=== PATIENT | female | born 1990 | race American Indian/Alaskan Native ===

== ENCOUNTER 2022-05-12 11:57 | Inpatient (IN) | payer BC ==
[2022-05-12] MEDS ORDERED: levETIRAcetam 1000 MG/NS 0.75% 1,000 MG/100 ML BAG IV ONE ×2 (13:38→23:15)
[2022-05-12] MEDS ORDERED: SODIUM CHLORIDE 0.9% 1000 ML 1,000 ML IV ONE ×2 (13:38→16:14)
--- NOTE | 2022-05-12 13:44 | Emergency Department Report ---
<BRITTANEY FLEMING - Last Filed: 05/12/22 20:55> ED Seizure HPI - General Chief Complaint: Altered Mental Status Stated Complaint: POSS STROKE Time Seen by Provider: 05/12/22 13:37 Source: family Mode of arrival: Wheelchair Limitations: No Limitations, Altered Mental Status - History of Present Illness Initial Comments: 31-year-old female with history of seizure brought in with seizure episode that happened between 3 and 4 AM overnight associated with supposed seizure generalized body weakness progressively getting worse. According to patient's friends that was in the examination room they were traveling from [place] since last and have not gotten enough rest or sleep. Patient started complaining of being tired last night and took some nap only to woke up around 4 AM with known bloody emesis and then seizure right after this. No fever or chills reported. Patient is completely awake during examination but c/o weakness and tiredness. No other modifying or associated factors reported. MD Complaint: seizure, possible seizure - Related Data Allergies Allergy/AdvReac Type Severity Reaction Status Date / Time Unable to Assess Allergy Verified 05/12/22 13:17 ED Review of Systems Comment: All other systems reviewed and negative Constitutional: weakness Neurological: weakness ED Physical Exam - General Limitations: No Limitations, Altered Mental Status General appearance: postictal - Head Head exam: Present: atraumatic, normal inspection - Eye Eye exam: Present: normal appearance Pupils: Present: normal accommodation - ENT ENT exam: Present: normal exam, normal orophraynx, mucous membranes dry - Neck Neck exam: Present: normal inspection, full ROM. Absent: tenderness - Respiratory Respiratory exam: Present: normal lung sounds bilaterally. Absent: respiratory distress, accessory muscle use - Cardiovascular Cardiovascular Exam: Present: regular rate, normal rhythm, normal heart sounds - GI/Abdominal GI/Abdominal exam: Present: soft, normal bowel sounds. Absent: distended, tenderness - Extremities Exam Extremities exam: Present: normal inspection, full ROM, normal capillary refill. Absent: tenderness, pedal edema - Back Exam Back exam: Present: normal inspection. Absent: tenderness, CVA tenderness (R), CVA tenderness (L) - Neurological Exam Neurological exam: Present: alert, oriented X3 - Psychiatric Psychiatric exam: Present: normal affect, normal mood - Skin Skin exam: Present: warm, normal color ED Course - Reevaluation(s) Reevaluation #1: 05/12/22 20:55 Pt signed out to Dr Hannon at shift change while waiting for patient to wake up from postictal and repeated CBC, CMP and CT head with lactic acid after hydration-- ED Medical Decision Making - Lab Data Result diagrams: 05/12/22 14:25 05/12/22 14:25 - EKG Data -: EKG Interpreted by Me EKG shows normal: sinus rhythm - EKG Data 05/12/22 20:50 ECG noted with sinus tachycardia at a rate of 107 bpm with left atrial enlargement and LVH and this abnormal ECG. - Medical Decision Making Here with possible seizure and currently postictal -- but considering this patients age other differential such as stroke, myocardial infarction, hepatic encephalopathy, systemic infection with sepsis cannot be ruled out. In order to rule out those above we will go ahead and order CT scan of the brain, CBC, CMP, urinalysis, for any infectious process or electrolyte abnormality and thyroid panel for any hypo or hyper thyroidism. In the meantime we will go ahead and give Keppra 1 g IV piggyback x1 for brain membrane stabilization while waiting for the above. Will also check as a stressor. Lab reviewed and noted with blood sugar 580 mg/dl but with unremarkable anion cap consistent with likely hyperglycemia with dehydration-- given insulin 10 units SQ and IV x 1-- and hydration Also noted with elevated BUN/Cr 26/3.1 but normal K+ -- consistent with likely mild renal insufficiency/ dehydration-- will continue hydration Blood pressure shows hypertensive crisis at 202/120 given Labetolol 10 mg IV x 1-- and will continue to monitor. also noted with leukocytosis --likely reactive but will continue to monitor for any source of infection-- Still having elevated blood pressure so will order hydralyzine 10 mg IV x 1 and also will get CT head to rule out any intracranial abnormality. Pt friend Ms Kaya lopez who was in the room told me that patient sometimes have an extended postictal unresponsiveness for days. Will go ahead and repeat CBC, CMP and lactic acid at 22:00 PM ED Disposition Clinical Impression: Seizure, Postictal state, Hyperglycemia, Hypertensive crisis, Dehydration Disposition: 30 STILL A PATIENT Does the pt Need Aspirin: No Condition: Stable Instructions: Hypertension (ED) Referrals: PRIMARY CARE, [Primary Care Provider] - 3-5 Days <PB HANNON - Last Filed: 05/13/22 01:58> ED Review of Systems ROS: Stated complaint: POSS STROKE Other details as noted in HPI ED Course Vital Signs 05/12/22 05/12/22 05/12/22 12:02 12:08 12:16 Temperature Pulse Rate 113 H 106 H 110 H Respiratory 18 20 19 Rate Blood Pressure 221/137 Blood Pressure 209/123 [Left] O2 Sat by Pulse 98 94 90 Oximetry 05/12/22 05/12/22 05/12/22 12:31 12:45 13:01 Temperature Pulse Rate 102 H 104 H 110 H Respiratory 21 17 19 Rate Blood Pressure 265/148 265/148 Blood Pressure [Left] O2 Sat by Pulse 95 94 92 Oximetry 05/12/22 05/12/22 05/12/22 13:15 13:42 13:45 Temperature Pulse Rate 101 H 111 H Respiratory 18 14 Rate Blood Pressure 224/139 228/123 Blood Pressure [Left] O2 Sat by Pulse 95 98 97 Oximetry 05/12/22 05/12/22 05/12/22 14:45 15:01 15:15 Temperature Pulse Rate 92 H 101 H 93 H Respiratory 19 16 17 Rate Blood Pressure 208/110 208/110 202/120 Blood Pressure [Left] O2 Sat by Pulse 96 97 96 Oximetry 05/12/22 05/12/22 05/12/22 15:31 15:45 16:01 Temperature Pulse Rate 98 H 89 Respiratory 18 16 Rate Blood Pressure 202/120 187/102 187/102 Blood Pressure [Left] O2 Sat by Pulse 96 96 96 Oximetry 05/12/22 05/12/22 05/12/22 16:15 16:31 16:45 Temperature Pulse Rate 99 H Respiratory 17 Rate Blood Pressure 201/115 201/115 215/130 Blood Pressure [Left] O2 Sat by Pulse 97 97 97 Oximetry 05/12/22 05/12/22 05/12/22 17:01 17:15 17:31 Temperature Pulse Rate 105 H 107 H 102 H Respiratory 17 18 29 H Rate Blood Pressure 215/130 218/166 201/115 Blood Pressure [Left] O2 Sat by Pulse 98 96 97 Oximetry 05/12/22 05/12/22 05/12/22 17:45 18:01 18:15 Temperature Pulse Rate 109 H 91 H 124 H Respiratory 18 21 Rate Blood Pressure 210/135 210/135 210/135 Blood Pressure [Left] O2 Sat by Pulse 96 95 95 Oximetry 05/12/22 05/12/22 05/12/22 18:31 22:43 23:08 Temperature 103.1 F H Pulse Rate 92 H 112 H Respiratory 19 Rate Blood Pressure 210/135 225/122 Blood Pressure [Left] O2 Sat by Pulse 97 Oximetry - Reevaluation(s) Reevaluation #1: 05/12/22 22:19 THIS IS A 31 YEAR OLD FEMALE WITH MEDICAL HISTORY OF SEIZURE, HTN, DM; SIGNED OUT TO ME BY MY COLLEAGUE WITH SEIZURE AND CURRENTLY POSTICTAL NOTED TO HAVE LEUKOCYTOSIS W/ ELEVATED LACTIC ACID AND HYPERTENSIVE CRISIS. SO FAR, MY COLLEAGUE STATES HE HAS GIVEN CEFEPIME 2G IV X1, LABETOLOL 10MG IV X1, HYDRALAZINE 10MG X1, KEPPRA 1G IVPB X1. PENDING REPEAT OF CBC, CMP, LACTIC ACID AT 22:[address] HEAD TO BE DONE. I FIRST SAW THE PATIENT WHILE SUPERINTENDENT WAREHOUSE WAS WHEELING PATIENT TO CT AND SUPERINTENDENT WAREHOUSE INFORMED ME WE NEED TO SEDATE "THIS PATIENT" SHE IS MOVING AROUND AND CAN'T GET CT SCAN; NOT KNOWING WHO THE PATIENT WAS AT THE TIME, SO I VERBALLY GAVE 2MG IV ATIVAN AND 50MG IV BENADRYL SO THEY COULD GET THE CT SCAN. LATER PATIENT WAS WHEELED BACK BECAUSE PER SUPERINTENDENT WAREHOUSE, PATIENT WAS HAVING SEIZURE WHILE THERE. NURSE SAID SHE GAVE THE ATIVAN AND IT HELP AND THAT'S WHEN I REALIZED THAT'S THE PATIENT I SAW IN THE HALLWAY THAT PATIENT WAS SIGNED OUT TO ME. AT BESIDE EVALUATION, PATIENT IS SEDATED AND FRIEND ARE AT BEDSIDE UNHAPPY WITH THE CARE THEY FELT THINGS ARE NOT BE DONE. DURING MY EVALUATION, PATIENT'S PUPIL PERRLA AND PATIENT BREATHING REGULARLY. PATIENT DOES VOLUNTARILY MOVE ALL EXTREMITIES (NOT HAVING TONIC CLONIC SEIZURE ACTIVITIES); THERE ARE NO RASH ANYWHERE. +S1/2, -M/R/G, CTAB, - W/R/C, ABDOMINAL +BS, SOFT. I HAVE PUT AD DITIONAL ORDERS; KEPPRA 1G (2 G TOTOAL), ALCOHOL LEVEL, ABG, KETONE SERUM, GLUCOSE FINGER Q1H, TROP, BLOOD CULTURE, CXR. AT 10:25PM, NURSE INFORMED ME OF ELEVATED TEMP AND I PUT IN TYLENOL. NURSE INFORMED TO REPEAT BLOOD PRESSURE AND HEART RATE. 05/12/22 22:29 05/12/22 22:45 I HAVE INFORMED NURSE THAT TO GIVE TYLENOL IV, KEPPRA IV, ADDITIONAL LABETOLOL REPEAT BP AND HR ARE ELEVATED IN 220S/120S; HR IN 110S. SUPERINTENDENT WAREHOUSE AND RIPPER OPERATOR AND NURSE KNOWS WE WILL USE PROPOFOL TO SEDATE PATIENT FOR CT SCAN. HEALTH TECH AT BEDSIDE DRAWAING BLOOD. 05/13/22 01:52 SPOKE TO HOSPITALIST REGARDING THIS PATIENT. OVERALL, NA WORSEN FROM 138 TO 145. GFR 20 WITH NO KNOWN BASELINE OR IF ANY CKD. GLUCOSE DOWN FROM 580 TO 361 WITH NO KETONES AND PH NORMAL; JUST HYPERGLCYEMIA WHICH IS RESPONDING TO INSULIN. LACTIC ACID WITH NO SIGNIFICANT CHANGE, WBC HIGHER; THERE ARE NO OBVIOUS SOURCE OF INFECTION (UA/CXR NORMAL); I DO SUSPECT THE ELEVATED WBC AND LACTIC ACID IS DUE TO SEIZURE THAN INFECTIOUS BUT SINCE PATIENT DID HAVE FEVER (WHICH CAN BE ALSO FROM SEIZURE ASE WELL), I DID ADD ADDITIONAL VANCO ON TOP OF CEFEPINE. PATIENT'S HAGMA IS LIKELY DUE TO LACTIC ACID KETONE ARE NEGATIVE AND PH IS NORMAL. BP CONTINUE TO BE HIGH AND NOT SURE IF THERE ARE END ORGAN DAMAGE (NOT SURE IF LOW GFR IS ACUTE OR CHRONIC); THEREFORE, I WILL TREAT IT HYPERTENSIVE EMERGENCY WITH CARDENE DRIP. LAST TIME I EVALUATED, PATIENT STILL CONFUSED AND DROWSY AND WITHDRAWAL FROM PAIN EASILY. SPOKE TO HOSPITALIST WHO KINDLY ACCEPTED THE PATIENT. ED Medical Decision Making - Lab Data Result diagrams: 05/12/22 22:47 05/12/22 22:47 Critical Care Time: Yes Critical care time in (mins) excluding proc time.: 37 Critical care attestation.: If time is entered above; I have spent that time in minutes in the direct care of this critically ill patient, excluding procedure time. ED Disposition Is pt being admited?: Yes Time of Disposition: 01:58
[2022-05-12 14:50] LABS: Hemoglobin 13.1 gm/dl (10.1-14.3); Mean Corpuscular HGB Conc 31 % (30-34); Mean Corpuscular Volume 78 fl (79-97); Platelet Count 243 K/mm3 (140-440); Red Blood Count 5.37 M/mm3 (3.65-5.03); Red Cell Distribution Width 16.2 % (13.2-15.2)
[2022-05-12 14:58] LABS: INR 1.22 (0.87-1.13)
[2022-05-12 14:59] LABS: Partial Thromboplastin Time 29.6 Sec. (24.2-36.6)
[2022-05-12 15:09] LABS: Albumin 3.3 g/dL (3.9-5); Calcium 9.1 mg/dL (8.4-10.2)
[2022-05-12 15:17] LABS: Free T4 (Free Thyroxine) 1.02 ng/dL (0.76-1.46)
[2022-05-12 15:35] LABS: Basophils % (Manual) 0 % (0.0-1.8); Eosinophils % (Manual) 0 % (0.0-4.3); Total Cells Counted 100
[2022-05-12 15:36] LABS: Anisocytosis 1+; Hypochromasia Few; Platelet Estimate Consistent w Auto
[2022-05-12] MEDS ORDERED: INSULIN REGULAR, HUMAN 100 UNITS/1 ML SUB-Q ONE (16:14)
[2022-05-12] MEDS ORDERED: INSULIN REGULAR, HUMAN 100 UNITS/1 ML IV ONE (16:14)
[2022-05-12] MEDS ORDERED: CEFEPIME/NS 2 GM/100 ML 2 GM/100 ML BAG IV ONE (16:14)
[2022-05-12 19:20] LABS: Color,Urine Yellow (Yellow)
[2022-05-12 19:23] LABS: RBC,Urine < 1.0 /HPF (0.0-6.0); WBC,Urine < 1.0 /HPF (0.0-6.0)
[2022-05-12 19:36] LABS: Amphetamine Screen,Urine Negative; Benzodiazepines Screen,Urine Negative; Cocaine Screen,Urine Negative; Methadone Screen,Urine Negative; Opiate Screen,Urine Negative
[2022-05-12 19:49] LABS: Cannabinoid Screen,Urine Positive
[2022-05-12] MEDS ORDERED: diphenhydrAMINE 50 MG/ML VIAL IV ONE (21:53)
[2022-05-12] MEDS ORDERED: LORazepam 2 MG/ML VIAL IV ONE (21:53)
[2022-05-12] MEDS ORDERED: propofoL 200 MG/20 ML VIAL IV ONE (22:36)
[2022-05-12 23:04] LABS: ABG Base Excess -4.9 mmol/L (-2.0-3.0); ABG Methemoglobin 0.8 % (0.0-1.5); ABG PCO2 36.7 mm Hg; ABG PH 7.354 pH Units (7.350-7.450); ABG PO2 55.5 mm Hg (80.0-90.0); VEN PH 7.354 (7.320-7.420)
[2022-05-12 23:07] LABS: Hemoglobin 13.1 gm/dl (10.1-14.3); Mean Corpuscular HGB Conc 31 % (30-34); Mean Corpuscular Volume 77 fl (79-97); Red Blood Count 5.42 M/mm3 (3.65-5.03); Red Cell Distribution Width 16.3 % (13.2-15.2)
[2022-05-12 23:12] LABS: Platelet Count 229 K/mm3 (140-440)
[2022-05-12] MEDS ORDERED: ACETAMINOPHEN IV 1,000 MG/100 ML BOTTLE IV ONE (23:20)
[2022-05-12 23:25] LABS: Albumin 3.3 g/dL (3.9-5); Calcium 8.7 mg/dL (8.4-10.2)
--- NOTE | 2022-05-12 23:56 | XRay Report ---
CHEST 1 VIEW INDICATION / CLINICAL INFORMATION: ams. COMPARISON: None available. FINDINGS: SUPPORT DEVICES: None. HEART / MEDIASTINUM: No significant abnormality. LUNGS / PLEURA: No significant pulmonary or pleural abnormality. No pneumothorax. ADDITIONAL FINDINGS: No significant additional findings. IMPRESSION: 1. No acute findings. Signer Name: Renu Manzano MD Signed: 05/12/2022 11:51 PM Workstation Name: [id number]
--- NOTE | 2022-05-13 00:23 | Cat Scan Report ---
CT head/brain wo con INDICATION / CLINICAL INFORMATION: stroke. TECHNIQUE: Axial CT imaging of the brain was obtained without contrast. Coronal and sagittal reformatted imaging obtained and reviewed. All CT scans at this location are performed using CT dose reduction for ALAR A by means of automated exposure control. COMPARISON: None available. FINDINGS: No intracranial hemorrhage, mass, or midline shift is noted. No extra-axial fluid collection or sugge stion of acute territorial infarction. Ventricular system and basilar cisterns appear within normal l imits. Visualized paranasal sinuses and mastoid air cells are well aerated and clear. No calvarial abnormali ty noted. IMPRESSION: 1. No acute intracranial abnormality. Please note that a negative head CT does not exclude the possib ility of acute CVA and clinical correlation is recommended. Signer Name: Renu Manzano MD Signed: 05/13/2022 12:18 AM Workstation Name: [id number]
[2022-05-13 00:31] LABS: Basophils % (Manual) 0 % (0.0-1.8); Eosinophils % (Manual) 0 % (0.0-4.3); Hypochromasia 1+; Platelet Estimate Consistent w Auto; Total Cells Counted 100
[2022-05-13] MEDS ORDERED: VANCOMYCIN/NS 1 GM/250 ML 1 GM/250 ML BAG IV ONE (01:06)
[2022-05-13] MEDS ORDERED: niCARdipine DRIP 40 MG/200 ML BAG IV ONE (01:41)
[2022-05-13] MEDS ORDERED: VANCOMYCIN 2,000 MG in SODIUM CHLORIDE 0.9% 500 ML 500 ML IV ONE ×2 (02:00→19:30)
[2022-05-13] MEDS ORDERED: VANCOMYCIN PHARMACY TO DOSE IV SCH ×2 (02:00→20:00)
[2022-05-13] MEDS ORDERED: DEXTROSE 50% IN WATER (25GM) 50 ML SYRINGE IV PRN (02:07)
[2022-05-13] MEDS ORDERED: MAGNESIUM HYDROXIDE (MOM) ORAL LIQD UDC PO PRN (02:07)
[2022-05-13] MEDS ORDERED: MORPHINE 4 MG/1 ML INJ IV PRN (02:07)
[2022-05-13] MEDS ORDERED: MORPHINE 2 MG/1 ML INJ IV PRN (02:07)
[2022-05-13] MEDS ORDERED: ONDANSETRON 4 MG/2 ML INJ IV PRN (02:07)
--- NOTE | 2022-05-13 02:28 | History and Physical Report ---
History of Present Illness Date of examination: 05/13/22 Date of admission: 05/13/2022 Chief complaint: Seizures History of present illness: 31-year-old -[place] female brought into the emergency room today for evaluation of seizure episode which happened overnight with associated progressive weakness. Patient is visiting from [place] and was said not to have had enough rest since arrival few days ago. Most of the history was gotten from the ER staff as patient is unable to give any coherent history at this time and no family member is available. Patient was said to have woken up in the night had an episode of vomiting and subsequently had seizures. She was said to have had another episode of seizure while in the emergency room and had been started on Keppra and also given some Ativan. Work-up in the emergency room today, significant findings on the labs with a BUN of 26 and creatinine of 3.1. Initial blood glucose of 580 and subsequently 361. Urinalysis was unremarkable. UDS was positive for marijuana. Leukocytosis of 13.1. CT scan of the head shows no acute findings. Chest x-ray shows no acute findings. Blood pressure has been quite elevated with systolic in the 200s and diastolic in the 130s. Patient initially given IV labetalol and then subsequently placed on Cardene drip. Patient also developed a fever while in the emergency room with temperature of about 103 F. Patient has been admitted with seizure disorder, hyperglycemia, hypertensive urgency and RODRÍGUEZ. Past History Past Medical History: seizures Past Surgical History: Other (Unknown) Social history: other (Unknown) Family history: other (Unknown) Medications and Allergies Allergies Allergy/AdvReac Type Severity Reaction Status Date / Time Unable to Assess Allergy Verified 05/12/22 13:17 Active Meds: Active Medications Acetaminophen (Acetaminophen 325 Mg Tab) 650 mg PO Q6H PRN PRN Reason: Pain MILD(1-3)/Fever >100.5/PATINO Dextrose (Dextrose 50% In Water (25gm) 50 Ml Syringe) 50 ml IV Q30MIN PRN; Protocol PRN Reason: Hypoglycemia Dextrose (Dextrose 50% In Water (25gm) 50 Ml Syringe) 50 ml IV Q30MIN PRN; Protocol PRN Reason: Hypoglycemia Heparin Sodium (Porcine) (Heparin 5,000 Unit/1 Ml Vial) 5,000 unit SUB-Q Q8HR BRAD Vancomycin HCl 2,000 mg/ (Sodium Chloride) 540 mls @ 250 mls/hr IV ONCE ONE Stop: 05/13/22 04:09 Nicardipine/Sodium Chloride (Cardene Drip 40 Mg/200 Ml) 40 mg in 200 mls @ 25 mls/hr IV ONCE ONE; Protocol Stop: 05/13/22 09:40 Last Admin: 05/13/22 02:07 Dose: 5 mg/hr, 25 mls/hr Sodium Chloride (Nacl 0.9% 1000 Ml) 1,000 mls @ 125 mls/hr IV DIRECT BRAD Insulin Human Lispro (Insulin Lispro 100 Unit/Ml) 0 unit SUB-Q ACHS BRAD; Pr otocol Magnesium Hydroxide (Magnesium Hydroxide (Mom) Oral Liqd Udc) 30 ml PO Q4H PRN PRN Reason: Constipation Morphine Sulfate (Morphine 2 Mg/1 Ml Inj) 2 mg IV Q4H PRN PRN Reason: Pain, Moderate (4-6) Morphine Sulfate (Morphine 4 Mg/1 Ml Inj) 4 mg IV Q4H PRN PRN Reason: Pain , Severe (7-10) Ondansetron HCl (Ondansetron 4 Mg/2 Ml Inj) 4 mg IV Q8H PRN PRN Reason: Nausea And Vomiting Sodium Chloride (Sodium Chloride 0.9% 10 Ml Flush Syringe) 10 ml IV BID BRAD Sodium Chloride (Sodium Chloride 0.9% 10 Ml Flush Syringe) 10 ml IV PRN PRN PRN Reason: LINE FLUSH Review of Systems ROS unobtainable: due to mental status Exam - Constitutional Vitals: Temp Pulse Resp BP Pulse Ox 103.1 F H 117 H 23 220/131 98 05/12/22 22:43 05/13/22 02:00 05/13/22 02:00 05/13/22 02:00 05/13/22 02:00 General appearance: Present: no acute distress, well-nourished, obese - EENT Eyes: Present: PERRL, EOM intact. Absent: scleral icterus ENT: hearing intact, clear oral mucosa, dentition normal - Neck Neck: Present: supple, normal ROM - Respiratory Respiratory effort: normal Respiratory: bilateral: CTA - Cardiovascular Rhythm: regular Heart Sounds: Present: S1 & S2. Absent: gallop, systolic murmur, diastolic murmur, rub, click - Extremities Extremities: no ischemia, pulses intact, pulses symmetrical, No edema, normal temperature, normal color, Full ROM Peripheral Pulses: within normal limits - Abdominal General gastrointestinal: Present: soft, non-tender, non-distended, normal bowel sounds. Absent: mass - Integumentary Integumentary: Present: clear, warm, dry, normal turgor. Absent: rash - Musculoskeletal Musculoskeletal: generalized weakness - Psychiatric Psychiatric: cooperative - Neurologic Neurologic: CNII-XII intact, no focal deficits, moves all extremities, other (Non verbal, Sedated) HEART Score - HEART Score Troponin: Troponin T 0.028 ng/mL (0.00-0.029) 05/12/22 22:47 Results - Labs CBC & Chem 7: 05/12/22 22:47 05/12/22 22:47 Labs: Abnormal lab results 05/12/22 05/12/22 05/12/22 Range/Units 14:25 14:25 14:25 WBC 13.1 H (4.5-11.0) K/mm3 RBC 5.37 H (3.65-5.03) M/mm3 MCV 78 L (79-97) fl MCH 25 L (28-32) pg RDW 16.2 H (13.2-15.2) % Seg Neuts % (Manual) 88.0 H (40.0-70.0) % Lymphocytes % (Manual) 7.0 L (13.4-35.0) % Monocytes % (Manual) (0.0-7.3) % Seg Neutrophils # Man 11.5 H (1.8-7.7) K/mm3 Lymphocytes # (Manual) 0.9 L (1.2-5.4) K/mm3 Monocytes # (Manual) (0.0-0.8) K/mm3 PT 16.8 H (12.2-14.9) Sec. INR 1.22 H (0.87-1.13) ABG pO2 (80.0-90.0) mm Hg ABG O2 Saturation (95.0-99.0) % ABG Base Excess (-2.0-3.0) mmol/L Oxyhemoglobin (95.0-99.0) % Chloride (98-107) mmol/L Carbon Dioxide 18 L (22-30) mmol/L BUN 26 H (7-17) mg/dL Creatinine 3.1 H (0.6-1.2) mg/dL Glucose 580 H* (65-100) mg/dL Lactic Acid (0.7-2.0) mmol/L Total Protein 6.2 L (6.3-8.2) g/dL Albumin 3.3 L (3.9-5) g/dL Salicylates (2.8-20.0) mg/dL Acetaminophen (10.0-30.0) ug/mL 05/12/22 05/12/22 05/12/22 Range/Units 14:25 14:25 14:25 WBC (4.5-11.0) K/mm3 RBC (3.65-5.03) M/mm3 MCV (79-97) fl MCH (28-32) pg RDW (13.2-15.2) % Seg Neuts % (Manual) (40.0-70.0) % Lymphocytes % (Manual) (13.4-35.0) % Monocytes % (Manual) (0.0-7.3) % Seg Neutrophils # Man (1.8-7.7) K/mm3 Lymphocytes # (Manual) (1.2-5.4) K/mm3 Monocytes # (Manual) (0.0-0.8) K/mm3 PT (12.2-14.9) Sec. INR (0.87-1.13) ABG pO2 (80.0-90.0) mm Hg ABG O2 Saturation (95.0-99.0) % ABG Base Excess (-2.0-3.0) mmol/L Oxyhemoglobin (95.0-99.0) % Chloride (98-107) mmol/L Carbon Dioxide (22-30) mmol/L BUN (7-17) mg/dL Creatinine (0.6-1.2) mg/dL Glucose (65-100) mg/dL Lactic Acid 2.80 H* (0.7-2.0) mmol/L Total Protein (6.3-8.2) g/dL Albumin (3.9-5) g/dL Salicylates < 0.3 L (2.8-20.0) mg/dL Acetaminophen 5.0 L (10.0-30.0) ug/mL 05/12/22 05/12/22 05/12/22 Range/Units 22:47 22:47 22:47 WBC 15.4 H (4.5-11.0) K/mm3 RBC 5.42 H (3.65-5.03) M/mm3 MCV 77 L (79-97) fl MCH 24 L (28-32) pg RDW 16.3 H (13.2-15.2) % Seg Neuts % (Manual) 85.0 H (40.0-70.0) % Lymphocytes % (Manual) 7.0 L (13.4-35.0) % Monocytes % (Manual) 8.0 H (0.0-7.3) % Seg Neutrophils # Man 13.1 H (1.8-7.7) K/mm3 Lymphocytes # (Manual) 1.1 L (1.2-5.4) K/mm3 Monocytes # (Manual) 1.2 H (0.0-0.8) K/mm3 PT (12.2-14.9) Sec. INR (0.87-1.13) ABG pO2 (80.0-90.0) mm Hg ABG O2 Saturation (95.0-99.0) % ABG Base Excess (-2.0-3.0) mmol/L Oxyhemoglobin (95.0-99.0) % Chloride 110.1 H (98-107) mmol/L Carbon Dioxide 19 L (22-30) mmol/L BUN 27 H (7-17) mg/dL Creatinine 3.3 H (0.6-1.2) mg/dL Glucose 361 H (65-100) mg/dL Lactic Acid 2.70 H* (0.7-2.0) mmol/L Total Protein (6.3-8.2) g/dL Albumin 3.3 L (3.9-5) g/dL Salicylates (2.8-20.0) mg/dL Acetaminophen (10.0-30.0) ug/mL 05/12/22 Range/Units 22:47 WBC (4.5-11.0) K/mm3 RBC (3.65-5.03) M/mm3 MCV (79-97) fl MCH (28-32) pg RDW (13.2-15.2) % Seg Neuts % (Manual) (40.0-70.0) % Lymphocytes % (Manual) (13.4-35.0) % Monocytes % (Manual) (0.0-7.3) % Seg Neutrophils # Man (1.8-7.7) K/mm3 Lymphocytes # (Manual) (1.2-5.4) K/mm3 Monocytes # (Manual) (0.0-0.8) K/mm3 PT (12.2-14.9) Sec. INR (0.87-1.13) ABG pO2 55.5 L (80.0-90.0) mm Hg ABG O2 Saturation 89.0 L (95.0-99.0) % ABG Base Excess -4.9 L (-2.0-3.0) mmol/L Oxyhemoglobin 85.4 L (95.0-99.0) % Chloride (98-107) mmol/L Carbon Dioxide (22-30) mmol/L BUN (7-17) mg/dL Creatinine (0.6-1.2) mg/dL Glucose (65-100) mg/dL Lactic Acid (0.7-2.0) mmol/L Total Protein (6.3-8.2) g/dL Albumin (3.9-5) g/dL Salicylates (2.8-20.0) mg/dL Acetaminophen (10.0-30.0) ug/mL Assessment and Plan Assessment: 1.Seizure disorder 2.Hypertensive urgency 3.Hyperglycemia 4.Leucocytosis 5.Fever- etiology unknown. Will check for COVID Plan: 1. Patient admitted and placed on seizure precautions. 2. Patient started on IV Keppra. 3. We will request neurology evaluation and further recommendations. 4. We will continue to monitor vital signs closely. 5. We will also continue to monitor Accu-Cheks closely. 6. Patient placed on empiric IV antibiotics. DVT Prophylaxis:SQ Heparin Code Status: Full Code
[2022-05-13] MEDS: SODIUM CHLORIDE 0.9% 1000 ML 1,000 ML IV SCH ×2 (06:13→18:37)
[2022-05-13] MEDS: HEPARIN 5,000 UNIT/1 ML VIAL SUB-Q SCH ×3 (06:19→21:03)
[2022-05-13] MEDS: niCARdipine 50 MG in SODIUM CHLORIDE 0.9% 250ML 230 ML IV SCH ×3 (06:57→13:31)
[2022-05-13] MEDS ORDERED: INSULIN REGULAR, HUMAN 100 UNITS/1 ML IV NR (07:15)
[2022-05-13] MEDS ORDERED: INSULIN LISPRO 100 UNIT/ML SUB-Q SCH (07:30)
[2022-05-13] MEDS ORDERED: INSULIN REGULAR, HUMAN 100 UNITS/1 ML IV SCH (08:00)
[2022-05-13] MEDS ORDERED: SODIUM CHLORIDE 0.9% 1000 ML 1,000 ML IV ONE (08:00)
[2022-05-13] MEDS ORDERED: ACETAMINOPHEN 650 MG RECT SUPP PR PRN (08:51)
--- NOTE | 2022-05-13 08:54 | Consultation ---
History of Present Illness - Reason for Consult Consult date: 05/13/22 acute renal failure - History of Present Illness 31-year-old woman who presents with seizure episode. At time of consult, she is still drowsy and unable to obtain further history. Per chart review, no known kidney problems. Per chart review, on arrival to ED, patient was very altered and had seizure in the emergency room. Noted to have a creatinine of 3.1, with elevated glucoses. Also noted to have high BPs. Patient was admitted with seizure disorder, hyperglycemia, hypertensive urgency and RODRÍGUEZ. Past History Past Medical History: seizures Past Surgical History: Other (Unknown) Social history: other (Unknown) Family history: other (Unknown) Medications and Allergies Allergies Allergy/AdvReac Type Severity Reaction Status Date / Time No Known Allergies Allergy Verified 05/13/22 19:13 Active Meds: Active Medications Acetaminophen (Acetaminophen 325 Mg Tab) 650 mg PO Q6H PRN PRN Reason: Pain MILD(1-3)/Fever >100.5/PATINO Dextrose (Dextrose 50% In Water (25gm) 50 Ml Syringe) 0 ml IV Q30MIN PRN; Protocol PRN Reason: Hypoglycemia Heparin Sodium (Porcine) (Heparin 5,000 Unit/1 Ml Vial) 5,000 unit SUB-Q Q8HR [facility] Last Admin: 05/13/22 06:19 Dose: 5,000 unit Nicardipine/Sodium Chloride (Cardene Drip 40 Mg/200 Ml) 40 mg in 200 mls @ 25 mls/hr IV ONCE ONE; Protocol Stop: 05/13/22 09:40 Last Titration: 05/13/22 04:26 Dose: 15 mg/hr, 75 mls/hr Sodium Chloride (Nacl 0.9% 1000 Ml) 1,000 mls @ 125 mls/hr IV DIRECT BRAD Last Admin: 05/13/22 06:13 Dose: 125 mls/hr Nicardipine HCl 50 mg/ Sodium (Chloride) 250 mls @ 25 mls/hr IV TITR BRAD; Protocol Last Admin: 05/13/22 06:57 Dose: 15 mg/hr, 75 mls/hr Sodium Chloride (Nacl 0.9% 1000 Ml) 1,000 mls @ 999 mls/hr IV BOLUS ONE Stop: 05/13/22 09:00 Last Admin: 05/13/22 07:54 Dose: 999 mls/hr Insulin Human Lispro (Insulin Lispro 100 Unit/Ml) 0 unit SUB-Q ACHS BRAD; Protocol Last Admin: 05/13/22 07:54 Dose: 8 unit Insulin Human Regular (Insulin Regular, Human 100 Units/1 Ml) 10 units IV ONCE BRAD Stop: 05/13/22 12:00 Last Admin: 05/13/22 07:53 Dose: 10 units Magnesium Hydroxide (Magnesium Hydroxide (Mom) Oral Liqd Udc) 30 ml PO Q4H PRN PRN Reason: Constipation Morphine Sulfate (Morphine 2 Mg/1 Ml Inj) 2 mg IV Q4H PRN PRN Reason: Pain, Moderate (4-6) Morphine Sulfate (Morphine 4 Mg/1 Ml Inj) 4 mg IV Q4H PRN PRN Reason: Pain , Severe (7-10) Ondansetron HCl (Ondansetron 4 Mg/2 Ml Inj) 4 mg IV Q8H PRN PRN Reason: Nausea And Vomiting Sodium Chloride (Sodium Chloride 0.9% 10 Ml Flush Syringe) 10 ml IV BID BRAD Sodium Chloride (Sodium Chloride 0.9% 10 Ml Flush Syringe) 10 ml IV PRN PRN PRN Reason: LINE FLUSH Review of Systems ROS unobtainable: due to mental status Exam - Vital Signs Vital signs: Vital Signs Pulse Resp BP Pulse Ox 113 H 18 209/123 98 05/12/22 12:02 05/12/22 12:02 05/12/22 12:02 05/12/22 12:02 - Physical Exam Narrative exam: General appearance: Present: no acute distress, well-nourished, obese Eyes: Present: PERRL, EOM intact ENT: dentition normal Neck: Present: supple, normal ROM Respiratory: bilateral: CTA CV: Present: S1 & S2 Extremities: no ischemia, pulses intact, pulses symmetrical, No edema General gastrointestinal: Present: soft, non-tender, non-distended, normal bowel sounds Integumentary: Present: clear, warm, dry, normal turgor. Absent: rash Musculoskeletal: generalized weakness Psychiatric: drowsy Neurologic: Non verbal, Sedated Results - Lab Results 05/12/22 22:47 05/12/22 22:47 Most recent lab results ABG pH 7.354 pH Units (7.350-7.450) 05/12/22 22:47 ABG pCO2 36.7 mm Hg 05/12/22 22:47 ABG pO2 55.5 mm Hg (80.0-90.0) L 05/12/22 22:47 ABG HCO3 20.0 mmol/L (20.0-26.0) 05/12/22 22:47 ABG O2 Saturation 89.0 % (95.0-99.0) L 05/12/22 22:47 Calcium 8.7 mg/dL (8.4-10.2) 05/12/22 22:47 Assessment and Plan # Acute Kidney Injury: suspect pre-renal injury in setting of hyperglycemia, seizure episode. May have CKD at baseline given DM, HTN, obesity - urinalysis noted, check UP/C, check serologies - check CK - check PTH, phos - check renal ultrasound - glucose control per primary, IVF as tolerated - avoid nephrotoxins - renally dose medications - I/Os - no immediate need for kidney biopsy or renal replacement therapy # Metabolic Acidosis: note elevated lactate, no obvious ingestion # Seizure: note neurology input # HTN: BP very high initially, s/p cardene gtt, agree with current regimen # Fever: ID input noted, note concern for infectious cause of encephalopathy # DM/Hyperglycemia: per primary
[2022-05-13] MEDS ORDERED: METOPROLOL TARTRATE 5 MG/5 ML INJ IV ONE (09:15)
[2022-05-13] MEDS ORDERED: levETIRAcetam 500 MG in DEXTROSE 5% IN WATER 100 ML IV SCH (11:00)
[2022-05-13] MEDS: INSULIN LISPRO 100 UNIT/ML SUB-Q SCH ×2 (12:06→18:31)
[2022-05-13] MEDS: CEFEPIME/NS 2 GM/100 ML 2 GM/100 ML BAG IV SCH (12:17)
[2022-05-13] MEDS: LORazepam 2 MG/ML VIAL IV PRN (13:41)
--- NOTE | 2022-05-13 13:58 | Consultation ---
History of Present Illness Consult date: 05/13/22 Reason for Consult: Seizures Chief complaint: Seizures History of present illness: 31 yo female with no known significant medical history who presents with (per EMR) progressive weakness and then with nausea / emesis w/ witnessed seizure- like activity at home and in the ED. She was initiated on Keppra, along with a stat dose of ativan. Workup so far is noteful for possible acute kidney injury and elevated / malignant blood pressures with signficant hyperglycemia and noted fever. Past History Past Medical History: seizures Past Surgical History: Other (patient is not able to provide due to loc;) Social history: other (patient is not able to provide due to loc;) Family history: other (patient is not able to provide due to loc;) Medications and Allergies Allergies Allergy/AdvReac Type Severity Reaction Status Date / Time Unable to Assess Allergy Verified 05/12/22 13:17 Active Meds: Active Medications Acetaminophen (Acetaminophen 325 Mg Tab) 650 mg PO Q6H PRN PRN Reason: Pain MILD(1-3)/Fever >100.5/PATINO Acetaminophen (Acetaminophen 650 Mg Rect Supp) 650 mg PA Q6H PRN PRN Reason: Pain, Mild (1-3), T> 100.5 Last Admin: 05/13/22 09:18 Dose: 650 mg Amlodipine Besylate (Amlodipine 10 Mg Tab) 10 mg FEEDTUBE QDAY BRAD Dextrose (Dextrose 50% In Water (25gm) 50 Ml Syringe) 0 ml IV Q30MIN PRN; Protocol PRN Reason: Hypoglycemia Heparin Sodium (Porcine) (Heparin 5,000 Unit/1 Ml Vial) 5,000 unit SUB-Q Q8HR S Last Admin: 05/13/22 13:41 Dose: 5,000 unit Hydralazine HCl (Hydralazine 100 Mg Tab) 100 mg FEEDTUBE TID BRAD Sodium Chloride (Nacl 0.9% 1000 Ml) 1,000 mls @ 125 mls/hr IV DIRECT BRAD Last Admin: 05/13/22 06:13 Dose: 125 mls/hr Nicardipine HCl 50 mg/ Sodium (Chloride) 250 mls @ 25 mls/hr IV TITR BRAD; Protocol Last Admin: 05/13/22 13:31 Dose: 15 mg/hr, 75 mls/hr Levetiracetam 1,000 mg/ (Dextrose) 110 mls @ 400 mls/hr IV Q12HR [facility] Cefepime HCl (Cefepime/Ns 2 Gm/100 Ml) 2 gm in 100 mls @ 200 mls/hr IV Q24H [facility]; Protocol Last Admin: 05/13/22 12:17 Dose: 200 mls/hr Insulin Glargine (Insulin Glargine 100 Units/Ml) 10 units SUB-Q QHS BRAD Insulin Human Lispro (Insulin Lispro 100 Unit/Ml) 0 unit SUB-Q Q6HR [facility]; Protocol Last Admin: 05/13/22 12:06 Dose: 10 unit Lorazepam (Lorazepam 2 Mg/Ml Vial) 2 mg IV Q4H PRN PRN Reason: Seizures Last Admin: 05/13/22 13:41 Dose: 2 mg Magnesium Hydroxide (Magnesium Hydroxide (Mom) Oral Liqd Udc) 30 ml PO Q4H PRN PRN Reason: Constipation Morphine Sulfate (Morphine 2 Mg/1 Ml Inj) 2 mg IV Q4H PRN PRN Reason: Pain, Moderate (4-6) Morphine Sulfate (Morphine 4 Mg/1 Ml Inj) 4 mg IV Q4H PRN PRN Reason: Pain , Severe (7-10) Ondansetron HCl (Ondansetron 4 Mg/2 Ml Inj) 4 mg IV Q8H PRN PRN Reason: Nausea And Vomiting Sodium Chloride (Sodium Chloride 0.9% 10 Ml Flush Syringe) 10 ml IV BID [facility] Last Admin: 05/13/22 09:19 Dose: 10 ml Sodium Chloride (Sodium Chloride 0.9% 10 Ml Flush Syringe) 10 ml IV PRN PRN PRN Reason: LINE FLUSH Review of Systems ROS unobtainable: due to mental status Physical Examination - Vital Signs Vital Signs: Vital Signs Pulse Resp BP Pulse Ox 113 H 18 209/123 98 05/12/22 12:02 05/12/22 12:02 05/12/22 12:02 05/12/22 12:02 - Physical Exam Narrative exam: Gen: nad; Head: normocephalic; Eyes: no gaze deviation; ENT: no acute dystonia; CVS: warm and well-perfused; Pulm: normal work of breathing; GI: appears non-distended; Ext: no cyanosis appreciated at distal extremities; Skin: no acute rash appreciated at distal extremities; Heme: no pathologic ecchymosis appreciated at distal extremities; Neuro: stuporous/obtunded (s/p ativan today), mute, severely aphasic; CN 2 - sluggish reactive pupils, CN 3, 4, 6 - no gaze deviation, CN 5/7 - corneal reflex intact, CN 9/10 - no gag elicited, CN 11/12 - pt cannot cooperate secondary to LOC; Motor/Sensory - at least 1/5 at BUEs and at least 2/5 at BLEs to tactile stimuli; Cerebellar/Gait - pt cannot cooperate secondary to LOC; Results - Laboratory Findings CBC and BMP: 05/12/22 22:47 05/12/22 22:47 Abnormal Lab Findings: Abnormal Labs 05/12/22 05/12/22 05/12/22 14:25 14:25 14:25 WBC 13.1 H RBC 5.37 H MCV 78 L MCH 25 L RDW 16.2 H Seg Neuts % (Manual) 88.0 H Lymphocytes % (Manual) 7.0 L Monocytes % (Manual) Seg Neutrophils # Man 11.5 H Lymphocytes # (Manual) 0.9 L Monocytes # (Manual) PT 16.8 H INR 1.22 H ABG pO2 ABG O2 Saturation ABG Base Excess Oxyhemoglobin Chloride Carbon Dioxide 18 L BUN 26 H Creatinine 3.1 H Glucose 580 H* POC Glucose Lactic Acid Total Protein 6.2 L Albumin 3.3 L Salicylates Acetaminophen 05/12/22 05/12/22 05/12/22 14:25 14:25 14:25 WBC RBC MCV MCH RDW Seg Neuts % (Manual) Lymphocytes % (Manual) Monocytes % (Manual) Seg Neutrophils # Man Lymphocytes # (Manual) Monocytes # (Manual) PT INR ABG pO2 ABG O2 Saturation ABG Base Excess Oxyhemoglobin Chloride Carbon Dioxide BUN Creatinine Glucose POC Glucose Lactic Acid 2.80 H* Total Protein Albumin Salicylates < 0.3 L Acetaminophen 5.0 L 05/12/22 05/12/22 05/12/22 22:47 22:47 22:47 WBC 15.4 H RBC 5.42 H MCV 77 L MCH 24 L RDW 16.3 H Seg Neuts % (Manual) 85.0 H Lymphocytes % (Manual) 7.0 L Monocytes % (Manual) 8.0 H Seg Neutrophils # Man 13.1 H Lymphocytes # (Manual) 1.1 L Monocytes # (Manual) 1.2 H PT INR ABG pO2 ABG O2 Saturation ABG Base Excess Oxyhemoglobin Chloride 110.1 H Carbon Dioxide 19 L BUN 27 H Creatinine 3.3 H Glucose 361 H POC Glucose Lactic Acid 2.70 H* Total Protein Albumin 3.3 L Salicylates Acetaminophen 05/12/22 05/13/22 05/13/22 22:47 01:53 06:30 WBC RBC MCV MCH RDW Seg Neuts % (Manual) Lymphocytes % (Manual) Monocytes % (Manual) Seg Neutrophils # Man Lymphocytes # (Manual) Monocytes # (Manual) PT INR ABG pO2 55.5 L ABG O2 Saturation 89.0 L ABG Base Excess -4.9 L Oxyhemoglobin 85.4 L Chloride Carbon Dioxide BUN Creatinine Glucose POC Glucose 511 H Lactic Acid 2.30 H* Total Protein Albumin Salicylates Acetaminophen 05/13/22 05/13/22 10:27 11:33 WBC RBC MCV MCH RDW Seg Neuts % (Manual) Lymphocytes % (Manual) Monocytes % (Manual) Seg Neutrophils # Man Lymphocytes # (Manual) Monocytes # (Manual) PT INR ABG pO2 ABG O2 Saturation ABG Base Excess Oxyhemoglobin Chloride Carbon Dioxide BUN Creatinine Glucose POC Glucose 492 H 500 H Lactic Acid Total Protein Albumin Salicylates Acetaminophen Assessment and Plan 31 yo female with no known significant medical history who presents with (per EMR) progressive weakness and then with nausea / emesis w/ witnessed seizure- like activity at home and in the ED. 1. Seizure d/o - keppra 1500 mg iv/po bid; ativan 1 mg iv q6 prn gneralized seizure lasting >3 minutes; seizure precautions / restrictions (including no driving until cleared by a neurologist), mri brain w/ wo contrast; mrv head wo contrast; aggressive treatment of underlying metabolic, electrolyte (maintain eunatremia / eugmagnesemia), infectious, or inflammatory etiology; in the setting of fever, recommend csf evaluation to r/o underlying meningoencephalitis; recommend acyclovir for hsv treatment until csf hsv pcr is avaialble (ID evaluation); eeg results pending. 2. Hypertensive Emergency / PRES - concern is raised due to clinical presentation; mri brain w/ wo contrast recommended. 3. HNKS - maintain euglcyemia. 4. Meningoencephalitis - recommend empiric acyclovir / id consult / csf evaluation, sheyla in the setting of a fever (documented on admission). 5. Venous Sinus Thrombosis - mrv head w/o contrast OR ctv head w/ wo contrast. Rudolph Adkins MD Neurology
--- NOTE | 2022-05-13 14:18 | XRay Report ---
ABDOMEN 1 VIEW 05/13/2022 INDICATION / CLINICAL INFORMATION: ngt placement.. COMPARISON: None available. FINDINGS: TUBES / LINES: Weighted enteric tube terminates within the stomach. BOWEL GAS PATTERN: No significant abnormality. FREE AIR / EXTRALUMINAL GAS: None seen. ADDITIONAL FINDINGS: No significant additional findings. IMPRESSION: 1. Weighted enteric tube terminates within the stomach. Signer Name: Twin Mckinley DO Signed: 05/13/2022 2:13 PM Workstation Name: [employer]
--- NOTE | 2022-05-13 14:19 | Consultation ---
History of Present Illness Consult date: 05/13/22 Requesting physician: ELIGIO JUNG Reason for consult: other (Hypertensive Urgency) History of present illness: PULMONARY/CCM CONSULT NOTE (Full dictation # [id number]) Please see dictated notes for full details Past History Past Medical History: seizures Past Surgical History: Other (Unknown) Social history: other (Unknown) Family history: other (Unknown) Medications and Allergies Allergies Allergy/AdvReac Type Severity Reaction Status Date / Time Unable to Assess Allergy Verified 05/12/22 13:17 Active Meds: Active Medications Acetaminophen (Acetaminophen 325 Mg Tab) 650 mg PO Q6H PRN PRN Reason: Pain MILD(1-3)/Fever >100.5/PATINO Acetaminophen (Acetaminophen 650 Mg Rect Supp) 650 mg LA Q6H PRN PRN Reason: Pain, Mild (1-3), T> 100.5 Last Admin: 05/13/22 09:18 Dose: 650 mg Amlodipine Besylate (Amlodipine 10 Mg Tab) 10 mg FEEDTUBE QDAY BRAD Dextrose (Dextrose 50% In Water (25gm) 50 Ml Syringe) 0 ml IV Q30MIN PRN; Protocol PRN Reason: Hypoglycemia Heparin Sodium (Porcine) (Heparin 5,000 Unit/1 Ml Vial) 5,000 unit SUB-Q Q8HR BRAD Last Admin: 05/13/22 13:41 Dose: 5,000 unit Hydralazine HCl (Hydralazine 100 Mg Tab) 100 mg FEEDTUBE TID BRAD Sodium Chloride (Nacl 0.9% 1000 Ml) 1,000 mls @ 125 mls/hr IV DIRECT BRAD Last Admin: 05/13/22 06:13 Dose: 125 mls/hr Nicardipine HCl 50 mg/ Sodium (Chloride) 250 mls @ 25 mls/hr IV TITR BRAD; Protocol Last Admin: 05/13/22 13:31 Dose: 15 mg/hr, 75 mls/hr Levetiracetam 1,000 mg/ (Dextrose) 110 mls @ 400 mls/hr IV Q12HR BRAD Cefepime HCl (Cefepime/Ns 2 Gm/100 Ml) 2 gm in 100 mls @ 200 mls/hr IV Q24H BRAD; Protocol Last Admin: 05/13/22 12:17 Dose: 200 mls/hr Insulin Glargine (Insulin Glargine 100 Units/Ml) 10 units SUB-Q QHS BRAD Insulin Human Lispro (Insulin Lispro 100 Unit/Ml) 0 unit SUB-Q Q6HR BRAD; Protocol Last Admin: 05/13/22 12:06 Dose: 10 unit Lorazepam (Lorazepam 2 Mg/Ml Vial) 2 mg IV Q4H PRN PRN Reason: Seizures Last Admin: 05/13/22 13:41 Dose: 2 mg Magnesium Hydroxide (Magnesium Hydroxide (Mom) Oral Liqd Udc) 30 ml PO Q4H PRN PRN Reason: Constipation Morphine Sulfate (Morphine 2 Mg/1 Ml Inj) 2 mg IV Q4H PRN PRN Reason: Pain, Moderate (4-6) Morphine Sulfate (Morphine 4 Mg/1 Ml Inj) 4 mg IV Q4H PRN PRN Reason: Pain , Severe (7-10) Ondansetron HCl (Ondansetron 4 Mg/2 Ml Inj) 4 mg IV Q8H PRN PRN Reason: Nausea And Vomiting Sodium Chloride (Sodium Chloride 0.9% 10 Ml Flush Syringe) 10 ml IV BID [facility] Last Admin: 05/13/22 09:19 Dose: 10 ml Sodium Chloride (Sodium Chloride 0.9% 10 Ml Flush Syringe) 10 ml IV PRN PRN PRN Reason: LINE FLUSH Physical Examination Vital signs: Vital Signs Pulse Resp BP Pulse Ox 113 H 18 209/123 98 05/12/22 12:02 05/12/22 12:02 05/12/22 12:02 05/12/22 12:02 Results - Laboratory Findings CBC and BMP: 05/12/22 22:47 05/12/22 22:47 ABG ABG pH 7.354 pH Units (7.350-7.450) 05/12/22 22:47 ABG pCO2 36.7 mm Hg 05/12/22 22:47 ABG pO2 55.5 mm Hg (80.0-90.0) L 05/12/22 22:47 ABG O2 Saturation 89.0 % (95.0-99.0) L 05/12/22 22:47 PT/INR, D-dimer PT 16.8 Sec. (12.2-14.9) H 05/12/22 14:25 INR 1.22 (0.87-1.13) H 05/12/22 14:25 Abnormal lab findings: Abnormal Labs 05/12/22 05/12/22 05/12/22 14:25 14:25 14:25 WBC 13.1 H RBC 5.37 H MCV 78 L MCH 25 L RDW 16.2 H Seg Neuts % (Manual) 88.0 H Lymphocytes % (Manual) 7.0 L Monocytes % (Manual) Seg Neutrophils # Man 11.5 H Lymphocytes # (Manual) 0.9 L Monocytes # (Manual) PT 16.8 H INR 1.22 H ABG pO2 ABG O2 Saturation ABG Base Excess Oxyhemoglobin Chloride Carbon Dioxide 18 L BUN 26 H Creatinine 3.1 H Glucose 580 H* POC Glucose Lactic Acid Total Protein 6.2 L Albumin 3.3 L Salicylates Acetaminophen 05/12/22 05/12/22 05/12/22 14:25 14:25 14:25 WBC RBC MCV MCH RDW Seg Neuts % (Manual) Lymphocytes % (Manual) Monocytes % (Manual) Seg Neutrophils # Man Lymphocytes # (Manual) Monocytes # (Manual) PT INR ABG pO2 ABG O2 Saturation ABG Base Excess Oxyhemoglobin Chloride Carbon Dioxide BUN Creatinine Glucose POC Glucose Lactic Acid 2.80 H* Total Protein Albumin Salicylates < 0.3 L Acetaminophen 5.0 L 05/12/22 05/12/22 05/12/22 22:47 22:47 22:47 WBC 15.4 H RBC 5.42 H MCV 77 L MCH 24 L RDW 16.3 H Seg Neuts % (Manual) 85.0 H Lymphocytes % (Manual) 7.0 L Monocytes % (Manual) 8.0 H Seg Neutrophils # Man 13.1 H Lymphocytes # (Manual) 1.1 L Monocytes # (Manual) 1.2 H PT INR ABG pO2 ABG O2 Saturation ABG Base Excess Oxyhemoglobin Chloride 110.1 H Carbon Dioxide 19 L BUN 27 H Creatinine 3.3 H Glucose 361 H POC Glucose Lactic Acid 2.70 H* Total Protein Albumin 3.3 L Salicylates Acetaminophen 05/12/22 05/13/22 05/13/22 22:47 01:53 06:30 WBC RBC MCV MCH RDW Seg Neuts % (Manual) Lymphocytes % (Manual) Monocytes % (Manual) Seg Neutrophils # Man Lymphocytes # (Manual) Monocytes # (Manual) PT INR ABG pO2 55.5 L ABG O2 Saturation 89.0 L ABG Base Excess -4.9 L Oxyhemoglobin 85.4 L Chloride Carbon Dioxide BUN Creatinine Glucose POC Glucose 511 H Lactic Acid 2.30 H* Total Protein Albumin Salicylates Acetaminophen 05/13/22 05/13/22 10:27 11:33 WBC RBC MCV MCH RDW Seg Neuts % (Manual) Lymphocytes % (Manual) Monocytes % (Manual) Seg Neutrophils # Man Lymphocytes # (Manual) Monocytes # (Manual) PT INR ABG pO2 ABG O2 Saturation ABG Base Excess Oxyhemoglobin Chloride Carbon Dioxide BUN Creatinine Glucose POC Glucose 492 H 500 H Lactic Acid Total Protein Albumin Salicylates Acetaminophen
[2022-05-13] MEDS: amLODIPine 10 MG TAB FEEDTUBE SCH (14:32)
[2022-05-13] MEDS: hydrALAZINE 100 MG TAB FEEDTUBE SCH ×2 (14:34→19:40)
[2022-05-13] MEDS: ACETAMINOPHEN 325 MG TAB PO PRN ×2 (15:09→20:37)
--- NOTE | 2022-05-13 17:08 | Progress Note ---
<ELIGIO JUNGEvie - Last Filed: 05/13/22 17:05> Assessment and Plan Assessment and plan: This is a 31-year-old female with seizures, HTN, DM and medical noncompliance admitted with seizure activity, hypertensive urgency, hyperglycemia and acute kidney injury Neuro: Seizures, h/o seizure disorder, noncompliance -Loaded with Keppra -Keppra IV -Reorientation as needed -Maintain sleep-wake cycle -aspiration/seizure precautions -As needed analgesia -CT head shows no acute intracranial abnormality -MRI brain pending -EEG pending -Neurology consulted, appreciate recommendations Cardiac: Hypertensive urgency, h/o hypertension -Cardiology consulted, appreciate recommendations -Blood pressure monitoring per protocol -Cardene drip -Started on amlodipine, hydralazine Respiratory: NAD -Pulmonary hygiene -SPO2 monitor per protocol GI: Morbid obesity, moderate protein calorie malnutrition -PPI -NTR consulted for tube feedings : Acute kidney injury, metabolic acidosis -Nephrology consulted, appreciate recommendations -Monitor intake and output -Renally dose medications -Avoid nephrotoxic medications -Urine lites pending -Trend BMP ID: Febrile illness, lactic acidosis -Infectious disease consulted, appreciate recommendation -Antibiotic therapy with cefepime, linezolid -COVID-19 PCR negative -f/u blood culture -Monitor WBC and temperature curve Endo: Hyperglycemia, h/o DM -Avoid hypoglycemia -SSI -Accu-Cheks q. every 6 -Long-acting insulin, titrate as needed Heme: Leukocytosis -Trend CBC -Transfuse hemoglobin less than 7 -SCDs to BLE while in bed The high probability of a clinically significant, sudden or life threatening deterioration of the [neuro] system(s) required my full and direct attention, intervention and personal management. The aggregate critical care time was [60] minutes. This time is in addition to time spent performing reported procedures but includes the following: [x] Data Review and interpretation [x] Patient assessment and monitoring of vital signs [x] Documentation [x] Medication orders and management Disposition Plan: icu Total Time Spent with Patient (Minutes): 60 History Interval history: This is a 31-year-old female with seizures, HTN, DM and medical noncompliance who presented to emergency department on 05/13 after a seizure episode associated with progressive weakness. Per EMS patient was said to have woken up in the night had an episode of vomiting and subsequently had seizures. In the emergency department work-up showed acute kidney injury with a BUN/creatinine of 26/3.1, glucose of 580, urinalysis was unremarkable, UDS was positive for marijuana, leukocytosis at 13.1 and CXR showed no acute findings along with a CT scan. In the emergency department patient had another seizure and was given Ativan and loaded with Keppra. Patient also had BP in the 200s over 130s and was given labetalol and was started on a Cardene drip. She also had was febrile to 103 in the ED. Patient was admitted to the hospitalist service with seizure disorder, hyperglycemia, hypertensive urgency and acute kidney injury with consults to nephrology, neurology. Hospital course to date: 05/13: CCM and ID consulted. Patient had possible seizure activity and was started. Ativan. Patient had EEG today. MRI brain pending. Urine lites pendi ng. Patient febrile started on cefepime, procalcitonin, CRP and COVID-19 PCR pending. Hospitalist Physical - Constitutional Vitals: Temp Pulse Resp BP Pulse Ox 102.4 F H 131 H 18 156/84 99 05/13/22 11:44 05/13/22 14:32 05/13/22 15:09 05/13/22 14:32 05/13/22 12:45 General appearance: Present: no acute distress, well-nourished, obese - EENT Eyes: Present: PERRL, EOM intact ENT: clear oral mucosa - Neck Neck: Present: normal ROM - Respiratory Respiratory effort: normal Respiratory: bilateral: CTA - Cardiovascular Rhythm: regular Heart Sounds: Present: S1 & S2. Absent: systolic murmur, diastolic murmur - Extremities Extremities: no ischemia, pulses intact, pulses symmetrical, No edema, normal temperature, normal color Peripheral Pulses: within normal limits - Abdominal General gastrointestinal: soft, non-tender, normal bowel sounds - Integumentary Integumentary: Present: warm, dry - Psychiatric Psychiatric: cooperative - Neurologic Neurologic: CNII-XII intact, no focal deficits, moves all extremities - Allied Health Allied health notes reviewed: nursing, RT, social work HEART Score - HEART Score Troponin: Troponin T 0.028 ng/mL (0.00-0.029) 05/12/22 22:47 Results - Labs CBC & Chem 7: 05/12/22 22:47 05/12/22 22:47 Labs: Laboratory Last Values WBC 15.4 K/mm3 (4.5-11.0) H 05/12/22 22:47 RBC 5.42 M/mm3 (3.65-5.03) H 05/12/22 22:47 Hgb 13.1 gm/dl (10.1-14.3) 05/12/22 22:47 Hct 42.0 % (30.3-42.9) 05/12/22 22:47 MCV 77 fl (79-97) L 05/12/22 22:47 MCH 24 pg (28-32) L 05/12/22 22:47 MCHC 31 % (30-34) 05/12/22 22:47 RDW 16.3 % (13.2-15.2) H 05/12/22 22:47 Plt Count 229 K/mm3 (140-440) 05/12/22 22:47 Add Manual Diff Complete 05/12/22 22:47 Total Counted 100 05/12/22 22:47 Seg Neutrophils % Superintendent Track 05/12/22 14:25 Seg Neuts % (Manual) 85.0 % (40.0-70.0) H 05/12/22 22:47 Band Neutrophils % 0 % 05/12/22 22:47 Lymphocytes % (Manual) 7.0 % (13.4-35.0) L 05/12/22 22:47 Reactive Lymphs % (Man) 0 % 05/12/22 22:47 Monocytes % (Manual) 8.0 % (0.0-7.3) H 05/12/22 22:47 Eosinophils % (Manual) 0 % (0.0-4.3) 05/12/22 22:47 Basophils % (Manual) 0 % (0.0-1.8) 05/12/22 22:47 Metamyelocytes % 0 % 05/12/22 22:47 Myelocytes % 0 % 05/12/22 22:47 Promyelocytes % 0 % 05/12/22 22:47 Blast Cells % 0 % 05/12/22 22:47 Nucleated RBC % Not Reportable 05/12/22 22:47 Seg Neutrophils # Man 13.1 K/mm3 (1.8-7.7) H 05/12/22 22:47 Band Neutrophils # 0.0 K/mm3 05/12/22 22:47 Lymphocytes # (Manual) 1.1 K/mm3 (1.2-5.4) L 05/12/22 22:47 Abs React Lymphs (Man) 0.0 K/mm3 05/12/22 22:47 Monocytes # (Manual) 1.2 K/mm3 (0.0-0.8) H 05/12/22 22:47 Eosinophils # (Manual) 0.0 K/mm3 (0.0-0.4) 05/12/22 22:47 Basophils # (Manual) 0.0 K/mm3 (0.0-0.1) 05/12/22 22:47 Metamyelocytes # 0.0 K/mm3 05/12/22 22:47 Myelocytes # 0.0 K/mm3 05/12/22 22:47 Promyelocytes # 0.0 K/mm3 05/12/22 22:47 Blast Cells # 0.0 K/mm3 05/12/22 22:47 WBC Morphology Not Reportable 05/12/22 22:47 Hypersegmented Neuts Not Reportable 05/12/22 22:47 Hyposegmented Neuts Not Reportable 05/12/22 22:47 Hypogranular Neuts Not Reportable 05/12/22 22:47 Smudge Cells Not Reportable 05/12/22 22:47 Toxic Granulation Not Reportable 05/12/22 22:47 Toxic Vacuolation Not Reportable 05/12/22 22:47 Dohle Bodies Not Reportable 05/12/22 22:47 Pelger-Huet Anomaly Not Reportable 05/12/22 22:47 Tima Rods Not Reportable 05/12/22 22:47 Platelet Estimate Consistent w auto 05/12/22 22:47 Clumped Platelets Not Reportable 05/12/22 22:47 Plt Clumps, EDTA Not Reportable 05/12/22 22:47 Large Platelets Not Reportable 05/12/22 22:47 Giant Platelets Not Reportable 05/12/22 22:47 Platelet Satelliting Not Reportable 05/12/22 22:47 Plt Morphology Comment Not Reportable 05/12/22 22:47 RBC Morphology Not Reportable 05/12/22 22:47 Dimorphic RBCs Not Reportable 05/12/22 22:47 Polychromasia Not Reportable 05/12/22 22:47 Hypochromasia 1+ 05/12/22 22:47 Poikilocytosis Not Reportable 05/12/22 22:47 Anisocytosis Not Reportable 05/12/22 22:47 Microcytosis Not Reportable 05/12/22 22:47 Macrocytosis Not Reportable 05/12/22 22:47 Spherocytes Not Reportable 05/12/22 22:47 Pappenheimer Bodies Not Reportable 05/12/22 22:47 Sickle Cells Not Reportable 05/12/22 22:47 Target Cells Not Reportable 05/12/22 22:47 Tear Drop Cells Not Reportable 05/12/22 22:47 Ovalocytes Not Reportable 05/12/22 22:47 Helmet Cells Not Reportable 05/12/22 22:47 [place] Bodies Not Reportable 05/12/22 22:47 [place] Rings Not Reportable 05/12/22 22:47 Imelda Cells Not Reportable 05/12/22 22:47 Bite Cells Not Reportable 05/12/22 22:47 Crenated Cell Not Reportable 05/12/22 22:47 Elliptocytes Not Reportable 05/12/22 22:47 Acanthocytes (Spur) Not Reportable 05/12/22 22:47 Rouleaux Not Reportable 05/12/22 22:47 Hemoglobin C Crystals Not Reportable 05/12/22 22:47 Schistocytes Not Reportable 05/12/22 22:47 Malaria parasites Not Reportable 05/12/22 22:47 Jesse Bodies Not Reportable 05/12/22 22:47 Hem Pathologist Commnt No 05/12/22 22:47 PT 16.8 Sec. (12.2-14.9) H 05/12/22 14:25 INR 1.22 (0.87-1.13) H 05/12/22 14:25 APTT 29.6 Sec. (24.2-36.6) 05/12/22 14:25 ABG pH 7.354 pH Units (7.350-7.450) 05/12/22 22:47 ABG pCO2 36.7 mm Hg 05/12/22 22:47 ABG pO2 55.5 mm Hg (80.0-90.0) L 05/12/22 22:47 ABG HCO3 20.0 mmol/L (20.0-26.0) 05/12/22 22:47 ABG O2 Saturation 89.0 % (95.0-99.0) L 05/12/22 22:47 ABG O2 Content 16.6 (0.0-44) 05/12/22 22:47 ABG Base Excess -4.9 mmol/L (-2.0-3.0) L 05/12/22 22:47 ABG Hemoglobin 13.8 gm/dl (12.0-16.0) 05/12/22 22:47 ABG Carboxyhemoglobin 3.2 % (0.0-5.0) 05/12/22 22:47 ABG Methemoglobin 0.8 % (0.0-1.5) 05/12/22 22:47 VBG pH 7.354 (7.320-7.420) 05/12/22 22:47 Oxyhemoglobin 85.4 % (95.0-99.0) L 05/12/22 22:47 FiO2 21 % 05/12/22 22:47 Sodium 145 mmol/L (137-145) D 05/12/22 22:47 Potassium 3.6 mmol/L (3.6-5.0) 05/12/22 22:47 Chloride 110.1 mmol/L (98-107) H 05/12/22 22:47 Carbon Dioxide 19 mmol/L (22-30) L 05/12/22 22:47 Anion Gap 20 mmol/L 05/12/22 22:47 BUN 27 mg/dL (7-17) H 05/12/22 22:47 Creatinine 3.3 mg/dL (0.6-1.2) H 05/12/22 22:47 Estimated GFR 20 ml/min 05/12/22 22:47 BUN/Creatinine Ratio 8 % 05/12/22 22:47 Glucose 361 mg/dL (65-100) H 05/12/22 22:47 POC Glucose 331 mg/dL (70-105) H 05/13/22 16:12 Ketones Quantitative Negative (Negative) 05/12/22 22:47 Lactic Acid 2.30 mmol/L (0.7-2.0) H* 05/13/22 01:53 Calcium 8.7 mg/dL (8.4-10.2) 05/12/22 22:47 Total Bilirubin 0.70 mg/dL (0.1-1.2) 05/12/22 22:47 AST 13 units/L (5-40) 05/12/22 22:47 ALT 12 units/L (7-56) 05/12/22 22:47 Alkaline Phosphatase 110 units/L (35-129) 05/12/22 22:47 Troponin T 0.028 ng/mL (0.00-0.029) 05/12/22 22:47 Total Protein 6.3 g/dL (6.3-8.2) 05/12/22 22:47 Albumin 3.3 g/dL (3.9-5) L 05/12/22 22: Albumin/Globulin Ratio 1.1 % 05/12/22 22: TSH 0.422 mlU/mL (0.270-4.200) 05/12/22 14:25 Free T4 1.02 ng/dL (0.76-1.46) 05/12/22 14:25 Urine Color Yellow (Yellow) 05/12/22 19:04 Urine Turbidity Clear (Clear) 05/12/22 19:04 Specific [place] (Man) 1.015 (1.003-1.030) 05/12/22 19:04 Ur Protein (Man) 2+ mg/dL (Negative) 05/12/22 19:04 Ur Ketones (Man) Negative (Negative) 05/12/22 19:04 Ur Nitrite (Man) Negative (Negative) 05/12/22 19:04 Urine Bilirubin (Man) Negative (Negative) 05/12/22 19:04 Leukocyte Esterase (Man) Negative (Negative) 05/12/22 19:04 Urine WBC (Auto) < 1.0 /HPF (0.0-6.0) 05/12/22 19:04 Urine RBC (Auto) < 1.0 /HPF (0.0-6.0) 05/12/22 19:04 Urine RBC (Manual) 1+ (Negative) 05/12/22 19:04 Salicylates < 0.3 mg/dL (2.8-20.0) L 05/12/22 14:25 Urine Opiates Screen Negative 05/12/22 19:04 Urine Methadone Screen Negative 05/12/22 19:04 Acetaminophen 5.0 ug/mL (10.0-30.0) L 05/12/22 14:25 Ur Barbiturates Screen Negative 05/12/22 19:04 Ur Phencyclidine Scrn Negative 05/12/22 19:04 Ur Amphetamines Screen Negative 05/12/22 19:04 U Benzodiazepines Scrn Negative 05/12/22 19:04 Urine Cocaine Screen Negative 05/12/22 19:04 U Marijuana (THC) Screen Positive 05/12/22 19:04 Drugs of Abuse Note Disclamer 05/12/22 19:04 Plasma/Serum Alcohol < 0.01 % (0-0.07) 05/12/22 22:47 Coronavirus (PCR) Negative (Negative) 05/13/22 09:30 Microbiology: Microbiology 05/12/22 22:47 Peripheral/Venous Blood Culture - Preliminary Culture in Progress 05/12/22 22:47 Peripheral/Venous Blood Culture - Preliminary Culture in Progress Vergara/IV: Voiding Method Indwelling Catheter Active Medications - Current Medications Current Medications: Generic Name Dose Route Start Last Admin Trade Name Freq PRN Reason Stop Dose Admin Acetaminophen 650 mg 05/13/22 02:07 05/13/22 15:09 Acetaminophen 325 Mg Tab PO 650 mg Q6H PRN Administration Pain MILD(1-3)/Fever >100.5/PATNIO Acetaminophen 650 mg 05/13/22 08:51 05/13/22 09:18 Acetaminophen 650 Mg Rect Supp NV 650 mg Q6H PRN Administration Pain, Mild (1-3), T> 100.5 Amlodipine Besylate 10 mg 05/13/22 12:00 05/13/22 14:32 Amlodipine 10 Mg Tab FEEDTUBE 10 mg QDAY BRAD Administration Dextrose 0 ml 05/13/22 02:07 Dextrose 50% In Water (25gm) 50 Ml Syringe IV Q30MIN PRN Hypoglycemia Protocol Heparin Sodium (Porcine) 5,000 unit 05/13/22 06:00 05/13/22 13:41 Heparin 5,000 Unit/1 Ml Vial SUB-Q 5,000 unit Q8HR BRAD Administration Hydralazine HCl 100 mg 05/13/22 14:00 05/13/22 14:34 Hydralazine 100 Mg Tab FEEDTUBE 100 mg TID BRAD Administration Sodium Chloride 1,000 mls @ 125 mls/hr 05/13/22 02:15 05/13/22 06:13 Nacl 0.9% 1000 Ml IV 125 mls/hr DIRECT BRAD Administration Nicardipine HCl 50 mg/ Sodium 250 mls @ 25 mls/hr 05/13/22 06:00 05/13/22 15:45 Chloride IV 10 mg/hr TITR BRAD 50 mls/hr Titration Protocol 5 MG/HR Levetiracetam 1,000 mg/ 110 mls @ 400 mls/hr 05/13/22 22:00 Dextrose IV Q12HR BRAD Cefepime HCl 2 gm in 100 mls @ 200 mls/hr 05/13/22 13:00 05/13/22 12:17 Cefepime/Ns 2 Gm/100 Ml IV 200 mls/hr Q24H BRAD Administration Protocol Levofloxacin/Dextrose 750 mg in 150 mls @ 150 mls/hr 05/13/22 16:00 05/13/22 15:15 Levaquin 750mg/150ml IV 05/17/22 16:59 150 mls/hr Q48H [facility] Administration Protocol Insulin Glargine 10 units 05/13/22 22:00 Insulin Glargine 100 Units/Ml SUB-Q QHS BRAD Insulin Human Lispro 0 unit 05/13/22 12:00 05/13/22 12:06 Insulin Lispro 100 Unit/Ml SUB-Q 10 unit Q6HR [facility] Administration Protocol Lorazepam 2 mg 05/13/22 13:03 05/13/22 13:41 Lorazepam 2 Mg/Ml Vial IV 2 mg Q4H PRN Administration Seizures Magnesium Hydroxide 30 ml 05/13/22 02:07 Magnesium Hydroxide (Mom) Oral Liqd Udc PO Q4H PRN Constipation Morphine Sulfate 2 mg 05/13/22 02:07 Morphine 2 Mg/1 Ml Inj IV Q4H PRN Pain, Moderate (4-6) Morphine Sulfate 4 mg 05/13/22 02:07 Morphine 4 Mg/1 Ml Inj IV Q4H PRN Pain , Severe (7-10) Ondansetron HCl 4 mg 05/13/22 02:07 Ondansetron 4 Mg/2 Ml Inj IV Q8H PRN Nausea And Vomiting Sodium Chloride 10 ml 05/13/22 10:00 05/13/22 09:19 Sodium Chloride 0.9% 10 Ml Flush Syringe IV 10 ml BID BRAD Administration Sodium Chloride 10 ml 05/13/22 02:07 Sodium Chloride 0.9% 10 Ml Flush Syringe IV PRN PRN LINE FLUSH Nutrition/Malnutrition Assess - Dietary Evaluation Nutrition/Malnutrition Findings: Nutrition Notes Start: 05/13/22 11:36 Freq: Status: Active Protocol: Document 05/13/22 14:23 CM (Rec: 05/13/22 14:27 CM [id number]) Co-Sign 05/13/22 14:23 WW Nutrition Notes Need for Assessment generated from: MD Order,Education Initial or Follow up Brief Note Current Diagnosis Hypertension,Stroke Other Pertinent Diagnosis Seizure, hyperglycemia Current Diet TF-Nepro w/CARBSTEADY @ 40 ml/ hr Labs/Tests 05/13: Cl 119.1 CO2 19 BUN 27 Cr 3.3 Glu 511 Pertinent Medications 05/13: Humalog Humulin Height 5 ft 7 in Weight 113 kg [place] Body Weight (kg) 61.36 BMI 38.9 Intake Prior to Admission Good Weight change and time frame No wt loss 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 Weight Status Obese Subjective/Other Information RD consult for diet education per MD. Pt transferred from ER to critical care unit, therefore is not a candidate for diet education at this time. Will provide in future interactions . Percent of energy/protein needs met: Prescribed TF-Nepro w/ CARBSTEADY @ 40 ml/hr provides for energy/protein needs (1, 710 Kcal/77 g) during LOS, 101 % Kcal; 100% AA. Burn Absent Trauma Absent #1 Nutrition Diagnosis Inadequate energy intake Diagnosis Progress(for reassessment Continues documentation) Nutrition Intervention Nutrition Support: Start TF-Nepro w/CARBSTEADY @ 40 ml/hr. Flush: 170 ml water Q 4 hr, or as per MD. Kcal 1,710 Protein (gm) 77 Carbohydrates (gm) 153 Fat (gm) 91 Fluid (mL) 691 Fiber (gm) 12 % RDI: 101% Kcal; 100% AA Goal #1 Provide at least 75% of energy /protein needs through Enteral Feeding during LOS. Goal #2 Adjust the dietary intervention to better serve Pt's energy/protein needs and clinical conditions during LOS . Follow-Up By: 05/15/22 Additional Comments Monitor TF tolerance, RODRÍGUEZ status, and BM. <IZABEL BARNES - Last Filed: 05/13/22 19:24> Assessment and Plan Assessment and plan: I saw and evaluated the patient. I agree with the findings and the plan of care as documented in the Nurse Practitioner's~note, with the following corrections and additions. Hospitalist Physical - Constitutional Vitals: Temp Pulse Resp BP Pulse Ox 102.4 F H 127 H 18 170/88 97 05/13/22 11:44 05/13/22 19:00 05/13/22 19:00 05/13/22 19:00 05/13/22 19:00 HEART Score - HEART Score Troponin: Troponin T 0.028 ng/mL (0.00-0.029) 05/12/22 22:47 Results - Labs CBC & Chem 7: 05/12/22 22:47 05/12/22 22:47 Labs: Laboratory Last Values WBC 15.4 K/mm3 (4.5-11.0) H 05/12/22 22:47 RBC 5.42 M/mm3 (3.65-5.03) H 05/12/22 22:47 Hgb 13.1 gm/dl (10.1-14.3) 05/12/22 22:47 Hct 42.0 % (30.3-42.9) 05/12/22 22:47 MCV 77 fl (79-97) L 05/12/22 22:47 MCH 24 pg (28-32) L 05/12/22 22:47 MCHC 31 % (30-34) 05/12/22 22:47 RDW 16.3 % (13.2-15.2) H 05/12/22 22:47 Plt Count 229 K/mm3 (140-440) 05/12/22 22:47 Add Manual Diff Complete 05/12/22 22:47 Total Counted 100 05/12/22 22:47 Seg Neutrophils % Superintendent Track 05/12/22 14:25 Seg Neuts % (Manual) 85.0 % (40.0-70.0) H 05/12/22 22:47 Band Neutrophils % 0 % 05/12/22 22:47 Lymphocytes % (Manual) 7.0 % (13.4-35.0) L 05/12/22 22:47 Reactive Lymphs % (Man) 0 % 05/12/22 22:47 Monocytes % (Manual) 8.0 % (0.0-7.3) H 05/12/22 22:47 Eosinophils % (Manual) 0 % (0.0-4.3) 05/12/22 22:47 Basophils % (Manual) 0 % (0.0-1.8) 05/12/22 22:47 Metamyelocytes % 0 % 05/12/22 22:47 Myelocytes % 0 % 05/12/22 22:47 Promyelocytes % 0 % 05/12/22 22:47 Blast Cells % 0 % 05/12/22 22:47 Nucleated RBC % Not Reportable 05/12/22 22:47 Seg Neutrophils # Man 13.1 K/mm3 (1.8-7.7) H 05/12/22 22:47 Band Neutrophils # 0.0 K/mm3 05/12/22 22:47 Lymphocytes # (Manual) 1.1 K/mm3 (1.2-5.4) L 05/12/22 22:47 Abs React Lymphs (Man) 0.0 K/mm3 05/12/22 22:47 Monocytes # (Manual) 1.2 K/mm3 (0.0-0.8) H 05/12/22 22:47 Eosinophils # (Manual) 0.0 K/mm3 (0.0-0.4) 05/12/22 22:47 Basophils # (Manual) 0.0 K/mm3 (0.0-0.1) 05/12/22 22:47 Metamyelocytes # 0.0 K/mm3 05/12/22 22:47 Myelocytes # 0.0 K/mm3 05/12/22 22:47 Promyelocytes # 0.0 K/mm3 05/12/22 22:47 Blast Cells # 0.0 K/mm3 05/12/22 22:47 WBC Morphology Not Reportable 05/12/22 22:47 Hypersegmented Neuts Not Reportable 05/12/22 22:47 Hyposegmented Neuts Not Reportable 05/12/22 22:47 Hypogranular Neuts Not Reportable 05/12/22 22:47 Smudge Cells Not Reportable 05/12/22 22:47 Toxic Granulation Not Reportable 05/12/22 22:47 Toxic Vacuolation Not Reportable 05/12/22 22:47 Dohle Bodies Not Reportable 05/12/22 22:47 Pelger-Huet Anomaly Not Reportable 05/12/22 22:47 Tima Rods Not Reportable 05/12/22 22:47 Platelet Estimate Consistent w auto 05/12/22 22:47 Clumped Platelets Not Reportable 05/12/22 22:47 Plt Clumps, EDTA Not Reportable 05/12/22 22:47 Large Platelets Not Reportable 05/12/22 22:47 Giant Platelets Not Reportable 05/12/22 22:47 Platelet Satelliting Not Reportable 05/12/22 22:47 Plt Morphology Comment Not Reportable 05/12/22 22:47 RBC Morphology Not Reportable 05/12/22 22:47 Dimorphic RBCs Not Reportable 05/12/22 22:47 Polychromasia Not Reportable 05/12/22 22:47 Hypochromasia 1+ 05/12/22 22:47 Poikilocytosis Not Reportable 05/12/22 22:47 Anisocytosis Not Reportable 05/12/22 22:47 Microcytosis Not Reportable 05/12/22 22:47 Macrocytosis Not Reportable 05/12/22 22:47 Spherocytes Not Reportable 05/12/22 22:47 Pappenheimer Bodies Not Reportable 05/12/22 22:47 Sickle Cells Not Reportable 05/12/22 22:47 Target Cells Not Reportable 05/12/22 22:47 Tear Drop Cells Not Reportable 05/12/22 22:47 Ovalocytes Not Reportable 05/12/22 22:47 Helmet Cells Not Reportable 05/12/22 22:47 In[place] Bodies Not Reportable 05/12/22 22:47 [place] Rings Not Reportable 05/12/22 22:47 [place] Cells Not Reportable 05/12/22 22:47 Bite Cells Not Reportable 05/12/22 22:47 Crenated Cell Not Reportable 05/12/22 22:47 Elliptocytes Not Reportable 05/12/22 22:47 Acanthocytes (Spur) Not Reportable 05/12/22 22:47 Rouleaux Not Reportable 05/12/22 22:47 Hemoglobin C Crystals Not Reportable 05/12/22 22:47 Schistocytes Not Reportable 05/12/22 22:47 Malaria parasites Not Reportable 05/12/22 22:47 Jesse Bodies Not Reportable 05/12/22 22:47 Hem Pathologist Commnt No 05/12/22 22:47 PT 16.8 Sec. (12.2-14.9) H 05/12/22 14:25 INR 1.22 (0.87-1.13) H 05/12/22 14:25 APTT 29.6 Sec. (24.2-36.6) 05/12/22 14:25 ABG pH 7.354 pH Units (7.350-7.450) 05/12/22 22:47 ABG pCO2 36.7 mm Hg 05/12/22 22:47 ABG pO2 55.5 mm Hg (80.0-90.0) L 05/12/22 22:47 ABG HCO3 20.0 mmol/L (20.0-26.0) 05/12/22 22:47 ABG O2 Saturation 89.0 % (95.0-99.0) L 05/12/22 22:47 ABG O2 Content 16.6 (0.0-44) 05/12/22 22:47 ABG Base Excess -4.9 mmol/L (-2.0-3.0) L 05/12/22 22:47 ABG Hemoglobin 13.8 gm/dl (12.0-16.0) 05/12/22 22:47 ABG Carboxyhemoglobin 3.2 % (0.0-5.0) 05/12/22 22:47 ABG Methemoglobin 0.8 % (0.0-1.5) 05/12/22 22:47 VBG pH 7.354 (7.320-7.420) 05/12/22 22:47 Oxyhemoglobin 85.4 % (95.0-99.0) L 05/12/22 22:47 FiO2 21 % 05/12/22 22:47 Sodium 145 mmol/L (137-145) D 05/12/22 22:47 Potassium 3.6 mmol/L (3.6-5.0) 05/12/22 22:47 Chloride 110.1 mmol/L (98-107) H 05/12/22 22:47 Carbon Dioxide 19 mmol/L (22-30) L 05/12/22 22:47 Anion Gap 20 mmol/L 05/12/22 22:47 BUN 27 mg/dL (7-17) H 05/12/22 22:47 Creatinine 3.3 mg/dL (0.6-1.2) H 05/12/22 22:47 Estimated GFR 20 ml/min 05/12/22 22:47 BUN/Creatinine Ratio 8 % 05/12/22 22:47 Glucose 361 mg/dL (65-100) H 05/12/22 22:47 POC Glucose 331 mg/dL (70-105) H 05/13/22 16:12 Ketones Quantitative Negative (Negative) 05/12/22 22:47 Lactic Acid 2.30 mmol/L (0.7-2.0) H* 05/13/22 01:53 Calcium 8.7 mg/dL (8.4-10.2) 05/12/22 22:47 Total Bilirubin 0.70 mg/dL (0.1-1.2) 05/12/22 22:47 AST 13 units/L (5-40) 05/12/22 22:47 ALT 12 units/L (7-56) 05/12/22 22:47 Alkaline Phosphatase 110 units/L (35-129) 05/12/22 22:47 Troponin T 0.028 ng/mL (0.00-0.029) 05/12/22 22:47 Total Protein 6.3 g/dL (6.3-8.2) 05/12/22 22:47 Albumin 3.3 g/dL (3.9-5) L 05/12/22 22:47 Albumin/Globulin Ratio 1.1 % 05/12/22 22:47 TSH 0.422 mlU/mL (0.270-4.200) 05/12/22 14:25 Free T4 1.02 ng/dL (0.76-1.46) 05/12/22 14:25 Urine Color Yellow (Yellow) 05/12/22 19:04 Urine Turbidity Clear (Clear) 05/12/22 19:04 Specific [place] (Man) 1.015 (1.003-1.030) 05/12/22 19:04 Ur Protein (Man) 2+ mg/dL (Negative) 05/12/22 19:04 Ur Ketones (Man) Negative (Negative) 05/12/22 19:04 Ur Nitrite (Man) Negative (Negative) 05/12/22 19:04 Urine Bilirubin (Man) Negative (Negative) 05/12/22 19:04 Leukocyte Esterase (Man) Negative (Negative) 05/12/22 19:04 Urine WBC (Auto) < 1.0 /HPF (0.0-6.0) 05/12/22 19:04 Urine RBC (Auto) < 1.0 /HPF (0.0-6.0) 05/12/22 19:04 Urine RBC (Manual) 1+ (Negative) 05/12/22 19:04 Urine Creatinine 86.3 mg/dL (0.1-20.0) H 05/13/22 Unknown Urine Sodium 21 mmol/L 05/13/22 Unknown Salicylates < 0.3 mg/dL (2.8-20.0) L 05/12/22 14:25 Urine Opiates Screen Negative 05/12/22 19:04 Urine Methadone Screen Negative 05/12/22 19:04 Acetaminophen 5.0 ug/mL (10.0-30.0) L 05/12/22 14:25 Ur Barbiturates Screen Negative 05/12/22 19:04 Ur Phencyclidine Scrn Negative 05/12/22 19:04 Ur Amphetamines Screen Negative 05/12/22 19:04 U Benzodiazepines Scrn Negative 05/12/22 19:04 Urine Cocaine Screen Negative 05/12/22 19:04 U Marijuana (THC) Screen Positive 05/12/22 19:04 Drugs of Abuse Note Disclamer 05/12/22 19:04 Plasma/Serum Alcohol < 0.01 % (0-0.07) 05/12/22 22:47 Coronavirus (PCR) Negative (Negative) 05/13/22 09:30 Microbiology: Microbiology 05/12/22 22:47 Peripheral/Venous Blood Culture - Preliminary Culture in Progress 05/12/22 22:47 Peripheral/Venous Blood Culture - Preliminary Culture in Progress Vergara/IV: Voiding Method Indwelling Catheter Active Medications - Current Medications Current Medications: Generic Name Dose Route Start Last Admin Trade Name Freq PRN Reason Stop Dose Admin Acetaminophen 650 mg 05/13/22 02:07 05/13/22 15:09 Acetaminophen 325 Mg Tab PO 650 mg Q6H PRN Administration Pain MILD(1-3)/Fever >100.5/PATINO Acetaminophen 650 mg 05/13/22 08:51 09/19/22 09:18 Acetaminophen 650 Mg Rect Supp NV 650 mg Q6H PRN Administration Pain, Mild (1-3), T> 100.5 Amlodipine Besylate 10 mg 05/13/22 12:00 05/13/22 14:32 Amlodipine 10 Mg Tab FEEDTUBE 10 mg QDAY BRAD Administration Dextrose 0 ml 05/13/22 02:07 Dextrose 50% In Water (25gm) 50 Ml Syringe IV Q30MIN PRN Hypoglycemia Protocol Heparin Sodium (Porcine) 5,000 unit 05/13/22 06:00 05/13/22 13:41 Heparin 5,000 Unit/1 Ml Vial SUB-Q 5,000 unit Q8HR BRAD Administration Hydralazine HCl 100 mg 05/13/22 14:00 05/13/22 14:34 Hydralazine 100 Mg Tab FEEDTUBE 100 mg TID BRAD Administration Sodium Chloride 1,000 mls @ 125 mls/hr 05/13/22 02:15 05/13/22 18:37 Nacl 0.9% 1000 Ml IV 125 mls/hr DIRECT BRAD Administration Nicardipine HCl 50 mg/ Sodium 250 mls @ 25 mls/hr 05/13/22 06:00 05/13/22 18:00 Chloride IV 0 mg/hr TITR BRAD 0 mls/hr Titration Protocol 5 MG/HR Levetiracetam 1,000 mg/ 110 mls @ 400 mls/hr 05/13/22 22:00 Dextrose IV Q12HR BRAD Cefepime HCl 2 gm in 100 mls @ 200 mls/hr 05/13/22 13:00 05/13/22 12:17 Cefepime/Ns 2 Gm/100 Ml IV 200 mls/hr Q24H BRAD Administration Protocol Acyclovir 1,130 mg/ Sodium 122.6 mls @ 100 mls/hr 05/13/22 20:00 Chloride IV Q24HR BRAD Protocol Insulin Glargine 10 units 05/13/22 22:00 Insulin Glargine 100 Units/Ml SUB-Q QHS BRAD Insulin Human Lispro 0 unit 05/13/22 12:00 05/13/22 18:31 Insulin Lispro 100 Unit/Ml SUB-Q 8 unit Q6HR BRAD Administration Protocol Lorazepam 2 mg 05/13/22 13:03 05/13/22 13:41 Lorazepam 2 Mg/Ml Vial IV 2 mg Q4H PRN Administration Seizures Magnesium Hydroxide 30 ml 05/13/22 02:07 Magnesium Hydroxide (Mom) Oral Liqd Udc PO Q4H PRN Constipation Morphine Sulfate 2 mg 05/13/22 02:07 Morphine 2 Mg/1 Ml Inj IV Q4H PRN Pain, Moderate (4-6) Morphine Sulfate 4 mg 05/13/22 02:07 Morphine 4 Mg/1 Ml Inj IV Q4H PRN Pain , Severe (7-10) Ondansetron HCl 4 mg 05/13/22 02:07 Ondansetron 4 Mg/2 Ml Inj IV Q8H PRN Nausea And Vomiting Sodium Chloride 10 ml 05/13/22 10:00 05/13/22 09:19 Sodium Chloride 0.9% 10 Ml Flush Syringe IV 10 ml BID BRAD Administration Sodium Chloride 10 ml 05/13/22 02:07 Sodium Chloride 0.9% 10 Ml Flush Syringe IV PRN PRN LINE FLUSH Nutrition/Malnutrition Assess - Dietary Evaluation Nutrition/Malnutrition Findings: Nutrition Notes Start: 05/13/22 11:36 Freq: Status: Active Protocol: Document 05/13/22 14:23 CM (Rec: 05/13/22 14:27 CM [id number]) Co-Sign 05/13/22 14:23 WW Nutrition Notes Need for Assessment generated from: MD Order,Education Initial or Follow up Brief Note Current Diagnosis Hypertension,Stroke Other Pertinent Diagnosis Seizure, hyperglycemia Current Diet TF-Nepro w/CARBSTEADY @ 40 ml/ hr Labs/Tests 05/13: Cl 119.1 CO2 19 BUN 27 Cr 3.3 Glu 511 Pertinent Medications 05/13: Humalog Humulin Height 5 ft 7 in Weight 113 kg [place] Body Weight (kg) 61.36 BMI 38.9 Intake Prior to Admission Good Weight change and time frame No wt loss 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 Weight Status Obese Subjective/Other Information RD consult for diet education per MD. Pt transferred from ER to critical care unit, therefore is not a candidate for diet education at this time. Will provide in future interactions . Percent of energy/protein needs met: Prescribed TF-Nepro w/ CARBSTEADY @ 40 ml/hr provides for energy/protein needs (1, 710 Kcal/77 g) during LOS, 101 % Kcal; 100% AA. Burn Absent Trauma Absent #1 Nutrition Diagnosis Inadequate energy intake Diagnosis Progress(for reassessment Continues documentation) Nutrition Intervention Nutrition Support: Start TF-Nepro w/CARBSTEADY @ 40 ml/hr. Flush: 170 ml water Q 4 hr, or as per MD. Kcal 1,710 Protein (gm) 77 Carbohydrates (gm) 153 Fat (gm) 91 Fluid (mL) 691 Fiber (gm) 12 % RDI: 101% Kcal; 100% AA Goal #1 Provide at least 75% of energy /protein needs through Enteral Feeding during LOS. Goal #2 Adjust the dietary intervention to better serve Pt's energy/protein needs and clinical conditions during LOS . Follow-Up By: 05/15/22 Additional Comments Monitor TF tolerance, RODRÍGUEZ status, and BM.
[2022-05-13 17:31] LABS: Creatinine,Urine 86.3 mg/dL (0.1-20.0)
--- NOTE | 2022-05-13 19:05 | Consultation ---
History of Present Illness - Reason for Consult Consult date: 05/13/22 - History of Present Illness 31-year-old female presented to hospital after having a seizure episode which was witnessed. Following the seizure she had progressive weakness. She is from [place] and visiting [place]. Prior to this seizure episode she was having episodes of vomiting. She was witnessed to have another seizure in the emergency room and was started on Keppra at that time. Febrile to 102.9 with a white count of 15. Blood cultures no growth so far Imaging personally reviewed: Chest x-ray: No acute findings Review of Systems: Bold if positive, otherwise negative General: fevers, chills, rigors HEENT: visual disturbance, diplopia, eye pain Respiratory: cough, sputum, hemoptysis, shortness of breath Cardiovascular: chest pain, syncope Gastrointestinal: nausea, vomiting, diarrhea, abdominal pain Genitourinary: dysuria, hematuria, flank pain Musculoskeletal: neck pain, back pain, joint pain, edema Neurologic: headaches, seizures Hematologic: easy bruising or bleeding Endocrine: night sweats, acute weight loss Skin: rash, jaundice, redness Psychiatric: suicidal, homicidal ideation Past History Past Medical History: seizures Past Surgical History: Other (patient is not able to provide due to loc;) Social history: other (patient is not able to provide due to loc;) Family history: other (patient is not able to provide due to loc;) Medications and Allergies Allergies Allergy/AdvReac Type Severity Reaction Status Date / Time No Known Allergies Allergy Unverified 05/13/22 18:50 Active Meds: Active Medications Acetaminophen (Acetaminophen 325 Mg Tab) 650 mg PO Q6H PRN PRN Reason: Pain MILD(1-3)/Fever >100.5/PATINO Last Admin: 05/13/22 15:09 Dose: 650 mg Acetaminophen (Acetaminophen 650 Mg Rect Supp) 650 mg KS Q6H PRN PRN Reason: Pain, Mild (1-3), T> 100.5 Last Admin: 05/13/22 09:18 Dose: 650 mg Amlodipine Besylate (Amlodipine 10 Mg Tab) 10 mg FEEDTUBE QDAY BRAD Last Admin: 05/13/22 14:32 Dose: 10 mg Dextrose (Dextrose 50% In Water (25gm) 50 Ml Syringe) 0 ml IV Q30MIN PRN; Pro tocol PRN Reason: Hypoglycemia Heparin Sodium (Porcine) (Heparin 5,000 Unit/1 Ml Vial) 5,000 unit SUB-Q Q8HR BRAD Last Admin: 05/13/22 13:41 Dose: 5,000 unit Hydralazine HCl (Hydralazine 100 Mg Tab) 100 mg FEEDTUBE TID BRAD Last Admin: 05/13/22 14:34 Dose: 100 mg Sodium Chloride (Nacl 0.9% 1000 Ml) 1,000 mls @ 125 mls/hr IV DIRECT BRAD Last Admin: 05/13/22 18:37 Dose: 125 mls/hr Nicardipine HCl 50 mg/ Sodium (Chloride) 250 mls @ 25 mls/hr IV TITR BRAD; Protocol Last Titration: 05/13/22 18:00 Dose: 0 mg/hr, 0 mls/hr Levetiracetam 1,000 mg/ (Dextrose) 110 mls @ 400 mls/hr IV Q12HR BRAD Cefepime HCl (Cefepime/Ns 2 Gm/100 Ml) 2 gm in 100 mls @ 200 mls/hr IV Q24H BRAD; Protocol Last Admin: 05/13/22 12:17 Dose: 200 mls/hr Levofloxacin/Dextrose (Levaquin 750mg/150ml) 750 mg in 150 mls @ 150 mls/hr IV Q48H BRAD; Protocol Stop: 05/17/22 16:59 Last Admin: 05/13/22 15:15 Dose: 150 mls/hr Insulin Glargine (Insulin Glargine 100 Units/Ml) 10 units SUB-Q QHS BRAD Insulin Human Lispro (Insulin Lispro 100 Unit/Ml) 0 unit SUB-Q Q6HR BRAD; Protocol Last Admin: 05/13/22 18:31 Dose: 8 unit Lorazepam (Lorazepam 2 Mg/Ml Vial) 2 mg IV Q4H PRN PRN Reason: Seizures Last Admin: 05/13/22 13:41 Dose: 2 mg Magnesium Hydroxide (Magnesium Hydroxide (Mom) Oral Liqd Udc) 30 ml PO Q4H PRN PRN Reason: Constipation Morphine Sulfate (Morphine 2 Mg/1 Ml Inj) 2 mg IV Q4H PRN PRN Reason: Pain, Moderate (4-6) Morphine Sulfate (Morphine 4 Mg/1 Ml Inj) 4 mg IV Q4H PRN PRN Reason: Pain , Severe (7-10) Ondansetron HCl (Ondansetron 4 Mg/2 Ml Inj) 4 mg IV Q8H PRN PRN Reason: Nausea And Vomiting Sodium Chloride (Sodium Chloride 0.9% 10 Ml Flush Syringe) 10 ml IV BID BRAD Last Admin: 05/13/22 09:19 Dose: 10 ml Sodium Chloride (Sodium Chloride 0.9% 10 Ml Flush Syringe) 10 ml IV PRN PRN PRN Reason: LINE FLUSH Physical Examination - Physical Exam Narrative exam: Physical Exam: Constitutional: Alert, cooperative. No acute distress Head, Ears, Nose: Normocephalic, atraumatic. External ears, nose normal Eyes: Conjunctivae/corneas clear. No icterus. No ptosis. Neck: Supple, no meningeal signs Oral: dentition fair, no thrush Cardiovascular: S1, S2 normal. Respiratory: Good air entry, clear to auscultation bilaterally GI: Soft, non-tender; bowel sounds normal. No peritoneal signs. Musculoskeletal: No pedal edema, no cyanosis. Skin: No rash or abscess Hem/Lymphatic: No palpable cervical or supraclavicular nodes. No lymphangitis Psych: Mood ok. Affect normal Neurological: Awake, alert, oriented. No gross abnormality - Constitutional Vitals: Vital Signs Temp Pulse Resp BP Pulse Ox 102.4 F H 127 H 16 121/79 98 05/13/22 11:44 05/13/22 17:00 05/13/22 17:00 05/13/22 17:00 05/13/22 17:00 Temperature -Last 24 Hours Temperature 102.4 F Temperature 102.9 F Temperature 102.1 F Temperature 103.1 F Results - Labs CBC & Chem 7: 05/12/22 22:47 05/12/22 22:47 Labs: Abnormal lab results 05/12/22 05/12/22 05/12/22 Range/Units 22:47 22:47 22:47 WBC 15.4 H (4.5-11.0) K/mm3 RBC 5.42 H (3.65-5.03) M/mm3 MCV 77 L (79-97) fl MCH 24 L (28-32) pg RDW 16.3 H (13.2-15.2) % Seg Neuts % (Manual) 85.0 H (40.0-70.0) % Lymphocytes % (Manual) 7.0 L (13.4-35.0) % Monocytes % (Manual) 8.0 H (0.0-7.3) % Seg Neutrophils # Man 13.1 H (1.8-7.7) K/mm3 Lymphocytes # (Manual) 1.1 L (1.2-5.4) K/mm3 Monocytes # (Manual) 1.2 H (0.0-0.8) K/mm3 ABG pO2 (80.0-90.0) mm Hg ABG O2 Saturation (95.0-99.0) % ABG Base Excess (-2.0-3.0) mmol/L Oxyhemoglobin (95.0-99.0) % Chloride 110.1 H (98-107) mmol/L Carbon Dioxide 19 L (22-30) mmol/L BUN 27 H (7-17) mg/dL Creatinine 3.3 H (0.6-1.2) mg/dL Glucose 361 H (65-100) mg/dL POC Glucose (70-105) mg/dL Lactic Acid 2.70 H* (0.7-2.0) mmol/L Albumin 3.3 L (3.9-5) g/dL Urine Creatinine (0.1-20.0) mg/dL 05/12/22 05/13/22 05/13/22 Range/Units 22:47 01:53 06:30 WBC (4.5-11.0) K/mm3 RBC (3.65-5.03) M/mm3 MCV (79-97) fl MCH (28-32) pg RDW (13.2-15.2) % Seg Neuts % (Manual) (40.0-70.0) % Lymphocytes % (Manual) (13.4-35.0) % Monocytes % (Manual) (0.0-7.3) % Seg Neutrophils # Man (1.8-7.7) K/mm3 Lymphocytes # (Manual) (1.2-5.4) K/mm3 Monocytes # (Manual) (0.0-0.8) K/mm3 ABG pO2 55.5 L (80.0-90.0) mm Hg ABG O2 Saturation 89.0 L (95.0-99.0) % ABG Base Excess -4.9 L (-2.0-3.0) mmol/L Oxyhemoglobin 85.4 L (95.0-99.0) % Chloride (98-107) mmol/L Carbon Dioxide (22-30) mmol/L BUN (7-17) mg/dL Creatinine (0.6-1.2) mg/dL Glucose (65-100) mg/dL POC Glucose 511 H (70-105) mg/dL Lactic Acid 2.30 H* (0.7-2.0) mmol/L Albumin (3.9-5) g/dL Urine Creatinine (0.1-20.0) mg/dL 05/13/22 05/13/22 05/13/22 Range/Units 10:27 11:33 16:12 WBC (4.5-11.0) K/mm3 RBC (3.65-5.03) M/mm3 MCV (79-97) fl MCH (28-32) pg RDW (13.2-15.2) % Seg Neuts % (Manual) (40.0-70.0) % Lymphocytes % (Manual) (13.4-35.0) % Monocytes % (Manual) (0.0-7.3) % Seg Neutrophils # Man (1.8-7.7) K/mm3 Lymphocytes # (Manual) (1.2-5.4) K/mm3 Monocytes # (Manual) (0.0-0.8) K/mm3 ABG pO2 (80.0-90.0) mm Hg ABG O2 Saturation (95.0-99.0) % ABG Base Excess (-2.0-3.0) mmol/L Oxyhemoglobin (95.0-99.0) % Chloride (98-107) mmol/L Carbon Dioxide (22-30) mmol/L BUN (7-17) mg/dL Creatinine (0.6-1.2) mg/dL Glucose (65-100) mg/dL POC Glucose 492 H 500 H 331 H (70-105) mg/dL Lactic Acid (0.7-2.0) mmol/L Albumin (3.9-5) g/dL Urine Creatinine (0.1-20.0) mg/dL 05/13/22 Range/Units Unknown WBC (4.5-11.0) K/mm3 RBC (3.65-5.03) M/mm3 MCV (79-97) fl MCH (28-32) pg RDW (13.2-15.2) % Seg Neuts % (Manual) (40.0-70.0) % Lymphocytes % (Manual) (13.4-35.0) % Monocytes % (Manual) (0.0-7.3) % Seg Neutrophils # Man (1.8-7.7) K/mm3 Lymphocytes # (Manual) (1.2-5.4) K/mm3 Monocytes # (Manual) (0.0-0.8) K/mm3 ABG pO2 (80.0-90.0) mm Hg ABG O2 Saturation (95.0-99.0) % ABG Base Excess (-2.0-3.0) mmol/L Oxyhemoglobin (95.0-99.0) % Chloride (98-107) mmol/L Carbon Dioxide (22-30) mmol/L BUN (7-17) mg/dL Creatinine (0.6-1.2) mg/dL Glucose (65-100) mg/dL POC Glucose (70-105) mg/dL Lactic Acid (0.7-2.0) mmol/L Albumin (3.9-5) g/dL Urine Creatinine 86.3 H (0.1-20.0) mg/dL Assessment and Plan Cultures: Blood culture no growth so far A/P: 31 yo F no PMHx now with: #SIRS/sepsis: With fevers, leukocytosis. Possibly secondary to meningoe ncephalitis. #Seizures: Unclear etiology, awaiting MRI and lumbar puncture Recs: -Agree with neurology assessment -Needs lumbar puncture with fluid analysis including cell count and CSF cultures -Continue renally dosed cefepime -Started renally dosed acyclovir -Follow up cultures Thank you for the consult, we will continue to follow. Tahira Cabrera MD [facility] O: [phone] F: [phone]
[2022-05-13] MEDS ORDERED: ACYCLOVIR 1,130 MG in SODIUM CHLORIDE 0.9% 100 ML IV SCH (20:00)
[2022-05-13 20:04] LABS: Creatinine,Urine 174.8 mg/dL (0.1-20.0)
[2022-05-13 20:28] LABS: Protein/Creatinine Ratio,Urine 4.2
[2022-05-13] MEDS ORDERED: INSULIN GLARGINE 100 UNITS/ML SUB-Q SCH (22:00)
[2022-05-13] MEDS ORDERED: levETIRAcetam 1,000 MG in DEXTROSE 5% IN WATER 100 ML IV ONE (22:14)
[2022-05-14] MEDS: levETIRAcetam 1,000 MG in DEXTROSE 5% IN WATER 100 ML IV SCH ×3 (00:10→22:09)
[2022-05-14] MEDS: INSULIN LISPRO 100 UNIT/ML SUB-Q SCH ×4 (00:13→17:39)
--- NOTE | 2022-05-14 01:38 | Consultation ---
DATE OF CONSULTATION: 05/13/2022 PULMONARY CRITICAL CARE CONSULT NOTE CONSULTING PHYSICIAN: Celina Barillas NP REASON FOR CONSULTATION: Hypertensive emergency. CHIEF COMPLAINT AND HISTORY OF PRESENT ILLNESS: As follows. The patient is a 31-year-old -[place] female, morbidly obese, who was brought into the Emergency Room for evaluation of a seizure episode. She is apparently visiting from [place], but has a history of seizures. Reportedly, since she came, she has not had enough rest since arrival a few days prior. She was reported by caregivers to have woken up in the middle of the night, had an episode of vomiting and subsequently had seizures. While in the ER, she also had another witnessed seizure and was started on Keppra, given some Ativan. Further workup in the Emergency Room showed that she had a blood pressure with systolics in the 200s and diastolics in the 130s. Urine drug screen was positive for marijuana. She had leukocytosis. Serum creatinine was elevated at 3.1 as was her initial blood glucose of 580. She was started on a Cardene drip and ICU admission was requested and offered and she was brought into the ICU where I stopped by to see her. While in the Emergency Room, she reportedly had a fever also of 103 degrees Fahrenheit. When I stopped by to see her, she was resting in bed. According to the nurse, she had another episode of seizures, mostly manifesting as facial twitching. She was not responsive to me. She remained on a Cardene drip at max dose of 15 mg per hour. She had been tachycardic. She was exhibiting sleep disordered breathing while I was in the room. I do not have any history of fall or vomiting since she has been in the hospital, but cannot rule out aspiration at her initial episode at home. The patient's tobacco use/alcohol use is unknown. The above is really as much of the history of presentation as I have. PAST MEDICAL HISTORY: History of obesity and seizures. PAST SURGICAL HISTORY: Unknown. MEDICATIONS: She was on at the time I stopped by to see her according to the medication administration record included the following: Tylenol 650 mg p.o. q. 6 hours p.r.n. mild pain or fevers, amlodipine 10 mg p.o. daily has just been started, cefepime 2 grams IV daily, heparin 5000 units subcutaneous q. 8 hours, hydralazine 100 mg p.o. t.i.d., Lantus insulin 10 units subcutaneously at bedtime, Keppra 1 gram IV q. 12 hours, insulin via sliding scale, Ativan 2 mg IV q. 4 hours p.r.n. seizures. Morphine sulfate 2 mg IV q. 4 hours p.r.n. moderate pain and 4 mg IV q. 4 hours p.r.n. severe pain, nicardipine drip again was going at 15 mg per hour, Zofran 4 mg IV q. 8 hours p.r.n. nausea and vomiting. ALLERGIES: Unknown. DIET: Morbidly obese, acute weight loss or gain history is unknown. FAMILY AND SOCIAL HISTORY: Apparently from out of town. Urine drug screen was presumptive positive for THC; however, alcohol, tobacco or illicit drug use or abuse history otherwise unknown. FAMILY HISTORY: Otherwise unknown. REVIEW OF SYSTEMS: Unobtainable secondary to the patient's medical and mental condition. Since she has been here, no gross hematochezia or melena, no gross hematuria, no hematemesis, no hemoptysis. She has had witnessed seizures. Review of systems otherwise unobtainable or as in body of history above. PHYSICAL EXAMINATION: VITAL SIGNS: At presentation over here, the first temperature I have is 103.1 degrees Fahrenheit, pulse at presentation was 113, respiratory rate of 18, blood pressure as high as 265/148. O2 sats were 98%, inspired oxygen concentration at that time was not recorded. She is currently on 2 liters nasal cannula with 99% O2 sats. GENERAL: She is a young, obese female. Normocephalic, atraumatic, asleep in bed with snoring and intermittent apneas. HEAD, EYES, EARS, NOSE AND THROAT: Anicteric. No conjunctival erythema. Oropharynx appeared moist. There was some saliva running down the left side of her mouth. She has a large neck circumference. NECK: No jugular venous distention, no thyromegaly. Grossly, there were no palpable lymph nodes in the supraclavicular or submandibular lymph node chains. LUNGS: Auscultation of both lung ford, diminished breath sounds. No active wheezing. She did have referred upper airway sounds from the snoring and respiratory effort was disordered. HEART: Sounds 1 and 2 are heard, regular, tachycardia at the time of my evaluation without overt rubs or murmurs. ABDOMEN: Soft, full, protuberant. Bowel sounds are positive, nontender, no palpable hepatosplenomegaly. EXTREMITIES: Without overt digital clubbing or cyanosis, no pedal edema. Pedal pulses were 2+ bilaterally. NEUROLOGIC: Pupils were equal, round, about 3-4 mm, reactive to light. Extraocular muscle movements could not be adequately assessed. She moves all 4 extremities spontaneously. She was not responding to commands, though at the time I saw her, she was kind of like in deep sleep. SKIN: Normal turgor in the areas examined without overt cellulitis or rash. Please see the wound care nurses' notes for full description of her skin. PSYCHIATRIC: Mood and affect could not be evaluated. She was sleeping and snoring. LABORATORY DATA: From my review are as follows: Admission white cell count 13,100 with a hemoglobin of 13.1, hematocrit 42.0, platelet count 243. No band forms on the manual differential. INR was 1.22. Arterial blood gas yesterday evening showed a pH of 7.35, pCO2 of 37 and a pO2 of 56 on room air. Serum sodium was 138, potassium 4.3, chloride 102, bicarbonate 18, BUN 26, creatinine 3.1, glucose was 580. Lactic acid level was 2.8 and is down to 2.3. Liver function tests essentially within normal limits. Albumin was low at 3.3. TSH within normal limits. Free T4 within normal limits. Urinalysis negative for nitrites and leukocyte esterase and no white cells reported on microscopy. Aspirin, Tylenol, alcohol levels within expected limits. THC screen was presumptive positive. Her most recent BUN is 27, creatinine is up to 3.3. Hemoglobin A1c is pending. Two sets of blood cultures are no growth to date. Chest x-ray essentially shows clear lung ford, borderline cardiomegaly, no gross pneumothorax, no gross bony fractures, small lung volumes, it is a lordotic film. CT of the head did not reveal any acute intracranial abnormality. A KUB has been reported as showing feeding tube terminating in the stomach and were unable to pull the image up. I do see the images, not definitely in the stomach, even possibly in the duodenum. ASSESSMENT: 1. Hypertensive emergency with seizures. 2. Seizures (baseline history of seizures). 3. Morbid obesity. 4. Acute toxic metabolic encephalopathy. 5. Leukocytosis. 6. Acute kidney injury, possibly on chronic. 7. Lactic acidosis. 8. Hyperglycemia, possible diabetes. 9. Pyrexia, etiology unknown. PLAN: I do agree with empiric Keppra therapy. We will continue that for now. Attempts will be made to try and get her home medication list and see what if anything, she was on. I note the fevers, not really clear that this related to an infectious process, in the larger order of things perhaps not getting enough rest since she came to [place], increased chances of having a seizure, but at this point, we will get a procalcitonin level. Continue empiric antibiotic therapy. I think that if anything, she may have had aspiration event, I will treat her for an aspiration pneumonia, empirically with Rocephin and Zithromax or Levaquin. In light of her renal failure, I will make that decision and probably start her on Levaquin and dose her 500 mg IV q. 48 hours for a total empiric duration of 5 days. We will follow the blood cultures. Urine electrolytes will be sent to calculate a fractional excretion of sodium. Nephrology consultation will be at the behest of the attending physician. I believe Cardiology has been consulted. She remains significantly tachycardic. We will continue gentle volume hydration in light of the renal failure, but I will also be starting her on metoprolol and see if we can quickly get her off the Cardene drip. I will also be starting some clonidine to see again if we can quickly get her off the Cardene drip. EEG has been done. Neurology evaluation is ongoing. She is appropriately on DVT prophylaxis with heparin. I will be putting her on GI prophylaxis with Pepcid. She does not appear to be in status right now clinically but we will see what the EEG shows. If she is having continuous seizure activity, she will be transferred to a center with continuous EEG monitoring capabilities. Accu-Cheks will continue q. 6 hours at this point. I will also send a hemoglobin A1c. Flu and pneumonia vaccination will be addressed per protocol. Glycemic control will be for target blood glucose of 140-180 mg/dL while critically ill. Thank you very much for the consult. We will follow along and make further recommendations as picture progresses/becomes clearer. She is critically ill on life-sustaining interventions, at high risk of from neurologic and renal system and cardiopulmonary system decompensation. I will offer bilevel positive airway pressure ventilation therapy scheduled at bedtime. Flu and pneumonia vaccination will be addressed per protocol. Thank you very much for the consult. We will follow along and make further recommendations as picture progresses/becomes clearer. TID: [id number] RECEIPT: [id number] MAKAYLA/CRISTIAN
[2022-05-14] MEDS: LACOSAMIDE 100 MG in SODIUM CHLORIDE 0.9% 100 ML IV SCH ×2 (02:03→09:30)
[2022-05-14 05:02] LABS: Basophils # (Auto) 0.2 K/mm3 (0.0-0.1); Basophils % (Auto) 1.3 % (0.0-1.8); Hematocrit 38.2 % (30.3-42.9); Hemoglobin 11.9 gm/dl (10.1-14.3); Lymphocytes # (Auto) 2.2 K/mm3 (1.2-5.4); Lymphocytes % (Auto) 12.1 % (13.4-35.0); Mean Corpuscular HGB Conc 31 % (30-34); Mean Corpuscular Volume 78 fl (79-97); Monocytes # (Auto) 2.1 K/mm3 (0.0-0.8); Monocytes % (Auto) 11.6 % (0.0-7.3); Platelet Count 221 K/mm3 (140-440); Red Cell Distribution Width 16.6 % (13.2-15.2)
[2022-05-14 05:06] LABS: C-Reactive Protein 1.4 mg/dL (0.00-1.30)
[2022-05-14] MEDS: HEPARIN 5,000 UNIT/1 ML VIAL SUB-Q SCH ×3 (05:49→22:17)
--- NOTE | 2022-05-14 06:42 | Progress Note ---
Assessment and Plan Hypertensive emergency with seizures H/O Seizures Morbid obesity Acute toxic metabolic encephalopathy Leukocytosis Acute kidney injury possibly on chronic Lactic acidosis Hyperglycemia Pyrexia - follow MRI - continue empiric Cefepime and acyclovir for now - follow LP results - get discharge summaries / records from [facility] - follow HbA1C result - continue accuchecks with glycemic control per SSI for target blood glucose of < 180 mg/dL; avoid hypoglycemia - prn supplemental oxygen for target O2 sat's > 90% acutely - aspiration precautions - prn bronchodilators with pulmonary hygiene per RT - prn analgesia per pain score - Maintenance of sleep-wake cycle, avoid delirium - enteral nutritional support at goal rate as tolerated - G.I. & VTE prophylaxis - PT/OT/ROM exercises - mobility protocols for pressure ulcer prophylaxis - Monitor hemodynamics closely - continue other care per attending / other consultants - discharge planning ongoing concurrently ........ OK to transfer to [facility] .... Re-evaluate in am & prn I have spent ( >35 ) minutes with the patient w/ >50% of the time spent counseling and/or coordinating care for this patient. Counseling topics and/or how time was spent coordinating patient's care is outlined in the impression and plan above. Subjective Date of service: 05/14/22 Principal diagnosis: HTNsive emergency with seizures; Morbid obesity; AMS; Leukocytosis; RODRÍGUEZ Interval history: Patient is seen today for: HTNsive emergency with seizures; Morbid obesity; AMS; Leukocytosis; RODRÍGUEZ; Lactic acidosis Seen and examined at bedside; 24hour events reviewed; nursing and respiratory care staff consulted; no adverse overnight events reported to me; resting peacefully in bed; remains altered opening eyes to stimulation / name calling but not following prompts; EEG was post-ictal (bedside report yesterday); still with intermittent facial seizure type activity; did not need BIPAP support overnight; no emesis or overt aspiration; Tm 102.4F last 24 hours Objective Vital Signs - 12hr 05/13/22 05/13/22 05/13/22 18:45 19:00 19:15 Temperature Pulse Rate 128 H 127 H 126 H Respiratory 19 18 22 Rate Blood Pressure 159/84 170/88 162/82 O2 Sat by Pulse 97 97 99 Oximetry 05/13/22 05/13/22 05/13/22 19:30 19:33 19:39 Temperature 101.3 F H Pulse Rate 124 H Respiratory 19 Rate Blood Pressure 162/86 O2 Sat by Pulse 99 98 Oximetry 05/13/22 05/13/22 05/13/22 19:45 20:00 20:16 Temperature 101.3 F H Pulse Rate 126 H 126 H 124 H Respiratory 18 23 25 H Rate Blood Pressure 169/91 173/79 150/75 O2 Sat by Pulse 99 99 99 Oximetry 05/13/22 05/13/22 05/13/22 20:30 20:45 21:00 Temperature Pulse Rate 127 H 128 H 125 H Respiratory 23 24 21 Rate Blood Pressure 141/75 146/74 152/80 O2 Sat by Pulse 99 99 99 Oximetry 05/13/22 05/13/22 05/13/22 21:15 21:30 21:45 Temperature Pulse Rate 129 H 122 H 126 H Respiratory 29 H 17 17 Rate Blood Pressure 133/73 144/81 150/87 O2 Sat by Pulse 97 98 99 Oximetry 05/13/22 05/13/22 05/13/22 22:00 22:05 22:15 Temperature Pulse Rate 124 H 124 H 127 H Respiratory 15 16 21 Rate Blood Pressure 141/87 141/93 O2 Sat by Pulse 99 99 96 Oximetry 05/13/22 05/13/22 05/13/22 22:26 22:30 22:32 Temperature Pulse Rate 121 H 123 H 124 H Respiratory 19 16 Rate Blood Pressure 141/93 139/88 O2 Sat by Pulse 99 99 Oximetry 05/13/22 05/13/22 05/13/22 22:45 23:00 23:15 Temperature Pulse Rate 122 H 120 H 122 H Respiratory 18 16 16 Rate Blood Pressure 146/89 145/88 161/92 O2 Sat by Pulse 99 98 99 Oximetry 05/13/22 05/13/22 05/14/22 23:30 23:45 00:00 Temperature 100.2 F H Pulse Rate 122 H 123 H 125 H Respiratory 18 19 25 H Rate Blood Pressure 164/90 145/88 182/96 O2 Sat by Pulse 98 99 99 Oximetry 05/14/22 05/14/22 05/14/22 00:15 00:30 00:45 Temperature Pulse Rate 127 H 122 H 126 H Respiratory 25 H 18 26 H Rate Blood Pressure 182/96 189/91 182/96 O2 Sat by Pulse 99 99 99 Oximetry 05/14/22 05/14/22 05/14/22 01:00 01:15 01:30 Temperature Pulse Rate 127 H 125 H 125 H Respiratory 21 22 20 Rate Blood Pressure 174/94 189/91 172/88 O2 Sat by Pulse 98 98 99 Oximetry 05/14/22 05/14/22 05/14/22 01:45 02:00 02:15 Temperature Pulse Rate 131 H 132 H 130 H Respiratory 17 24 23 Rate Blood Pressure 172/88 160/79 160/79 O2 Sat by Pulse 98 98 98 Oximetry 05/14/22 05/14/22 05/14/22 02:30 02:45 03:00 Temperature Pulse Rate 124 H 124 H 124 H Respiratory 14 18 21 Rate Blood Pressure 150/82 150/82 159/75 O2 Sat by Pulse 98 98 98 Oximetry 05/14/22 05/14/22 05/14/22 03:15 03:30 03:45 Temperature Pulse Rate 122 H 123 H 123 H Respiratory 15 16 16 Rate Blood Pressure 159/75 163/85 163/85 O2 Sat by Pulse 99 99 98 Oximetry 05/14/22 05/14/22 04:00 04:15 Temperature 99.3 F Pulse Rate 122 H 124 H Respiratory 17 16 Rate Blood Pressure 159/84 159/84 O2 Sat by Pulse 99 99 Oximetry Constitutional: other (young obese female with mildly increased respiratory effort at rest) Eyes: non-icteric ENT: oropharynx moist Neck: supple, no lymphadenopathy, no JVD, other (large circumference) Effort: mildly labored Ascultation: Bilateral: clear, diminished breath sounds Percussion: Bilateral: not dull Cardiovascular: regular rate and rhythm Gastrointestinal: normoactive bowel sounds, soft, non-tender, non-distended (protuberant) Integumentary: normal Extremities: no cyanosis, no edema, pulses normal, no ischemia or petechiae Neurologic: non-focal exam (grossly), pupils equal and round, motor strength normal and Psychiatric: other (flat affect; encephalopathic) CBC and BMP: 05/14/22 04:20 05/14/22 04:20 ABG, PT/INR, D-dimer: ABG ABG pH 7.354 pH Units (7.350-7.450) 05/12/22 22:47 ABG pCO2 36.7 mm Hg 05/12/22 22:47 ABG pO2 55.5 mm Hg (80.0-90.0) L 05/12/22 22:47 ABG O2 Saturation 89.0 % (95.0-99.0) L 05/12/22 22:47 PT/INR, D-dimer PT 16.8 Sec. (12.2-14.9) H 05/12/22 14:25 INR 1.22 (0.87-1.13) H 05/12/22 14:25 Abnormal lab findings: Abnormal Labs 05/12/22 05/12/22 05/12/22 14:25 14:25 14:25 WBC 13.1 H RBC 5.37 H MCV 78 L MCH 25 L RDW 16.2 H Lymph % (Auto) Catron % (Auto) Catron # (Auto) Baso # (Auto) Seg Neutrophils % Seg Neuts % (Manual) 88.0 H Lymphocytes % (Manual) 7.0 L Monocytes % (Manual) Seg Neutrophils # Seg Neutrophils # Man 11.5 H Lymphocytes # (Manual) 0.9 L Monocytes # (Manual) PT 16.8 H INR 1.22 H ABG pO2 ABG O2 Saturation ABG Base Excess Oxyhemoglobin Sodium Potassium Chloride Carbon Dioxide 18 L BUN 26 H Creatinine 3.1 H Glucose 580 H* POC Glucose Lactic Acid Total Creatine Kinase C-Reactive Protein Total Protein 6.2 L Albumin 3.3 L PTH Intact Urine Creatinine Urine Total Protein Salicylates Acetaminophen 05/12/22 05/12/22 05/12/22 14:25 14:25 14:25 WBC RBC MCV MCH RDW Lymph % (Auto) Catron % (Auto) Catron # (Auto) Baso # (Auto) Seg Neutrophils % Seg Neuts % (Manual) Lymphocytes % (Manual) Monocytes % (Manual) Seg Neutrophils # Seg Neutrophils # Man Lymphocytes # (Manual) Monocytes # (Manual) PT INR ABG pO2 ABG O2 Saturation ABG Base Excess Oxyhemoglobin Sodium Potassium Chloride Carbon Dioxide BUN Creatinine Glucose POC Glucose Lactic Acid 2.80 H* Total Creatine Kinase C-Reactive Protein Total Protein Albumin PTH Intact Urine Creatinine Urine Total Protein Salicylates < 0.3 L Acetaminophen 5.0 L 05/12/22 05/12/22 05/12/22 22:47 22:47 22:47 WBC 15.4 H RBC 5.42 H MCV 77 L MCH 24 L RDW 16.3 H Lymph % (Auto) Catron % (Auto) Catron # (Auto) Baso # (Auto) Seg Neutrophils % Seg Neuts % (Manual) 85.0 H Lymphocytes % (Manual) 7.0 L Monocytes % (Manual) 8.0 H Seg Neutrophils # Seg Neutrophils # Man 13.1 H Lymphocytes # (Manual) 1.1 L Monocytes # (Manual) 1.2 H PT INR ABG pO2 ABG O2 Saturation ABG Base Excess Oxyhemoglobin Sodium Potassium Chloride 110.1 H Carbon Dioxide 19 L BUN 27 H Creatinine 3.3 H Glucose 361 H POC Glucose Lactic Acid 2.70 H* Total Creatine Kinase C-Reactive Protein Total Protein Albumin 3.3 L PTH Intact Urine Creatinine Urine Total Protein Salicylates Acetaminophen 05/12/22 05/13/22 05/13/22 22:47 01:53 06:30 WBC RBC MCV MCH RDW Lymph % (Auto) Catron % (Auto) Catron # (Auto) Baso # (Auto) Seg Neutrophils % Seg Neuts % (Manual) Lymphocytes % (Manual) Monocytes % (Manual) Seg Neutrophils # Seg Neutrophils # Man Lymphocytes # (Manual) Monocytes # (Manual) PT INR ABG pO2 55.5 L ABG O2 Saturation 89.0 L ABG Base Excess -4.9 L Oxyhemoglobin 85.4 L Sodium Potassium Chloride Carbon Dioxide BUN Creatinine Glucose POC Glucose 511 H Lactic Acid 2.30 H* Total Creatine Kinase C-Reactive Protein Total Protein Albumin PTH Intact Urine Creatinine Urine Total Protein Salicylates Acetaminophen 05/13/22 05/13/22 05/13/22 10:27 11:33 16:12 WBC RBC MCV MCH RDW Lymph % (Auto) Catron % (Auto) Catron # (Auto) Baso # (Auto) Seg Neutrophils % Seg Neuts % (Manual) Lymphocytes % (Manual) Monocytes % (Manual) Seg Neutrophils # Seg Neutrophils # Man Lymphocytes # (Manual) Monocytes # (Manual) PT INR ABG pO2 ABG O2 Saturation ABG Base Excess Oxyhemoglobin Sodium Potassium Chloride Carbon Dioxide BUN Creatinine Glucose POC Glucose 492 H 500 H 331 H Lactic Acid Total Creatine Kinase C-Reactive Protein Total Protein Albumin PTH Intact Urine Creatinine Urine Total Protein Salicylates Acetaminophen 05/13/22 05/13/22 05/13/22 19:34 21:55 23:50 WBC RBC MCV MCH RDW Lymph % (Auto) Catron % (Auto) Catron # (Auto) Baso # (Auto) Seg Neutrophils % Seg Neuts % (Manual) Lymphocytes % (Manual) Monocytes % (Manual) Seg Neutrophils # Seg Neutrophils # Man Lymphocytes # (Manual) Monocytes # (Manual) PT INR ABG pO2 ABG O2 Saturation ABG Base Excess Oxyhemoglobin Sodium Potassium Chloride Carbon Dioxide BUN Creatinine Glucose POC Glucose 268 H 256 H Lactic Acid Total Creatine Kinase C-Reactive Protein Total Protein Albumin PTH Intact Urine Creatinine 174.8 H Urine Total Protein 735 H Salicylates Acetaminophen 05/13/22 05/14/22 05/14/22 Unknown 04:20 04:20 WBC 18.3 H RBC MCV 78 L MCH 24 L RDW 16.6 H Lymph % (Auto) 12.1 L Catron % (Auto) 11.6 H Catron # (Auto) 2.1 H Baso # (Auto) 0.2 H Seg Neutrophils % 75.0 H Seg Neuts % (Manual) Lymphocytes % (Manual) Monocytes % (Manual) Seg Neutrophils # 13.7 H Seg Neutrophils # Man Lymphocytes # (Manual) Monocytes # (Manual) PT INR ABG pO2 ABG O2 Saturation ABG Base Excess Oxyhemoglobin Sodium 146 H Potassium 3.4 L Chloride 115.1 H Carbon Dioxide 17 L BUN 35 H Creatinine 3.9 H Glucose 224 H POC Glucose Lactic Acid Total Creatine Kinase C-Reactive Protein 1.40 H Total Protein Albumin PTH Intact Urine Creatinine 86.3 H Urine Total Protein Salicylates Acetaminophen 05/14/22 05/14/22 04:20 04:20 WBC RBC MCV MCH RDW Lymph % (Auto) Catron % (Auto) Catron # (Auto) Baso # (Auto) Seg Neutrophils % Seg Neuts % (Manual) Lymphocytes % (Manual) Monocytes % (Manual) Seg Neutrophils # Seg Neutrophils # Man Lymphocytes # (Manual) Monocytes # (Manual) PT INR ABG pO2 ABG O2 Saturation ABG Base Excess Oxyhemoglobin Sodium Potassium Chloride Carbon Dioxide BUN Creatinine Glucose POC Glucose Lactic Acid Total Creatine Kinase 217 H C-Reactive Protein Total Protein Albumin PTH Intact 149.4 H Urine Creatinine Urine Total Protein Salicylates Acetaminophen Allied health notes reviewed: nursing
[2022-05-14] MEDS: hydrALAZINE 100 MG TAB FEEDTUBE SCH ×3 (08:07→20:28)
[2022-05-14] MEDS: ACETAMINOPHEN 325 MG TAB PO PRN (08:08)
[2022-05-14] MEDS: amLODIPine 10 MG TAB FEEDTUBE SCH (09:32)
--- NOTE | 2022-05-14 09:40 | Ultrasound Report ---
ULTRASOUND RENAL INDICATION / CLINICAL INFORMATION: RODRÍGUEZ. COMPARISON: None available. FINDINGS: RIGHT KIDNEY: Length = 9.5 cm. [normal > 9 cm] - Parenchymal Thickness = 1.3 cm. [normal > 1.5 cm] - Echogenicity: Increased - Hydronephrosis: None. - Cyst or mass: There is a 1.7 x 1.4 x 1.5 cm hyperechoic rounded lesion near the lower pole which is similar to fat density and probably represents a small angiomyolipoma. - Stones: None seen. LEFT KIDNEY: Length = 11.7 cm. [normal > 9 cm] - Parenchymal Thickness = 2.2 cm. [normal > 1.5 cm] - Echogenicity: Increased - Hydronephrosis: None. - Cyst or mass: No significant abnormality. - Stones: None seen. URINARY BLADDER: The bladder is decompressed with a Vergara catheter and poorly evaluated. FREE FLUID: None. ADDITIONAL FINDINGS: None. IMPRESSION: Normal size but echogenic kidneys consistent with medical renal disease. No hydronephrosis. 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 Signer Name: Glenn Sanchez Jr, MD Signed: 05/14/2022 9:35 AM Workstation Name: [id number]
[2022-05-14] MEDS: carvediloL 25 MG TAB FEEDTUBE SCH ×2 (10:39→22:17)
--- NOTE | 2022-05-14 10:54 | Progress Note ---
Assessment and Plan # Acute Kidney Injury: suspect pre-renal injury and tubular injury in setting of hyperglycemia, seizure episode, sepsis. May have CKD at baseline given DM, HTN, obesity - creatinine uptrending 3.1->3.9 with mild acidosis, hypokalemia, hypernatremia in setting of sepsis, persistent tachycardia - urinalysis noted, check UP/C, check serologies - CK reasonable at 217 - PTH ~140, phos/ca WNL - renal ultrasound with no acute obstruction, note potential angiomyolipoma, outpatient follow up - glucose control per primary, IVF as tolerated - hold home diuretics, if having worsening respiratory status or edema, plan for IV diuretics prn only - avoid nephrotoxins - renally dose medications - I/Os - no immediate need for kidney biopsy or renal replacement therapy # Metabolic Acidosis: note elevated lactate, no obvious ingestion # Seizure: note neurology input # HTN: BP very high initially, s/p cardene gtt, agree with current regimen # Tachycardia: HR high in setting of sepsis, agree with carvedilol # Fever: ID input noted, note concern for infectious cause of encephalopathy # DM/Hyperglycemia: per primary Subjective Date of service: 05/14/22 Principal diagnosis: HTNsive emergency with seizures; Morbid obesity; AMS; Leukocytosis; RODRÍGUEZ Interval history: Resting in bed, no major changes noted, remains tachycardic Objective - Exam Narrative Exam: General appearance: Present: no acute distress, well-nourished, obese Eyes: Present: PERRL, EOM intact ENT: dentition normal Neck: Present: supple, normal ROM Respiratory: bilateral: CTA CV: Present: S1 & S2 Extremities: no ischemia, pulses intact, pulses symmetrical, No edema General gastrointestinal: Present: soft, non-tender, non-distended, normal bowel sounds Integumentary: Present: clear, warm, dry, normal turgor. Absent: rash Musculoskeletal: generalized weakness Psychiatric: drowsy Neurologic: Non verbal, Sedated - Vital Signs Vital signs: Vital Signs - 12hr 05/13/22 05/13/22 05/13/22 23:00 23:15 23:30 Temperature Pulse Rate 120 H 122 H 122 H Respiratory 16 16 18 Rate Blood Pressure 145/88 161/92 164/90 O2 Sat by Pulse 98 99 98 Oximetry 05/13/22 05/14/22 05/14/22 23:45 00:00 00:15 Temperature 100.2 F H Pulse Rate 123 H 125 H 127 H Respiratory 19 25 H 25 H Rate Blood Pressure 145/88 182/96 182/96 O2 Sat by Pulse 99 99 99 Oximetry 05/14/22 05/14/22 05/14/22 00:30 00:45 01:00 Temperature Pulse Rate 122 H 126 H 127 H Respiratory 18 26 H 21 Rate Blood Pressure 189/91 182/96 174/94 O2 Sat by Pulse 99 99 98 Oximetry 05/14/22 05/14/22 05/14/22 01:15 01:30 01:45 Temperature Pulse Rate 125 H 125 H 131 H Respiratory 22 20 17 Rate Blood Pressure 189/91 172/88 172/88 O2 Sat by Pulse 98 99 98 Oximetry 05/14/22 05/14/22 05/14/22 02:00 02:15 02:30 Temperature Pulse Rate 132 H 130 H 124 H Respiratory 24 23 14 Rate Blood Pressure 160/79 160/79 150/82 O2 Sat by Pulse 98 98 98 Oximetry 05/14/22 05/14/22 05/14/22 02:45 03:00 03:15 Temperature Pulse Rate 124 H 124 H 122 H Respiratory 18 21 15 Rate Blood Pressure 150/82 159/75 159/75 O2 Sat by Pulse 98 98 99 Oximetry 05/14/22 05/14/22 05/14/22 03:30 03:45 04:00 Temperature 99.3 F Pulse Rate 123 H 123 H 122 H Respiratory 16 16 17 Rate Blood Pressure 163/85 163/85 159/84 O2 Sat by Pulse 99 98 99 Oximetry 05/14/22 05/14/22 05/14/22 04:15 04:31 04:45 Temperature Pulse Rate 124 H 127 H 128 H Respiratory 16 20 22 Rate Blood Pressure 159/84 159/84 159/84 O2 Sat by Pulse 99 99 98 Oximetry 05/14/22 05/14/22 05/14/22 05:00 05:15 05:30 Temperature Pulse Rate 126 H 125 H 128 H Respiratory 22 18 23 Rate Blood Pressure 141/87 141/87 162/90 O2 Sat by Pulse 99 99 99 Oximetry 05/14/22 05/14/22 05/14/22 05:45 06:00 06:15 Temperature Pulse Rate 127 H 127 H 128 H Respiratory 19 18 22 Rate Blood Pressure 162/90 156/93 156/93 O2 Sat by Pulse 99 99 98 Oximetry 05/14/22 05/14/22 05/14/22 06:30 06:45 07:00 Temperature Pulse Rate 131 H 131 H 130 H Respiratory 21 22 22 Rate Blood Pressure 164/98 164/98 182/95 O2 Sat by Pulse 99 99 99 Oximetry 05/14/22 05/14/22 05/14/22 07:14 07:15 07:30 Temperature 100.0 F H Pulse Rate 127 H 128 H Respiratory 18 14 Rate Blood Pressure 164/98 151/89 O2 Sat by Pulse 98 99 Oximetry 05/14/22 05/14/22 05/14/22 07:45 08:00 08:15 Temperature Pulse Rate 129 H 126 H 123 H Respiratory 8 L 12 25 H Rate Blood Pressure 151/89 137/78 137/78 O2 Sat by Pulse 99 99 98 Oximetry 05/14/22 05/14/22 05/14/22 08:30 08:45 09:01 Temperature Pulse Rate 116 H 117 H 122 H Respiratory 15 18 14 Rate Blood Pressure 126/72 126/72 137/89 O2 Sat by Pulse 98 99 99 Oximetry 05/14/22 05/14/22 05/14/22 09:15 09:30 09:32 Temperature Pulse Rate 118 H 113 H 114 H Respiratory 15 15 Rate Blood Pressure 137/89 127/80 127/80 O2 Sat by Pulse 98 98 Oximetry 05/14/22 05/14/22 05/14/22 09:45 10:00 10:15 Temperature Pulse Rate 112 H 114 H 123 H Respiratory 16 14 33 H Rate Blood Pressure 127/80 147/89 147/89 O2 Sat by Pulse 98 98 99 Oximetry 05/14/22 10:39 Temperature Pulse Rate 114 H Respiratory Rate Blood Pressure O2 Sat by Pulse Oximetry - Lab 05/14/22 04:20 05/14/22 04:20 Most recent lab results ABG pH 7.354 pH Units (7.350-7.450) 05/12/22 22:47 ABG pCO2 36.7 mm Hg 05/12/22 22:47 ABG pO2 55.5 mm Hg (80.0-90.0) L 05/12/22 22:47 ABG HCO3 20.0 mmol/L (20.0-26.0) 05/12/22 22:47 ABG O2 Saturation 89.0 % (95.0-99.0) L 05/12/22 22:47 Calcium 9.0 mg/dL (8.4-10.2) 05/14/22 04:20 Phosphorus 2.50 mg/dL (2.5-4.5) 05/14/22 04:20 Magnesium 2.20 mg/dL (1.7-2.3) 05/14/22 04:20 Urine Creatinine 86.3 mg/dL (0.1-20.0) H 05/13/22 Unknown Urine Sodium 21 mmol/L 05/13/22 Unknown Urine Total Protein 735 mg/dL (5-11.8) H 05/13/22 19:34 Medications & Allergies - Medications Allergies/Adverse Reactions: Allergies No Known Allergies Allergy (Verified 05/13/22 19:13) Active Medications: Generic Name Dose Route Start Last Admin Trade Name Freq PRN Reason Stop Dose Admin Acetaminophen 650 mg 05/13/22 02:07 05/14/22 08:08 Acetaminophen 325 Mg Tab PO 650 mg Q6H PRN Administration Pain MILD(1-3)/Fever >100.5/PATINO Acetaminophen 650 mg 05/13/22 08:51 05/13/22 09:18 Acetaminophen 650 Mg Rect Supp MI 650 mg Q6H PRN Administration Pain, Mild (1-3), T> 100.5 Amlodipine Besylate 10 mg 05/13/22 12:00 05/14/22 09:32 Amlodipine 10 Mg Tab FEEDTUBE 10 mg QDAY BRAD Administration Atorvastatin Calcium 40 mg 05/16/22 22:00 Atorvastatin 40 Mg Tab FEEDTUBE QHS BRAD Carvedilol 25 mg 05/14/22 10:00 05/14/22 10:39 Carvedilol 25 Mg Tab FEEDTUBE 25 mg BID BRAD Administration Dextrose 0 ml 05/13/22 02:07 Dextrose 50% In Water (25gm) 50 Ml Syringe IV Q30MIN PRN Hypoglycemia Protocol Heparin Sodium (Porcine) 5,000 unit 05/13/22 06:00 05/14/22 05:49 Heparin 5,000 Unit/1 Ml Vial SUB-Q 5,000 unit Q8HR BRAD Administration Hydralazine HCl 100 mg 05/13/22 14:00 05/14/22 08:07 Hydralazine 100 Mg Tab FEEDTUBE 100 mg TID BRAD Administration Sodium Chloride 1,000 mls @ 125 mls/hr 05/13/22 02:15 05/13/22 18:37 Nacl 0.9% 1000 Ml IV 125 mls/hr DIRECT BRAD Administration Nicardipine HCl 50 mg/ Sodium 250 mls @ 25 mls/hr 05/13/22 06:00 05/13/22 18:00 Chloride IV 0 mg/hr TITR BRAD 0 mls/hr Titration Protocol 5 MG/HR Levetiracetam 1,000 mg/ 110 mls @ 400 mls/hr 05/13/22 22:00 05/14/22 09:30 Dextrose IV 400 mls/hr Q12HR BRAD Administration Cefepime HCl 2 gm in 100 mls @ 200 mls/hr 05/13/22 13:00 05/13/22 12:17 Cefepime/Ns 2 Gm/100 Ml IV 200 mls/hr Q24H BRAD Administration Protocol Acyclovir 500 mg/ Sodium 110 mls @ 100 mls/hr 05/14/22 20:00 Chloride IV Q24H [facility] Protocol Lacosamide 100 mg/ Sodium 110 mls @ 100 mls/hr 05/13/22 23:45 05/14/22 09:30 Chloride IV 100 mls/hr Q12HR BRAD Administration Insulin Glargine 15 units 05/14/22 22:00 Insulin Glargine 100 Units/Ml SUB-Q QHS BRAD Insulin Human Lispro 0 unit 05/13/22 12:00 05/14/22 05:49 Insulin Lispro 100 Unit/Ml SUB-Q 4 unit Q6HR BRAD Administration Protocol Lorazepam 2 mg 05/13/22 13:03 05/13/22 13:41 Lorazepam 2 Mg/Ml Vial IV 2 mg Q4H PRN Administration Seizures Magnesium Hydroxide 30 ml 05/13/22 02:07 Magnesium Hydroxide (Mom) Oral Liqd Udc PO Q4H PRN Constipation Ondansetron HCl 4 mg 05/13/22 02:07 Ondansetron 4 Mg/2 Ml Inj IV Q8H PRN Nausea And Vomiting Sodium Chloride 10 ml 05/13/22 10:00 05/14/22 09:31 Sodium Chloride 0.9% 10 Ml Flush Syringe IV 10 ml BID BRAD Administration Sodium Chloride 10 ml 05/13/22 02:07 Sodium Chloride 0.9% 10 Ml Flush Syringe IV PRN PRN LINE FLUSH
--- NOTE | 2022-05-14 11:09 | Progress Note ---
Assessment and Plan Cultures: Blood culture no growth so far A/P: 31 yo F no PMHx now with: #SIRS/sepsis: With fevers, leukocytosis. 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 #Seizures: Unclear etiology, awaiting MRI and lumbar puncture Recs: -Agree with neurology assessment -Needs lumbar puncture with fluid analysis including cell count and CSF cultures -Continue renally dosed cefepime -Started renally dosed acyclovir -Vancomycin dosed per pharmacy -Follow up cultures Thank you for the consult, we will continue to follow. Tahira Cabrera MD [facility] ([facility]) O: [phone] F: [phone] Subjective Date of service: 05/14/22 Principal diagnosis: HTNsive emergency with seizures; Morbid obesity; AMS; Leukocytosis; RODRÍGUEZ Interval history: Afebrile overnight, though T-max 100.2. White count 18.3. Blood cultures remain no growth so far. Objective - Exam Narrative Exam: Physical Exam: Constitutional: Alert, cooperative. No acute distress Head, Ears, Nose: Normocephalic, atraumatic. External ears, nose normal Eyes: Conjunctivae/corneas clear. No icterus. No ptosis. Neck: Supple, no meningeal signs Oral: dentition fair, no thrush Cardiovascular: S1, S2 normal. Respiratory: Good air entry, clear to auscultation bilaterally GI: Soft, non-tender; bowel sounds normal. No peritoneal signs. Musculoskeletal: No pedal edema, no cyanosis. Skin: No rash or abscess Hem/Lymphatic: No palpable cervical or supraclavicular nodes. No lymphangitis Psych: Mood ok. Affect normal Neurological: Awake, alert, oriented. No gross abnormality - Constitutional Vitals: Vital Signs Temp Pulse Resp BP Pulse Ox 100.0 F H 114 H 33 H 147/89 99 05/14/22 07:14 05/14/22 10:39 05/14/22 10:15 05/14/22 10:15 05/14/22 10:15 Temperature -Last 24 Hours Temperature 100.0 F Temperature 99.3 F Temperature 100.2 F Temperature 101.3 F Temperature 101.3 F Temperature 102.4 F - Labs CBC & Chem 7: 05/14/22 04:20 05/14/22 04:20 Labs: Abnormal lab results 05/13/22 05/13/22 05/13/22 Range/Units 11:33 16:12 19:34 WBC (4.5-11.0) K/mm3 MCV (79-97) fl MCH (28-32) pg RDW (13.2-15.2) % Lymph % (Auto) (13.4-35.0) % Stephenson % (Auto) (0.0-7.3) % Stephenson # (Auto) (0.0-0.8) K/mm3 Baso # (Auto) (0.0-0.1) K/mm3 Seg Neutrophils % (40.0-70.0) % Seg Neutrophils # (1.8-7.7) K/mm3 Sodium (137-145) mmol/L Potassium (3.6-5.0) mmol/L Chloride (98-107) mmol/L Carbon Dioxide (22-30) mmol/L BUN (7-17) mg/dL Creatinine (0.6-1.2) mg/dL Glucose (65-100) mg/dL POC Glucose 500 H 331 H (70-105) mg/dL Total Creatine Kinase (30-135) units/L C-Reactive Protein (0.00-1.30) mg/dL PTH Intact (15-65) pg/mL Urine Creatinine 174.8 H (0.1-20.0) mg/dL Urine Total Protein 735 H (5-11.8) mg/dL 05/13/22 05/13/22 05/13/22 Range/Units 21:55 23:50 Unknown WBC (4.5-11.0) K/mm3 MCV (79-97) fl MCH (28-32) pg RDW (13.2-15.2) % Lymph % (Auto) (13.4-35.0) % Stephenson % (Auto) (0.0-7.3) % Stephenson # (Auto) (0.0-0.8) K/mm3 Baso # (Auto) (0.0-0.1) K/mm3 Seg Neutrophils % (40.0-70.0) % Seg Neutrophils # (1.8-7.7) K/mm3 Sodium (137-145) mmol/L Potassium (3.6-5.0) mmol/L Chloride (98-107) mmol/L Carbon Dioxide (22-30) mmol/L BUN (7-17) mg/dL Creatinine (0.6-1.2) mg/dL Glucose (65-100) mg/dL POC Glucose 268 H 256 H (70-105) mg/dL Total Creatine Kinase (30-135) units/L C-Reactive Protein (0.00-1.30) mg/dL PTH Intact (15-65) pg/mL Urine Creatinine 86.3 H (0.1-20.0) mg/dL Urine Total Protein (5-11.8) mg/dL 05/14/22 05/14/22 05/14/22 Range/Units 04:20 04:20 04:20 WBC 18.3 H (4.5-11.0) K/mm3 MCV 78 L (79-97) fl MCH 24 L (28-32) pg RDW 16.6 H (13.2-15.2) % Lymph % (Auto) 12.1 L (13.4-35.0) % Stephenson % (Auto) 11.6 H (0.0-7.3) % Stephenson # (Auto) 2.1 H (0.0-0.8) K/mm3 Baso # (Auto) 0.2 H (0.0-0.1) K/mm3 Seg Neutrophils % 75.0 H (40.0-70.0) % Seg Neutrophils # 13.7 H (1.8-7.7) K/mm3 Sodium 146 H (137-145) mmol/L Potassium 3.4 L (3.6-5.0) mmol/L Chloride 115.1 H (98-107) mmol/L Carbon Dioxide 17 L (22-30) mmol/L BUN 35 H (7-17) mg/dL Creatinine 3.9 H (0.6-1.2) mg/dL Glucose 224 H (65-100) mg/dL POC Glucose (70-105) mg/dL Total Creatine Kinase 217 H (30-135) units/L C-Reactive Protein 1.40 H (0.00-1.30) mg/dL PTH Intact (15-65) pg/mL Urine Creatinine (0.1-20.0) mg/dL Urine Total Protein (5-11.8) mg/dL 09/05/14/22 05/14/22 Range/Units 04:20 06:10 07:23 WBC (4.5-11.0) K/mm3 MCV (79-97) fl MCH (28-32) pg RDW (13.2-15.2) % Lymph % (Auto) (13.4-35.0) % Stephenson % (Auto) (0.0-7.3) % Stephenson # (Auto) (0.0-0.8) K/mm3 Baso # (Auto) (0.0-0.1) K/mm3 Seg Neutrophils % (40.0-70.0) % Seg Neutrophils # (1.8-7.7) K/mm3 Sodium (137-145) mmol/L Potassium (3.6-5.0) mmol/L Chloride (98-107) mmol/L Carbon Dioxide (22-30) mmol/L BUN (7-17) mg/dL Creatinine (0.6-1.2) mg/dL Glucose (65-100) mg/dL POC Glucose 257 H 240 H (70-105) mg/dL Total Creatine Kinase (30-135) units/L C-Reactive Protein (0.00-1.30) mg/dL PTH Intact 149.4 H (15-65) pg/mL Urine Creatinine (0.1-20.0) mg/dL Urine Total Protein (5-11.8) mg/dL
[2022-05-14] MEDS: LORazepam 2 MG/ML VIAL IV PRN (11:30)
--- NOTE | 2022-05-14 12:15 | Procedure Note ---
Date of procedure: 05/14/22 Pre-op diagnosis: AMS, sepsis, possible meningitis Post-op diagnosis: same Procedure: flouro guided lumbar puncture Findings: none Anesthesia: local Surgeon: DINORAH MILLER Estimated blood loss: none Pathology: list (4 csf tubes) Specimen disposition: to lab Condition: stable Disposition: floor
--- NOTE | 2022-05-14 12:20 | Fluoroscopy Report ---
LUMBAR PUNCTURE INDICATION : Altered mental status, sepsis, evaluate for meningitis PROCEDURE: The risks (including but not limited to bleeding, infection, and spinal headache) and dada efits were explained to the patient and informed consent was obtained. A time out procedure was perf ormed. The procedure site was prepped and draped in the usual sterile fashion and lidocaine was used for local anesthesia. Under fluoroscopic guidance, a 22-gauge spinal needle was advanced into the L2-3 interlaminar space. The opening pressure was 100 mm H2O which was calculated by adding the length of the needle (9 cm) to the height of the CSF column. 4 separate collection tubes were used to obtain 1 cc of CSF each. Samp les were sent to the lab per the ordering physician specifications for further evaluation. The patient tolerated the procedure well with no complications. IMPRESSION: Successful lumbar puncture as outlined above. Opening pressure was 100 mm H20. Fluoroscopic time: 2.8 Number of fluoroscopic images: 1 Signer Name: Glenn Sanchez Jr, MD Signed: 05/14/2022 12:16 PM Workstation Name: [id number]
[2022-05-14 12:22] LABS: Glucose,CSF 137 mg/dL
[2022-05-14] MEDS: CEFEPIME/NS 2 GM/100 ML 2 GM/100 ML BAG IV SCH (13:52)
[2022-05-14 14:25] LABS: Appearance,CSF Clear
[2022-05-14 14:27] LABS: Basophils CSF 0 %; Red Blood Cell,CSF 2000 /mm3 (0-0); Total Cells Counted 100 /mm3; White Blood Cell,CSF 53 /mm3 (1-10)
--- NOTE | 2022-05-14 17:06 | Progress Note ---
Assessment and Plan Assessment and plan: This is a 31-year-old female with seizures, HTN, DM and medical noncompliance admitted with seizure activity, hypertensive urgency, hyperglycemia and acute kidney injury Neuro: Seizures, h/o seizure disorder, noncompliance -Loaded with Keppra in ED -Keppra IV + vimpat -Reorientation as needed -Maintain sleep-wake cycle -aspiration/seizure precautions -As needed analgesia -CT head shows no acute intracranial abnormality -MRI brain and MRA V pending -EEG pending -LP 05/14 (opening pressure 100) -Neurology consulted, appreciate recommendations Cardiac: Hypertensive urgency, h/o hypertension -Cardiology consulted, appreciate recommendations -Blood pressure monitoring per protocol -s/p Cardene drip -Started on amlodipine, hydralazine Respiratory: NAD -Pulmonary hygiene -SPO2 monitor per protocol GI: Morbid obesity, moderate protein calorie malnutrition -PPI -NTR consulted for tube feedings : Acute kidney injury (pre renal/ATN/maybe CKD component) , metabolic acidosis -Nephrology consulted, appreciate recommendations -Monitor intake and output -Renally dose medications -Avoid nephrotoxic medications -FeNa 0.56% -Renal ultrasound shows normal-sized but echogenic kidneys consistent with medical renal disease, no hydronephrosis, 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 every 6 -Long-acting insulin, titrate as neede -Hemoglobin A1c 14.4 Heme: Leukocytosis -Trend CBC -Transfuse hemoglobin less than 7 -SCDs to BLE while in bed The high probability of a clinically significant, sudden or life threatening deterioration of the [neuro] system(s) required my full and direct attention, intervention and personal management. The aggregate critical care time was [60] minutes. This time is in addition to time spent performing reported procedures but includes the following: [x] Data Review and interpretation [x] Patient assessment and monitoring of vital signs [x] Documentation [x] Medication orders and management Disposition Plan: transfer to [facility] Total Time Spent with Patient (Minutes): 60 History Interval history: This is a 31-year-old female with seizures, HTN, DM and medical noncompliance who presented to emergency department on 05/13 after a seizure episode associated with progressive weakness. Per EMS patient was said to have woken up in the night had an episode of vomiting and subsequently had seizures. In the emergency department work-up showed acute kidney injury with a BUN/creatinine of 26/3.1, glucose of 580, urinalysis was unremarkable, UDS was positive for marijuana, leukocytosis at 13.1 and CXR showed no acute findings along with a CT scan. In the emergency department patient had another seizure and was given Ativan and loaded with Keppra. Patient also had BP in the 200s over 130s and was given labetalol and was started on a Cardene drip. She also had was febrile to 103 in the ED. Patient was admitted to the hospitalist service with seizure disorder, hyperglycemia, hypertensive urgency and acute kidney injury with consults to nephrology, neurology. Hospital course to date: 05/13: CCM and ID consulted. Patient had possible seizure activity and was started. Ativan. Patient had EEG today. MRI brain pending. Urine lites pending. Patient febrile started on cefepime, procalcitonin, CRP and COVID-19 PCR pending. 05/14: Patient received LP today, MRI brain without contrast, hemoglobin A1c ordered Hospitalist Physical - Constitutional Vitals: Temp Pulse Resp BP Pulse Ox 100.0 F H 97 H 15 137/74 100 05/14/22 07:14 05/14/22 16:45 05/14/22 16:45 05/14/22 16:45 05/14/22 16:45 General appearance: Present: no acute distress, well-nourished, obese - EENT Eyes: Present: PERRL, EOM intact ENT: clear oral mucosa, dentition normal - Neck Neck: Present: normal ROM - Respiratory Respiratory effort: normal Respiratory: bilateral: CTA - Cardiovascular Rhythm: regular Heart Sounds: Present: S1 & S2. Absent: systolic murmur, diastolic murmur - Extremities Extremities: no ischemia, pulses intact, pulses symmetrical, No edema, normal temperature, normal color Peripheral Pulses: within normal limits - Abdominal General gastrointestinal: soft, non-tender, non-distended, normal bowel sounds - Integumentary Integumentary: Present: warm, dry - Psychiatric Psychiatric: cooperative - Neurologic Neurologic: moves all extremities - Allied Health Allied health notes reviewed: nursing, RT, social work HEART Score - HEART Score Troponin: Troponin T 0.028 ng/mL (0.00-0.029) 05/12/22 22:47 Results - Labs CBC & Chem 7: 05/14/22 04:20 05/14/22 04:20 Labs: Laboratory Last Values WBC 18.3 K/mm3 (4.5-11.0) H 05/14/22 04:20 RBC 4.90 M/mm3 (3.65-5.03) 05/14/22 04:20 Hgb 11.9 gm/dl (10.1-14.3) 05/14/22 04:20 Hct 38.2 % (30.3-42.9) 05/14/22 04:20 MCV 78 fl (79-97) L 05/14/22 04:20 MCH 24 pg (28-32) L 05/14/22 04:20 MCHC 31 % (30-34) 05/14/22 04:20 RDW 16.6 % (13.2-15.2) H 05/14/22 04:20 Plt Count 221 K/mm3 (140-440) 05/14/22 04:20 Lymph % (Auto) 12.1 % (13.4-35.0) L 05/14/22 04:20 Glynn % (Auto) 11.6 % (0.0-7.3) H 05/14/22 04:20 Eos % (Auto) 0.0 % (0.0-4.3) 05/14/22 04:20 Baso % (Auto) 1.3 % (0.0-1.8) 05/14/22 04:20 Lymph # (Auto) 2.2 K/mm3 (1.2-5.4) 05/14/22 04:20 Glynn # (Auto) 2.1 K/mm3 (0.0-0.8) H 05/14/22 04:20 Eos # (Auto) 0.0 K/mm3 (0.0-0.4) 05/14/22 04:20 Baso # (Auto) 0.2 K/mm3 (0.0-0.1) H 05/14/22 04:20 Add Manual Diff Complete 05/12/22 22:47 Total Counted 100 05/12/22 22:47 Seg Neutrophils % 75.0 % (40.0-70.0) H 05/14/22 04:20 Seg Neuts % (Manual) 85.0 % (40.0-70.0) H 05/12/22 22:47 Band Neutrophils % 0 % 05/12/22 22:47 Lymphocytes % (Manual) 7.0 % (13.4-35.0) L 05/12/22 22:47 Reactive Lymphs % (Man) 0 % 05/12/22 22:47 Monocytes % (Manual) 8.0 % (0.0-7.3) H 05/12/22 22:47 Eosinophils % (Manual) 0 % (0.0-4.3) 05/12/22 22:47 Basophils % (Manual) 0 % (0.0-1.8) 05/12/22 22:47 Metamyelocytes % 0 % 05/12/22 22:47 Myelocytes % 0 % 05/12/22 22:47 Promyelocytes % 0 % 05/12/22 22:47 Blast Cells % 0 % 05/12/22 22:47 Nucleated RBC % Not Reportable 05/12/22 22:47 Seg Neutrophils # 13.7 K/mm3 (1.8-7.7) H 05/14/22 04:20 Seg Neutrophils # Man 13.1 K/mm3 (1.8-7.7) H 05/12/22 22:47 Band Neutrophils # 0.0 K/mm3 05/12/22 22:47 Lymphocytes # (Manual) 1.1 K/mm3 (1.2-5.4) L 05/12/22 22:47 Abs React Lymphs (Man) 0.0 K/mm3 05/12/22 22:47 Monocytes # (Manual) 1.2 K/mm3 (0.0-0.8) H 05/12/22 22:47 Eosinophils # (Manual) 0.0 K/mm3 (0.0-0.4) 05/12/22 22:47 Basophils # (Manual) 0.0 K/mm3 (0.0-0.1) 05/12/22 22:47 Metamyelocytes # 0.0 K/mm3 05/12/22 22:47 Myelocytes # 0.0 K/mm3 05/12/22 22:47 Promyelocytes # 0.0 K/mm3 05/12/22 22:47 Blast Cells # 0.0 K/mm3 05/12/22 22:47 WBC Morphology Not Reportable 05/12/22 22:47 Hypersegmented Neuts Not Reportable 05/12/22 22:47 Hyposegmented Neuts Not Reportable 05/12/22 22:47 Hypogranular Neuts Not Reportable 05/12/22 22:47 Smudge Cells Not Reportable 05/12/22 22:47 Toxic Granulation Not Reportable 05/12/22 22:47 Toxic Vacuolation Not Reportable 05/12/22 22:47 Dohle Bodies Not Reportable 05/12/22 22:47 Pelger-Huet Anomaly Not Reportable 05/12/22 22:47 Tima Rods Not Reportable 05/12/22 22:47 Platelet Estimate Consistent w auto 05/12/22 22:47 Clumped Platelets Not Reportable 05/12/22 22:47 Plt Clumps, EDTA Not Reportable 05/12/22 22:47 Large Platelets Not Reportable 05/12/22 22:47 Giant Platelets Not Reportable 05/12/22 22:47 Platelet Satelliting Not Reportable 05/12/22 22:47 Plt Morphology Comment Not Reportable 05/12/22 22:47 RBC Morphology Not Reportable 05/12/22 22:47 Dimorphic RBCs Not Reportable 05/12/22 22:47 Polychromasia Not Reportable 05/12/22 22:47 Hypochromasia 1+ 05/12/22 22:47 Poikilocytosis Not Reportable 05/12/22 22:47 Anisocytosis Not Reportable 05/12/22 22:47 Microcytosis Not Reportable 05/12/22 22:47 Macrocytosis Not Reportable 05/12/22 22:47 Spherocytes Not Reportable 05/12/22 22:47 Pappenheimer Bodies Not Reportable 05/12/22 22:47 Sickle Cells Not Reportable 05/12/22 22:47 Target Cells Not Reportable 05/12/22 22:47 Tear Drop Cells Not Reportable 05/12/22 22:47 Ovalocytes Not Reportable 05/12/22 22:47 Helmet Cells Not Reportable 05/12/22 22:47 [place] Bodies Not Reportable 05/12/22 22:47 Thayer Rings Not Reportable 05/12/22 22:47 Imelda Cells Not Reportable 05/12/22 22:47 Bite Cells Not Reportable 05/12/22 22:47 Crenated Cell Not Reportable 05/12/22 22:47 Elliptocytes Not Reportable 05/12/22 22:47 Acanthocytes (Spur) Not Reportable 05/12/22 22:47 Rouleaux Not Reportable 05/12/22 22:47 Hemoglobin C Crystals Not Reportable 05/12/22 22:47 Schistocytes Not Reportable 05/12/22 22:47 Malaria parasites Not Reportable 05/12/22 22:47 Jesse Bodies Not Reportable 05/12/22 22:47 Hem Pathologist Commnt No 05/12/22 22:47 PT 16.8 Sec. (12.2-14.9) H 05/12/22 14:25 INR 1.22 (0.87-1.13) H 05/12/22 14:25 APTT 29.6 Sec. (24.2-36.6) 05/12/22 14:25 ABG pH 7.354 pH Units (7.350-7.450) 05/12/22 22:47 ABG pCO2 36.7 mm Hg 05/12/22 22:47 ABG pO2 55.5 mm Hg (80.0-90.0) L 05/12/22 22:47 ABG HCO3 20.0 mmol/L (20.0-26.0) 05/12/22 22:47 ABG O2 Saturation 89.0 % (95.0-99.0) L 05/12/22 22:47 ABG O2 Content 16.6 (0.0-44) 05/12/22 22:47 ABG Base Excess -4.9 mmol/L (-2.0-3.0) L 05/12/22 22:47 ABG Hemoglobin 13.8 gm/dl (12.0-16.0) 05/12/22 22:47 ABG Carboxyhemoglobin 3.2 % (0.0-5.0) 05/12/22 22:47 ABG Methemoglobin 0.8 % (0.0-1.5) 05/12/22 22:47 VBG pH 7.354 (7.320-7.420) 05/12/22 22:47 Oxyhemoglobin 85.4 % (95.0-99.0) L 05/12/22 22:47 FiO2 21 % 05/12/22 22:47 Sodium 146 mmol/L (137-145) H 05/14/22 04:20 Potassium 3.4 mmol/L (3.6-5.0) L 05/14/22 04:20 Chloride 115.1 mmol/L (98-107) H 05/14/22 04:20 Carbon Dioxide 17 mmol/L (22-30) L 05/14/22 04:20 Anion Gap 17 mmol/L 05/14/22 04:20 BUN 35 mg/dL (7-17) H 05/14/22 04:20 Creatinine 3.9 mg/dL (0.6-1.2) H 05/14/22 04:20 Estimated GFR 16 ml/min 05/14/22 04:20 BUN/Creatinine Ratio 9 % 05/14/22 04:20 Glucose 224 mg/dL (65-100) H 05/14/22 04:20 POC Glucose 323 mg/dL (70-105) H 05/14/22 13:25 Hemoglobin A1c 14.4 % (4-6) H 05/14/22 14:23 Ketones Quantitative Negative (Negative) 05/12/22 22:47 Lactic Acid 1.00 mmol/L (0.7-2.0) 05/14/22 04:20 Calcium 9.0 mg/dL (8.4-10.2) 05/14/22 04:20 Phosphorus 2.50 mg/dL (2.5-4.5) 05/14/22 04:20 Magnesium 2.20 mg/dL (1.7-2.3) 05/14/22 04:20 Total Bilirubin 0.70 mg/dL (0.1-1.2) 05/12/22 22:47 AST 13 units/L (5-40) 05/12/22 22:47 ALT 12 units/L (7-56) 05/12/22 22:47 Alkaline Phosphatase 110 units/L (35-129) 05/12/22 22:47 Total Creatine Kinase 217 units/L (30-135) H 05/14/22 04:20 Troponin T 0.028 ng/mL (0.00-0.029) 05/12/22 22:47 C-Reactive Protein 1.40 mg/dL (0.00-1.30) H 05/14/22 04:20 Total Protein 6.3 g/dL (6.3-8.2) 05/12/22 22:47 Albumin 3.3 g/dL (3.9-5) L 05/12/22 22:47 Albumin/Globulin Ratio 1.1 % 05/12/22 22:47 TSH 0.422 mlU/mL (0.270-4.200) 05/12/22 14:25 Free T4 1.02 ng/dL (0.76-1.46) 05/12/22 14:25 PTH Intact 149.4 pg/mL (15-65) H 05/14/22 04:20 Urine Color Yellow (Yellow) 05/12/22 19:04 Urine Turbidity Clear (Clear) 05/12/22 19:04 Specific [place] (Man) 1.015 (1.003-1.030) 05/12/22 19:04 Ur Protein (Man) 2+ mg/dL (Negative) 05/12/22 19:04 Ur Ketones (Man) Negative (Negative) 05/12/22 19:04 Ur Nitrite (Man) Negative (Negative) 05/12/22 19:04 Urine Bilirubin (Man) Negative (Negative) 05/12/22 19:04 Leukocyte Esterase (Man) Negative (Negative) 05/12/22 19:04 Urine WBC (Auto) < 1.0 /HPF (0.0-6.0) 05/12/22 19:04 Urine RBC (Auto) < 1.0 /HPF (0.0-6.0) 05/12/22 19:04 Urine RBC (Manual) 1+ (Negative) 05/12/22 19:04 Urine Creatinine 86.3 mg/dL (0.1-20.0) H 05/13/22 Unknown Protein/Creatinin Ratio 4.20 05/13/22 19:34 Urine Sodium 21 mmol/L 05/13/22 Unknown Urine Total Protein 735 mg/dL (5-11.8) H 05/13/22 19:34 CSF Appearance Clear 05/14/22 11:32 CSF Color [place] 05/14/22 11:32 CSF WBC 53 /mm3 (1-10) 05/14/22 11:32 CSF RBC 2000 /mm3 (0-0) 05/14/22 11:32 CSF Seg Neutrophils 97 % (0-6) 05/14/22 11:32 CSF Lymphocytes % 2 % (40-80) 05/14/22 11:32 CSF Reactive Lymphs 0 % 05/14/22 11:32 CSF Monocytes % 1 % (15-45) 05/14/22 11:32 CSF Eosinophils % 0 % 05/14/22 11:32 CSF Basophils 0 % 05/14/22 11:32 CSF Pathologist Review C 05/14/22 11:32 CSF Glucose 137 mg/dL 05/14/22 11:32 Salicylates < 0.3 mg/dL (2.8-20.0) L 05/12/22 14:25 Urine Opiates Screen Negative 05/12/22 19:04 Urine Methadone Screen Negative 05/12/22 19:04 Acetaminophen 5.0 ug/mL (10.0-30.0) L 05/12/22 14:25 Ur Barbiturates Screen Negative 05/12/22 19:04 Ur Phencyclidine Scrn Negative 05/12/22 19:04 Ur Amphetamines Screen Negative 05/12/22 19:04 U Benzodiazepines Scrn Negative 05/12/22 19:04 Urine Cocaine Screen Negative 05/12/22 19:04 U Marijuana (THC) Screen Positive 05/12/22 19:04 Drugs of Abuse Note Disclamer 05/12/22 19:04 Plasma/Serum Alcohol < 0.01 % (0-0.07) 05/12/22 22:47 Coronavirus (PCR) Negative (Negative) 05/13/22 09:30 Microbiology: Microbiology 05/12/22 22:47 Peripheral/Venous Blood Culture - Preliminary NO GROWTH AFTER 24 HOURS 05/12/22 22:47 Peripheral/Venous Blood Culture - Preliminary NO GROWTH AFTER 24 HOURS Vergara/IV: Voiding Method Indwelling Catheter Active Medications - Current Medications Current Medications: Generic Name Dose Route Start Last Admin Trade Name Freq PRN Reason Stop Dose Admin Acetaminophen 650 mg 05/13/22 02:07 05/14/22 08:08 Acetaminophen 325 Mg Tab PO 650 mg Q6H PRN Administration Pain MILD(1-3)/Fever >100.5/PATINO Acetaminophen 650 mg 05/13/22 08:51 05/13/22 09:18 Acetaminophen 650 Mg Rect Supp AL 650 mg Q6H PRN Administration Pain, Mild (1-3), T> 100.5 Amlodipine Besylate 10 mg 05/13/22 12:00 05/14/22 09:32 Amlodipine 10 Mg Tab FEEDTUBE 10 mg QDAY BRAD Administration Atorvastatin Calcium 40 mg 05/16/22 22:00 Atorvastatin 40 Mg Tab FEEDTUBE QHS BRAD Carvedilol 25 mg 05/14/22 10:00 05/14/22 10:39 Carvedilol 25 Mg Tab FEEDTUBE 25 mg BID BRAD Administration Dextrose 0 ml 05/13/22 02:07 Dextrose 50% In Water (25gm) 50 Ml Syringe IV Q30MIN PRN Hypoglycemia Protocol Heparin Sodium (Porcine) 5,000 unit 05/13/22 06:00 05/14/22 13:50 Heparin 5,000 Unit/1 Ml Vial SUB-Q 5,000 unit Q8HR BRAD Administration Hydralazine HCl 100 mg 05/13/22 14:00 05/14/22 13:52 Hydralazine 100 Mg Tab FEEDTUBE 100 mg TID BRAD Administration Nicardipine HCl 50 mg/ Sodium 250 mls @ 25 mls/hr 05/13/22 06:00 05/13/22 18:00 Chloride IV 0 mg/hr TITR BRAD 0 mls/hr Titration Protocol 5 MG/HR Levetiracetam 1,000 mg/ 110 mls @ 400 mls/hr 05/13/22 22:00 05/14/22 09:30 Dextrose IV 400 mls/hr Q12HR BRAD Administration Cefepime HCl 2 gm in 100 mls @ 200 mls/hr 05/13/22 13:00 05/14/22 13:52 Cefepime/Ns 2 Gm/100 Ml IV 200 mls/hr Q24H BRAD Administration Protocol Acyclovir 800 mg/ Sodium 116 mls @ 100 mls/hr 05/14/22 20:00 Chloride IV Q24H BRAD Protocol Lacosamide 100 mg/ Sodium 110 mls @ 100 mls/hr 05/13/22 23:45 05/14/22 09:30 Chloride IV 100 mls/hr Q12HR BRAD Administration Insulin Glargine 15 units 05/14/22 22:00 Insulin Glargine 100 Units/Ml SUB-Q QHS BRAD Insulin Human Lispro 0 unit 05/13/22 12:00 05/14/22 13:35 Insulin Lispro 100 Unit/Ml SUB-Q 8 unit Q6HR BRAD Administration Protocol Lorazepam 2 mg 05/13/22 13:03 05/14/22 11:30 Lorazepam 2 Mg/Ml Vial IV 2 mg Q4H PRN Administration Seizures Magnesium Hydroxide 30 ml 05/13/22 02:07 Magnesium Hydroxide (Mom) Oral Liqd Udc PO Q4H PRN Constipation Ondansetron HCl 4 mg 05/13/22 02:07 Ondansetron 4 Mg/2 Ml Inj IV Q8H PRN Nausea And Vomiting Sodium Chloride 10 ml 05/13/22 10:00 05/14/22 09:31 Sodium Chloride 0.9% 10 Ml Flush Syringe IV 10 ml BID BRAD Administration Sodium Chloride 10 ml 05/13/22 02:07 Sodium Chloride 0.9% 10 Ml Flush Syringe IV PRN PRN LINE FLUSH Nutrition/Malnutrition Assess - Dietary Evaluation Nutrition/Malnutrition Findings: Nutrition Notes Start: 05/13/22 11:3 6 Freq: Status: Active Protocol: Document 05/13/22 14:23 CM (Rec: 05/13/22 14:27 CM [id number]) Co-Sign 05/13/22 14:23 WW Nutrition Notes Need for Assessment generated from: MD Order,Education Initial or Follow up Brief Note Current Diagnosis Hypertension,Stroke Other Pertinent Diagnosis Seizure, hyperglycemia Current Diet TF-Nepro w/CARBSTEADY @ 40 ml/ hr Labs/Tests 05/13: Cl 119.1 CO2 19 BUN 27 Cr 3.3 Glu 511 Pertinent Medications 05/13: Humalog Humulin Height 5 ft 7 in Weight 113 kg [place] Body Weight (kg) 61.36 BMI 38.9 Intake Prior to Admission Good Weight change and time frame No wt loss [employer] 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 Weight Status Obese Subjective/Other Information RD consult for diet education per MD. Pt transferred from ER to critical care unit, therefore is not a candidate for diet education at this time. Will provide in future interactions . Percent of energy/protein needs met: Prescribed TF-Nepro w/ CARBSTEADY @ 40 ml/hr provides for energy/protein needs (1, 710 Kcal/77 g) during LOS, 101 % Kcal; 100% AA. Burn Absent Trauma Absent #1 Nutrition Diagnosis Inadequate energy intake Diagnosis Progress(for reassessment Continues documentation) Nutrition Intervention Nutrition Support: Start TF-Nepro w/CARBSTEADY @ 40 ml/hr. Flush: 170 ml water Q 4 hr, or as per MD. Kcal 1,710 Protein (gm) 77 Carbohydrates (gm) 153 Fat (gm) 91 Fluid (mL) 691 Fiber (gm) 12 % RDI: 101% Kcal; 100% AA Goal #1 Provide at least 75% of energy /protein needs through Enteral Feeding during LOS. Goal #2 Adjust the dietary intervention to better serve Pt's energy/protein needs and clinical conditions during LOS . Follow-Up By: 05/15/22 Additional Comments Monitor TF tolerance, [id number] status, and BM.
--- NOTE | 2022-05-14 18:29 | Magnetic Resonance Report ---
MRI BRAIN WITHOUT CONTRAST INDICATION / CLINICAL INFORMATION: seizures. TECHNIQUE: Multiplanar, multisequence MR images of the brain were obtained. COMPARISON: None available. FINDINGS: LIMITATIONS: This study is limited by patient motion artifact. BRAIN / INTRACRANIAL CONTENTS: Ventricles and cortical sulci are normal in size and configuration. Th ere is no mass effect. No evidence of intracranial hemorrhage or extra-axial fluid collection is seen . Periventricular and several small foci of white matter hyperintensity are noted. These are nonspeci fic findings. In the appropriate clinical setting possibility of demyelinating disease could be consi dered. Microvascular ischemic changes are expected in this age group. No additional areas of abnormal brain parenchymal signal intensity are identified. There is no indication of remote cortical infarct ion. Diffusion weighted scans are negative. There is no indication of acute ischemic injury. The brainstem and cerebellum have an unremarkable appearance. MIDLINE STRUCTURES:No abnormalities are seen to involve the pituitary gland. Pineal region has an unr emarkable appearance. CRANIOCERVICAL JUNCTION: No abnormalities are identified at the craniocervical junction. VASCULAR FLOW-VOIDS: Normal flow-voids are present within the major intracranial vessels. ORBITS: The orbits have an unremarkable appearance. SINUSES / MASTOIDS: There is no indication of inflammatory disease in the paranasal sinuses or mastoi d air cells. IMPRESSION: 1. Limited study secondary to patient motion artifact. 2. Periventricular and scattered foci of deep white matter hyperintensity. These nonspecific findings as discussed above. MRV BRAIN History: seizures ; Technique: 3-D evaluation for MR venography of the brain. Findings: No priors. Flow related signal intensity seen throughout the superior sagittal sinus and straight sinus. Normal flow related signal intensity is observed in the internal cerebral veins and vein of [place]. The left transverse sinus is hypoplastic compared to that on the right. Sigmoid sinuses have an asymm etrical appearance, right larger than left. IMPRESSION: No evidence of dural sinus thrombosis. Signer Name: Wilfredo Rivas MD Signed: 05/14/2022 6:25 PM Workstation Name: [id number]
[2022-05-14] MEDS ORDERED: ACYCLOVIR 800 MG in SODIUM CHLORIDE 0.9% 100 ML IV SCH (20:00)
[2022-05-14] MEDS: INSULIN GLARGINE 100 UNITS/ML SUB-Q SCH (22:21)
[2022-05-15] MEDS: LACOSAMIDE 100 MG in SODIUM CHLORIDE 0.9% 100 ML IV SCH ×3 (00:13→21:57)
[2022-05-15] MEDS: INSULIN LISPRO 100 UNIT/ML SUB-Q SCH ×4 (00:21→17:43)
[2022-05-15 04:34] LABS: Hematocrit 34.6 % (30.3-42.9); Hemoglobin 10.9 gm/dl (10.1-14.3); Mean Corpuscular HGB Conc 31 % (30-34); Mean Corpuscular Volume 78 fl (79-97); Platelet Count 201 K/mm3 (140-440); Red Blood Count 4.45 M/mm3 (3.65-5.03); Red Cell Distribution Width 16.7 % (13.2-15.2)
[2022-05-15 04:58] LABS: Calcium 8.9 mg/dL (8.4-10.2)
[2022-05-15] MEDS: HEPARIN 5,000 UNIT/1 ML VIAL SUB-Q SCH ×3 (06:46→21:49)
--- NOTE | 2022-05-15 08:04 | Progress Note ---
Assessment and Plan Assessment and plan: History This is a 31-year-old female with seizures, HTN, DM and medical noncompliance who presented to emergency department on 05/13 after a seizure episode associated with progressive weakness. Per EMS patient was said to have woken up in the night had an episode of vomiting and subsequently had seizures. In the emergency department work-up showed acute kidney injury with a BUN/creatinine of 26/3.1, glucose of 580, urinalysis was unremarkable, UDS was positive for mariju tiera, leukocytosis at 13.1 and CXR showed no acute findings along with a CT scan. In the emergency department patient had another seizure and was given Ativan and loaded with Keppra. Patient also had BP in the 200s over 130s and was given labetalol and was started on a Cardene drip. She also had was febrile to 103 in the ED. Patient was admitted to the hospitalist service with seizure disorder, hyperglycemia, hypertensive urgency and acute kidney injury with consults to nephrology, neurology. Hospital course to date: 05/13: CCM and ID consulted. Patient had possible seizure activity and was started. Ativan. Patient had EEG today. MRI brain pending. Urine lites pending. Patient febrile started on cefepime, procalcitonin, CRP and COVID-19 PCR pending. 05/14: Patient received LP today, MRI brain without contrast, hemoglobin A1c ordered 05/15: Answers most questions correctly. s/p LP. Paterrn not c/w viral meningitis. d/c acyclovir. follow CSF culture. Continue tx with cefepime IV, vancomycin IV. Nephrology following due to poor renal fx, worsened cr today to 4.0. Will continue IVF hydration. EEG pending. MRA head completed but limited study due to motion artifact...periventricular and scatter foci of deep white matter hyperintensity noted. Will follow neurology input. Assessment and Plan: Neuro: Seizures, h/o seizure disorder, noncompliance -Loaded with Keppra in ED -Keppra IV + vimpat -Reorientation as needed -Maintain sleep-wake cycle -aspiration/seizure precautions -As needed analgesia -CT head shows no acute intracranial abnormality -MRI brain and MRA V pending -EEG pending -LP 05/14 (opening pressure 100) -Neurology consulted, appreciate recommendations Cardiac: Hypertensive urgency, h/o hypertension -Cardiology consulted, appreciate recommendations -Blood pressure monitoring per protocol -s/p Cardene drip -Started on amlodipine, hydralazine Respiratory: NAD -Pulmonary hygiene -SPO2 monitor per protocol GI: Morbid obesity, moderate protein calorie malnutrition -PPI -NTR consulted for tube feedings : Acute kidney injury (pre renal/ATN/maybe CKD component) , metabolic acidosis -Nephrology consulted, appreciate recommendations -Monitor intake and output -Renally dose medications -Avoid nephrotoxic medications -FeNa 0.56% -Renal ultrasound shows normal-sized but echogenic kidneys consistent with medical renal disease, no hydronephrosis, 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 every 6 -Long-acting insulin, titrate as neede -Hemoglobin A1c 14.4 Heme: Leukocytosis -Trend CBC -Transfuse hemoglobin less than 7 -SCDs to BLE while in bed The high probability of a clinically significant, sudden or life threatening deterioration of the [neuro] system(s) required my full and direct attention, intervention and personal management. The aggregate critical care time was [60] minutes. This time is in addition to time spent performing reported procedures but includes the following: [x] Data Review and interpretation [x] Patient assessment and monitoring of vital signs [x] Documentation [x] Medication orders and management Disposition Plan: imcu Total Time Spent with Patient (Minutes): 60 History Interval history: Alert and awake during my encounter. No acute complaints of pain. Patient states that she is thirsty and would like water. Only oriented to self. Unable to communicate date, location, or her age. Hospitalist Physical - Physical exam Narrative exam: General appearance: Present: mild distress - EENT Eyes: Present: PERRL ENT: hearing intact, clear oral mucosa - Neck Neck: Present: supple, normal ROM, masses or JVD - Respiratory Respiratory effort: normal Respiratory: bilateral: CTA - Cardiovascular Heart Sounds: Present: S1 & S2. Absent: rub, click - Extremities Extremities: pulses symmetrical, No edema Extremity abnormal: edema Peripheral Pulses: within normal limits - Abdominal General gastrointestinal: Present: soft, non-tender, non-distended, normal bowel sounds Male genitourinary: Present: normal - Integumentary Integumentary: Present: clear, warm, dry - Musculoskeletal Musculoskeletal: gait normal, strength equal bilaterally - Psychiatric Psychiatric: appropriate mood/affect, intact judgment & insight - Neurologic Neurologic: CNII-XII intact, moves all extremities - Constitutional Vitals: Temp Pulse Resp BP Pulse Ox 98.8 F 91 H 15 135/93 99 05/15/22 03:43 05/15/22 06:00 05/15/22 06:00 05/15/22 06:00 05/15/22 06:00 General appearance: Present: no acute distress, well-nourished, obese HEART Score - HEART Score Troponin: Troponin T 0.028 ng/mL (0.00-0.029) 05/12/22 22:47 Results - Labs CBC & Chem 7: 05/15/22 03:48 05/15/22 03:48 Labs: Laboratory Last Values WBC 10.8 K/mm3 (4.5-11.0) 05/15/22 03:48 RBC 4.45 M/mm3 (3.65-5.03) 05/15/22 03:48 Hgb 10.9 gm/dl (10.1-14.3) 05/15/22 03:48 Hct 34.6 % (30.3-42.9) 05/15/22 03:48 MCV 78 fl (79-97) L 05/15/22 03:48 MCH 25 pg (28-32) L 05/15/22 03:48 MCHC 31 % (30-34) 05/15/22 03:48 RDW 16.7 % (13.2-15.2) H 05/15/22 03:48 Plt Count 201 K/mm3 (140-440) 05/15/22 03:48 Lymph % (Auto) 12.1 % (13.4-35.0) L 05/14/22 04:20 [place] % (Auto) 11.6 % (0.0-7.3) H 05/14/22 04:20 Eos % (Auto) 0.0 % (0.0-4.3) 05/14/22 04:20 Baso % (Auto) 1.3 % (0.0-1.8) 05/14/22 04:20 Lymph # (Auto) 2.2 K/mm3 (1.2-5.4) 05/14/22 04:20 [place] # (Auto) 2.1 K/mm3 (0.0-0.8) H 05/14/22 04:20 Eos # (Auto) 0.0 K/mm3 (0.0-0.4) 05/14/22 04:20 Baso # (Auto) 0.2 K/mm3 (0.0-0.1) H 05/14/22 04:20 Add Manual Diff Complete 05/12/22 22:47 Total Counted 100 05/12/22 22:47 Seg Neutrophils % 75.0 % (40.0-70.0) H 05/14/22 04:20 Seg Neuts % (Manual) 85.0 % (40.0-70.0) H 05/12/22 22:47 Band Neutrophils % 0 % 05/12/22 22:47 Lymphocytes % (Manual) 7.0 % (13.4-35.0) L 05/12/22 22:47 Reactive Lymphs % (Man) 0 % 05/12/22 22:47 Monocytes % (Manual) 8.0 % (0.0-7.3) H 05/12/22 22:47 Eosinophils % (Manual) 0 % (0.0-4.3) 05/12/22 22:47 Basophils % (Manual) 0 % (0.0-1.8) 05/12/22 22:47 Metamyelocytes % 0 % 05/12/22 22:47 Myelocytes % 0 % 05/12/22 22:47 Promyelocytes % 0 % 05/12/22 22:47 Blast Cells % 0 % 05/12/22 22:47 Nucleated RBC % Not Reportable 05/12/22 22:47 Seg Neutrophils # 13.7 K/mm3 (1.8-7.7) H 05/14/22 04:20 Seg Neutrophils # Man 13.1 K/mm3 (1.8-7.7) H 05/12/22 22:47 Band Neutrophils # 0.0 K/mm3 05/12/22 22:47 Lymphocytes # (Manual) 1.1 K/mm3 (1.2-5.4) L 05/12/22 22:47 Abs React Lymphs (Man) 0.0 K/mm3 05/12/22 22:47 Monocytes # (Manual) 1.2 K/mm3 (0.0-0.8) H 05/12/22 22:47 Eosinophils # (Manual) 0.0 K/mm3 (0.0-0.4) 05/12/22 22:47 Basophils # (Manual) 0.0 K/mm3 (0.0-0.1) 05/12/22 22:47 Metamyelocytes # 0.0 K/mm3 05/12/22 22:47 Myelocytes # 0.0 K/mm3 05/12/22 22:47 Promyelocytes # 0.0 K/mm3 05/12/22 22:47 Blast Cells # 0.0 K/mm3 05/12/22 22:47 WBC Morphology Not Reportable 05/12/22 22:47 Hypersegmented Neuts Not Reportable 05/12/22 22:47 Hyposegmented Neuts Not Reportable 05/12/22 22:47 Hypogranular Neuts Not Reportable 05/12/22 22:47 Smudge Cells Not Reportable 05/12/22 22:47 Toxic Granulation Not Reportable 05/12/22 22:47 Toxic Vacuolation Not Reportable 05/12/22 22:47 Dohle Bodies Not Reportable 05/12/22 22:47 Pelger-Huet Anomaly Not Reportable 05/12/22 22:47 Tima Rods Not Reportable 05/12/22 22:47 Platelet Estimate Consistent w auto 05/12/22 22:47 Clumped Platelets Not Reportable 05/12/22 22:47 Plt Clumps, EDTA Not Reportable 05/12/22 22:47 Large Platelets Not Reportable 05/12/22 22:47 Giant Platelets Not Reportable 05/12/22 22:47 Platelet Satelliting Not Reportable 05/12/22 22:47 Plt Morphology Comment Not Reportable 05/12/22 22:47 RBC Morphology Not Reportable 05/12/22 22:47 Dimorphic RBCs Not Reportable 05/12/22 22:47 Polychromasia Not Reportable 05/12/22 22:47 Hypochromasia 1+ 05/12/22 22:47 Poikilocytosis Not Reportable 05/12/22 22:47 Anisocytosis Not Reportable 05/12/22 22:47 Microcytosis Not Reportable 05/12/22 22:47 Macrocytosis Not Reportable 05/12/22 22:47 Spherocytes Not Reportable 05/12/22 22:47 Pappenheimer Bodies Not Reportable 05/12/22 22:47 Sickle Cells Not Reportable 05/12/22 22:47 Target Cells Not Reportable 05/12/22 22:47 Tear Drop Cells Not Reportable 05/12/22 22:47 Ovalocytes Not Reportable 05/12/22 22:47 Helmet Cells Not Reportable 05/12/22 22:47 In[place] Bodies Not Reportable 05/12/22 22:47 [place] Rings Not Reportable 05/12/22 22:47 [place] Cells Not Reportable 05/12/22 22:47 Bite Cells Not Reportable 05/12/22 22:47 Crenated Cell Not Reportable 05/12/22 22:47 Elliptocytes Not Reportable 05/12/22 22:47 Acanthocytes (Spur) Not Reportable 05/12/22 22:47 Rouleaux Not Reportable 05/12/22 22:47 Hemoglobin C Crystals Not Reportable 05/12/22 22:47 Schistocytes Not Reportable 05/12/22 22:47 Malaria parasites Not Reportable 05/12/22 22:47 Jesse Bodies Not Reportable 05/12/22 22:47 Hem Pathologist Commnt No 05/12/22 22:47 PT 16.8 Sec. (12.2-14.9) H 05/12/22 14:25 INR 1.22 (0.87-1.13) H 05/12/22 14:25 APTT 29.6 Sec. (24.2-36.6) 05/12/22 14:25 ABG pH 7.354 pH Units (7.350-7.450) 05/12/22 22:47 ABG pCO2 36.7 mm Hg 05/12/22 22:47 ABG pO2 55.5 mm Hg (80.0-90.0) L 05/12/22 22:47 ABG HCO3 20.0 mmol/L (20.0-26.0) 05/12/22 22:47 ABG O2 Saturation 89.0 % (95.0-99.0) L 05/12/22 22:47 ABG O2 Content 16.6 (0.0-44) 05/12/22 22:47 ABG Base Excess -4.9 mmol/L (-2.0-3.0) L 05/12/22 22:47 ABG Hemoglobin 13.8 gm/dl (12.0-16.0) 05/12/22 22:47 ABG Carboxyhemoglobin 3.2 % (0.0-5.0) 05/12/22 22:47 ABG Methemoglobin 0.8 % (0.0-1.5) 05/12/22 22:47 VBG pH 7.354 (7.320-7.420) 05/12/22 22:47 Oxyhemoglobin 85.4 % (95.0-99.0) L 05/12/22 22:47 FiO2 21 % 05/12/22 22:47 Sodium 145 mmol/L (137-145) 05/15/22 03:48 Potassium 4.1 mmol/L (3.6-5.0) D 05/15/22 03:48 Chloride 115.5 mmol/L (98-107) H 05/15/22 03:48 Carbon Dioxide 19 mmol/L (22-30) L 05/15/22 03:48 Anion Gap 15 mmol/L 05/15/22 03:48 BUN 44 mg/dL (7-17) H 05/15/22 03:48 Creatinine 4.0 mg/dL (0.6-1.2) H 05/15/22 03:48 Estimated GFR 16 ml/min 05/15/22 03:48 BUN/Creatinine Ratio 11 % 05/15/22 03:48 Glucose 339 mg/dL (65-100) H 05/15/22 03:48 POC Glucose 307 mg/dL (70-105) H 05/15/22 05:50 Hemoglobin A1c 14.4 % (4-6) H 05/14/22 14:23 Ketones Quantitative Negative (Negative) 05/12/22 22:47 Lactic Acid 1.00 mmol/L (0.7-2.0) 05/14/22 04:20 Calcium 8.9 mg/dL (8.4-10.2) 05/15/22 03:48 Phosphorus 3.00 mg/dL (2.5-4.5) 05/15/22 03:48 Magnesium 2.30 mg/dL (1.7-2.3) 05/15/22 03:48 Total Bilirubin 0.70 mg/dL (0.1-1.2) 05/12/22 22:47 AST 13 units/L (5-40) 05/12/22 22:47 ALT 12 units/L (7-56) 05/12/22 22:47 Alkaline Phosphatase 110 units/L (35-129) 05/12/22 22:47 Total Creatine Kinase 217 units/L (30-135) H 05/14/22 04:20 Troponin T 0.028 ng/mL (0.00-0.029) 05/12/22 22:47 C-Reactive Protein 1.40 mg/dL (0.00-1.30) H 05/14/22 04:20 Total Protein 6.3 g/dL (6.3-8.2) 05/12/22 22:47 Albumin 3.3 g/dL (3.9-5) L 05/12/22 22:47 Albumin/Globulin Ratio 1.1 % 05/12/22 22:47 Procalcitonin 0.56 ng/mL (<0.15) 05/14/22 04:20 TSH 0.422 mlU/mL (0.270-4.200) 05/12/22 14:25 Free T4 1.02 ng/dL (0.76-1.46) 05/12/22 14:25 PTH Intact 149.4 pg/mL (15-65) H 05/14/22 04:20 Urine Color Yellow (Yellow) 05/12/22 19:04 Urine Turbidity Clear (Clear) 05/12/22 19:04 Specific [place] (Man) 1.015 (1.003-1.030) 05/12/22 19:04 Ur Protein (Man) 2+ mg/dL (Negative) 05/12/22 19:04 Ur Ketones (Man) Negative (Negative) 05/12/22 19:04 Ur Nitrite (Man) Negative (Negative) 05/12/22 19:04 Urine Bilirubin (Man) Negative (Negative) 05/12/22 19:04 Leukocyte Esterase (Man) Negative (Negative) 05/12/22 19:04 Urine WBC (Auto) < 1.0 /HPF (0.0-6.0) 05/12/22 19:04 Urine RBC (Auto) < 1.0 /HPF (0.0-6.0) 05/12/22 19:04 Urine RBC (Manual) 1+ (Negative) 05/12/22 19:04 Urine Creatinine 86.3 mg/dL (0.1-20.0) H 05/13/22 Unknown Protein/Creatinin Ratio 4.20 05/13/22 19:34 Urine Sodium 21 mmol/L 05/13/22 Unknown Urine Total Protein 735 mg/dL (5-11.8) H 05/13/22 19:34 CSF Appearance Clear 05/14/22 11:32 CSF Color [place] 05/14/22 11:32 CSF WBC 53 /mm3 (1-10) 05/14/22 11:32 CSF RBC 2000 /mm3 (0-0) 05/14/22 11:32 CSF Seg Neutrophils 97 % (0-6) 05/14/22 11:32 CSF Lymphocytes % 2 % (40-80) 05/14/22 11:32 CSF Reactive Lymphs 0 % 05/14/22 11:32 CSF Monocytes % 1 % (15-45) 05/14/22 11:32 CSF Eosinophils % 0 % 05/14/22 11:32 CSF Basophils 0 % 05/14/22 11:32 CSF Pathologist Review C 05/14/22 11:32 CSF Glucose 137 mg/dL 05/14/22 11:32 CSF Total Protein 32 mg/dL 05/14/22 11:32 Random Vancomycin 14.0 ug/mL (0-40.0) 05/15/22 03:48 Salicylates < 0.3 mg/dL (2.8-20.0) L 05/12/22 14:25 Urine Opiates Screen Negative 05/12/22 19:04 Urine Methadone Screen Negative 05/12/22 19:04 Acetaminophen 5.0 ug/mL (10.0-30.0) L 05/12/22 14:25 Ur Barbiturates Screen Negative 05/12/22 19:04 Ur Phencyclidine Scrn Negative 05/12/22 19:04 Ur Amphetamines Screen Negative 05/12/22 19:04 U Benzodiazepines Scrn Negative 05/12/22 19:04 Urine Cocaine Screen Negative 05/12/22 19:04 U Marijuana (THC) Screen Positive 05/12/22 19:04 Drugs of Abuse Note Disclamer 05/12/22 19:04 Plasma/Serum Alcohol < 0.01 % (0-0.07) 05/12/22 22:47 Coronavirus (PCR) Negative (Negative) 05/13/22 09:30 Microbiology: Microbiology 05/14/22 11:32 Cerebral Spinal Fluid CSF Culture - Preliminary 05/12/22 22:47 Peripheral/Venous Blood Culture - Preliminary NO GROWTH AFTER 48 HOURS 05/12/22 22:47 Peripheral/Venous Blood Culture - Preliminary NO GROWTH AFTER 48 HOURS Vergara/IV: Voiding Method Indwelling Catheter Active Medications - Current Medications Current Medications: Generic Name Dose Route Start Last Admin Trade Name Freq PRN Reason Stop Dose Admin Acetaminophen 650 mg 05/13/22 02:07 05/14/22 08:08 Acetaminophen 325 Mg Tab PO 650 mg Q6H PRN Administration Pain MILD(1-3)/Fever >100.5/PATINO Acetaminophen 650 mg 05/13/22 08:51 05/13/22 09:18 Acetaminophen 650 Mg Rect Supp HI 650 mg Q6H PRN Administration Pain, Mild (1-3), T> 100.5 Amlodipine Besylate 10 mg 05/13/22 12:00 05/14/22 09:32 Amlodipine 10 Mg Tab FEEDTUBE 10 mg QDAY BRAD Administration Atorvastatin Calcium 40 mg 05/16/22 22:00 Atorvastatin 40 Mg Tab FEEDTUBE QHS BRAD Carvedilol 25 mg 05/14/22 10:00 05/14/22 22:17 Carvedilol 25 Mg Tab FEEDTUBE 25 mg BID BRAD Administration Dextrose 0 ml 05/13/22 02:07 Dextrose 50% In Water (25gm) 50 Ml Syringe IV Q30MIN PRN Hypoglycemia Protocol Heparin Sodium (Porcine) 5,000 unit 05/13/22 06:00 05/15/22 06:46 Heparin 5,000 Unit/1 Ml Vial SUB-Q 5,000 unit Q8HR BRAD Administration Hydralazine HCl 100 mg 05/13/22 14:00 05/14/22 20:28 Hydralazine 100 Mg Tab FEEDTUBE 100 mg TID BRAD Administration Levetiracetam 1,000 mg/ 110 mls @ 400 mls/hr 05/13/22 22:00 05/14/22 22:09 Dextrose IV 400 mls/hr Q12HR BRAD Administration Cefepime HCl 2 gm in 100 mls @ 200 mls/hr 05/13/22 13:00 05/14/22 13:52 Cefepime/Ns 2 Gm/100 Ml IV 200 mls/hr Q24H BRAD Administration Protocol Acyclovir 800 mg/ Sodium 116 mls @ 100 mls/hr 05/14/22 20:00 05/14/22 20:28 Chloride IV 100 mls/hr Q24H BRAD Administration Protocol Lacosamide 100 mg/ Sodium 110 mls @ 100 mls/hr 05/13/22 23:45 05/15/22 00:13 Chloride IV 100 mls/hr Q12HR BRAD Administration Insulin Glargine 15 units 05/14/22 22:00 05/14/22 22:21 Insulin Glargine 100 Units/Ml SUB-Q 15 units QHS BRAD Administration Insulin Human Lispro 0 unit 05/13/22 12:00 05/15/22 06:46 Insulin Lispro 100 Unit/Ml SUB-Q 8 unit Q6HR BRAD Administration Protocol Lorazepam 2 mg 05/13/22 13:03 05/14/22 11:30 Lorazepam 2 Mg/Ml Vial IV 2 mg Q4H PRN Administration Seizures Magnesium Hydroxide 30 ml 05/13/22 02:07 Magnesium Hydroxide (Mom) Oral Liqd Udc PO Q4H PRN Constipation Ondansetron HCl 4 mg 05/13/22 02:07 Ondansetron 4 Mg/2 Ml Inj IV Q8H PRN Nausea And Vomiting Sodium Chloride 10 ml 05/13/22 10:00 05/14/22 22:17 Sodium Chloride 0.9% 10 Ml Flush Syringe IV 10 ml BID BRAD Administration Sodium Chloride 10 ml 05/13/22 02:07 Sodium Chloride 0.9% 10 Ml Flush Syringe IV PRN PRN LINE FLUSH Nutrition/Malnutrition Assess - Dietary Evaluation Nutrition/Malnutrition Findings: Nutrition Notes Start: 05/13/22 11:36 Freq: Status: Active Protocol: Document 05/13/22 14:23 CM (Rec: 05/13/22 14:27 CM [email or web address]) Co-Sign 09/19/22 14:23 WW Nutrition Notes Need for Assessment generated from: MD Order,Education Initial or Follow up Brief Note Current Diagnosis Hypertension,Stroke Other Pertinent Diagnosis Seizure, hyperglycemia Current Diet TF-Nepro w/CARBSTEADY @ 40 ml/ hr Labs/Tests 05/13: Cl 119.1 CO2 19 BUN 27 Cr 3.3 Glu 511 Pertinent Medications 05/13: Humalog Humulin Height 5 ft 7 in Weight 113 kg [place] Body Weight (kg) 61.36 BMI 38.9 Intake Prior to Admission Good Weight change and time frame No wt loss [employer] per malnutrition screening tool assessment. Weight Status Obese Subjective/Other Information RD consult for diet education per MD. Pt transferred from ER to critical care unit, therefore is not a candidate for diet education at this time. Will provide in future interactions . Percent of energy/protein needs met: Prescribed TF-Nepro w/ CARBSTEADY @ 40 ml/hr provides for energy/protein needs (1, 710 Kcal/77 g) during LOS, 101 % Kcal; 100% AA. Burn Absent Trauma Absent #1 Nutrition Diagnosis Inadequate energy intake Diagnosis Progress(for reassessment Continues documentation) Nutrition Intervention Nutrition Support: Start TF-Nepro w/CARBSTEADY @ 40 ml/hr. Flush: 170 ml water Q 4 hr, or as per MD. Kcal 1,710 Protein (gm) 77 Carbohydrates (gm) 153 Fat (gm) 91 Fluid (mL) 691 Fiber (gm) 12 % RDI: 101% Kcal; 100% AA Goal #1 Provide at least 75% of energy /protein needs through Enteral Feeding during LOS. Goal #2 Adjust the dietary intervention to better serve Pt's energy/protein needs and clinical conditions during LOS . Follow-Up By: 05/15/22 Additional Comments Monitor TF tolerance, [id number] status, and BM.
--- NOTE | 2022-05-15 09:12 | Progress Note ---
Assessment and Plan # Acute Kidney Injury: suspect pre-renal injury and tubular injury in setting of hyperglycemia, seizure episode, sepsis. May have CKD at baseline given DM, HTN, obesity - creatinine uptrending 3.1->3.9->4.0, hopefully reaching plateau with improvement in tachycardia, sepsis. Mild acidosis, hypokalemia, hypernatremia improving - urinalysis noted, check UP/C, check serologies - CK reasonable at 217 - PTH ~140, phos/ca WNL - renal ultrasound with no acute obstruction, note potential angiomyolipoma, outpatient follow up - glucose control per primary, IVF as tolerated - hold home diuretics, if having worsening respiratory status or edema, plan for IV diuretics prn only - avoid nephrotoxins - renally dose medications - I/Os - no immediate need for kidney biopsy or renal replacement therapy # Metabolic Acidosis: note elevated lactate, no obvious ingestion, now stable # Seizure: note neurology input # HTN: BP very high initially, s/p cardene gtt, agree with current regimen # Tachycardia: HR high in setting of sepsis initially, now better, agree with carvedilol # Fever: ID input noted, note concern for infectious cause of encephalopathy, s/p LP # DM/Hyperglycemia: per primary Subjective Date of service: 05/15/22 Principal diagnosis: HTNsive emergency with seizures; Morbid obesity; AMS; Leukocytosis; RODRÍGUEZ Interval history: Resting in bed, no major changes noted, had LP yesterday Objective - Exam Narrative Exam: General appearance: Present: no acute distress, well-nourished, obese Eyes: Present: PERRL, EOM intact ENT: dentition normal Neck: Present: supple, normal ROM Respiratory: bilateral: CTA CV: Present: S1 & S2 Extremities: no ischemia, pulses intact, pulses symmetrical, No edema General gastrointestinal: Present: soft, non-tender, non-distended, normal bowel sounds Integumentary: Present: clear, warm, dry, normal turgor. Absent: rash Musculoskeletal: generalized weakness Psychiatric: drowsy Neurologic: Non verbal, Sedated - Vital Signs Vital signs: Vital Signs - 12hr 05/14/22 05/14/22 05/14/22 22:00 22:17 22:29 Temperature Pulse Rate 101 H 102 H 101 H Pulse Rate [ From Monitor] Respiratory 16 17 Rate Blood Pressure 142/79 142/79 142/79 O2 Sat by Pulse 99 99 Oximetry 05/14/22 05/15/22 05/15/22 23:00 00:00 01:00 Temperature Pulse Rate 90 92 H 90 Pulse Rate [ From Monitor] Respiratory 14 18 14 Rate Blood Pressure 135/77 136/78 131/73 O2 Sat by Pulse 99 99 99 Oximetry 05/15/22 05/15/22 05/15/22 01:07 02:00 03:00 Temperature 98.1 F Pulse Rate 87 89 Pulse Rate [ From Monitor] Respiratory 13 13 Rate Blood Pressure 130/68 129/78 O2 Sat by Pulse 99 99 Oximetry 05/15/22 05/15/22 05/15/22 03:26 03:43 04:00 Temperature 98.8 F Pulse Rate 84 89 Pulse Rate [ From Monitor] Respiratory 15 Rate Blood Pressure 129/78 O2 Sat by Pulse 99 Oximetry 05/15/22 05/15/22 05/15/22 05:00 06:00 07:00 Temperature Pulse Rate 84 91 H 91 H Pulse Rate [ From Monitor] Respiratory 13 15 17 Rate Blood Pressure 122/78 135/93 135/93 O2 Sat by Pulse 99 99 98 Oximetry 05/15/22 08:00 Temperature 98.6 F Pulse Rate 88 Pulse Rate [ 88 From Monitor] Respiratory 12 Rate Blood Pressure 136/91 O2 Sat by Pulse 98 Oximetry - Lab 05/15/22 03:48 05/15/22 03:48 Most recent lab results ABG pH 7.354 pH Units (7.350-7.450) 05/12/22 22:47 ABG pCO2 36.7 mm Hg 05/12/22 22:47 ABG pO2 55.5 mm Hg (80.0-90.0) L 05/12/22 22:47 ABG HCO3 20.0 mmol/L (20.0-26.0) 05/12/22 22:47 ABG O2 Saturation 89.0 % (95.0-99.0) L 05/12/22 22:47 Calcium 8.9 mg/dL (8.4-10.2) 05/15/22 03:48 Phosphorus 3.00 mg/dL (2.5-4.5) 05/15/22 03:48 Magnesium 2.30 mg/dL (1.7-2.3) 05/15/22 03:48 Urine Creatinine 86.3 mg/dL (0.1-20.0) H 05/13/22 Unknown Urine Sodium 21 mmol/L 05/13/22 Unknown Urine Total Protein 735 mg/dL (5-11.8) H 05/13/22 19:34 Medications & Allergies - Medications Allergies/Adverse Reactions: Allergies No Known Allergies Allergy (Verified 05/13/22 19:13) Active Medications: Generic Name Dose Route Start Last Admin Trade Name Freq PRN Reason Stop Dose Admin Acetaminophen 650 mg 05/13/22 02:07 05/14/22 08:08 Acetaminophen 325 Mg Tab PO 650 mg Q6H PRN Administration Pain MILD(1-3)/Fever >100.5/PATINO Acetaminophen 650 mg 05/13/22 08:51 05/13/22 09:18 Acetaminophen 650 Mg Rect Supp DE 650 mg Q6H PRN Administration Pain, Mild (1-3), T> 100.5 Amlodipine Besylate 10 mg 05/13/22 12:00 05/14/22 09:32 Amlodipine 10 Mg Tab FEEDTUBE 10 mg QDAY BRAD Administration Atorvastatin Calcium 40 mg 05/16/22 22:00 Atorvastatin 40 Mg Tab FEEDTUBE QHS BRAD Carvedilol 25 mg 05/14/22 10:00 05/14/22 22:17 Carvedilol 25 Mg Tab FEEDTUBE 25 mg BID BRAD Administration Dextrose 0 ml 05/13/22 02:07 Dextrose 50% In Water (25gm) 50 Ml Syringe IV Q30MIN PRN Hypoglycemia Protocol Heparin Sodium (Porcine) 5,000 unit 05/13/22 06:00 05/15/22 06:46 Heparin 5,000 Unit/1 Ml Vial SUB-Q 5,000 unit Q8HR BRAD Administration Hydralazine HCl 100 mg 05/13/22 14:00 05/14/22 20:28 Hydralazine 100 Mg Tab FEEDTUBE 100 mg TID BRAD Administration Levetiracetam 1,000 mg/ 110 mls @ 400 mls/hr 05/13/22 22:00 05/14/22 22:09 Dextrose IV 400 mls/hr Q12HR BRAD Administration Cefepime HCl 2 gm in 100 mls @ 200 mls/hr 05/13/22 13:00 05/14/22 13:52 Cefepime/Ns 2 Gm/100 Ml IV 200 mls/hr Q24H BRAD Administration Protocol Acyclovir 800 mg/ Sodium 116 mls @ 100 mls/hr 05/14/22 20:00 05/14/22 20:28 Chloride IV 100 mls/hr Q24H BRAD Administration Protocol Lacosamide 100 mg/ Sodium 110 mls @ 100 mls/hr 05/13/22 23:45 05/15/22 00:13 Chloride IV 100 mls/hr Q12HR BRAD Administration Insulin Glargine 15 units 05/14/22 22:00 05/14/22 22:21 Insulin Glargine 100 Units/Ml SUB-Q 15 units QHS BRAD Administration Insulin Human Lispro 0 unit 05/13/22 12:00 05/15/22 06:46 Insulin Lispro 100 Unit/Ml SUB-Q 8 unit Q6HR BRAD Administration Protocol Lorazepam 2 mg 05/13/22 13:03 05/14/22 11:30 Lorazepam 2 Mg/Ml Vial IV 2 mg Q4H PRN Administration Seizures Magnesium Hydroxide 30 ml 05/13/22 02:07 Magnesium Hydroxide (Mom) Oral Liqd Udc PO Q4H PRN Constipation Ondansetron HCl 4 mg 05/13/22 02:07 Ondansetron 4 Mg/2 Ml Inj IV Q8H PRN Nausea And Vomiting Sodium Chloride 10 ml 05/13/22 10:00 05/14/22 22:17 Sodium Chloride 0.9% 10 Ml Flush Syringe IV 10 ml BID BRAD Administration Sodium Chloride 10 ml 05/13/22 02:07 Sodium Chloride 0.9% 10 Ml Flush Syringe IV PRN PRN LINE FLUSH
[2022-05-15] MEDS: levETIRAcetam 1,000 MG in DEXTROSE 5% IN WATER 100 ML IV SCH ×2 (10:25→21:57)
[2022-05-15] MEDS: hydrALAZINE 100 MG TAB FEEDTUBE SCH ×3 (10:26→21:48)
[2022-05-15] MEDS: amLODIPine 10 MG TAB FEEDTUBE SCH (10:26)
[2022-05-15] MEDS: carvediloL 25 MG TAB FEEDTUBE SCH ×2 (10:26→21:47)
--- NOTE | 2022-05-15 11:18 | Progress Note ---
Assessment and Plan Cultures: Blood culture no growth so far A/P: 31 yo F no PMHx now with: #SIRS/sepsis: With fevers, leukocytosis. 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 CSF with 97% neutrophils on 53 white blood cells. Probably consistent with bacterial meningitis, however elevated glucose points away from that. May be inflammatory secondary to seizures. #Seizures: Unclear etiology, awaiting MRI Recs: -Agree with neurology assessment -Continue renally dosed cefepime -Stop acyclovir, given elevated neutrophils less likely to be herpes ence phalitis. -Follow-up MRI -Vancomycin dosed per pharmacy -Follow up cultures Thank you for the consult, we will continue to follow. Tahira Cabrera MD [facility] ([facility] O: [phone] F: [phone] Subjective Date of service: 05/15/22 Principal diagnosis: HTNsive emergency with seizures; Morbid obesity; AMS; Leukocytosis; RODRÍGUEZ Interval history: Afebrile overnight, white count normal. With 53 white blood cells, 97% neutrophils. Elevated glucose. CSF cultures pending. Objective - Exam Narrative Exam: Physical Exam: Constitutional: Alert, cooperative. No acute distress Head, Ears, Nose: Normocephalic, atraumatic. External ears, nose normal Eyes: Conjunctivae/corneas clear. No icterus. No ptosis. Neck: Supple, no meningeal signs Oral: dentition fair, no thrush Cardiovascular: S1, S2 normal. Respiratory: Good air entry, clear to auscultation bilaterally GI: Soft, non-tender; bowel sounds normal. No peritoneal signs. Musculoskeletal: No pedal edema, no cyanosis. Skin: No rash or abscess Hem/Lymphatic: No palpable cervical or supraclavicular nodes. No lymphangitis Psych: Mood ok. Affect normal Neurological: Awake, alert, oriented. No gross abnormality - Constitutional Vitals: Vital Signs Temp Pulse Resp BP Pulse Ox 98.6 F 87 13 127/85 99 05/15/22 08:00 05/15/22 11:00 05/15/22 11:00 05/15/22 11:00 05/15/22 11:00 Temperature -Last 24 Hours Temperature 98.6 F Temperature 98.8 F Temperature 98.1 F Temperature 97.1 F Temperature 98.5 F - Labs CBC & Chem 7: 05/15/22 03:48 05/15/22 03:48 Labs: Abnormal lab results 05/14/22 05/14/22 05/14/22 Range/Units 13:25 14:23 17:28 MCV (79-97) fl MCH (28-32) pg RDW (13.2-15.2) % Chloride (98-107) mmol/L Carbon Dioxide (22-30) mmol/L BUN (7-17) mg/dL Creatinine (0.6-1.2) mg/dL Glucose (65-100) mg/dL POC Glucose 323 H 339 H (70-105) mg/dL Hemoglobin A1c 14.4 H (4-6) % 05/15/22 05/15/22 05/15/22 Range/Units 00:02 03:48 03:48 MCV 78 L (79-97) fl MCH 25 L (28-32) pg RDW 16.7 H (13.2-15.2) % Chloride 115.5 H (98-107) mmol/L Carbon Dioxide 19 L (22-30) mmol/L BUN 44 H (7-17) mg/dL Creatinine 4.0 H (0.6-1.2) mg/dL Glucose 339 H (65-100) mg/dL POC Glucose 392 H (70-105) mg/dL Hemoglobin A1c (4-6) % 05/15/22 Range/Units 05:50 MCV (79-97) fl MCH (28-32) pg RDW (13.2-15.2) % Chloride (98-107) mmol/L Carbon Dioxide (22-30) mmol/L BUN (7-17) mg/dL Creatinine (0.6-1.2) mg/dL Glucose (65-100) mg/dL POC Glucose 307 H (70-105) mg/dL Hemoglobin A1c (4-6) %
--- NOTE | 2022-05-15 11:54 | Progress Note ---
Assessment and Plan 31-year-old -Syrian female Morbidly brought to the emergency room for evaluation of seizure episode which happened overnight with associated progressive weakness. Patient is visiting from [place] and was said not to have had enough rest since arrival few days ago. Most of the history was gotten from the ER staff as patient is unable to give any coherent history at this time and no family member is available. Patient was said to have woken up in the night had an episode of vomiting and subsequently had seizures. She was said to have had another episode of seizure while in the emergency room and had been started on Keppra and also given some Ativan. Work-up in the emergency room , significant findings on the labs with a BUN of 26 and creatinine of 3.1. Initial blood glucose of 580 and subsequently 361. Urinalysis was unremarkable. UDS was positive for marijuana. Leukocytosis of 13.1. CT scan of the head shows no acute findings. Chest x-ray shows no acute findings. Blood pressure has been quite elevated with systolic in the 200s and diastolic in the 130s. Patient initially given IV labetalol and then subsequently placed on Cardene drip. Patient also developed a fever while in the emergency room with temperature of about 103 F. Patient has been admitted with seizure disorder, hyperglycemia, hypertensive urgency and RODRÍGUEZ. Patient denies smoking, alcohol or drug abuse. Patient not working. Not . Has no children. Patient awake. Patient is on room air. O2 saturation 98%. No acute respiratory distress. Patient afebrile. No leukocytosis. Blood pressure 152/92, Pulse 93, Respirations 18. Chest xray done 05/12/22 reported No significant pulmonary or pleural abnormality. No pneumothorax. Patient is on cefepime, S/C Heparin, Keppra, Ativan, Amalodipine, Hydalzine I spent critical care time of 40 minutes, obtaining history, review the chart, examine the patient, review chest xray, labs, talking to the nursing staff and work up plkan of treatment in this critically ill patient. - Patient Problems (1) Seizure Current Visit: Yes Status: Acute Plan to address problem: Patient is on Keppra and ativan. (2) Hyperglycemia Current Visit: Yes Status: Acute Plan to address problem: Recent blood sugur 388. Patient is on S/C Insulin. (3) Hypertensive crisis Current Visit: Yes Status: Acute Plan to address problem: Patient is on Amalodipine, Hydralazine, (4) Dehydration Current Visit: Yes Status: Acute Plan to address problem: Recived I/V fluids. Recommend to repeat BMP. (5) Postictal state Current Visit: Yes Status: Acute Plan to address problem: Patient awake, talking now. Subjective Date of service: 05/15/22 Principal diagnosis: HTNsive emergency with seizures; Morbid obesity; AMS; Leukocytosis; RODRÍGUEZ Interval history: 31-year-old -Syrian female Morbidly brought to the emergency room for evaluation of seizure episode which happened overnight with associated progressive weakness. Patient is visiting from [place] and was said not to have had enough rest since arrival few days ago. Most of the history was gotten from the ER staff as patient is unable to give any coherent history at this time and no family member is available. Patient was said to have woken up in the night had an episode of vomiting and subsequently had seizures. She was said to have had another episode of seizure while in the emergency room and had been started on Keppra and also given some Ativan. Work-up in the emergency room , significant findings on the labs with a BUN of 26 and creatinine of 3.1. Initial blood glucose of 580 and subsequently 361. Urinalysis was unremarkable. UDS was positive for marijuana. Leukocytosis of 13.1. CT scan of the head shows no acute findings. Chest x-ray shows no acute findings. Blood pressure has been quite elevated with systolic in the 200s and diastolic in the 130s. Patient initially given IV labetalol and then subsequently placed on Cardene drip. Patient also developed a fever while in the emergency room with temperature of about 103 F. Patient has been admitted with seizure disorder, hyperglycemia, hypertensive urgency and RODRÍGUEZ. Patient denies smoking, alcohol or drug abuse. Patient not working. Not . Has no children. Patient awake. Patient is on room air. O2 saturation 98%. No acute respiratory distress. Patient afebrile. No leukocytosis. Blood pressure 152/92, Pulse 93, Respirations 18. Chest xray done 05/12/22 reported No significant pulmonary or pleural abnormality. No pneumothorax. Patient is on cefepime, S/C Heparin, Keppra, Ativan, Amalodipine, Hydralzine Objective Vital Signs - 12hr 05/15/22 05/15/22 05/15/22 00:00 01:00 01:07 Temperature 98.1 F Pulse Rate 92 H 90 Pulse Rate [ From Monitor] Respiratory 18 14 Rate Blood Pressure 136/78 131/73 O2 Sat by Pulse 99 99 Oximetry 05/15/22 05/15/22 05/15/22 02:00 03:00 03:26 Temperature Pulse Rate 87 89 84 Pulse Rate [ From Monitor] Respiratory 13 13 Rate Blood Pressure 130/68 129/78 O2 Sat by Pulse 99 99 Oximetry 05/15/22 05/15/22 05/15/22 03:43 04:00 05:00 Temperature 98.8 F Pulse Rate 89 84 Pulse Rate [ From Monitor] Respiratory 15 13 Rate Blood Pressure 129/78 122/78 O2 Sat by Pulse 99 99 Oximetry 05/15/22 05/15/22 05/15/22 06:00 07:00 08:00 Temperature 98.6 F Pulse Rate 91 H 91 H 88 Pulse Rate [ 88 From Monitor] Respiratory 15 17 12 Rate Blood Pressure 135/93 135/93 136/91 O2 Sat by Pulse 99 98 98 Oximetry 05/15/22 05/15/22 05/15/22 09:00 10:00 10:26 Temperature Pulse Rate 86 85 93 H Pulse Rate [ From Monitor] Respiratory 12 11 L Rate Blood Pressure 128/84 138/96 138/96 O2 Sat by Pulse 98 98 Oximetry 05/15/22 11:00 Temperature Pulse Rate 87 Pulse Rate [ From Monitor] Respiratory 13 Rate Blood Pressure 127/85 O2 Sat by Pulse 99 Oximetry Constitutional: no acute distress, alert, other (young obese female with mildly increased respiratory effort at rest) Eyes: non-icteric ENT: oropharynx moist Neck: supple, no lymphadenopathy, no JVD, other (large circumference) Effort: mildly labored Ascultation: Bilateral: diminished breath sounds Percussion: Bilateral: not dull Cardiovascular: regular rate and rhythm Gastrointestinal: normoactive bowel sounds, soft, non-tender, non-distended (protuberant) Integumentary: normal Extremities: no cyanosis, no edema, pulses normal, no ischemia or petechiae Neurologic: non-focal exam (grossly), pupils equal and round Psychiatric: other (Talking. Flat effect.) CBC and BMP: 05/15/22 03:48 05/15/22 03:48 ABG, PT/INR, D-dimer: ABG ABG pH 7.354 pH Units (7.350-7.450) 05/12/22 22:47 ABG pCO2 36.7 mm Hg 05/12/22 22:47 ABG pO2 55.5 mm Hg (80.0-90.0) L 05/12/22 22:47 ABG O2 Saturation 89.0 % (95.0-99.0) L 05/12/22 22:47 PT/INR, D-dimer PT 16.8 Sec. (12.2-14.9) H 05/12/22 14:25 INR 1.22 (0.87-1.13) H 05/12/22 14:25 Abnormal lab findings: Abnormal Labs 05/12/22 05/12/22 05/12/22 14:25 14:25 14:25 WBC 13.1 H RBC 5.37 H MCV 78 L MCH 25 L RDW 16.2 H Lymph % (Auto) [place] % (Auto) [place] # (Auto) Baso # (Auto) Seg Neutrophils % Seg Neuts % (Manual) 88.0 H Lymphocytes % (Manual) 7.0 L Monocytes % (Manual) Seg Neutrophils # Seg Neutrophils # Man 11.5 H Lymphocytes # (Manual) 0.9 L Monocytes # (Manual) PT 16.8 H INR 1.22 H ABG pO2 ABG O2 Saturation ABG Base Excess Oxyhemoglobin Sodium Potassium Chloride Carbon Dioxide 18 L BUN 26 H Creatinine 3.1 H Glucose 580 H* POC Glucose Hemoglobin A1c Lactic Acid Total Creatine Kinase C-Reactive Protein Total Protein 6.2 L Albumin 3.3 L PTH Intact Urine Creatinine Urine Total Protein Salicylates Acetaminophen 05/12/22 05/12/22 05/12/22 14:25 14:25 14:25 WBC RBC MCV MCH RDW Lymph % (Auto) [place] % (Auto) [place] # (Auto) Baso # (Auto) Seg Neutrophils % Seg Neuts % (Manual) Lymphocytes % (Manual) Monocytes % (Manual) Seg Neutrophils # Seg Neutrophils # Man Lymphocytes # (Manual) Monocytes # (Manual) PT INR ABG pO2 ABG O2 Saturation ABG Base Excess Oxyhemoglobin Sodium Potassium Chloride Carbon Dioxide BUN Creatinine Glucose POC Glucose Hemoglobin A1c Lactic Acid 2.80 H* Total Creatine Kinase C-Reactive Protein Total Protein Albumin PTH Intact Urine Creatinine Urine Total Protein Salicylates < 0.3 L Acetaminophen 5.0 L 05/12/22 05/12/22 05/12/22 22:47 22:47 22:47 WBC 15.4 H RBC 5.42 H MCV 77 L MCH 24 L RDW 16.3 H Lymph % (Auto) [place] % (Auto) [place] # (Auto) Baso # (Auto) Seg Neutrophils % Seg Neuts % (Manual) 85.0 H Lymphocytes % (Manual) 7.0 L Monocytes % (Manual) 8.0 H Seg Neutrophils # Seg Neutrophils # Man 13.1 H Lymphocytes # (Manual) 1.1 L Monocytes # (Manual) 1.2 H PT INR ABG pO2 ABG O2 Saturation ABG Base Excess Oxyhemoglobin Sodium Potassium Chloride 110.1 H Carbon Dioxide 19 L BUN 27 H Creatinine 3.3 H Glucose 361 H POC Glucose Hemoglobin A1c Lactic Acid 2.70 H* Total Creatine Kinase C-Reactive Protein Total Protein Albumin 3.3 L PTH Intact Urine Creatinine Urine Total Protein Salicylates Acetaminophen 05/12/22 05/13/22 05/13/22 22:47 01:53 06:30 WBC RBC MCV MCH RDW Lymph % (Auto) [place] % (Auto) [place] # (Auto) Baso # (Auto) Seg Neutrophils % Seg Neuts % (Manual) Lymphocytes % (Manual) Monocytes % (Manual) Seg Neutrophils # Seg Neutrophils # Man Lymphocytes # (Manual) Monocytes # (Manual) PT INR ABG pO2 55.5 L ABG O2 Saturation 89.0 L ABG Base Excess -4.9 L Oxyhemoglobin 85.4 L Sodium Potassium Chloride Carbon Dioxide BUN Creatinine Glucose POC Glucose 511 H Hemoglobin A1c Lactic Acid 2.30 H* Total Creatine Kinase C-Reactive Protein Total Protein Albumin PTH Intact Urine Creatinine Urine Total Protein Salicylates Acetaminophen 05/13/22 05/13/22 05/13/22 10:27 11:33 16:12 WBC RBC MCV MCH RDW Lymph % (Auto) [place] % (Auto) [place] # (Auto) Baso # (Auto) Seg Neutrophils % Seg Neuts % (Manual) Lymphocytes % (Manual) Monocytes % (Manual) Seg Neutrophils # Seg Neutrophils # Man Lymphocytes # (Manual) Monocytes # (Manual) PT INR ABG pO2 ABG O2 Saturation ABG Base Excess Oxyhemoglobin Sodium Potassium Chloride Carbon Dioxide BUN Creatinine Glucose POC Glucose 492 H 500 H 331 H Hemoglobin A1c Lactic Acid Total Creatine Kinase C-Reactive Protein Total Protein Albumin PTH Intact Urine Creatinine Urine Total Protein Salicylates Acetaminophen 05/13/22 05/13/22 05/13/22 19:34 21:55 23:50 WBC RBC MCV MCH RDW Lymph % (Auto) [place] % (Auto) [place] # (Auto) Baso # (Auto) Seg Neutrophils % Seg Neuts % (Manual) Lymphocytes % (Manual) Monocytes % (Manual) Seg Neutrophils # Seg Neutrophils # Man Lymphocytes # (Manual) Monocytes # (Manual) PT INR ABG pO2 ABG O2 Saturation ABG Base Excess Oxyhemoglobin Sodium Potassium Chloride Carbon Dioxide BUN Creatinine Glucose POC Glucose 268 H 256 H Hemoglobin A1c Lactic Acid Total Creatine Kinase C-Reactive Protein Total Protein Albumin PTH Intact Urine Creatinine 174.8 H Urine Total Protein 735 H Salicylates Acetaminophen 05/13/22 05/14/22 05/14/22 Unknown 04:20 04:20 WBC 18.3 H RBC MCV 78 L MCH 24 L RDW 16.6 H Lymph % (Auto) 12.1 L [place] % (Auto) 11.6 H [place] # (Auto) 2.1 H Baso # (Auto) 0.2 H Seg Neutrophils % 75.0 H Seg Neuts % (Manual) Lymphocytes % (Manual) Monocytes % (Manual) Seg Neutrophils # 13.7 H Seg Neutrophils # Man Lymphocytes # (Manual) Monocytes # (Manual) PT INR ABG pO2 ABG O2 Saturation ABG Base Excess Oxyhemoglobin Sodium 146 H Potassium 3.4 L Chloride 115.1 H Carbon Dioxide 17 L BUN 35 H Creatinine 3.9 H Glucose 224 H POC Glucose Hemoglobin A1c Lactic Acid Total Creatine Kinase C-Reactive Protein 1.40 H Total Protein Albumin PTH Intact Urine Creatinine 86.3 H Urine Total Protein Salicylates Acetaminophen 05/14/22 05/14/22 05/14/22 04:20 04:20 06:10 WBC RBC MCV MCH RDW Lymph % (Auto) [place] % (Auto) [place] # (Auto) Baso # (Auto) Seg Neutrophils % Seg Neuts % (Manual) Lymphocytes % (Manual) Monocytes % (Manual) Seg Neutrophils # Seg Neutrophils # Man Lymphocytes # (Manual) Monocytes # (Manual) PT INR ABG pO2 ABG O2 Saturation ABG Base Excess Oxyhemoglobin Sodium Potassium Chloride Carbon Dioxide BUN Creatinine Glucose POC Glucose 257 H Hemoglobin A1c Lactic Acid Total Creatine Kinase 217 H C-Reactive Protein Total Protein Albumin PTH Intact 149.4 H Urine Creatinine Urine Total Protein Salicylates Acetaminophen 05/14/22 05/14/22 05/14/22 07:23 13:25 14:23 WBC RBC MCV MCH RDW Lymph % (Auto) [place] % (Auto) [place] # (Auto) Baso # (Auto) Seg Neutrophils % Seg Neuts % (Manual) Lymphocytes % (Manual) Monocytes % (Manual) Seg Neutrophils # Seg Neutrophils # Man Lymphocytes # (Manual) Monocytes # (Manual) PT INR ABG pO2 ABG O2 Saturation ABG Base Excess Oxyhemoglobin Sodium Potassium Chloride Carbon Dioxide BUN Creatinine Glucose POC Glucose 240 H 323 H Hemoglobin A1c 14.4 H Lactic Acid Total Creatine Kinase C-Reactive Protein Total Protein Albumin PTH Intact Urine Creatinine Urine Total Protein Salicylates Acetaminophen 05/14/22 05/15/22 05/15/22 17:28 00:02 03:48 WBC RBC MCV 78 L MCH 25 L RDW 16.7 H Lymph % (Auto) [place] % (Auto) [place] # (Auto) Baso # (Auto) Seg Neutrophils % Seg Neuts % (Manual) Lymphocytes % (Manual) Monocytes % (Manual) Seg Neutrophils # Seg Neutrophils # Man Lymphocytes # (Manual) Monocytes # (Manual) PT INR ABG pO2 ABG O2 Saturation ABG Base Excess Oxyhemoglobin Sodium Potassium Chloride Carbon Dioxide BUN Creatinine Glucose POC Glucose 339 H 392 H Hemoglobin A1c Lactic Acid Total Creatine Kinase C-Reactive Protein Total Protein Albumin PTH Intact Urine Creatinine Urine Total Protein Salicylates Acetaminophen 05/15/22 05/15/22 03:48 05:50 WBC RBC MCV MCH RDW Lymph % (Auto) [place] % (Auto) [place] # (Auto) Baso # (Auto) Seg Neutrophils % Seg Neuts % (Manual) Lymphocytes % (Manual) Monocytes % (Manual) Seg Neutrophils # Seg Neutrophils # Man Lymphocytes # (Manual) Monocytes # (Manual) PT INR ABG pO2 ABG O2 Saturation ABG Base Excess Oxyhemoglobin Sodium Potassium Chloride 115.5 H Carbon Dioxide 19 L BUN 44 H Creatinine 4.0 H Glucose 339 H POC Glucose 307 H Hemoglobin A1c Lactic Acid Total Creatine Kinase C-Reactive Protein Total Protein Albumin PTH Intact Urine Creatinine Urine Total Protein Salicylates Acetaminophen Chest x-ray: report reviewed, image reviewed Additional Studies: CHEST 1 VIEW 05/12/22 INDICATION / CLINICAL INFORMATION: ams. COMPARISON: None available. FINDINGS: SUPPORT DEVICES: None. HEART / MEDIASTINUM: No significant abnormality. LUNGS / PLEURA: No significant pulmonary or pleural abnormality. No pneumothorax. ADDITIONAL FINDINGS: No significant additional findings. IMPRESSION: 1. No acute findings. Allied health notes reviewed: nursing
[2022-05-15] MEDS: CEFEPIME/NS 2 GM/100 ML 2 GM/100 ML BAG IV SCH (13:29)
--- NOTE | 2022-05-15 14:12 | Electrocardiograph Report ---
[facility] Test Date: 2022-05-12 Test Time: 12:13:39 Pat Name: TIMMY JUNE Department: Room: A266 Gender: F [employer]: RADHA : 1990 Requested By: BRITTANEY FLEMING Order Number: [id number] Reading MD: Luis Enrique Dutton Measurements Intervals [place] Rate: 107 P: 59 VA: 137 QRS: -10 QRSD: 77 T: 148 QT: 372 QTc: 495 Interpretive Statements Sinus tachycardia Probable left atrial enlargement LVH with secondary repolarization abnormality Poor R wave progression No previous ECG available for comparison Electronically Signed On 05-15-2022 14:12:07 EDT by Luis Enrique Dutton
[2022-05-15] MEDS: INSULIN GLARGINE 100 UNITS/ML SUB-Q SCH (21:48)
[2022-05-16] MEDS: INSULIN LISPRO 100 UNIT/ML SUB-Q SCH ×4 (00:41→18:12)
[2022-05-16] MEDS: HEPARIN 5,000 UNIT/1 ML VIAL SUB-Q SCH ×3 (05:36→22:25)
--- NOTE | 2022-05-16 08:50 | Progress Note ---
Assessment and Plan Assessment and plan: History This is a 31-year-old female with seizures, HTN, DM and medical noncompliance who presented to emergency department on 05/13 after a seizure episode associated with progressive weakness. Per EMS patient was said to have woken up in the night had an episode of vomiting and subsequently had seizures. In the emergency department work-up showed acute kidney injury with a BUN/creatinine of 26/3.1, glucose of 580, urinalysis was unremarkable, UDS was positive for mariju tiera, leukocytosis at 13.1 and CXR showed no acute findings along with a CT scan. In the emergency department patient had another seizure and was given Ativan and loaded with Keppra. Patient also had BP in the 200s over 130s and was given labetalol and was started on a Cardene drip. She also had was febrile to 103 in the ED. Patient was admitted to the hospitalist service with seizure disorder, hyperglycemia, hypertensive urgency and acute kidney injury with consults to nephrology, neurology. Hospital course to date: 05/13: CCM and ID consulted. Patient had possible seizure activity and was started. Ativan. Patient had EEG today. MRI brain pending. Urine lites pending. Patient febrile started on cefepime, procalcitonin, CRP and COVID-19 PCR pending. 05/14: Patient received LP today, MRI brain without contrast, hemoglobin A1c ordered 05/15: Answers most questions correctly. s/p LP. Pattern not c/w viral meningitis. d/c acyclovir. follow CSF culture. Continue tx with cefepime IV, vancomycin IV. Nephrology following due to poor renal fx, worsened cr today to 4.0. Will continue IVF hydration. EEG pending. MRA head completed but limited study due to motion artifact...periventricular and scatter foci of deep white matter hyperintensity noted. Will follow neurology input. 05/16: Resting comfortably on encounter. Clinically improved AOX4, answers all questions appropriately. Will continue renally dosed Vancomycin IV and Cefepime IV. ID recs and nephrology recs noted. Marginal improvement in Cr: 3.9 today. Assessment and Plan: Neuro: Seizures, h/o seizure disorder, noncompliance -Loaded with Keppra in ED -Keppra IV + vimpat -Reorientation as needed -Maintain sleep-wake cycle -aspiration/seizure precautions -As needed analgesia -CT head shows no acute intracranial abnormality -MRI brain and MRA V pending -EEG pending -LP 05/14 (opening pressure 100) -Neurology consulted, appreciate recommendations Cardiac: Hypertensive urgency, h/o hypertension -Cardiology consulted, appreciate recommendations -Blood pressure monitoring per protocol -s/p Cardene drip -Started on amlodipine, hydralazine Respiratory: NAD -Pulmonary hygiene -SPO2 monitor per protocol GI: Morbid obesity, moderate protein calorie malnutrition -PPI -NTR consulted for tube feedings : Acute kidney injury (pre renal/ATN/maybe CKD component) , metabolic acidosis -Nephrology consulted, appreciate recommendations -Monitor intake and output -Renally dose medications -Avoid nephrotoxic medications -FeNa 0.56% -Renal ultrasound shows normal-sized but echogenic kidneys consistent with medical renal disease, no hydronephrosis, 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 -COVID-19 PCR negative -f/u blood culture -Monitor WBC and temperature curve Endo: Hyperglycemia, h/o DM -Avoid hypoglycemia -SSI -Accu-Cheks q. every 6 -Long-acting insulin, titrate as neede -Hemoglobin A1c 14.4 Heme: Leukocytosis -Trend CBC -Transfuse hemoglobin less than 7 -SCDs to BLE while in bed The high probability of a clinically significant, sudden or life threatening deterioration of the [neuro] system(s) required my full and direct attention, intervention and personal management. The aggregate critical care time was [60] minutes. This time is in addition to time spent performing reported procedures but includes the following: [x] Data Review and interpretation [x] Patient assessment and monitoring of vital signs [x] Documentation [x] Medication orders and management Disposition Plan: imcu Total Time Spent with Patient (Minutes): 60 History Interval history: Resting comfortably on encounter. No acute complaints. Hospitalist Physical - Physical exam Narrative exam: General appearance: Present: mild distress - EENT Eyes: Present: PERRL ENT: hearing intact, clear oral mucosa - Neck Neck: Present: supple, normal ROM, masses or JVD - Respiratory Respiratory effort: normal Respiratory: bilateral: CTA - Cardiovascular Heart Sounds: Present: S1 & S2. Absent: rub, click - Extremities Extremities: pulses symmetrical, No edema Extremity abnormal: edema Peripheral Pulses: within normal limits - Abdominal General gastrointestinal: Present: soft, non-tender, non-distended, normal bowel sounds Male genitourinary: Present: normal - Integumentary Integumentary: Present: clear, warm, dry - Musculoskeletal Musculoskeletal: gait normal, strength equal bilaterally - Psychiatric Psychiatric: appropriate mood/affect, intact judgment & insight - Neurologic Neurologic: CNII-XII intact, moves all extremities - Constitutional Vitals: Temp Pulse Resp BP Pulse Ox 97.5 F L 84 16 162/90 100 05/16/22 08:00 05/16/22 08:00 05/16/22 08:00 05/16/22 08:00 05/16/22 08:00 General appearance: Present: no acute distress, well-nourished, obese HEART Score - HEART Score Troponin: Troponin T 0.028 ng/mL (0.00-0.029) 05/12/22 22:47 Results - Labs CBC & Chem 7: 05/16/22 09:22 05/16/22 09:22 Labs: Laboratory Last Values WBC 10.8 K/mm3 (4.5-11.0) 05/15/22 03:48 RBC 4.45 M/mm3 (3.65-5.03) 05/15/22 03:48 Hgb 10.9 gm/dl (10.1-14.3) 05/15/22 03:48 Hct 34.6 % (30.3-42.9) 05/15/22 03:48 MCV 78 fl (79-97) L 05/15/22 03:48 MCH 25 pg (28-32) L 05/15/22 03:48 MCHC 31 % (30-34) 05/15/22 03:48 RDW 16.7 % (13.2-15.2) H 05/15/22 03:48 Plt Count 201 K/mm3 (140-440) 05/15/22 03:48 Lymph % (Auto) 12.1 % (13.4-35.0) L 05/14/22 04:20 [place] % (Auto) 11.6 % (0.0-7.3) H 05/14/22 04:20 Eos % (Auto) 0.0 % (0.0-4.3) 05/14/22 04:20 Baso % (Auto) 1.3 % (0.0-1.8) 05/14/22 04:20 Lymph # (Auto) 2.2 K/mm3 (1.2-5.4) 05/14/22 04:20 [place] # (Auto) 2.1 K/mm3 (0.0-0.8) H 05/14/22 04:20 Eos # (Auto) 0.0 K/mm3 (0.0-0.4) 05/14/22 04:20 Baso # (Auto) 0.2 K/mm3 (0.0-0.1) H 05/14/22 04:20 Add Manual Diff Complete 05/12/22 22:47 Total Counted 100 05/12/22 22:47 Seg Neutrophils % 75.0 % (40.0-70.0) H 05/14/22 04:20 Seg Neuts % (Manual) 85.0 % (40.0-70.0) H 05/12/22 22:47 Band Neutrophils % 0 % 05/12/22 22:47 Lymphocytes % (Manual) 7.0 % (13.4-35.0) L 05/12/22 22:47 Reactive Lymphs % (Man) 0 % 05/12/22 22:47 Monocytes % (Manual) 8.0 % (0.0-7.3) H 05/12/22 22:47 Eosinophils % (Manual) 0 % (0.0-4.3) 05/12/22 22:47 Basophils % (Manual) 0 % (0.0-1.8) 05/12/22 22:47 Metamyelocytes % 0 % 05/12/22 22:47 Myelocytes % 0 % 05/12/22 22:47 Promyelocytes % 0 % 05/12/22 22:47 Blast Cells % 0 % 05/12/22 22:47 Nucleated RBC % Not Reportable 05/12/22 22:47 Seg Neutrophils # 13.7 K/mm3 (1.8-7.7) H 05/14/22 04:20 Seg Neutrophils # Man 13.1 K/mm3 (1.8-7.7) H 05/12/22 22:47 Band Neutrophils # 0.0 K/mm3 05/12/22 22:47 Lymphocytes # (Manual) 1.1 K/mm3 (1.2-5.4) L 05/12/22 22:47 Abs React Lymphs (Man) 0.0 K/mm3 05/12/22 22:47 Monocytes # (Manual) 1.2 K/mm3 (0.0-0.8) H 05/12/22 22:47 Eosinophils # (Manual) 0.0 K/mm3 (0.0-0.4) 05/12/22 22:47 Basophils # (Manual) 0.0 K/mm3 (0.0-0.1) 05/12/22 22:47 Metamyelocytes # 0.0 K/mm3 05/12/22 22:47 Myelocytes # 0.0 K/mm3 05/12/22 22:47 Promyelocytes # 0.0 K/mm3 05/12/22 22:47 Blast Cells # 0.0 K/mm3 05/12/22 22:47 WBC Morphology Not Reportable 05/12/22 22:47 Hypersegmented Neuts Not Reportable 05/12/22 22:47 Hyposegmented Neuts Not Reportable 05/12/22 22:47 Hypogranular Neuts Not Reportable 05/12/22 22:47 Smudge Cells Not Reportable 05/12/22 22:47 Toxic Granulation Not Reportable 05/12/22 22:47 Toxic Vacuolation Not Reportable 05/12/22 22:47 Dohle Bodies Not Reportable 05/12/22 22:47 Pelger-Huet Anomaly Not Reportable 05/12/22 22:47 Tima Rods Not Reportable 05/12/22 22:47 Platelet Estimate Consistent w auto 05/12/22 22:47 Clumped Platelets Not Reportable 05/12/22 22:47 Plt Clumps, EDTA Not Reportable 05/12/22 22:47 Large Platelets Not Reportable 05/12/22 22:47 Giant Platelets Not Reportable 05/12/22 22:47 Platelet Satelliting Not Reportable 05/12/22 22:47 Plt Morphology Comment Not Reportable 05/12/22 22:47 RBC Morphology Not Reportable 05/12/22 22:47 Dimorphic RBCs Not Reportable 05/12/22 22:47 Polychromasia Not Reportable 05/12/22 22:47 Hypochromasia 1+ 05/12/22 22:47 Poikilocytosis Not Reportable 05/12/22 22:47 Anisocytosis Not Reportable 05/12/22 22:47 Microcytosis Not Reportable 05/12/22 22:47 Macrocytosis Not Reportable 05/12/22 22:47 Spherocytes Not Reportable 05/12/22 22:47 Pappenheimer Bodies Not Reportable 05/12/22 22:47 Sickle Cells Not Reportable 05/12/22 22:47 Target Cells Not Reportable 05/12/22 22:47 Tear Drop Cells Not Reportable 05/12/22 22:47 Ovalocytes Not Reportable 05/12/22 22:47 Helmet Cells Not Reportable 05/12/22 22:47 Iniguez-Elliott Bodies Not Reportable 05/12/22 22:47 [place] Rings Not Reportable 05/12/22 22:47 Imelda Cells Not Reportable 05/12/22 22:47 Bite Cells Not Reportable 05/12/22 22:47 Crenated Cell Not Reportable 05/12/22 22:47 Elliptocytes Not Reportable 05/12/22 22:47 Acanthocytes (Spur) Not Reportable 05/12/22 22:47 Rouleaux Not Reportable 05/12/22 22:47 Hemoglobin C Crystals Not Reportable 05/12/22 22:47 Schistocytes Not Reportable 05/12/22 22:47 Malaria parasites Not Reportable 05/12/22 22:47 Jesse Bodies Not Reportable 05/12/22 22:47 Hem Pathologist Commnt No 05/12/22 22:47 PT 16.8 Sec. (12.2-14.9) H 05/12/22 14:25 INR 1.22 (0.87-1.13) H 05/12/22 14:25 APTT 29.6 Sec. (24.2-36.6) 05/12/22 14:25 ABG pH 7.354 pH Units (7.350-7.450) 05/12/22 22:47 ABG pCO2 36.7 mm Hg 05/12/22 22:47 ABG pO2 55.5 mm Hg (80.0-90.0) L 05/12/22 22:47 ABG HCO3 20.0 mmol/L (20.0-26.0) 05/12/22 22:47 ABG O2 Saturation 89.0 % (95.0-99.0) L 05/12/22 22:47 ABG O2 Content 16.6 (0.0-44) 05/12/22 22:47 ABG Base Excess -4.9 mmol/L (-2.0-3.0) L 05/12/22 22:47 ABG Hemoglobin 13.8 gm/dl (12.0-16.0) 05/12/22 22:47 ABG Carboxyhemoglobin 3.2 % (0.0-5.0) 05/12/22 22:47 ABG Methemoglobin 0.8 % (0.0-1.5) 05/12/22 22:47 VBG pH 7.354 (7.320-7.420) 05/12/22 22:47 Oxyhemoglobin 85.4 % (95.0-99.0) L 05/12/22 22:47 FiO2 21 % 05/12/22 22:47 Sodium 145 mmol/L (137-145) 05/15/22 03:48 Potassium 4.1 mmol/L (3.6-5.0) D 05/15/22 03:48 Chloride 115.5 mmol/L (98-107) H 05/15/22 03:48 Carbon Dioxide 19 mmol/L (22-30) L 05/15/22 03:48 Anion Gap 15 mmol/L 05/15/22 03:48 BUN 44 mg/dL (7-17) H 05/15/22 03:48 Creatinine 4.0 mg/dL (0.6-1.2) H 05/15/22 03:48 Estimated GFR 16 ml/min 05/15/22 03:48 BUN/Creatinine Ratio 11 % 05/15/22 03:48 Glucose 339 mg/dL (65-100) H 05/15/22 03:48 POC Glucose 358 mg/dL (70-105) H 05/16/22 05:27 Hemoglobin A1c 14.4 % (4-6) H 05/14/22 14:23 Ketones Quantitative Negative (Negative) 05/12/22 22:47 Lactic Acid 1.00 mmol/L (0.7-2.0) 05/14/22 04:20 Calcium 8.9 mg/dL (8.4-10.2) 05/15/22 03:48 Phosphorus 3.00 mg/dL (2.5-4.5) 05/15/22 03:48 Magnesium 2.30 mg/dL (1.7-2.3) 05/15/22 03:48 Total Bilirubin 0.70 mg/dL (0.1-1.2) 05/12/22 22:47 AST 13 units/L (5-40) 05/12/22 22:47 ALT 12 units/L (7-56) 05/12/22 22:47 Alkaline Phosphatase 110 units/L (35-129) 05/12/22 22:47 Total Creatine Kinase 217 units/L (30-135) H 05/14/22 04:20 Troponin T 0.028 ng/mL (0.00-0.029) 05/12/22 22:47 C-Reactive Protein 1.40 mg/dL (0.00-1.30) H 05/14/22 04:20 Total Protein 6.3 g/dL (6.3-8.2) 05/12/22 22:47 Albumin 3.3 g/dL (3.9-5) L 05/12/22 22:47 Albumin/Globulin Ratio 1.1 % 05/12/22 22:47 Procalcitonin 0.56 ng/mL (<0.15) 05/14/22 04:20 TSH 0.422 mlU/mL (0.270-4.200) 05/12/22 14:25 Free T4 1.02 ng/dL (0.76-1.46) 05/12/22 14:25 PTH Intact 149.4 pg/mL (15-65) H 05/14/22 04:20 Urine Color Yellow (Yellow) 05/12/22 19:04 Urine Turbidity Clear (Clear) 05/12/22 19:04 Specific Cost (Man) 1.015 (1.003-1.030) 05/12/22 19:04 Ur Protein (Man) 2+ mg/dL (Negative) 05/12/22 19:04 Ur Ketones (Man) Negative (Negative) 05/12/22 19:04 Ur Nitrite (Man) Negative (Negative) 05/12/22 19:04 Urine Bilirubin (Man) Negative (Negative) 05/12/22 19:04 Leukocyte Esterase (Man) Negative (Negative) 05/12/22 19:04 Urine WBC (Auto) < 1.0 /HPF (0.0-6.0) 05/12/22 19:04 Urine RBC (Auto) < 1.0 /HPF (0.0-6.0) 05/12/22 19:04 Urine RBC (Manual) 1+ (Negative) 05/12/22 19:04 Urine Creatinine 86.3 mg/dL (0.1-20.0) H 05/13/22 Unknown Protein/Creatinin Ratio 4.20 05/13/22 19:34 Urine Sodium 21 mmol/L 05/13/22 Unknown Urine Total Protein 735 mg/dL (5-11.8) H 05/13/22 19:34 CSF Appearance Clear 05/14/22 11:32 CSF Color [place] 05/14/22 11:32 CSF WBC 53 /mm3 (1-10) 05/14/22 11:32 CSF RBC 2000 /mm3 (0-0) 05/14/22 11:32 CSF Seg Neutrophils 97 % (0-6) 05/14/22 11:32 CSF Lymphocytes % 2 % (40-80) 05/14/22 11:32 CSF Reactive Lymphs 0 % 05/14/22 11:32 CSF Monocytes % 1 % (15-45) 05/14/22 11:32 CSF Eosinophils % 0 % 05/14/22 11:32 CSF Basophils 0 % 05/14/22 11:32 CSF Pathologist Review C 05/14/22 11:32 CSF Glucose 137 mg/dL 05/14/22 11:32 CSF Total Protein 32 mg/dL 05/14/22 11:32 Random Vancomycin 14.0 ug/mL (0-40.0) 05/15/22 03:48 Salicylates < 0.3 mg/dL (2.8-20.0) L 05/12/22 14:25 Urine Opiates Screen Negative 05/12/22 19:04 Urine Methadone Screen Negative 05/12/22 19:04 Acetaminophen 5.0 ug/mL (10.0-30.0) L 05/12/22 14:25 Ur Barbiturates Screen Negative 05/12/22 19:04 Ur Phencyclidine Scrn Negative 05/12/22 19:04 Ur Amphetamines Screen Negative 05/12/22 19:04 U Benzodiazepines Scrn Negative 05/12/22 19:04 Urine Cocaine Screen Negative 05/12/22 19:04 U Marijuana (THC) Screen Positive 05/12/22 19:04 Drugs of Abuse Note Disclamer 05/12/22 19:04 Plasma/Serum Alcohol < 0.01 % (0-0.07) 05/12/22 22:47 Coronavirus (PCR) Negative (Negative) 05/13/22 09:30 Microbiology: Microbiology 05/12/22 22:47 Peripheral/Venous Blood Culture - Preliminary NO GROWTH AFTER 72 HOURS 05/12/22 22:47 Peripheral/Venous Blood Culture - Preliminary NO GROWTH AFTER 72 HOURS 05/14/22 11:32 Cerebral Spinal Fluid CSF Culture - Preliminary Vergara/IV: Voiding Method Indwelling Catheter Active Medications - Current Medications Current Medications: Generic Name Dose Route Start Last Admin Trade Name Freq PRN Reason Stop Dose Admin Acetaminophen 650 mg 05/13/22 02:07 05/14/22 08:08 Acetaminophen 325 Mg Tab PO 650 mg Q6H PRN Administration Pain MILD(1-3)/Fever >100.5/PATINO Acetaminophen 650 mg 05/13/22 08:51 05/13/22 09:18 Acetaminophen 650 Mg Rect Supp [place] 650 mg Q6H PRN Administration Pain, Mild (1-3), T> 100.5 Amlodipine Besylate 10 mg 05/13/22 12:00 05/15/22 10:26 Amlodipine 10 Mg Tab FEEDTUBE 10 mg QDAY BRAD Administration Atorvastatin Calcium 40 mg 05/16/22 22:00 Atorvastatin 40 Mg Tab FEEDTUBE QHS BRAD Carvedilol 25 mg 05/14/22 10:00 05/15/22 21:47 Carvedilol 25 Mg Tab FEEDTUBE 25 mg BID BRAD Administration Dextrose 0 ml 05/13/22 02:07 Dextrose 50% In Water (25gm) 50 Ml Syringe IV Q30MIN PRN Hypoglycemia Protocol Heparin Sodium (Porcine) 5,000 unit 05/13/22 06:00 05/16/22 05:36 Heparin 5,000 Unit/1 Ml Vial SUB-Q 5,000 unit Q8HR BRAD Administration Hydralazine HCl 100 mg 05/13/22 14:00 05/15/22 21:48 Hydralazine 100 Mg Tab FEEDTUBE 100 mg TID BRAD Administration Levetiracetam 1,000 mg/ 110 mls @ 400 mls/hr 05/13/22 22:00 05/15/22 21:57 Dextrose IV 400 mls/hr Q12HR BRAD Administration Cefepime HCl 2 gm in 100 mls @ 200 mls/hr 05/13/22 13:00 05/15/22 13:29 Cefepime/Ns 2 Gm/100 Ml IV 200 mls/hr Q24H BRAD Administration Protocol Lacosamide 100 mg/ Sodium 110 mls @ 100 mls/hr 05/13/22 23:45 05/15/22 21:57 Chloride IV 100 mls/hr Q12HR BRAD Administration Sodium Chloride 1,000 mls @ 75 mls/hr 05/15/22 10:00 Nacl 0.9% 1000 Ml IV DIRECT BRAD Insulin Glargine 15 units 05/14/22 22:00 05/15/22 21:48 Insulin Glargine 100 Units/Ml SUB-Q 15 units QHS BRAD Administration Insulin Human Lispro 0 unit 05/13/22 12:00 05/16/22 05:34 Insulin Lispro 100 Unit/Ml SUB-Q 10 unit Q6HR [facility] Administration Protocol Lorazepam 2 mg 05/13/22 13:03 05/14/22 11:30 Lorazepam 2 Mg/Ml Vial IV 2 mg Q4H PRN Administration Seizures Magnesium Hydroxide 30 ml 05/13/22 02:07 Magnesium Hydroxide (Mom) Oral Liqd Udc PO Q4H PRN Constipation Ondansetron HCl 4 mg 05/13/22 02:07 Ondansetron 4 Mg/2 Ml Inj IV Q8H PRN Nausea And Vomiting Sodium Chloride 10 ml 05/13/22 10:00 05/15/22 21:48 Sodium Chloride 0.9% 10 Ml Flush Syringe IV 10 ml BID BRAD Administration Sodium Chloride 10 ml 05/13/22 02:07 Sodium Chloride 0.9% 10 Ml Flush Syringe IV PRN PRN LINE FLUSH Nutrition/Malnutrition Assess - Dietary Evaluation Nutrition/Malnutrition Findings: Nutrition Notes Start: 05/13/22 11:36 Freq: Status: Active Protocol: Document 05/15/22 11:17 SIOMARA (Rec: 05/15/22 11:45 SIOMARA [id number]) Nutrition Notes Initial or Follow up Reassessment Current Diagnosis Acute Kidney Injury,CKD(stage I-IV),Diabetes,Sepsis, Hypertension,Malnutrition Other Pertinent Diagnosis SIRS, r/o Meningoencephalitis, Seizures, Metabolic Acidosis, Tachycardia. Current Diet TF-Nepro w/CARBSTEADY @ 40 ml/ hr (since D 05/13). Labs/Tests 05/15: Cl 115.5, CO2 19, BUN 44, Crea 4.0, Glu 339. Pertinent Medications 05/15: Lantus 15U, Humalog 8U, others nutritionally unremarkable. Height 5 ft 7 in Weight 113 kg [place] Body Weight (kg) 61.36 BMI 38.9 Weight change and time frame No body weight change reported in 2 days. Weight Status Obese Subjective/Other Information RD consult for TF tolerance/ continuation assessment. TF continues as prescribed, and well tolerated, according to RN notes. Pt is on Room Air, O2 saturation @ 99%, according to Physical Assessment History notes. Pt is swallow impaired, according to Physical Assessment History notes, but no CLINICAL RN LIAISON note available at the time and Not able to contact RN over the phone, will assess at F/U. Percent of energy/protein needs met: Prescribed TF-Nepro w/ CARBSTEADY @ 40 ml/hr provides for energy/protein needs (1, 710 Kcal/77 g) during LOS, 101 % Kcal; 100% AA. Burn Absent Trauma Absent GI Symptoms None Difficulty In Swallowing Food Allergy No Skin Integrity/Comment Assessment WNL. Current % PO Other Minimum of two criteria No Fluid Accumulation N/A Reduced Wing Scorer Strength N/A (non-severe) Protein-Calorie Malnutrition N\A #1 Nutrition Diagnosis Inadequate oral intake Comments: TF continues as prescribed, and well tolerated, according to RN notes. Diagnosis Progress(for reassessment Continues documentation) Is patient on ventilator? No Is Patient Ambulatory and/or Out of Bed No REE-([facility]-confined to bed) 2248.872 Kcal/Kg value to use for calculation 15 Approximate Energy Requirements Using 1695 kcal/Kg Calculation Used for Recommendations Kcal/kg Additional Notes Protein: 0.8-1.2 g/Kg AdjBW; 70-104 g/day. Fluids: 1 ml/Kcal, or as per MD. Nutrition Intervention Nutrition Support: Continue TF-Nepro w/CARBSTEADY @ 40 ml/hr. Flush: 170 ml water Q 4 hr, or as per MD. Kcal 1,710 Protein (gm) 77 Carbohydrates (gm) 153 Fat (gm) 91 Fluid (mL) 691 Fiber (gm) 12 % RDI: 101% Kcal; 100% AA Goal #1 Provide at least 75% of energy /protein needs through Enteral Feeding during LOS. Follow-Up By: 05/22/22 Additional Comments Continue monitoring TF tolerance, RODRÍGUEZ status, and BM.
[2022-05-16] MEDS ORDERED: INSULIN REGULAR, HUMAN 100 UNITS/1 ML IV NR (09:00)
[2022-05-16] MEDS: hydrALAZINE 100 MG TAB FEEDTUBE SCH ×3 (09:22→22:25)
[2022-05-16] MEDS: amLODIPine 10 MG TAB FEEDTUBE SCH (09:22)
[2022-05-16] MEDS: carvediloL 25 MG TAB FEEDTUBE SCH ×2 (09:23→23:11)
[2022-05-16] MEDS: LACOSAMIDE 100 MG in SODIUM CHLORIDE 0.9% 100 ML IV SCH ×2 (09:23→22:25)
[2022-05-16] MEDS: levETIRAcetam 1,000 MG in DEXTROSE 5% IN WATER 100 ML IV SCH ×2 (09:23→22:25)
[2022-05-16] MEDS: SODIUM CHLORIDE 0.9% 1000 ML 1,000 ML IV SCH ×2 (09:30→23:10)
[2022-05-16 10:03] LABS: Basophils # (Auto) 0.2 K/mm3 (0.0-0.1); Basophils % (Auto) 1.8 % (0.0-1.8); Eosinophils # (Auto) 0.2 K/mm3 (0.0-0.4); Eosinophils % (Auto) 1.4 % (0.0-4.3); Hematocrit 35.3 % (30.3-42.9); Hemoglobin 11.2 gm/dl (10.1-14.3); Lymphocytes # (Auto) 1.8 K/mm3 (1.2-5.4); Lymphocytes % (Auto) 16.7 % (13.4-35.0); Mean Corpuscular HGB Conc 32 % (30-34); Mean Corpuscular Volume 77 fl (79-97); Monocytes # (Auto) 1.1 K/mm3 (0.0-0.8); Monocytes % (Auto) 9.9 % (0.0-7.3); Platelet Count 227 K/mm3 (140-440); Red Blood Count 4.56 M/mm3 (3.65-5.03)
[2022-05-16 10:21] LABS: Alanine Aminotransferase 11 units/L (7-56); Albumin 2.7 g/dL (3.9-5); Blood Urea Nitrogen 48 mg/dL (7-17); Calcium 8.8 mg/dL (8.4-10.2); Hemolysis Index 3
[2022-05-16 10:37] LABS: BUN/Creatinine Ratio 12
--- NOTE | 2022-05-16 11:14 | Progress Note ---
Assessment and Plan Cultures: Blood culture no growth so far A/P: 31 yo F no PMHx now with: #SIRS/sepsis: With fevers, leukocytosis. 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 CSF with 97% neutrophils on 53 white blood cells. Probably consistent with bacterial meningitis, however elevated glucose points away from that. May be inflammatory secondary to seizures. #Seizures: Unclear etiology, awaiting MRI Recs: -Continue renally dosed cefepime -Vancomycin dosed per pharmacy. Prefer to keep due to CSF penetration, however if need be for renal preservation could find alternative. -Follow up cultures Thank you for the consult, we will continue to follow. Tahira Cabrera MD [facility] ([facility]) O: [phone] F: [phone] Subjective Date of service: 05/16/22 Principal diagnosis: HTNsive emergency with seizures; Morbid obesity; AMS; Leukocytosis; RODRÍGUEZ Interval history: Afebrile, normal white count. CSF cultures no growth so far. Objective - Exam Narrative Exam: Physical Exam: Constitutional: Alert, cooperative. No acute distress Head, Ears, Nose: Normocephalic, atraumatic. External ears, nose normal Eyes: Conjunctivae/corneas clear. No icterus. No ptosis. Neck: Supple, no meningeal signs Oral: dentition fair, no thrush Cardiovascular: S1, S2 normal. Respiratory: Good air entry, clear to auscultation bilaterally GI: Soft, non-tender; bowel sounds normal. No peritoneal signs. Musculoskeletal: No pedal edema, no cyanosis. Skin: No rash or abscess Hem/Lymphatic: No palpable cervical or supraclavicular nodes. No lymphangitis Psych: Mood ok. Affect normal Neurological: Awake, alert, oriented. No gross abnormality - Constitutional Vitals: Vital Signs Temp Pulse Resp BP Pulse Ox 97.5 F L 81 14 126/81 99 05/16/22 08:00 05/16/22 11:00 05/16/22 11:00 05/16/22 11:00 05/16/22 11:00 Temperature -Last 24 Hours Temperature 97.5 F Temperature 97.5 F Temperature 98.1 F Temperature 97.5 F Temperature 98.7 F Temperature 98.6 F - Labs CBC & Chem 7: 05/16/22 09:22 05/16/22 09:22 Labs: Abnormal lab results 05/15/22 05/15/22 05/16/22 Range/Units 13:30 17:42 00:34 MCV (79-97) fl MCH (28-32) pg RDW (13.2-15.2) % [place] % (Auto) (0.0-7.3) % [place] # (Auto) (0.0-0.8) K/mm3 Baso # (Auto) (0.0-0.1) K/mm3 Seg Neutrophils % (40.0-70.0) % Potassium (3.6-5.0) mmol/L Chloride (98-107) mmol/L Carbon Dioxide (22-30) mmol/L BUN (7-17) mg/dL Creatinine (0.6-1.2) mg/dL Glucose (65-100) mg/dL POC Glucose 327 H 388 H 411 H (70-105) mg/dL Total Protein (6.3-8.2) g/dL Albumin (3.9-5) g/dL 05/16/22 05/16/22 05/16/22 Range/Units 05:27 07:59 09:22 MCV 77 L (79-97) fl MCH 25 L (28-32) pg RDW 17.0 H (13.2-15.2) % [place] % (Auto) 9.9 H (0.0-7.3) % [place] # (Auto) 1.1 H (0.0-0.8) K/mm3 Baso # (Auto) 0.2 H (0.0-0.1) K/mm3 Seg Neutrophils % 70.2 H (40.0-70.0) % Potassium (3.6-5.0) mmol/L Chloride (98-107) mmol/L Carbon Dioxide (22-30) mmol/L BUN (7-17) mg/dL Creatinine (0.6-1.2) mg/dL Glucose (65-100) mg/dL POC Glucose 358 H 308 H (70-105) mg/dL Total Protein (6.3-8.2) g/dL Albumin (3.9-5) g/dL 05/16/22 Range/Units 09:22 MCV (79-97) fl MCH (28-32) pg RDW (13.2-15.2) % [place] % (Auto) (0.0-7.3) % [place] # (Auto) (0.0-0.8) K/mm3 Baso # (Auto) (0.0-0.1) K/mm3 Seg Neutrophils % (40.0-70.0) % Potassium 3.5 L (3.6-5.0) mmol/L Chloride 107.6 H (98-107) mmol/L Carbon Dioxide 18 L (22-30) mmol/L BUN 48 H (7-17) mg/dL Creatinine 3.9 H (0.6-1.2) mg/dL Glucose 284 H (65-100) mg/dL POC Glucose (70-105) mg/dL Total Protein 5.1 L (6.3-8.2) g/dL Albumin 2.7 L (3.9-5) g/dL
[2022-05-16] MEDS: CEFEPIME/NS 2 GM/100 ML 2 GM/100 ML BAG IV SCH (13:46)
--- NOTE | 2022-05-16 13:46 | Progress Note ---
Assessment and Plan 31-year-old -Citizen Of [place] female Morbidly brought to the emergency room for evaluation of seizure episode which happened overnight with associated progressive weakness. Patient is visiting from [place] and was said not to have had enough rest since arrival few days ago. Most of the history was gotten from the ER staff as patient is unable to give any coherent history at this time and no family member is available. Patient was said to have woken up in the night had an episode of vomiting and subsequently had seizures. She was said to have had another episode of seizure while in the emergency room and had been started on Keppra and also given some Ativan. Work-up in the emergency room , significant findings on the labs with a BUN of 26 and creatinine of 3.1. Initial blood glucose of 580 and subsequently 361. Urinalysis was unremarkable. UDS was positive for marijuana. Leukocytosis of 13.1. CT scan of the head shows no acute findings. Chest x-ray shows no acute findings. Blood pressure has been quite elevated with systolic in the 200s and diastolic in the 130s. Patient initially given IV labetalol and then subsequently placed on Cardene drip. Patient also developed a fever while in the emergency room with temperature of about 103 F. Patient has been admitted with seizure disorder, hyperglycemia, hypertensive urgency and RODRÍGUEZ. Patient denies smoking, alcohol or drug abuse. Patient not working. Not . Has no children. Patient awake. Patient is on room air. O2 saturation 98%. No acute respiratory distress. ABG on room air ABG pH 7.354 pH Units (7.350-7.450) 05/12/22 22:47 ABG pCO2 36.7 mm Hg 05/12/22 22:47 ABG pO2 55.5 mm Hg (80.0-90.0) L 05/12/22 22:47 ABG O2 Saturation 89.0 % (95.0-99.0) L 05/12/22 22:47 Based on this blood gas results, Patient candidate for home O2. However O2 saturation running 98% on room air. Recommend to repeat blood gases on room air before discharge. Patient afebrile. No leukocytosis. Blood pressure 143/73, Pulse 81, Respirations 19. Chest xray done 05/12/22 reported No significant pulmonary or pleural abnormality. No pneumothorax. Patient is on cefepime, S/C Heparin, . Recommend GI prophylaxis. I spent critical care time of 35 minutes, review the chart, examine the patient, review chest xray, labs, talking to the nursing staff and work up plan of treatment in this critically ill patient. - Patient Problems (1) Seizure Current Visit: Yes Status: Acute Plan to address problem: Patient is on Keppra and ativan. (2) Hyperglycemia Current Visit: Yes Status: Acute Plan to address problem: Recent blood sugur 324. Patient is on S/C Insulin. (3) Hypertensive crisis Current Visit: Yes Status: Acute Plan to address problem: Patient is on Amalodipine, Hydralazine,Labetalol. (4) Dehydration Current Visit: Yes Status: Acute Plan to address problem: Recived I/V fluids. Recommend to repeat BMP. (5) Postictal state Current Visit: Yes Status: Acute Plan to address problem: Patient awake, talking now. (6) RODRÍGUEZ (acute kidney injury) Current Visit: Yes Status: Acute Plan to address problem: BUN 4.8 . Creatinine 3.9 Recommend Nephrology consultation. Subjective Date of service: 05/16/22 Principal diagnosis: HTNsive emergency with seizures; Morbid obesity; AMS; Leukocytosis; RODRÍGUEZ Interval history: 31-year-old -Citizen Of [place] female Morbidly brought to the emergency room for evaluation of seizure episode which happened overnight with associated progressive weakness. Patient is visiting from [place] and was said not to have had enough rest since arrival few days ago. Most of the history was gotten from the ER staff as patient is unable to give any coherent history at this time and no family member is available. Patient was said to have woken up in the night had an episode of vomiting and subsequently had seizures. She was said to have had another episode of seizure while in the emergency room and had been started on Keppra and also given some Ativan. Work-up in the emergency room , significant findings on the labs with a BUN of 26 and creatinine of 3.1. Initial blood glucose of 580 and subsequently 361. Urinalysis was unremarkable. UDS was positive for marijuana. Leukocytosis of 13.1. CT scan of the head shows no acute findings. Chest x-ray shows no acute findings. Blood pressure has been quite elevated with systolic in the 200s and diastolic in the 130s. Patient initially given IV labetalol and then subsequently placed on Cardene drip. Patient also developed a fever while in the emergency room with temperature of about 103 F. Patient has been admitted with seizure disorder, hyperglycemia, hypertensive urgency and RODRÍGUEZ. Patient denies smoking, alcohol or drug abuse. Patient not working. Not . Has no children. Patient awake. Patient is on room air. O2 saturation 98%. No acute respiratory distress. ABG on room air ABG pH 7.354 pH Units (7.350-7.450) 05/12/22 22:47 ABG pCO2 36.7 mm Hg 05/12/22 22:47 ABG pO2 55.5 mm Hg (80.0-90.0) L 05/12/22 22:47 ABG O2 Saturation 89.0 % (95.0-99.0) L 05/12/22 22:47 Based on this blood gas results, Patient candidate for home O2. However O2 saturation running 98% on room air. Recommend to repeat blood gases on room air before discharge. Patient afebrile. No leukocytosis. Blood pressure 143/73, Pulse 81, Respirations 19. Chest xray done 05/12/22 reported No significant pulmonary or pleural abnormality. No pneumothorax. Patient is on cefepime, S/C Heparin, . Recommend GI prophylaxis. Objective Vital Signs - 12hr 05/16/22 05/16/22 05/16/22 02:00 03:00 03:30 Temperature Pulse Rate 84 80 82 Pulse Rate [ From Monitor] Respiratory 11 L 12 Rate Blood Pressure 145/82 125/74 O2 Sat by Pulse 99 99 Oximetry 05/16/22 05/16/22 05/16/22 04:00 05:00 05:30 Temperature Pulse Rate 79 76 77 Pulse Rate [ 79 From Monitor] Respiratory 13 13 13 Rate Blood Pressure 136/76 137/80 137/80 O2 Sat by Pulse 99 98 99 Oximetry 05/16/22 05/16/22 05/16/22 06:10 06:30 07:00 Temperature 97.5 F L Pulse Rate 77 77 Pulse Rate [ From Monitor] Respiratory 14 14 Rate Blood Pressure 162/81 153/89 O2 Sat by Pulse 99 100 Oximetry 05/16/22 05/16/22 05/16/22 07:30 08:00 08:30 Temperature 97.5 F L Pulse Rate 77 81 78 Pulse Rate [ 84 From Monitor] Respiratory 12 13 12 Rate Blood Pressure 153/89 162/90 162/90 O2 Sat by Pulse 99 99 99 Oximetry 05/16/22 05/16/22 05/16/22 09:00 09:22 09:23 Temperature Pulse Rate 79 84 84 Pulse Rate [ From Monitor] Respiratory 12 Rate Blood Pressure 172/91 172/91 172/91 O2 Sat by Pulse 99 Oximetry 05/16/22 05/16/22 05/16/22 09:30 10:00 10:30 Temperature Pulse Rate 83 80 77 Pulse Rate [ From Monitor] Respiratory 19 18 13 Rate Blood Pressure 172/91 135/62 135/62 O2 Sat by Pulse 100 98 99 Oximetry 05/16/22 05/16/22 05/16/22 11:00 11:30 11:41 Temperature 97.7 F Pulse Rate 81 77 Pulse Rate [ From Monitor] Respiratory 14 12 Rate Blood Pressure 126/81 135/62 O2 Sat by Pulse 99 99 Oximetry 05/16/22 05/16/22 05/16/22 12:00 12:30 12:59 Temperature Pulse Rate 80 81 77 Pulse Rate [ 77 From Monitor] Respiratory 18 15 Rate Blood Pressure 132/84 132/84 O2 Sat by Pulse 98 99 Oximetry Constitutional: no acute distress, alert, other (young obese female with mildly increased respiratory effort at rest) Eyes: non-icteric ENT: oropharynx moist Neck: supple, no lymphadenopathy, no JVD, other (large circumference) Effort: mildly labored Ascultation: Bilateral: diminished breath sounds Percussion: Bilateral: not dull Cardiovascular: regular rate and rhythm Gastrointestinal: normoactive bowel sounds, soft, non-tender, non-distended (protuberant) Integumentary: normal Extremities: no cyanosis, no edema, pulses normal, no ischemia or petechiae Neurologic: non-focal exam (grossly), pupils equal and round Psychiatric: other (Talking. Flat effect.) CBC and BMP: 05/16/22 09:22 05/16/22 09:22 ABG, PT/INR, D-dimer: ABG ABG pH 7.354 pH Units (7.350-7.450) 05/12/22 22:47 ABG pCO2 36.7 mm Hg 05/12/22 22:47 ABG pO2 55.5 mm Hg (80.0-90.0) L 05/12/22 22:47 ABG O2 Saturation 89.0 % (95.0-99.0) L 05/12/22 22:47 PT/INR, D-dimer PT 16.8 Sec. (12.2-14.9) H 05/12/22 14:25 INR 1.22 (0.87-1.13) H 05/12/22 14:25 Abnormal lab findings: Abnormal Labs 05/12/22 05/12/22 05/12/22 14:25 14:25 14:25 WBC 13.1 H RBC 5.37 H MCV 78 L MCH 25 L RDW 16.2 H Lymph % (Auto) Mcleod % (Auto) Mcleod # (Auto) Baso # (Auto) Seg Neutrophils % Seg Neuts % (Manual) 88.0 H Lymphocytes % (Manual) 7.0 L Monocytes % (Manual) Seg Neutrophils # Seg Neutrophils # Man 11.5 H Lymphocytes # (Manual) 0.9 L Monocytes # (Manual) PT 16.8 H INR 1.22 H ABG pO2 ABG O2 Saturation ABG Base Excess Oxyhemoglobin Sodium Potassium Chloride Carbon Dioxide 18 L BUN 26 H Creatinine 3.1 H Glucose 580 H* POC Glucose Hemoglobin A1c Lactic Acid Total Creatine Kinase C-Reactive Protein Total Protein 6.2 L Albumin 3.3 L PTH Intact Urine Creatinine Urine Total Protein Salicylates Acetaminophen 05/12/22 05/12/22 05/12/22 14:25 14:25 14:25 WBC RBC MCV MCH RDW Lymph % (Auto) Mcleod % (Auto) Mcleod # (Auto) Baso # (Auto) Seg Neutrophils % Seg Neuts % (Manual) Lymphocytes % (Manual) Monocytes % (Manual) Seg Neutrophils # Seg Neutrophils # Man Lymphocytes # (Manual) Monocytes # (Manual) PT INR ABG pO2 ABG O2 Saturation ABG Base Excess Oxyhemoglobin Sodium Potassium Chloride Carbon Dioxide BUN Creatinine Glucose POC Glucose Hemoglobin A1c Lactic Acid 2.80 H* Total Creatine Kinase C-Reactive Protein Total Protein Albumin PTH Intact Urine Creatinine Urine Total Protein Salicylates < 0.3 L Acetaminophen 5.0 L 05/12/22 05/12/22 05/12/22 22:47 22:47 22:47 WBC 15.4 H RBC 5.42 H MCV 77 L MCH 24 L RDW 16.3 H Lymph % (Auto) Mcleod % (Auto) Mcleod # (Auto) Baso # (Auto) Seg Neutrophils % Seg Neuts % (Manual) 85.0 H Lymphocytes % (Manual) 7.0 L Monocytes % (Manual) 8.0 H Seg Neutrophils # Seg Neutrophils # Man 13.1 H Lymphocytes # (Manual) 1.1 L Monocytes # (Manual) 1.2 H PT INR ABG pO2 ABG O2 Saturation ABG Base Excess Oxyhemoglobin Sodium Potassium Chloride 110.1 H Carbon Dioxide 19 L BUN 27 H Creatinine 3.3 H Glucose 361 H POC Glucose Hemoglobin A1c Lactic Acid 2.70 H* Total Creatine Kinase C-Reactive Protein Total Protein Albumin 3.3 L PTH Intact Urine Creatinine Urine Total Protein Salicylates Acetaminophen 05/12/22 05/13/22 05/13/22 22:47 01:53 06:30 WBC RBC MCV MCH RDW Lymph % (Auto) Mcleod % (Auto) Mcleod # (Auto) Baso # (Auto) Seg Neutrophils % Seg Neuts % (Manual) Lymphocytes % (Manual) Monocytes % (Manual) Seg Neutrophils # Seg Neutrophils # Man Lymphocytes # (Manual) Monocytes # (Manual) PT INR ABG pO2 55.5 L ABG O2 Saturation 89.0 L ABG Base Excess -4.9 L Oxyhemoglobin 85.4 L Sodium Potassium Chloride Carbon Dioxide BUN Creatinine Glucose POC Glucose 511 H Hemoglobin A1c Lactic Acid 2.30 H* Total Creatine Kinase C-Reactive Protein Total Protein Albumin PTH Intact Urine Creatinine Urine Total Protein Salicylates Acetaminophen 05/13/22 05/13/22 05/13/22 10:27 11:33 16:12 WBC RBC MCV MCH RDW Lymph % (Auto) Mcleod % (Auto) Mcleod # (Auto) Baso # (Auto) Seg Neutrophils % Seg Neuts % (Manual) Lymphocytes % (Manual) Monocytes % (Manual) Seg Neutrophils # Seg Neutrophils # Man Lymphocytes # (Manual) Monocytes # (Manual) PT INR ABG pO2 ABG O2 Saturation ABG Base Excess Oxyhemoglobin Sodium Potassium Chloride Carbon Dioxide BUN Creatinine Glucose POC Glucose 492 H 500 H 331 H Hemoglobin A1c Lactic Acid Total Creatine Kinase C-Reactive Protein Total Protein Albumin PTH Intact Urine Creatinine Urine Total Protein Salicylates Acetaminophen 05/13/22 05/13/22 05/13/22 19:34 21:55 23:50 WBC RBC MCV MCH RDW Lymph % (Auto) Mcleod % (Auto) Mcleod # (Auto) Baso # (Auto) Seg Neutrophils % Seg Neuts % (Manual) Lymphocytes % (Manual) Monocytes % (Manual) Seg Neutrophils # Seg Neutrophils # Man Lymphocytes # (Manual) Monocytes # (Manual) PT INR ABG pO2 ABG O2 Saturation ABG Base Excess Oxyhemoglobin Sodium Potassium Chloride Carbon Dioxide BUN Creatinine Glucose POC Glucose 268 H 256 H Hemoglobin A1c Lactic Acid Total Creatine Kinase C-Reactive Protein Total Protein Albumin PTH Intact Urine Creatinine 174.8 H Urine Total Protein 735 H Salicylates Acetaminophen 05/13/22 05/14/22 05/14/22 Unknown 04:20 04:20 WBC 18.3 H RBC MCV 78 L MCH 24 L RDW 16.6 H Lymph % (Auto) 12.1 L Mcleod % (Auto) 11.6 H Mcleod # (Auto) 2.1 H Baso # (Auto) 0.2 H Seg Neutrophils % 75.0 H Seg Neuts % (Manual) Lymphocytes % (Manual) Monocytes % (Manual) Seg Neutrophils # 13.7 H Seg Neutrophils # Man Lymphocytes # (Manual) Monocytes # (Manual) PT INR ABG pO2 ABG O2 Saturation ABG Base Excess Oxyhemoglobin Sodium 146 H Potassium 3.4 L Chloride 115.1 H Carbon Dioxide 17 L BUN 35 H Creatinine 3.9 H Glucose 224 H POC Glucose Hemoglobin A1c Lactic Acid Total Creatine Kinase C-Reactive Protein 1.40 H Total Protein Albumin PTH Intact Urine Creatinine 86.3 H Urine Total Protein Salicylates Acetaminophen 05/14/22 05/14/22 05/14/22 04:20 04:20 06:10 WBC RBC MCV MCH RDW Lymph % (Auto) Mcleod % (Auto) Mcleod # (Auto) Baso # (Auto) Seg Neutrophils % Seg Neuts % (Manual) Lymphocytes % (Manual) Monocytes % (Manual) Seg Neutrophils # Seg Neutrophils # Man Lymphocytes # (Manual) Monocytes # (Manual) PT INR ABG pO2 ABG O2 Saturation ABG Base Excess Oxyhemoglobin Sodium Potassium Chloride Carbon Dioxide BUN Creatinine Glucose POC Glucose 257 H Hemoglobin A1c Lactic Acid Total Creatine Kinase 217 H C-Reactive Protein Total Protein Albumin PTH Intact 149.4 H Urine Creatinine Urine Total Protein Salicylates Acetaminophen 05/14/22 05/14/22 05/14/22 07:23 13:25 14:23 WBC RBC MCV MCH RDW Lymph % (Auto) Mcleod % (Auto) Mcleod # (Auto) Baso # (Auto) Seg Neutrophils % Seg Neuts % (Manual) Lymphocytes % (Manual) Monocytes % (Manual) Seg Neutrophils # Seg Neutrophils # Man Lymphocytes # (Manual) Monocytes # (Manual) PT INR ABG pO2 ABG O2 Saturation ABG Base Excess Oxyhemoglobin Sodium Potassium Chloride Carbon Dioxide BUN Creatinine Glucose POC Glucose 240 H 323 H Hemoglobin A1c 14.4 H Lactic Acid Total Creatine Kinase C-Reactive Protein Total Protein Albumin PTH Intact Urine Creatinine Urine Total Protein Salicylates Acetaminophen 05/14/22 05/15/22 05/15/22 17:28 00:02 03:48 WBC RBC MCV 78 L MCH 25 L RDW 16.7 H Lymph % (Auto) Mcleod % (Auto) Mcleod # (Auto) Baso # (Auto) Seg Neutrophils % Seg Neuts % (Manual) Lymphocytes % (Manual) Monocytes % (Manual) Seg Neutrophils # Seg Neutrophils # Man Lymphocytes # (Manual) Monocytes # (Manual) PT INR ABG pO2 ABG O2 Saturation ABG Base Excess Oxyhemoglobin Sodium Potassium Chloride Carbon Dioxide BUN Creatinine Glucose POC Glucose 339 H 392 H Hemoglobin A1c Lactic Acid Total Creatine Kinase C-Reactive Protein Total Protein Albumin PTH Intact Urine Creatinine Urine Total Protein Salicylates Acetaminophen 05/15/22 05/15/22 05/15/22 03:48 05:50 13:30 WBC RBC MCV MCH RDW Lymph % (Auto) Mcleod % (Auto) Mcleod # (Auto) Baso # (Auto) Seg Neutrophils % Seg Neuts % (Manual) Lymphocytes % (Manual) Monocytes % (Manual) Seg Neutrophils # Seg Neutrophils # Man Lymphocytes # (Manual) Monocytes # (Manual) PT INR ABG pO2 ABG O2 Saturation ABG Base Excess Oxyhemoglobin Sodium Potassium Chloride 115.5 H Carbon Dioxide 19 L BUN 44 H Creatinine 4.0 H Glucose 339 H POC Glucose 307 H 327 H Hemoglobin A1c Lactic Acid Total Creatine Kinase C-Reactive Protein Total Protein Albumin PTH Intact Urine Creatinine Urine Total Protein Salicylates Acetaminophen 05/15/22 05/16/22 05/16/22 17:42 00:34 05:27 WBC RBC MCV MCH RDW Lymph % (Auto) Mcleod % (Auto) Mcleod # (Auto) Baso # (Auto) Seg Neutrophils % Seg Neuts % (Manual) Lymphocytes % (Manual) Monocytes % (Manual) Seg Neutrophils # Seg Neutrophils # Man Lymphocytes # (Manual) Monocytes # (Manual) PT INR ABG pO2 ABG O2 Saturation ABG Base Excess Oxyhemoglobin Sodium Potassium Chloride Carbon Dioxide BUN Creatinine Glucose POC Glucose 388 H 411 H 358 H Hemoglobin A1c Lactic Acid Total Creatine Kinase C-Reactive Protein Total Protein Albumin PTH Intact Urine Creatinine Urine Total Protein Salicylates Acetaminophen 05/16/22 05/16/22 05/16/22 07:59 09:22 09:22 WBC RBC MCV 77 L MCH 25 L RDW 17.0 H Lymph % (Auto) Mcleod % (Auto) 9.9 H Mcleod # (Auto) 1.1 H Baso # (Auto) 0.2 H Seg Neutrophils % 70.2 H Seg Neuts % (Manual) Lymphocytes % (Manual) Monocytes % (Manual) Seg Neutrophils # Seg Neutrophils # Man Lymphocytes # (Manual) Monocytes # (Manual) PT INR ABG pO2 ABG O2 Saturation ABG Base Excess Oxyhemoglobin Sodium Potassium 3.5 L Chloride 107.6 H Carbon Dioxide 18 L BUN 48 H Creatinine 3.9 H Glucose 284 H POC Glucose 308 H Hemoglobin A1c Lactic Acid Total Creatine Kinase C-Reactive Protein Total Protein 5.1 L Albumin 2.7 L PTH Intact Urine Creatinine Urine Total Protein Salicylates Acetaminophen 05/16/22 11:36 WBC RBC MCV MCH RDW Lymph % (Auto) Mcleod % (Auto) Mcleod # (Auto) Baso # (Auto) Seg Neutrophils % Seg Neuts % (Manual) Lymphocytes % (Manual) Monocytes % (Manual) Seg Neutrophils # Seg Neutrophils # Man Lymphocytes # (Manual) Monocytes # (Manual) PT INR ABG pO2 ABG O2 Saturation ABG Base Excess Oxyhemoglobin Sodium Potassium Chloride Carbon Dioxide BUN Creatinine Glucose POC Glucose 255 H Hemoglobin A1c Lactic Acid Total Creatine Kinase C-Reactive Protein Total Protein Albumin PTH Intact Urine Creatinine Urine Total Protein Salicylates Acetaminophen Allied health notes reviewed: nursing
--- NOTE | 2022-05-16 17:05 | Post Operative Note ---
Pre-op diagnosis: jordonzure Post-op diagnosis: same Procedure: CONSENT: Consent was obtained from patient prior to the procedure. Indications, risks, and benefits were explained at length. The procedure was performed emergently and the permission was implied because of the emergent nature. PROCEDURE SUMMARY: A time out was performed. My hands were washed immediately prior to the procedure. I wore a surgical cap, mask with protective eyewear, full gown and sterile gloves throughout the procedure. The patient was placed in Trendelenburg position. Right neck region was prepped using chlorhexidine scrub and draped in sterile fashion using a full drape and sterile probe cover and sterile gel employed. The medial and lateral heads of the sternocleidomastoid muscle were identified as was the carotid pulse. The rt Internal Jugular vein was identified using the ultrasound. Anesthesia was achieved over the vein using 1% lidocaine. Using real-time out of plane guidance, the introducer needle was inserted into the Internal Jugular vein under direct ultrasound visualization. Venous blood was withdrawn. The syringe was removed and a guidewire was advanced into the introducer needle. The guidewire was visualized in the rt Internal Jugular Vein by ultrasound. A small incision was made at the skin surface with a scalpel and the introducer needle was exchanged for a dilator over the guidewire. After appropriate dilation was obtained, the dilator was exchanged over the wire for a 7F central venous catheter. The wire was removed and the catheter was sutured in place at 22 cm. A sterile sorbaview shield was placed over the catheter at the insertion site. The patient tolerated the procedure without any hemodynamic compromise. At time of procedure completion, all ports aspirated and flushed properly. Post-procedure chest x-ray is pending at this time. Estimated blood loss is 1 cc. Anesthesia: regional Surgeon: ZULEIKA OTTO
--- NOTE | 2022-05-16 17:38 | XRay Report ---
CHEST 1 VIEW 05/16/2022 5:11 PM INDICATION / CLINICAL INFORMATION: central line placement. COMPARISON: None 2021. FINDINGS: SUPPORT DEVICES: Right IJ central venous catheter has its tip over the right atrium. This could be re tracted 3 cm. Feeding tube courses through the esophagus and into the stomach. HEART / MEDIASTINUM: No significant abnormality. LUNGS / PLEURA: No significant pulmonary or pleural abnormality. No pneumothorax. ADDITIONAL FINDINGS: No significant additional findings. IMPRESSION: Central line tip in the right atrium. This could be retracted 3 cm. Signer Name: Juan Antonio Heath MD Signed: 05/16/2022 5:33 PM Workstation Name: [id number]
--- NOTE | 2022-05-16 21:57 | Progress Note ---
Assessment and Plan # Acute Kidney Injury: suspect pre-renal injury and tubular injury in setting of hyperglycemia, seizure episode, sepsis. May have CKD at baseline given DM, HTN, obesity - creatinine uptrending 3.1->3.9->4.0->3.9, hopefully reaching plateau with improvement in tachycardia, sepsis. Mild acidosis, hypokalemia, hypernatremia improving - urinalysis noted, check UP/C, check serologies-> note ~4g proteinuria in setting of uncontrolled diabetes - CK reasonable at 217 - PTH ~140, phos/ca WNL - renal ultrasound with no acute obstruction, note potential angiomyolipoma, outpatient follow up - glucose control per primary - hold home diuretics, if having worsening respiratory status or edema, plan for IV diuretics prn only - avoid nephrotoxins - renally dose medications - I/Os- non-oliguric currently - no immediate need for kidney biopsy or renal replacement therapy # Metabolic Acidosis: note elevated lactate, no obvious ingestion, now stable # Seizure: note neurology input # HTN: BP very high initially, s/p cardene gtt, agree with current regimen # Tachycardia: HR high in setting of sepsis initially, now better, agree with carvedilol # Fever: ID input noted, note concern for infectious cause of encephalopathy, s/p LP # DM/Hyperglycemia: per primary Subjective Date of service: 05/16/22 Principal diagnosis: HTNsive emergency with seizures; Morbid obesity; AMS; Leukocytosis; RODRÍGUEZ Interval history: Resting in bed, no major changes noted Objective - Exam Narrative Exam: General appearance: Present: no acute distress, well-nourished, obese Eyes: Present: PERRL, EOM intact ENT: dentition normal Neck: Present: supple, normal ROM Respiratory: bilateral: CTA CV: Present: S1 & S2 Extremities: no ischemia, pulses intact, pulses symmetrical, No edema General gastrointestinal: Present: soft, non-tender, non-distended, normal bowel sounds Integumentary: Present: clear, warm, dry, normal turgor. Absent: rash Musculoskeletal: generalized weakness Psychiatric: drowsy Neurologic: Non verbal, Sedated - Vital Signs Vital signs: Vital Signs - 12hr 05/16/22 05/16/22 05/16/22 10:00 10:30 11:00 Temperature Pulse Rate 80 77 81 Pulse Rate [ From Monitor] Respiratory 18 13 14 Rate Blood Pressure 135/62 135/62 126/81 O2 Sat by Pulse 98 99 99 Oximetry 05/16/22 05/16/22 05/16/22 11:30 11:41 12:00 Temperature 97.7 F Pulse Rate 77 80 Pulse Rate [ 77 From Monitor] Respiratory 12 18 Rate Blood Pressure 135/62 132/84 O2 Sat by Pulse 99 98 Oximetry 05/16/22 05/16/22 05/16/22 12:30 12:59 13:00 Temperature Pulse Rate 81 77 76 Pulse Rate [ From Monitor] Respiratory 15 16 Rate Blood Pressure 132/84 188/109 O2 Sat by Pulse 99 99 Oximetry 05/16/22 05/16/22 05/16/22 13:30 14:00 14:30 Temperature Pulse Rate 80 83 82 Pulse Rate [ From Monitor] Respiratory 15 16 18 Rate Blood Pressure 188/109 160/90 143/73 O2 Sat by Pulse 99 99 99 Oximetry 05/16/22 05/16/22 05/16/22 15:00 15:30 16:00 Temperature 98.1 F Pulse Rate 79 82 79 Pulse Rate [ 80 From Monitor] Respiratory 15 12 14 Rate Blood Pressure 150/69 150/69 150/69 O2 Sat by Pulse 98 98 98 Oximetry 05/16/22 05/16/22 05/16/22 16:30 17:00 17:30 Temperature Pulse Rate 81 84 82 Pulse Rate [ From Monitor] Respiratory 15 17 15 Rate Blood Pressure 146/91 146/91 162/89 O2 Sat by Pulse 98 99 100 Oximetry 05/16/22 05/16/22 05/16/22 18:00 18:30 19:00 Temperature Pulse Rate 85 88 81 Pulse Rate [ From Monitor] Respiratory 13 17 18 Rate Blood Pressure 174/96 174/96 174/96 O2 Sat by Pulse 95 97 99 Oximetry 05/16/22 20:00 Temperature 97.6 F Pulse Rate Pulse Rate [ From Monitor] Respiratory Rate Blood Pressure O2 Sat by Pulse Oximetry - Lab 05/16/22 09:22 05/16/22 09:22 Most recent lab results ABG pH 7.354 pH Units (7.350-7.450) 05/12/22 22:47 ABG pCO2 36.7 mm Hg 05/12/22 22:47 ABG pO2 55.5 mm Hg (80.0-90.0) L 05/12/22 22:47 ABG HCO3 20.0 mmol/L (20.0-26.0) 05/12/22 22:47 ABG O2 Saturation 89.0 % (95.0-99.0) L 05/12/22 22:47 Calcium 8.8 mg/dL (8.4-10.2) 05/16/22 09:22 Phosphorus 3.00 mg/dL (2.5-4.5) 05/15/22 03:48 Magnesium 2.30 mg/dL (1.7-2.3) 05/15/22 03:48 Urine Creatinine 86.3 mg/dL (0.1-20.0) H 05/13/22 Unknown Urine Sodium 21 mmol/L 05/13/22 Unknown Urine Total Protein 735 mg/dL (5-11.8) H 05/13/22 19:34 Medications & Allergies - Medications Allergies/Adverse Reactions: Allergies No Known Allergies Allergy (Verified 05/13/22 19:13) Active Medications: Generic Name Dose Route Start Last Admin Trade Name Freq PRN Reason Stop Dose Admin Acetaminophen 650 mg 05/13/22 02:07 05/14/22 08:08 Acetaminophen 325 Mg Tab PO 650 mg Q6H PRN Administration Pain MILD(1-3)/Fever >100.5/PATINO Acetaminophen 650 mg 05/13/22 08:51 05/13/22 09:18 Acetaminophen 650 Mg Rect Supp WI 650 mg Q6H PRN Administration Pain, Mild (1-3), T> 100.5 Amlodipine Besylate 10 mg 05/13/22 12:00 05/16/22 09:22 Amlodipine 10 Mg Tab FEEDTUBE 10 mg QDAY BRAD Administration Atorvastatin Calcium 40 mg 05/16/22 22:00 Atorvastatin 40 Mg Tab FEEDTUBE QHS BRAD Carvedilol 25 mg 05/14/22 10:00 05/16/22 09:23 Carvedilol 25 Mg Tab FEEDTUBE 25 mg BID BRAD Administration Dextrose 0 ml 05/13/22 02:07 Dextrose 50% In Water (25gm) 50 Ml Syringe IV Q30MIN PRN Hypoglycemia Protocol Heparin Sodium (Porcine) 5,000 unit 05/13/22 06:00 05/16/22 13:46 Heparin 5,000 Unit/1 Ml Vial SUB-Q 5,000 unit Q8HR BRAD Administration Hydralazine HCl 100 mg 05/13/22 14:00 05/16/22 13:46 Hydralazine 100 Mg Tab FEEDTUBE 100 mg TID BRAD Administration Levetiracetam 1,000 mg/ 110 mls @ 400 mls/hr 05/13/22 22:00 05/16/22 09:44 Dextrose IV Infused Q12HR BRAD Infusion Cefepime HCl 2 gm in 100 mls @ 200 mls/hr 05/13/22 13:00 05/16/22 13:47 Cefepime/Ns 2 Gm/100 Ml IV 0 mls/hr Q24H BRAD Infusion Protocol Lacosamide 100 mg/ Sodium 110 mls @ 100 mls/hr 05/13/22 23:45 05/16/22 10:30 Chloride IV Infused Q12HR BRAD Infusion Sodium Chloride 1,000 mls @ 75 mls/hr 05/15/22 10:00 05/16/22 13:47 Nacl 0.9% 1000 Ml IV 0 mls/hr DIRECT BRAD Infusion Insulin Glargine 30 units 05/16/22 22:00 Insulin Glargine 100 Units/Ml SUB-Q QHS BRAD Insulin Human Lispro 0 unit 05/13/22 12:00 05/16/22 18:12 Insulin Lispro 100 Unit/Ml SUB-Q 8 unit Q6HR BRAD Administration Protocol Labetalol HCl 10 mg 05/16/22 14:19 Labetalol 20 Mg/4 Ml Inj IV Q4HR PRN sbp> 160 Lorazepam 2 mg 05/13/22 13:03 05/14/22 11:30 Lorazepam 2 Mg/Ml Vial IV 2 mg Q4H PRN Administration Seizures Magnesium Hydroxide 30 ml 05/13/22 02:07 Magnesium Hydroxide (Mom) Oral Liqd Udc PO Q4H PRN Constipation Ondansetron HCl 4 mg 05/13/22 02:07 Ondansetron 4 Mg/2 Ml Inj IV Q8H PRN Nausea And Vomiting Sodium Chloride 10 ml 05/13/22 10:00 05/16/22 09:23 Sodium Chloride 0.9% 10 Ml Flush Syringe IV 10 ml BID BRAD Administration Sodium Chloride 10 ml 05/13/22 02:07 Sodium Chloride 0.9% 10 Ml Flush Syringe IV PRN PRN LINE FLUSH
[2022-05-16] MEDS ORDERED: INSULIN GLARGINE 100 UNITS/ML SUB-Q SCH (22:00)
[2022-05-17] MEDS: INSULIN LISPRO 100 UNIT/ML SUB-Q SCH ×6 (00:09→22:07)
[2022-05-17] MEDS: HEPARIN 5,000 UNIT/1 ML VIAL SUB-Q SCH ×3 (05:55→21:00)
[2022-05-17] MEDS ORDERED: VANCOMYCIN 1,500 MG in SODIUM CHLORIDE 0.9% 500 ML 500 ML IV SCH (08:00)
[2022-05-17] MEDS: LACOSAMIDE 100 MG in SODIUM CHLORIDE 0.9% 100 ML IV SCH ×2 (09:35→23:26)
[2022-05-17] MEDS: levETIRAcetam 1,000 MG in DEXTROSE 5% IN WATER 100 ML IV SCH ×2 (09:35→22:08)
[2022-05-17] MEDS: carvediloL 25 MG TAB FEEDTUBE SCH ×2 (09:36→21:00)
[2022-05-17] MEDS: hydrALAZINE 100 MG TAB FEEDTUBE SCH ×3 (09:36→21:00)
[2022-05-17] MEDS: amLODIPine 10 MG TAB FEEDTUBE SCH (09:36)
[2022-05-17] MEDS: CEFEPIME/NS 2 GM/100 ML 2 GM/100 ML BAG IV SCH (12:43)
--- NOTE | 2022-05-17 13:04 | Progress Note ---
Assessment and Plan 31-year-old -Prydeinig female Morbidly brought to the emergency room for evaluation of seizure episode which happened overnight with associated progressive weakness. Patient is visiting from [place] and was said not to have had enough rest since arrival few days ago. Most of the history was gotten from the ER staff as patient is unable to give any coherent history at this time and no family member is available. Patient was said to have woken up in the night had an episode of vomiting and subsequently had seizures. She was said to have had another episode of seizure while in the emergency room and had been started on Keppra and also given some Ativan. Work-up in the emergency room , significant findings on the labs with a BUN of 26 and creatinine of 3.1. Initial blood glucose of 580 and subsequently 361. Urinalysis was unremarkable. UDS was positive for marijuana. Leukocytosis of 13.1. CT scan of the head shows no acute findings. Chest x-ray shows no acute findings. Blood pressure has been quite elevated with systolic in the 200s and diastolic in the 130s. Patient initially given IV labetalol and then subsequently placed on Cardene drip. Patient also developed a fever while in the emergency room with temperature of about 103 F. Patient has been admitted with seizure disorder, hyperglycemia, hypertensive urgency and RODRÍGUEZ. Patient denies smoking, alcohol or drug abuse. Patient not working. Not . Has no children. Patient awake. Patient is on room air. O2 saturation 98%. No acute respiratory distress. Sitting up by the side of the bed. ABG on room air ABG pH 7.354 pH Units (7.350-7.450) 05/12/22 22:47 ABG pCO2 36.7 mm Hg 05/12/22 22:47 ABG pO2 55.5 mm Hg (80.0-90.0) L 05/12/22 22:47 ABG O2 Saturation 89.0 % (95.0-99.0) L 05/12/22 22:47 Based on this blood gas results, Patient candidate for home O2. However O2 saturation running 98% on room air. Recommend to repeat blood gases on room air before discharge. Patient afebrile. No leukocytosis. Blood pressure 139/84, Pulse 92, Respirations 20. Chest xray done 05/12/22 reported No significant pulmonary or pleural abnormality. No pneumothorax. Chest xray 05/16/22 reported No significant pulmonary or pleural abnormality. No pneumothorax. Central line tip in the right atrium. This could be retracted 3 cm. Patient is on cefepime, S/C Heparin, . Recommend GI prophylaxis. I spent critical care time of 35 minutes, review the chart, examine the patient, review chest xray, labs, talking to the nursing staff and work up plan of treatment in this critically ill patient. - Patient Problems (1) Seizure Current Visit: Yes Status: Acute Plan to address problem: Patient is on Keppra and ativan. (2) Hyperglycemia Current Visit: Yes Status: Acute Plan to address problem: Recent blood sugur 171. Patient is on S/C Insulin. (3) Hypertensive crisis Current Visit: Yes Status: Acute Plan to address problem: Patient is on Amalodipine, Hydralazine,Labetalol. (4) Dehydration Current Visit: Yes Status: Acute Plan to address problem: Recived I/V fluids. BMP to day 05/17/22 reported BUN 40, Creatnine 3.1 (5) Postictal state Current Visit: Yes Status: Acute Plan to address problem: Patient awake, talking now. (6) RODRÍGUEZ (acute kidney injury) Current Visit: Yes Status: Acute Plan to address problem: BUN 40 . Creatinine 3.1 Nephrology consulted. Subjective Date of service: 05/17/22 Principal diagnosis: HTNsive emergency with seizures; Morbid obesity; AMS; Leukocytosis; RODRÍGUEZ Interval history: 31-year-old -Prydeinig female Morbidly brought to the emergency room for evaluation of seizure episode which happened overnight with associated progressive weakness. Patient is visiting from [place] and was said not to have had enough rest since arrival few days ago. Most of the history was gotten from the ER staff as patient is unable to give any coherent history at this time and no family member is available. Patient was said to have woken up in the night had an episode of vomiting and subsequently had seizures. She was said to have had another episode of seizure while in the emergency room and had been started on Keppra and also given some Ativan. Work-up in the emergency room , significant findings on the labs with a BUN of 26 and creatinine of 3.1. Initial blood glucose of 580 and subsequently 361. Urinalysis was unremarkable. UDS was positive for marijuana. Leukocytosis of 13.1. CT scan of the head shows no acute findings. Chest x-ray shows no acute findings. Blood pressure has been quite elevated with systolic in the 200s and diastolic in the 130s. Patient initially given IV labetalol and then subsequently placed on Cardene drip. Patient also developed a fever while in the emergency room with temperature of about 103 F. Patient has been admitted with seizure disorder, hyperglycemia, hypertensive urgency and RODRÍGUEZ. Patient denies smoking, alcohol or drug abuse. Patient not working. Not . Has no children. Patient awake. Patient is on room air. O2 saturation 98%. No acute respiratory distress. Sitting up by the side of the bed. ABG on room air ABG pH 7.354 pH Units (7.350-7.450) 05/12/22 22:47 ABG pCO2 36.7 mm Hg 05/12/22 22:47 ABG pO2 55.5 mm Hg (80.0-90.0) L 05/12/22 22:47 ABG O2 Saturation 89.0 % (95.0-99.0) L 05/12/22 22:47 Based on this blood gas results, Patient candidate for home O2. However O2 saturation running 98% on room air. Recommend to repeat blood gases on room air before discharge. Patient afebrile. No leukocytosis. Blood pressure 139/84, Pulse 92, Respirations 20. Chest xray done 05/12/22 reported No significant pulmonary or pleural abnorma lity. No pneumothorax. Chest xray 05/16/22 reported No significant pulmonary or pleural abnormality. No pneumothorax. Central line tip in the right atrium. This could be retracted 3 cm. Patient is on cefepime, S/C Heparin, . Recommend GI prophylaxis. Objective Vital Signs - 12hr 05/17/22 05/17/22 05/17/22 02:00 03:00 04:00 Temperature Pulse Rate 77 77 77 Pulse Rate [ 77 From Monitor] Respiratory 13 11 L 13 Rate Blood Pressure 114/76 143/75 122/77 O2 Sat by Pulse 95 94 95 Oximetry 05/17/22 05/17/22 05/17/22 05:00 06:00 07:00 Temperature Pulse Rate 77 74 74 Pulse Rate [ From Monitor] Respiratory 14 17 11 L Rate Blood Pressure 146/97 146/97 158/82 O2 Sat by Pulse 96 98 95 Oximetry 05/17/22 05/17/2222 08:00 09:00 09:36 Temperature 98.5 F Pulse Rate 74 79 87 Pulse Rate [ 85 From Monitor] Respiratory 12 12 Rate Blood Pressure 150/76 145/91 145/91 O2 Sat by Pulse 93 95 Oximetry 05/17/22 05/17/22 05/17/22 10:00 11:00 12:00 Temperature 98.8 F Pulse Rate 86 79 79 Pulse Rate [ 80 From Monitor] Respiratory 19 12 12 Rate Blood Pressure 145/91 133/88 140/84 O2 Sat by Pulse 97 94 96 Oximetry Constitutional: no acute distress, alert, other (young obese female with mildly increased respiratory effort at rest) Eyes: non-icteric ENT: oropharynx moist Neck: supple, no lymphadenopathy, no JVD, other (large circumference) Effort: mildly labored Ascultation: Bilateral: diminished breath sounds Percussion: Bilateral: not dull Cardiovascular: regular rate and rhythm Gastrointestinal: normoactive bowel sounds, soft, non-tender, non-distended (protuberant) Integumentary: normal Extremities: no cyanosis, no edema, pulses normal, no ischemia or petechiae Neurologic: non-focal exam (grossly), pupils equal and round, CN II-XII normal, motor strength normal and Psychiatric: mood appropriate, affect normal CBC and BMP: 05/16/22 09:22 05/17/22 12:55 ABG, PT/INR, D-dimer: ABG ABG pH 7.354 pH Units (7.350-7.450) 05/12/22 22:47 ABG pCO2 36.7 mm Hg 05/12/22 22:47 ABG pO2 55.5 mm Hg (80.0-90.0) L 05/12/22 22:47 ABG O2 Saturation 89.0 % (95.0-99.0) L 05/12/22 22:47 PT/INR, D-dimer PT 16.8 Sec. (12.2-14.9) H 05/12/22 14:25 INR 1.22 (0.87-1.13) H 05/12/22 14:25 Abnormal lab findings: Abnormal Labs 05/12/22 05/12/22 05/12/22 14:25 14:25 14:25 WBC 13.1 H RBC 5.37 H MCV 78 L MCH 25 L RDW 16.2 H Lymph % (Auto) [place] % (Auto) [place] # (Auto) Baso # (Auto) Seg Neutrophils % Seg Neuts % (Manual) 88.0 H Lymphocytes % (Manual) 7.0 L Monocytes % (Manual) Seg Neutrophils # Seg Neutrophils # Man 11.5 H Lymphocytes # (Manual) 0.9 L Monocytes # (Manual) PT 16.8 H INR 1.22 H ABG pO2 ABG O2 Saturation ABG Base Excess Oxyhemoglobin Sodium Potassium Chloride Carbon Dioxide 18 L BUN 26 H Creatinine 3.1 H Glucose 580 H* POC Glucose Hemoglobin A1c Lactic Acid Total Creatine Kinase C-Reactive Protein Total Protein 6.2 L Albumin 3.3 L PTH Intact Urine Creatinine Urine Total Protein Salicylates Acetaminophen 05/12/22 05/12/22 05/12/22 14:25 14:25 14:25 WBC RBC MCV MCH RDW Lymph % (Auto) [place] % (Auto) [place] # (Auto) Baso # (Auto) Seg Neutrophils % Seg Neuts % (Manual) Lymphocytes % (Manual) Monocytes % (Manual) Seg Neutrophils # Seg Neutrophils # Man Lymphocytes # (Manual) Monocytes # (Manual) PT INR ABG pO2 ABG O2 Saturation ABG Base Excess Oxyhemoglobin Sodium Potassium Chloride Carbon Dioxide BUN Creatinine Glucose POC Glucose Hemoglobin A1c Lactic Acid 2.80 H* Total Creatine Kinase C-Reactive Protein Total Protein Albumin PTH Intact Urine Creatinine Urine Total Protein Salicylates < 0.3 L Acetaminophen 5.0 L 05/12/22 05/12/22 05/12/22 22:47 22:47 22:47 WBC 15.4 H RBC 5.42 H MCV 77 L MCH 24 L RDW 16.3 H Lymph % (Auto) [place] % (Auto) [place] # (Auto) Baso # (Auto) Seg Neutrophils % Seg Neuts % (Manual) 85.0 H Lymphocytes % (Manual) 7.0 L Monocytes % (Manual) 8.0 H Seg Neutrophils # Seg Neutrophils # Man 13.1 H Lymphocytes # (Manual) 1.1 L Monocytes # (Manual) 1.2 H PT INR ABG pO2 ABG O2 Saturation ABG Base Excess Oxyhemoglobin Sodium Potassium Chloride 110.1 H Carbon Dioxide 19 L BUN 27 H Creatinine 3.3 H Glucose 361 H POC Glucose Hemoglobin A1c Lactic Acid 2.70 H* Total Creatine Kinase C-Reactive Protein Total Protein Albumin 3.3 L PTH Intact Urine Creatinine Urine Total Protein Salicylates Acetaminophen 05/12/22 05/13/22 05/13/22 22:47 01:53 06:30 WBC RBC MCV MCH RDW Lymph % (Auto) [place] % (Auto) [place] # (Auto) Baso # (Auto) Seg Neutrophils % Seg Neuts % (Manual) Lymphocytes % (Manual) Monocytes % (Manual) Seg Neutrophils # Seg Neutrophils # Man Lymphocytes # (Manual) Monocytes # (Manual) PT INR ABG pO2 55.5 L ABG O2 Saturation 89.0 L ABG Base Excess -4.9 L Oxyhemoglobin 85.4 L Sodium Potassium Chloride Carbon Dioxide BUN Creatinine Glucose POC Glucose 511 H Hemoglobin A1c Lactic Acid 2.30 H* Total Creatine Kinase C-Reactive Protein Total Protein Albumin PTH Intact Urine Creatinine Urine Total Protein Salicylates Acetaminophen 05/13/22 05/13/22 05/13/22 10:27 11:33 16:12 WBC RBC MCV MCH RDW Lymph % (Auto) [place] % (Auto) [place] # (Auto) Baso # (Auto) Seg Neutrophils % Seg Neuts % (Manual) Lymphocytes % (Manual) Monocytes % (Manual) Seg Neutrophils # Seg Neutrophils # Man Lymphocytes # (Manual) Monocytes # (Manual) PT INR ABG pO2 ABG O2 Saturation ABG Base Excess Oxyhemoglobin Sodium Potassium Chloride Carbon Dioxide BUN Creatinine Glucose POC Glucose 492 H 500 H 331 H Hemoglobin A1c Lactic Acid Total Creatine Kinase C-Reactive Protein Total Protein Albumin PTH Intact Urine Creatinine Urine Total Protein Salicylates Acetaminophen 05/13/22 05/13/22 05/13/22 19:34 21:55 23:50 WBC RBC MCV MCH RDW Lymph % (Auto) [place] % (Auto) [place] # (Auto) Baso # (Auto) Seg Neutrophils % Seg Neuts % (Manual) Lymphocytes % (Manual) Monocytes % (Manual) Seg Neutrophils # Seg Neutrophils # Man Lymphocytes # (Manual) Monocytes # (Manual) PT INR ABG pO2 ABG O2 Saturation ABG Base Excess Oxyhemoglobin Sodium Potassium Chloride Carbon Dioxide BUN Creatinine Glucose POC Glucose 268 H 256 H Hemoglobin A1c Lactic Acid Total Creatine Kinase C-Reactive Protein Total Protein Albumin PTH Intact Urine Creatinine 174.8 H Urine Total Protein 735 H Salicylates Acetaminophen 05/13/22 05/14/22 05/14/22 Unknown 04:20 04:20 WBC 18.3 H RBC MCV 78 L MCH 24 L RDW 16.6 H Lymph % (Auto) 12.1 L [place] % (Auto) 11.6 H [place] # (Auto) 2.1 H Baso # (Auto) 0.2 H Seg Neutrophils % 75.0 H Seg Neuts % (Manual) Lymphocytes % (Manual) Monocytes % (Manual) Seg Neutrophils # 13.7 H Seg Neutrophils # Man Lymphocytes # (Manual) Monocytes # (Manual) PT INR ABG pO2 ABG O2 Saturation ABG Base Excess Oxyhemoglobin Sodium 146 H Potassium 3.4 L Chloride 115.1 H Carbon Dioxide 17 L BUN 35 H Creatinine 3.9 H Glucose 224 H POC Glucose Hemoglobin A1c Lactic Acid Total Creatine Kinase C-Reactive Protein 1.40 H Total Protein Albumin PTH Intact Urine Creatinine 86.3 H Urine Total Protein Salicylates Acetaminophen 05/14/22 05/14/22 05/14/22 04:20 04:20 06:10 WBC RBC MCV MCH RDW Lymph % (Auto) [place] % (Auto) [place] # (Auto) Baso # (Auto) Seg Neutrophils % Seg Neuts % (Manual) Lymphocytes % (Manual) Monocytes % (Manual) Seg Neutrophils # Seg Neutrophils # Man Lymphocytes # (Manual) Monocytes # (Manual) PT INR ABG pO2 ABG O2 Saturation ABG Base Excess Oxyhemoglobin Sodium Potassium Chloride Carbon Dioxide BUN Creatinine Glucose POC Glucose 257 H Hemoglobin A1c Lactic Acid Total Creatine Kinase 217 H C-Reactive Protein Total Protein Albumin PTH Intact 149.4 H Urine Creatinine Urine Total Protein Salicylates Acetaminophen 05/14/22 05/14/22 05/14/22 07:23 13:25 14:23 WBC RBC MCV MCH RDW Lymph % (Auto) [place] % (Auto) [place] # (Auto) Baso # (Auto) Seg Neutrophils % Seg Neuts % (Manual) Lymphocytes % (Manual) Monocytes % (Manual) Seg Neutrophils # Seg Neutrophils # Man Lymphocytes # (Manual) Monocytes # (Manual) PT INR ABG pO2 ABG O2 Saturation ABG Base Excess Oxyhemoglobin Sodium Potassium Chloride Carbon Dioxide BUN Creatinine Glucose POC Glucose 240 H 323 H Hemoglobin A1c 14.4 H Lactic Acid Total Creatine Kinase C-Reactive Protein Total Protein Albumin PTH Intact Urine Creatinine Urine Total Protein Salicylates Acetaminophen 05/14/22 05/15/22 05/15/22 17:28 00:02 03:48 WBC RBC MCV 78 L MCH 25 L RDW 16.7 H Lymph % (Auto) [place] % (Auto) [place] # (Auto) Baso # (Auto) Seg Neutrophils % Seg Neuts % (Manual) Lymphocytes % (Manual) Monocytes % (Manual) Seg Neutrophils # Seg Neutrophils # Man Lymphocytes # (Manual) Monocytes # (Manual) PT INR ABG pO2 ABG O2 Saturation ABG Base Excess Oxyhemoglobin Sodium Potassium Chloride Carbon Dioxide BUN Creatinine Glucose POC Glucose 339 H 392 H Hemoglobin A1c Lactic Acid Total Creatine Kinase C-Reactive Protein Total Protein Albumin PTH Intact Urine Creatinine Urine Total Protein Salicylates Acetaminophen 05/15/22 05/15/22 05/15/22 03:48 05:50 13:30 WBC RBC MCV MCH RDW Lymph % (Auto) [place] % (Auto) [place] # (Auto) Baso # (Auto) Seg Neutrophils % Seg Neuts % (Manual) Lymphocytes % (Manual) Monocytes % (Manual) Seg Neutrophils # Seg Neutrophils # Man Lymphocytes # (Manual) Monocytes # (Manual) PT INR ABG pO2 ABG O2 Saturation ABG Base Excess Oxyhemoglobin Sodium Potassium Chloride 115.5 H Carbon Dioxide 19 L BUN 44 H Creatinine 4.0 H Glucose 339 H POC Glucose 307 H 327 H Hemoglobin A1c Lactic Acid Total Creatine Kinase C-Reactive Protein Total Protein Albumin PTH Intact Urine Creatinine Urine Total Protein Salicylates Acetaminophen 05/15/22 05/16/22 05/16/22 17:42 00:34 05:27 WBC RBC MCV MCH RDW Lymph % (Auto) [place] % (Auto) [place] # (Auto) Baso # (Auto) Seg Neutrophils % Seg Neuts % (Manual) Lymphocytes % (Manual) Monocytes % (Manual) Seg Neutrophils # Seg Neutrophils # Man Lymphocytes # (Manual) Monocytes # (Manual) PT INR ABG pO2 ABG O2 Saturation ABG Base Excess Oxyhemoglobin Sodium Potassium Chloride Carbon Dioxide BUN Creatinine Glucose POC Glucose 388 H 411 H 358 H Hemoglobin A1c Lactic Acid Total Creatine Kinase C-Reactive Protein Total Protein Albumin PTH Intact Urine Creatinine Urine Total Protein Salicylates Acetaminophen 05/16/22 05/16/22 05/16/22 07:59 09:22 09:22 WBC RBC MCV 77 L MCH 25 L RDW 17.0 H Lymph % (Auto) [place] % (Auto) 9.9 H [place] # (Auto) 1.1 H Baso # (Auto) 0.2 H Seg Neutrophils % 70.2 H Seg Neuts % (Manual) Lymphocytes % (Manual) Monocytes % (Manual) Seg Neutrophils # Seg Neutrophils # Man Lymphocytes # (Manual) Monocytes # (Manual) PT INR ABG pO2 ABG O2 Saturation ABG Base Excess Oxyhemoglobin Sodium Potassium 3.5 L Chloride 107.6 H Carbon Dioxide 18 L BUN 48 H Creatinine 3.9 H Glucose 284 H POC Glucose 308 H Hemoglobin A1c Lactic Acid Total Creatine Kinase C-Reactive Protein Total Protein 5.1 L Albumin 2.7 L PTH Intact Urine Creatinine Urine Total Protein Salicylates Acetaminophen 05/16/22 05/16/22 05/16/22 11:36 17:37 23:48 WBC RBC MCV MCH RDW Lymph % (Auto) [place] % (Auto) [place] # (Auto) Baso # (Auto) Seg Neutrophils % Seg Neuts % (Manual) Lymphocytes % (Manual) Monocytes % (Manual) Seg Neutrophils # Seg Neutrophils # Man Lymphocytes # (Manual) Monocytes # (Manual) PT INR ABG pO2 ABG O2 Saturation ABG Base Excess Oxyhemoglobin Sodium Potassium Chloride Carbon Dioxide BUN Creatinine Glucose POC Glucose 255 H 324 H 293 H Hemoglobin A1c Lactic Acid Total Creatine Kinase C-Reactive Protein Total Protein Albumin PTH Intact Urine Creatinine Urine Total Protein Salicylates Acetaminophen 05/17/22 05:20 WBC RBC MCV MCH RDW Lymph % (Auto) [place] % (Auto) [place] # (Auto) Baso # (Auto) Seg Neutrophils % Seg Neuts % (Manual) Lymphocytes % (Manual) Monocytes % (Manual) Seg Neutrophils # Seg Neutrophils # Man Lymphocytes # (Manual) Monocytes # (Manual) PT INR ABG pO2 ABG O2 Saturation ABG Base Excess Oxyhemoglobin Sodium Potassium Chloride Carbon Dioxide BUN Creatinine Glucose POC Glucose 267 H Hemoglobin A1c Lactic Acid Total Creatine Kinase C-Reactive Protein Total Protein Albumin PTH Intact Urine Creatinine Urine Total Protein Salicylates Acetaminophen Chest x-ray: report reviewed, image reviewed Additional Studies: CHEST 1 VIEW 05/16/2022 5:11 PM INDICATION / CLINICAL INFORMATION: central line placement. COMPARISON: None 2021. FINDINGS: SUPPORT DEVICES: Right IJ central venous catheter has its tip over the right atrium. This could be retracted 3 cm. Feeding tube courses through the esophagus and into the stomach. HEART / MEDIASTINUM: No significant abnormality. LUNGS / PLEURA: No significant pulmonary or pleural abnormality. No pneumothorax. ADDITIONAL FINDINGS: No significant additional findings. IMPRESSION: Central line tip in the right atrium. This could be retracted 3 cm. Allied health notes reviewed: nursing
--- NOTE | 2022-05-17 13:23 | Progress Note ---
Assessment and Plan Assessment and plan: History This is a 31-year-old female with seizures, HTN, DM and medical noncompliance who presented to emergency department on 05/13 after a seizure episode associated with progressive weakness. Per EMS patient was said to have woken up in the night had an episode of vomiting and subsequently had seizures. In the emergency department work-up showed acute kidney injury with a BUN/creatinine of 26/3.1, glucose of 580, urinalysis was unremarkable, UDS was positive for mariju tiera, leukocytosis at 13.1 and CXR showed no acute findings along with a CT scan. In the emergency department patient had another seizure and was given Ativan and loaded with Keppra. Patient also had BP in the 200s over 130s and was given labetalol and was started on a Cardene drip. She also had was febrile to 103 in the ED. Patient was admitted to the hospitalist service with seizure disorder, hyperglycemia, hypertensive urgency and acute kidney injury with consults to nephrology, neurology. Hospital course to date: 05/13: CCM and ID consulted. Patient had possible seizure activity and was started. Ativan. Patient had EEG today. MRI brain pending. Urine lites pending. Patient febrile started on cefepime, procalcitonin, CRP and COVID-19 PCR pending. 05/14: Patient received LP today, MRI brain without contrast, hemoglobin A1c ordered 05/15: Answers most questions correctly. s/p LP. Pattern not c/w viral meningitis. d/c acyclovir. follow CSF culture. Continue tx with cefepime IV, vancomycin IV. Nephrology following due to poor renal fx, worsened cr today to 4.0. Will continue IVF hydration. EEG pending. MRA head completed but limited study due to motion artifact...periventricular and scatter foci of deep white matter hyperintensity noted. Will follow neurology input. 05/16: Resting comfortably on encounter. Clinically improved AOX4, answers all questions appropriately. Will continue renally dosed Vancomycin IV and Cefepime IV. ID recs and nephrology recs noted. Marginal improvement in Cr: 3.9 today. 05/17: Awaiting AM labs. Patient is resting comfortably, mental status continues to be improved. PT consultation as patient needs to be more physically active. NO growth thus far on csf culture. Continue abx and antiepileptics. Assessment and Plan: Neuro: Seizures, h/o seizure disorder, noncompliance -Loaded with Keppra in ED -Keppra IV + vimpat -Reorientation as needed -Maintain sleep-wake cycle -aspiration/seizure precautions -As needed analgesia -CT head shows no acute intracranial abnormality -MRI brain and MRA V pending -EEG pending -LP 05/14 (opening pressure 100) -Neurology consulted, appreciate recommendations Cardiac: Hypertensive urgency, h/o hypertension -Cardiology consulted, appreciate recommendations -Blood pressure monitoring per protocol -s/p Cardene drip -Started on amlodipine, hydralazine Respiratory: NAD -Pulmonary hygiene -SPO2 monitor per protocol GI: Morbid obesity, moderate protein calorie malnutrition -PPI -NTR consulted for tube feedings : Acute kidney injury (pre renal/ATN/maybe CKD component) , metabolic acidosis -Nephrology consulted, appreciate recommendations -Monitor intake and output -Renally dose medications -Avoid nephrotoxic medications -FeNa 0.56% -Renal ultrasound shows normal-sized but echogenic kidneys consistent with medical renal disease, no hydronephrosis, 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 -COVID-19 PCR negative -f/u blood culture -Monitor WBC and temperature curve Endo: Hyperglycemia, h/o DM -Avoid hypoglycemia -SSI -Accu-Cheks q. every 6 -Long-acting insulin, titrate as neede -Hemoglobin A1c 14.4 Heme: Leukocytosis -Trend CBC -Transfuse hemoglobin less than 7 -SCDs to BLE while in bed The high probability of a clinically significant, sudden or life threatening deterioration of the [neuro] system(s) required my full and direct attention, intervention and personal management. The aggregate critical care time was [60] minutes. This time is in addition to time spent performing reported procedures but includes the following: [x] Data Review and interpretation [x] Patient assessment and monitoring of vital signs [x] Documentation [x] Medication orders and management Disposition Plan: imcu Total Time Spent with Patient (Minutes): 60 History Interval history: Resting comfortably on encounter. No acute complaints. Mentation significantly improved. Patient has been bed bound almost the entirity of her stay. I stated we would obtain physical therapy consultation to walk patient. Hospitalist Physical - Physical exam Narrative exam: General appearance: Present: mild distress - EENT Eyes: Present: PERRL ENT: hearing intact, clear oral mucosa - Neck Neck: Present: supple, normal ROM, masses or JVD. central line in right neck IJ - Respiratory Respiratory effort: normal Respiratory: bilateral: CTA - Cardiovascular Heart Sounds: Present: S1 & S2. Absent: rub, click - Extremities Extremities: pulses symmetrical, No edema Extremity abnormal: edema Peripheral Pulses: within normal limits - Abdominal General gastrointestinal: Present: soft, non-tender, non-distended, normal bowel sounds Male genitourinary: Present: normal - Integumentary Integumentary: Present: clear, warm, dry - Musculoskeletal Musculoskeletal: gait normal, strength equal bilaterally - Psychiatric Psychiatric: appropriate mood/affect, intact judgment & insight - Neurologic Neurologic: CNII-XII intact, moves all extremities - Constitutional Vitals: Temp Pulse Resp BP Pulse Ox 98.8 F 80 11 L 140/84 98 05/17/22 12:00 05/17/22 12:00 05/17/22 12:00 05/17/22 12:00 05/17/22 12:00 General appearance: Present: no acute distress, well-nourished, obese HEART Score - HEART Score Troponin: Troponin T 0.028 ng/mL (0.00-0.029) 05/12/22 22:47 Results - Labs CBC & Chem 7: 05/16/22 09:22 05/16/22 09:22 Labs: Laboratory Last Values WBC 10.9 K/mm3 (4.5-11.0) 05/16/22 09: RBC 4.56 M/mm3 (3.65-5.03) 05/16/22 09:22 Hgb 11.2 gm/dl (10.1-14.3) 05/16/22 09: Hct 35.3 % (30.3-42.9) 05/16/22 09: MCV 77 fl (79-97) L 05/16/22 09: MCH 25 pg (28-32) L 05/16/22 09: MCHC 32 % (30-34) 05/16/22 09: RDW 17.0 % (13.2-15.2) H 05/16/22 09:22 Plt Count 227 K/mm3 (140-440) 05/16/22 09:22 Lymph % (Auto) 16.7 % (13.4-35.0) 05/16/22 09:22 [place] % (Auto) 9.9 % (0.0-7.3) H 05/16/22 09:22 Eos % (Auto) 1.4 % (0.0-4.3) 05/16/22 09:22 Baso % (Auto) 1.8 % (0.0-1.8) 05/16/22 09:22 Lymph # (Auto) 1.8 K/mm3 (1.2-5.4) 05/16/22 09:22 [place] # (Auto) 1.1 K/mm3 (0.0-0.8) H 05/16/22 09:22 Eos # (Auto) 0.2 K/mm3 (0.0-0.4) 05/16/22 09: Baso # (Auto) 0.2 K/mm3 (0.0-0.1) H 05/16/22 09:22 Add Manual Diff Complete 05/12/22 22:47 Total Counted 100 05/12/22 22:47 Seg Neutrophils % 70.2 % (40.0-70.0) H 05/16/22 09:22 Seg Neuts % (Manual) 85.0 % (40.0-70.0) H 05/12/22 22:47 Band Neutrophils % 0 % 05/12/22 22:47 Lymphocytes % (Manual) 7.0 % (13.4-35.0) L 05/12/22 22:47 Reactive Lymphs % (Man) 0 % 05/12/22 22:47 Monocytes % (Manual) 8.0 % (0.0-7.3) H 05/12/22 22:47 Eosinophils % (Manual) 0 % (0.0-4.3) 05/12/22 22:47 Basophils % (Manual) 0 % (0.0-1.8) 05/12/22 22:47 Metamyelocytes % 0 % 05/12/22 22:47 Myelocytes % 0 % 05/12/22 22:47 Promyelocytes % 0 % 05/12/22 22:47 Blast Cells % 0 % 05/12/22 22:47 Nucleated RBC % Not Reportable 05/12/22 22:47 Seg Neutrophils # 7.7 K/mm3 (1.8-7.7) 05/16/22 09: Seg Neutrophils # Man 13.1 K/mm3 (1.8-7.7) H 05/12/22 22:47 Band Neutrophils # 0.0 K/mm3 05/12/22 22:47 Lymphocytes # (Manual) 1.1 K/mm3 (1.2-5.4) L 05/12/22 22:47 Abs React Lymphs (Man) 0.0 K/mm3 05/12/22 22:47 Monocytes # (Manual) 1.2 K/mm3 (0.0-0.8) H 05/12/22 22:47 Eosinophils # (Manual) 0.0 K/mm3 (0.0-0.4) 05/12/22 22:47 Basophils # (Manual) 0.0 K/mm3 (0.0-0.1) 05/12/22 22:47 Metamyelocytes # 0.0 K/mm3 05/12/22 22:47 Myelocytes # 0.0 K/mm3 05/12/22 22:47 Promyelocytes # 0.0 K/mm3 05/12/22 22:47 Blast Cells # 0.0 K/mm3 05/12/22 22:47 WBC Morphology Not Reportable 05/12/22 22:47 Hypersegmented Neuts Not Reportable 05/12/22 22:47 Hyposegmented Neuts Not Reportable 05/12/22 22:47 Hypogranular Neuts Not Reportable 05/12/22 22:47 Smudge Cells Not Reportable 05/12/22 22:47 Toxic Granulation Not Reportable 05/12/22 22:47 Toxic Vacuolation Not Reportable 05/12/22 22:47 Dohle Bodies Not Reportable 05/12/22 22:47 Pelger-Huet Anomaly Not Reportable 05/12/22 22:47 Tima Rods Not Reportable 05/12/22 22:47 Platelet Estimate Consistent w auto 05/12/22 22:47 Clumped Platelets Not Reportable 05/12/22 22:47 Plt Clumps, EDTA Not Reportable 05/12/22 22:47 Large Platelets Not Reportable 05/12/22 22:47 Giant Platelets Not Reportable 05/12/22 22:47 Platelet Satelliting Not Reportable 05/12/22 22:47 Plt Morphology Comment Not Reportable 05/12/22 22:47 RBC Morphology Not Reportable 05/12/22 22:47 Dimorphic RBCs Not Reportable 05/12/22 22:47 Polychromasia Not Reportable 05/12/22 22:47 Hypochromasia 1+ 05/12/22 22:47 Poikilocytosis Not Reportable 05/12/22 22:47 Anisocytosis Not Reportable 05/12/22 22:47 Microcytosis Not Reportable 05/12/22 22:47 Macrocytosis Not Reportable 05/12/22 22:47 Spherocytes Not Reportable 05/12/22 22:47 Pappenheimer Bodies Not Reportable 05/12/22 22:47 Sickle Cells Not Reportable 05/12/22 22:47 Target Cells Not Reportable 05/12/22 22:47 Tear Drop Cells Not Reportable 05/12/22 22:47 Ovalocytes Not Reportable 05/12/22 22:47 Helmet Cells Not Reportable 05/12/22 22:47 Iniguez-Supreme Bodies Not Reportable 05/12/22 22:47 [place] Rings Not Reportable 05/12/22 22:47 [place] Cells Not Reportable 05/12/22 22:47 Bite Cells Not Reportable 05/12/22 22:47 Crenated Cell Not Reportable 05/12/22 22:47 Elliptocytes Not Reportable 05/12/22 22:47 Acanthocytes (Spur) Not Reportable 05/12/22 22:47 Rouleaux Not Reportable 05/12/22 22:47 Hemoglobin C Crystals Not Reportable 05/12/22 22:47 Schistocytes Not Reportable 05/12/22 22:47 Malaria parasites Not Reportable 05/12/22 22:47 Jesse Bodies Not Reportable 05/12/22 22:47 Hem Pathologist Commnt No 05/12/22 22:47 PT 16.8 Sec. (12.2-14.9) H 05/12/22 14:25 INR 1.22 (0.87-1.13) H 05/12/22 14:25 APTT 29.6 Sec. (24.2-36.6) 05/12/22 14:25 ABG pH 7.354 pH Units (7.350-7.450) 05/12/22 22:47 ABG pCO2 36.7 mm Hg 05/12/22 22:47 ABG pO2 55.5 mm Hg (80.0-90.0) L 05/12/22 22:47 ABG HCO3 20.0 mmol/L (20.0-26.0) 05/12/22 22:47 ABG O2 Saturation 89.0 % (95.0-99.0) L 05/12/22 22:47 ABG O2 Content 16.6 (0.0-44) 05/12/22 22:47 ABG Base Excess -4.9 mmol/L (-2.0-3.0) L 05/12/22 22:47 ABG Hemoglobin 13.8 gm/dl (12.0-16.0) 05/12/22 22:47 ABG Carboxyhemoglobin 3.2 % (0.0-5.0) 05/12/22 22:47 ABG Methemoglobin 0.8 % (0.0-1.5) 05/12/22 22:47 VBG pH 7.354 (7.320-7.420) 05/12/22 22:47 Oxyhemoglobin 85.4 % (95.0-99.0) L 05/12/22 22:47 FiO2 21 % 05/12/22 22:47 Sodium 137 mmol/L (137-145) D 05/16/22 09:22 Potassium 3.5 mmol/L (3.6-5.0) L 05/16/22 09:22 Chloride 107.6 mmol/L (98-107) H 05/16/22 09:22 Carbon Dioxide 18 mmol/L (22-30) L 05/16/22 09:22 Anion Gap 15 mmol/L 05/16/22 09:22 BUN 48 mg/dL (7-17) H 05/16/22 09:22 Creatinine 3.9 mg/dL (0.6-1.2) H 05/16/22 09:22 Estimated GFR 16 ml/min 05/16/22 09:22 BUN/Creatinine Ratio 12 % 05/16/22 09:22 Glucose 284 mg/dL (65-100) H 09/22/22 09:22 POC Glucose 267 mg/dL (70-105) H 05/17/22 05:20 Hemoglobin A1c 14.4 % (4-6) H 05/14/22 14:23 Ketones Quantitative Negative (Negative) 05/12/22 22:47 Lactic Acid 1.00 mmol/L (0.7-2.0) 05/14/22 04:20 Calcium 8.8 mg/dL (8.4-10.2) 05/16/22 09:22 Phosphorus 3.00 mg/dL (2.5-4.5) 05/15/22 03:48 Magnesium 2.30 mg/dL (1.7-2.3) 05/15/22 03:48 Total Bilirubin < 0.20 mg/dL (0.1-1.2) 05/16/22 09: AST 11 units/L (5-40) 05/16/22 09: ALT 11 units/L (7-56) 05/16/22 09:22 Alkaline Phosphatase 78 units/L (35-129) 05/16/22 09:22 Total Creatine Kinase 217 units/L (30-135) H 05/14/22 04:20 Troponin T 0.028 ng/mL (0.00-0.029) 05/12/22 22:47 C-Reactive Protein 1.40 mg/dL (0.00-1.30) H 05/14/22 04:20 Total Protein 5.1 g/dL (6.3-8.2) L 05/16/22 09:22 Albumin 2.7 g/dL (3.9-5) L 05/16/22 09:22 Albumin/Globulin Ratio 1.1 % 05/16/22 09:22 Procalcitonin 0.56 ng/mL (<0.15) 05/14/22 04:20 TSH 0.422 mlU/mL (0.270-4.200) 05/12/22 14:25 Free T4 1.02 ng/dL (0.76-1.46) 05/12/22 14:25 PTH Intact 149.4 pg/mL (15-65) H 05/14/22 04:20 Urine Color Yellow (Yellow) 05/12/22 19:04 Urine Turbidity Clear (Clear) 05/12/22 19:04 Specific [place] (Man) 1.015 (1.003-1.030) 05/12/22 19:04 Ur Protein (Man) 2+ mg/dL (Negative) 05/12/22 19:04 Ur Ketones (Man) Negative (Negative) 05/12/22 19:04 Ur Nitrite (Man) Negative (Negative) 05/12/22 19:04 Urine Bilirubin (Man) Negative (Negative) 05/12/22 19:04 Leukocyte Esterase (Man) Negative (Negative) 05/12/22 19:04 Urine WBC (Auto) < 1.0 /HPF (0.0-6.0) 05/12/22 19:04 Urine RBC (Auto) < 1.0 /HPF (0.0-6.0) 05/12/22 19:04 Urine RBC (Manual) 1+ (Negative) 05/12/22 19:04 Urine Creatinine 86.3 mg/dL (0.1-20.0) H 05/13/22 Unknown Protein/Creatinin Ratio 4.20 05/13/22 19:34 Urine Sodium 21 mmol/L 05/13/22 Unknown Urine Total Protein 735 mg/dL (5-11.8) H 05/13/22 19:34 CSF Appearance Clear 05/14/22 11:32 CSF Color [place] 05/14/22 11:32 CSF WBC 53 /mm3 (1-10) 05/14/22 11:32 CSF RBC 2000 /mm3 (0-0) 05/14/22 11:32 CSF Seg Neutrophils 97 % (0-6) 05/14/22 11:32 CSF Lymphocytes % 2 % (40-80) 05/14/22 11:32 CSF Reactive Lymphs 0 % 05/14/22 11:32 CSF Monocytes % 1 % (15-45) 05/14/22 11:32 CSF Eosinophils % 0 % 05/14/22 11:32 CSF Basophils 0 % 05/14/22 11:32 CSF Pathologist Review C 05/14/22 11:32 CSF Glucose 137 mg/dL 05/14/22 11:32 CSF Total Protein 32 mg/dL 05/14/22 11:32 Random Vancomycin 5.9 ug/mL (0-40.0) 05/17/22 04:00 Salicylates < 0.3 mg/dL (2.8-20.0) L 05/12/22 14:25 Urine Opiates Screen Negative 05/12/22 19:04 Urine Methadone Screen Negative 05/12/22 19:04 Acetaminophen 5.0 ug/mL (10.0-30.0) L 05/12/22 14:25 Ur Barbiturates Screen Negative 05/12/22 19:04 Ur Phencyclidine Scrn Negative 05/12/22 19:04 Ur Amphetamines Screen Negative 05/12/22 19:04 U Benzodiazepines Scrn Negative 05/12/22 19:04 Urine Cocaine Screen Negative 05/12/22 19:04 U Marijuana (THC) Screen Positive 05/12/22 19:04 Drugs of Abuse Note Disclamer 05/12/22 19:04 Plasma/Serum Alcohol < 0.01 % (0-0.07) 05/12/22 22:47 Complement C3 180 mg/dL (83-193) 05/14/22 04:20 Complement C4 43 mg/dL (15-57) 05/14/22 04:20 Coronavirus (PCR) Negative (Negative) 05/13/22 09:30 Microbiology: Microbiology 05/12/22 22:47 Peripheral/Venous Blood Culture - Preliminary NO GROWTH AFTER 4 DAYS 05/12/22 22:47 Peripheral/Venous Blood Culture - Preliminary NO GROWTH AFTER 4 DAYS Vergara/IV: Voiding Method Indwelling Catheter Active Medications - Current Medications Current Medications: Generic Name Dose Route Start Last Admin Trade Name Freq PRN Reason Stop Dose Admin Acetaminophen 650 mg 05/13/22 02:07 05/14/22 08:08 Acetaminophen 325 Mg Tab PO 650 mg Q6H PRN Administration Pain MILD(1-3)/Fever >100.5/PATINO Acetaminophen 650 mg 05/13/22 08:51 05/13/22 09:18 Acetaminophen 650 Mg Rect Supp VA 650 mg Q6H PRN Administration Pain, Mild (1-3), T> 100.5 Amlodipine Besylate 10 mg 05/13/22 12:00 05/17/22 09:36 Amlodipine 10 Mg Tab FEEDTUBE 10 mg QDAY BRAD Administration Atorvastatin Calcium 40 mg 05/16/22 22:00 05/16/22 22:25 Atorvastatin 40 Mg Tab FEEDTUBE 40 mg QHS BRAD Administration Carvedilol 25 mg 05/14/22 10:00 05/17/22 09:36 Carvedilol 25 Mg Tab FEEDTUBE 25 mg BID BRAD Administration Dextrose 0 ml 05/13/22 02:07 Dextrose 50% In Water (25gm) 50 Ml Syringe IV Q30MIN PRN Hypoglycemia Protocol Heparin Sodium (Porcine) 5,000 unit 05/13/22 06:00 05/17/22 13:00 Heparin 5,000 Unit/1 Ml Vial SUB-Q 5,000 unit Q8HR BRAD Administration Hydralazine HCl 100 mg 05/13/22 14:00 05/17/22 13:00 Hydralazine 100 Mg Tab FEEDTUBE 100 mg TID BRAD Administration Levetiracetam 1,000 mg/ 110 mls @ 400 mls/hr 05/13/22 22:00 05/17/22 09:35 Dextrose IV 05/17/22 23:59 400 mls/hr Q12HR BRAD Administration Cefepime HCl 2 gm in 100 mls @ 200 mls/hr 05/13/22 13:00 05/17/22 12:43 Cefepime/Ns 2 Gm/100 Ml IV 200 mls/hr Q24H BRAD Administration Protocol Lacosamide 100 mg/ Sodium 110 mls @ 100 mls/hr 05/13/22 23:45 05/17/22 09:35 Chloride IV 05/17/22 23:59 100 mls/hr Q12HR BRAD Administration Sodium Chloride 1,000 mls @ 75 mls/hr 05/15/22 10:00 05/16/22 23:10 Nacl 0.9% 1000 Ml IV 75 mls/hr DIRECT BRAD Administration Insulin Glargine 30 units 05/16/22 22:00 05/16/22 22:25 Insulin Glargine 100 Units/Ml SUB-Q 30 units QHS BRAD Administration Insulin Human Lispro 0 unit 05/13/22 12:00 05/17/22 12:55 Insulin Lispro 100 Unit/Ml SUB-Q 3 unit Q6HR BRAD Administration Protocol Labetalol HCl 10 mg 05/16/22 14:19 Labetalol 20 Mg/4 Ml Inj IV Q4HR PRN sbp> 160 Lacosamide 100 mg 05/18/22 10:00 Lacosamide 100 Mg Tab PO Q12HR BRAD Levetiracetam 1,000 mg 05/18/22 10:00 Levetiracetam 500 Mg Tab PO BID BRAD Lorazepam 2 mg 05/13/22 13:03 05/14/22 11:30 Lorazepam 2 Mg/Ml Vial IV 2 mg Q4H PRN Administration Seizures Magnesium Hydroxide 30 ml 05/13/22 02:07 Magnesium Hydroxide (Mom) Oral Liqd Udc PO Q4H PRN Constipation Ondansetron HCl 4 mg 05/13/22 02:07 Ondansetron 4 Mg/2 Ml Inj IV Q8H PRN Nausea And Vomiting Sodium Chloride 10 ml 05/13/22 10:00 05/17/22 09:36 Sodium Chloride 0.9% 10 Ml Flush Syringe IV 10 ml BID BRAD Administration Sodium Chloride 10 ml 05/13/22 02:07 Sodium Chloride 0.9% 10 Ml Flush Syringe IV PRN PRN LINE FLUSH Nutrition/Malnutrition Assess - Dietary Evaluation Nutrition/Malnutrition Findings: Nutrition Notes Start: 05/13/22 11:36 Freq: Status: Active Protocol: Document 05/15/22 11:17 SIOMARA (Rec: 05/15/22 11:45 SIOMARA [id number]) Nutrition Notes Initial or Follow up Reassessment Current Diagnosis Acute Kidney Injury,CKD(stage I-IV),Diabetes,Sepsis, Hypertension,Malnutrition Other Pertinent Diagnosis SIRS, r/o Meningoencephalitis, Seizures, Metabolic Acidosis, Tachycardia. Current Diet TF-Nepro w/CARBSTEADY @ 40 ml/ hr (since D 05/13). Labs/Tests 05/15: Cl 115.5, CO2 19, BUN 44, Crea 4.0, Glu 339. Pertinent Medications 05/15: Lantus 15U, Humalog 8U, others nutritionally unremarkable. Height 5 ft 7 in Weight 113 kg [place] Body Weight (kg) 61.36 BMI 38.9 Weight change and time frame No body weight change reported in 2 days. Weight Status Obese Subjective/Other Information RD consult for TF tolerance/ continuation assessment. TF continues as prescribed, and well tolerated, according to RN notes. Pt is on Room Air, O2 saturation @ 99%, according to Physical Assessment History notes. Pt is swallow impaired, according to Physical Assessment History notes, but no [employer] note available at the time and Not able to contact RN over the phone, will assess at F/U. Percent of energy/protein needs met: Prescribed TF-Nepro w/ CARBSTEADY @ 40 ml/hr provides for energy/protein needs (1, 710 Kcal/77 g) during LOS, 101 % Kcal; 100% AA. Burn Absent Trauma Absent GI Symptoms None Difficulty In Swallowing Food Allergy No Skin Integrity/Comment Assessment WNL. Current % PO Other Minimum of two criteria No Fluid Accumulation N/A Reduced [place] Breaker Strength N/A (non-severe) Protein-Calorie Malnutrition N\A #1 Nutrition Diagnosis Inadequate oral intake Comments: TF continues as prescribed, and well tolerated, according to RN notes. Diagnosis Progress(for reassessment Continues documentation) Is patient on ventilator? No Is Patient Ambulatory and/or Out of Bed No REE-([facility]-confined to bed) 2248.872 Kcal/Kg value to use for calculation 15 Approximate Energy Requirements Using 1695 kcal/Kg Calculation Used for Recommendations Kcal/kg Additional Notes Protein: 0.8-1.2 g/Kg AdjBW; 70-104 g/day. Fluids: 1 ml/Kcal, or as per MD. Nutrition Intervention Nutrition Support: Continue TF-Nepro w/CARBSTEADY @ 40 ml/hr. Flush: 170 ml water Q 4 hr, or as per MD. Kcal 1,710 Protein (gm) 77 Carbohydrates (gm) 153 Fat (gm) 91 Fluid (mL) 691 Fiber (gm) 12 % RDI: 101% Kcal; 100% AA Goal #1 Provide at least 75% of energy /protein needs through Enteral Feeding during LOS. Follow-Up By: 05/22/22 Additional Comments Continue monitoring TF tolerance, RODRÍGUEZ status, and BM.
[2022-05-17 13:32] LABS: Calcium 8.2 mg/dL (8.4-10.2)
--- NOTE | 2022-05-17 13:43 | Progress Note ---
Assessment and Plan Cultures: Blood culture no growth so far A/P: 31 yo F no PMHx now with: #SIRS/sepsis: With fevers, leukocytosis. 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 CSF with 97% neutrophils on 53 white blood cells. Probably consistent with bacterial meningitis, however elevated glucose points away from that. May be inflammatory secondary to seizures. #Seizures: Unclear etiology, awaiting MRI Recs: -Continue renally dosed cefepime -Vancomycin dosed per pharmacy. Prefer to keep due to CSF penetration, however if need be for renal preservation could find alternative. -Case management consulted for ceftriaxone 2g q12h until 05/27/2022 -OK for midline on DC. Thank you for the consult, we will continue to follow. Tahira Cabrera MD [facility] ([facility]) O: [phone] F: [phone] Subjective Date of service: 05/17/22 Principal diagnosis: HTNsive emergency with seizures; Morbid obesity; AMS; Leukocytosis; RODRÍGUEZ Interval history: Afebrile, normal white count. Cultures are negative. Imaging personally viewed: Chest x-ray: No significant pneumonia Objective - Exam Narrative Exam: Physical Exam: Constitutional: Alert, cooperative. No acute distress Head, Ears, Nose: Normocephalic, atraumatic. External ears, nose normal Eyes: Conjunctivae/corneas clear. No icterus. No ptosis. Neck: Supple, no meningeal signs Oral: dentition fair, no thrush Cardiovascular: S1, S2 normal. Respiratory: Good air entry, clear to auscultation bilaterally GI: Soft, non-tender; bowel sounds normal. No peritoneal signs. Musculoskeletal: No pedal edema, no cyanosis. Skin: No rash or abscess Hem/Lymphatic: No palpable cervical or supraclavicular nodes. No lymphangitis Psych: Mood ok. Affect normal Neurological: Awake, alert, oriented. No gross abnormality - Constitutional Vitals: Vital Signs Temp Pulse Resp BP Pulse Ox 98.8 F 80 11 L 140/84 98 05/17/22 12:00 05/17/22 12:00 05/17/22 12:00 05/17/22 12:00 05/17/22 12:00 Temperature -Last 24 Hours Temperature 98.8 F Temperature 98.5 F Temperature 98.6 F Temperature 97.6 F Temperature 98.1 F - Labs CBC & Chem 7: 05/16/22 09:22 05/17/22 12:55 Labs: Abnormal lab results 05/16/22 05/16/22 05/17/22 Range/Units 17:37 23:48 05:20 Chloride (98-107) mmol/L Carbon Dioxide (22-30) mmol/L BUN (7-17) mg/dL Creatinine (0.6-1.2) mg/dL Glucose (65-100) mg/dL POC Glucose 324 H 293 H 267 H (70-105) mg/dL Calcium (8.4-10.2) mg/dL 05/17/22 Range/Units 12:55 Chloride 107.6 H (98-107) mmol/L Carbon Dioxide 19 L (22-30) mmol/L BUN 40 H (7-17) mg/dL Creatinine 3.1 H (0.6-1.2) mg/dL Glucose 171 H (65-100) mg/dL POC Glucose (70-105) mg/dL Calcium 8.2 L (8.4-10.2) mg/dL
--- NOTE | 2022-05-17 14:35 | Progress Note ---
Assessment and Plan # Acute Kidney Injury: suspect pre-renal injury and tubular injury in setting of hyperglycemia, seizure episode, sepsis. May have CKD at baseline given DM, HTN, obesity - creatinine improving now 3.1->3.9->4.0->3.9->3.1, hopefully reached plateau with improvement in tachycardia, sepsis. Mild acidosis, hypokalemia, hypernatremia improving/stable - urinalysis noted, check UP/C, check serologies-> note ~4g proteinuria in setting of uncontrolled diabetes - CK reasonable at 217 - PTH ~140, phos/ca WNL - renal ultrasound with no acute obstruction, note potential angiomyolipoma, outpatient follow up - glucose control per primary - hold home diuretics, if having worsening respiratory status or edema, plan for IV diuretics prn only - avoid nephrotoxins - renally dose medications - I/Os- non-oliguric currently - no immediate need for kidney biopsy or renal replacement therapy # Metabolic Acidosis: note elevated lactate, no obvious ingestion, now stable # Seizure: note neurology input # HTN: BP very high initially, s/p cardene gtt, agree with current regimen # Tachycardia: HR high in setting of sepsis initially, now better, agree with carvedilol # Fever: ID input noted, note concern for infectious cause of encephalopathy, s/p LP # DM/Hyperglycemia: per primary Subjective Date of service: 05/17/22 Principal diagnosis: HTNsive emergency with seizures; Morbid obesity; AMS; Leukocytosis; RODRÍGUEZ Interval history: Resting in bed, no major changes noted, appears more awake and alert Objective - Exam Narrative Exam: General appearance: Present: no acute distress, well-nourished, obese Eyes: Present: PERRL, EOM intact ENT: dentition normal Neck: Present: supple, normal ROM Respiratory: bilateral: CTA CV: Present: S1 & S2 Extremities: no ischemia, pulses intact, pulses symmetrical, No edema General gastrointestinal: Present: soft, non-tender, non-distended, normal bowel sounds Integumentary: Present: clear, warm, dry, normal turgor. Absent: rash Musculoskeletal: generalized weakness Psychiatric: drowsy Neurologic: awake, alert - Vital Signs Vital signs: Vital Signs - 12hr 05/17/22 05/17/22 05/17/22 03:00 04:00 05:00 Temperature Pulse Rate 77 77 77 Pulse Rate [ 77 From Monitor] Respiratory 11 L 13 14 Rate Blood Pressure 143/75 122/77 146/97 O2 Sat by Pulse 94 95 96 Oximetry 05/17/22 05/17/22 05/17/22 06:00 07:00 08:00 Temperature 98.5 F Pulse Rate 74 74 74 Pulse Rate [ 85 From Monitor] Respiratory 17 11 L 12 Rate Blood Pressure 146/97 158/82 150/76 O2 Sat by Pulse 98 95 93 Oximetry 05/17/22 05/17/22 05/17/22 09:00 09:36 10:00 Temperature Pulse Rate 79 87 86 Pulse Rate [ From Monitor] Respiratory 12 19 Rate Blood Pressure 145/91 145/91 145/91 O2 Sat by Pulse 95 97 Oximetry 05/17/22 05/17/22 05/17/22 11:00 12:00 13:00 Temperature 98.8 F Pulse Rate 79 79 83 Pulse Rate [ 80 From Monitor] Respiratory 12 12 13 Rate Blood Pressure 133/88 140/84 139/94 O2 Sat by Pulse 94 96 95 Oximetry 05/17/22 14:00 Temperature Pulse Rate 87 Pulse Rate [ From Monitor] Respiratory 18 Rate Blood Pressure 139/94 O2 Sat by Pulse 97 Oximetry - Lab 05/16/22 09:22 05/17/22 12:55 Most recent lab results ABG pH 7.354 pH Units (7.350-7.450) 05/12/22 22:47 ABG pCO2 36.7 mm Hg 05/12/22 22:47 ABG pO2 55.5 mm Hg (80.0-90.0) L 05/12/22 22:47 ABG HCO3 20.0 mmol/L (20.0-26.0) 05/12/22 22:47 ABG O2 Saturation 89.0 % (95.0-99.0) L 05/12/22 22:47 Calcium 8.2 mg/dL (8.4-10.2) L 05/17/22 12:55 Phosphorus 3.00 mg/dL (2.5-4.5) 05/15/22 03:48 Magnesium 2.30 mg/dL (1.7-2.3) 05/15/22 03:48 Urine Creatinine 86.3 mg/dL (0.1-20.0) H 05/13/22 Unknown Urine Sodium 21 mmol/L 05/13/22 Unknown Urine Total Protein 735 mg/dL (5-11.8) H 05/13/22 19:34 Medications & Allergies - Medications Allergies/Adverse Reactions: Allergies No Known Allergies Allergy (Verified 05/13/22 19:13) Active Medications: Generic Name Dose Route Start Last Admin Trade Name Freq PRN Reason Stop Dose Admin Acetaminophen 650 mg 05/13/22 02:07 05/14/22 08:08 Acetaminophen 325 Mg Tab PO 650 mg Q6H PRN Administration Pain MILD(1-3)/Fever >100.5/PATINO Acetaminophen 650 mg 05/13/22 08:51 05/13/22 09:18 Acetaminophen 650 Mg Rect Supp [place] 650 mg Q6H PRN Administration Pain, Mild (1-3), T> 100.5 Amlodipine Besylate 10 mg 05/13/22 12:00 05/17/22 09:36 Amlodipine 10 Mg Tab FEEDTUBE 10 mg QDAY BRAD Administration Atorvastatin Calcium 40 mg 05/16/22 22:00 05/16/22 22:25 Atorvastatin 40 Mg Tab FEEDTUBE 40 mg QHS BRAD Administration Carvedilol 25 mg 05/14/22 10:00 05/17/22 09:36 Carvedilol 25 Mg Tab FEEDTUBE 25 mg BID BRAD Administration Dextrose 0 ml 05/13/22 02:07 Dextrose 50% In Water (25gm) 50 Ml Syringe IV Q30MIN PRN Hypoglycemia Protocol Heparin Sodium (Porcine) 5,000 unit 05/13/22 06:00 05/17/22 13:00 Heparin 5,000 Unit/1 Ml Vial SUB-Q 5,000 unit Q8HR BRAD Administration Hydralazine HCl 100 mg 05/13/22 14:00 05/17/22 13:00 Hydralazine 100 Mg Tab FEEDTUBE 100 mg TID BRAD Administration Levetiracetam 1,000 mg/ 110 mls @ 400 mls/hr 05/13/22 22:00 05/17/22 09:35 Dextrose IV 05/17/22 23:59 400 mls/hr Q12HR BRAD Administration Cefepime HCl 2 gm in 100 mls @ 200 mls/hr 05/13/22 13:00 05/17/22 12:43 Cefepime/Ns 2 Gm/100 Ml IV 200 mls/hr Q24H BRAD Administration Protocol Lacosamide 100 mg/ Sodium 110 mls @ 100 mls/hr 05/13/22 23:45 05/17/22 09:35 Chloride IV 05/17/22 23:59 100 mls/hr Q12HR BRAD Administration Sodium Chloride 1,000 mls @ 75 mls/hr 05/15/22 10:00 05/16/22 23:10 Nacl 0.9% 1000 Ml IV 75 mls/hr DIRECT BRAD Administration Insulin Glargine 40 units 05/17/22 22:00 Insulin Glargine 100 Units/Ml SUB-Q QHS BRAD Insulin Human Lispro 0 unit 05/17/22 14:00 05/17/22 14:15 Insulin Lispro 100 Unit/Ml SUB-Q Not Given Q4HR [facility] Protocol Labetalol HCl 10 mg 05/16/22 14:19 Labetalol 20 Mg/4 Ml Inj IV Q4HR PRN sbp> 160 Lacosamide 100 mg 05/18/22 10:00 Lacosamide 100 Mg Tab PO Q12HR [facility] Levetiracetam 1,000 mg 05/18/22 10:00 Levetiracetam 500 Mg Tab PO BID BRAD Lorazepam 2 mg 05/13/22 13:03 05/14/22 11:30 Lorazepam 2 Mg/Ml Vial IV 2 mg Q4H PRN Administration Seizures Magnesium Hydroxide 30 ml 05/13/22 02:07 Magnesium Hydroxide (Mom) Oral Liqd Udc PO Q4H PRN Constipation Ondansetron HCl 4 mg 05/13/22 02:07 Ondansetron 4 Mg/2 Ml Inj IV Q8H PRN Nausea And Vomiting Sodium Chloride 10 ml 05/13/22 10:00 05/17/22 09:36 Sodium Chloride 0.9% 10 Ml Flush Syringe IV 10 ml BID BRAD Administration Sodium Chloride 10 ml 05/13/22 02:07 Sodium Chloride 0.9% 10 Ml Flush Syringe IV PRN PRN LINE FLUSH
[2022-05-17 15:38] LABS: Albumin 2.5 g/dL (3.8-4.8); Gamma Globulin 0.7 g/dL (0.8-1.7)
[2022-05-17] MEDS: SODIUM CHLORIDE 0.9% 1000 ML 1,000 ML IV SCH (17:51)
[2022-05-17] MEDS: INSULIN GLARGINE 100 UNITS/ML SUB-Q SCH (22:08)
[2022-05-18 05:26] LABS: Calcium 8.1 mg/dL (8.4-10.2)
[2022-05-18] MEDS: INSULIN LISPRO 100 UNIT/ML SUB-Q SCH ×5 (07:06→23:23)
[2022-05-18] MEDS: HEPARIN 5,000 UNIT/1 ML VIAL SUB-Q SCH ×3 (07:40→23:24)
[2022-05-18] MEDS: hydrALAZINE 100 MG TAB FEEDTUBE SCH (08:00)
[2022-05-18] MEDS ORDERED: amLODIPine 10 MG TAB PO SCH (08:18)
[2022-05-18] MEDS: amLODIPine 10 MG TAB PO SCH (09:57)
[2022-05-18] MEDS: levETIRAcetam 500 MG TAB PO SCH ×2 (09:57→21:39)
[2022-05-18] MEDS: LACOSAMIDE 100 MG TAB PO SCH ×2 (09:57→21:37)
[2022-05-18] MEDS: carvediloL 25 MG TAB PO SCH ×2 (09:57→21:38)
[2022-05-18] MEDS: hydrALAZINE 100 MG TAB PO SCH ×3 (09:58→21:39)
[2022-05-18] MEDS ORDERED: VANCOMYCIN 1,500 MG in SODIUM CHLORIDE 0.9% 500 ML 500 ML IV SCH (10:00)
[2022-05-18] MEDS: SODIUM CHLORIDE 0.9% 1000 ML 1,000 ML IV SCH (10:03)
[2022-05-18] MEDS ORDERED: hydrALAZINE 20 MG/1 ML INJ IV PRN (10:20)
--- NOTE | 2022-05-18 10:24 | Progress Note ---
Assessment and Plan Assessment and plan: This is a 31-year-old female with seizures, HTN, DM and medical noncompliance who presented to emergency department on 05/13 after a seizure episode associated with progressive weakness. Per EMS patient was said to have woken up in the night had an episode of vomiting and subsequently had seizures. In the emergency department work-up showed acute kidney injury with a BUN/creatinine of 26/3.1, glucose of 580, urinalysis was unremarkable, UDS was positive for marijuana, leukocytosis at 13.1 and CXR showed no acute findings along with a CT scan. In the emergency department patient had another seizure and was given Ativan and loaded with Keppra. Patient also had BP in the 200s over 130s and was given labetalol and was started on a Cardene drip. She also had was febrile to 103 in the ED. Patient was admitted to the hospitalist service with seizure disorder, hyperglycemia, hypertensive urgency and acute kidney injury with consults to nephrology, neurology. Hospital course to date: 05/13: CCM and ID consulted. Patient had possible seizure activity and was started. Ativan. Patient had EEG today. MRI brain pending. Urine lites pending. Patient febrile started on cefepime, procalcitonin, CRP and COVID-19 PCR pending. 05/14: Patient received LP today, MRI brain without contrast, hemoglobin A1c ordered 05/15: Answers most questions correctly. s/p LP. Pattern not c/w viral meningitis. d/c acyclovir. follow CSF culture. Continue tx with cefepime IV, vancomycin IV. Nephrology following due to poor renal fx, worsened cr today to 4.0. Will continue IVF hydration. EEG pending. MRA head completed but limited study due to motion artifact...periventricular and scatter foci of deep white matter hyperintensity noted. Will follow neurology input. 05/16: Resting comfortably on encounter. Clinically improved AOX4, answers all questions appropriately. Will continue renally dosed Vancomycin IV and Cefepime IV. ID recs and nephrology recs noted. Marginal improvement in Cr: 3.9 today. 05/17: Awaiting AM labs. Patient is resting comfortably, mental status continues to be improved. PT consultation as patient needs to be more physically active. NO growth thus far on csf culture. Continue abx and antiepileptics. 9/24: Renal function remains relatively stable with creatinine at 3.2 up slightly from 3.1 yesterday. Discontinue the IV fluids at this time. Continue to hold diuresis per nephrology. We will add hydralazine as needed for better b lood pressure control. ID recommendation reviewed. Patient will need home antibiotics arranged. Expected end of antibiotics 10 3. Okay to proceed with midline and discontinue central line. Her mentation is well improved and diet has been adjusted to regular diet. Assessment and Plan: Neuro: Seizures, h/o seizure disorder, noncompliance, Meningoencephalitis POA -Loaded with Keppra in ED -Keppra IV + vimpat -Reorientation as needed -Maintain sleep-wake cycle -aspiration/seizure precautions -As needed analgesia -CT head shows no acute intracranial abnormality -MRI brain and MRA V pending -EEG pending -LP 05/14 (opening pressure 100) -Neurology consulted, appreciate recommendations Cardiac: Hypertensive urgency, h/o hypertension -Cardiology consulted, appreciate recommendations -Blood pressure monitoring per protocol -s/p Cardene drip -Started on amlodipine, hydralazine Respiratory: NAD -Pulmonary hygiene -SPO2 monitor per protocol GI: Morbid obesity, moderate protein calorie malnutrition -PPI -NTR consulted for tube feedings : Acute kidney injury (pre renal/ATN/maybe CKD component) , metabolic acidosis -Nephrology consulted, appreciate recommendations -Monitor intake and output -Renally dose medications -Avoid nephrotoxic medications -FeNa 0.56% -Renal ultrasound shows normal-sized but echogenic kidneys consistent with medical renal disease, no hydronephrosis, 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 -COVID-19 PCR negative -f/u blood culture -Monitor WBC and temperature curve Endo: Hyperglycemia, h/o DM -Avoid hypoglycemia -SSI -Accu-Cheks q. every 6 -Long-acting insulin, titrate as neede -Hemoglobin A1c 14.4 Heme: Leukocytosis -Trend CBC -Transfuse hemoglobin less than 7 -SCDs to BLE while in bed History Interval history: Patient seen and examined this morning no new complaints. Nursing staff reported the blood pressures are elevated. Hospitalist Physical - Physical exam Narrative exam: General appearance: Present: No acute distress noted - EENT Eyes: Present: PERRL ENT: hearing intact, clear oral mucosa - Neck Neck: Present: supple, normal ROM, masses or JVD. central line in right neck IJ - Respiratory Respiratory effort: normal Respiratory: bilateral: CTA - Cardiovascular Heart Sounds: Present: S1 & S2. Absent: rub, click - Extremities Extremities: pulses symmetrical, No edema Extremity abnormal: edema Peripheral Pulses: within normal limits - Abdominal General gastrointestinal: Present: soft, non-tender, non-distended, normal bowel sounds Male genitourinary: Present: normal - Integumentary Integumentary: Present: clear, warm, dry - Musculoskeletal Musculoskeletal: gait normal, strength equal bilaterally - Psychiatric Psychiatric: appropriate mood/affect, intact judgment & insight - Neurologic Neurologic: CNII-XII intact, moves all extremities - Constitutional Vitals: Temp Pulse Resp BP Pulse Ox 97.5 F L 86 20 161/73 100 05/18/22 05:58 05/18/22 05:58 05/18/22 05:58 05/18/22 07:14 05/18/22 05:58 General appearance: Present: no acute distress, well-nourished, obese HEART Score - HEART Score Troponin: Troponin T 0.028 ng/mL (0.00-0.029) 05/12/22 22:47 Results - Labs CBC & Chem 7: 05/16/22 09:22 05/18/22 04:35 Labs: Laboratory Last Values WBC 10.9 K/mm3 (4.5-11.0) 05/16/22 09: RBC 4.56 M/mm3 (3.65-5.03) 05/16/22 09: Hgb 11.2 gm/dl (10.1-14.3) 05/16/22: Hct 35.3 % (30.3-42.9) 05/16/22: MCV 77 fl (79-97) L 05/16/22 09: MCH 25 pg (28-32) L 05/16/22 09: MCHC 32 % (30-34) 05/16/22 09: RDW 17.0 % (13.2-15.2) H 05/16/22 09:22 Plt Count 227 K/mm3 (140-440) 09/22/22 09:22 Lymph % (Auto) 16.7 % (13.4-35.0) 05/16/22 09:22 [place] % (Auto) 9.9 % (0.0-7.3) H 05/16/22 09:22 Eos % (Auto) 1.4 % (0.0-4.3) 05/16/22 09:22 Baso % (Auto) 1.8 % (0.0-1.8) 05/16/22 09:22 Lymph # (Auto) 1.8 K/mm3 (1.2-5.4) 05/16/22 09:22 [place] # (Auto) 1.1 K/mm3 (0.0-0.8) H 05/16/22 09:22 Eos # (Auto) 0.2 K/mm3 (0.0-0.4) 05/16/22 09:22 Baso # (Auto) 0.2 K/mm3 (0.0-0.1) H 05/16/22 09:22 Add Manual Diff Complete 05/12/22 22:47 Total Counted 100 05/12/22 22:47 Seg Neutrophils % 70.2 % (40.0-70.0) H 05/16/22 09:22 Seg Neuts % (Manual) 85.0 % (40.0-70.0) H 05/12/22 22:47 Band Neutrophils % 0 % 05/12/22 22:47 Lymphocytes % (Manual) 7.0 % (13.4-35.0) L 05/12/22 22:47 Reactive Lymphs % (Man) 0 % 05/12/22 22:47 Monocytes % (Manual) 8.0 % (0.0-7.3) H 05/12/22 22:47 Eosinophils % (Manual) 0 % (0.0-4.3) 05/12/22 22:47 Basophils % (Manual) 0 % (0.0-1.8) 05/12/22 22:47 Metamyelocytes % 0 % 05/12/22 22:47 Myelocytes % 0 % 05/12/22 22:47 Promyelocytes % 0 % 05/12/22 22:47 Blast Cells % 0 % 05/12/22 22:47 Nucleated RBC % Not Reportable 05/12/22 22:47 Seg Neutrophils # 7.7 K/mm3 (1.8-7.7) 05/16/22 09:22 Seg Neutrophils # Man 13.1 K/mm3 (1.8-7.7) H 05/12/22 22:47 Band Neutrophils # 0.0 K/mm3 05/12/22 22:47 Lymphocytes # (Manual) 1.1 K/mm3 (1.2-5.4) L 05/12/22 22:47 Abs React Lymphs (Man) 0.0 K/mm3 05/12/22 22:47 Monocytes # (Manual) 1.2 K/mm3 (0.0-0.8) H 05/12/22 22:47 Eosinophils # (Manual) 0.0 K/mm3 (0.0-0.4) 05/12/22 22:47 Basophils # (Manual) 0.0 K/mm3 (0.0-0.1) 05/12/22 22:47 Metamyelocytes # 0.0 K/mm3 05/12/22 22:47 Myelocytes # 0.0 K/mm3 05/12/22 22:47 Promyelocytes # 0.0 K/mm3 05/12/22 22:47 Blast Cells # 0.0 K/mm3 05/12/22 22:47 WBC Morphology Not Reportable 05/12/22 22:47 Hypersegmented Neuts Not Reportable 05/12/22 22:47 Hyposegmented Neuts Not Reportable 05/12/22 22:47 Hypogranular Neuts Not Reportable 05/12/22 22:47 Smudge Cells Not Reportable 05/12/22 22:47 Toxic Granulation Not Reportable 05/12/22 22:47 Toxic Vacuolation Not Reportable 05/12/22 22:47 Dohle Bodies Not Reportable 05/12/22 22:47 Pelger-Huet Anomaly Not Reportable 05/12/22 22:47 Tima Rods Not Reportable 05/12/22 22:47 Platelet Estimate Consistent w auto 05/12/22 22:47 Clumped Platelets Not Reportable 05/12/22 22:47 Plt Clumps, EDTA Not Reportable 05/12/22 22:47 Large Platelets Not Reportable 05/12/22 22:47 Giant Platelets Not Reportable 05/12/22 22:47 Platelet Satelliting Not Reportable 05/12/22 22:47 Plt Morphology Comment Not Reportable 05/12/22 22:47 RBC Morphology Not Reportable 05/12/22 22:47 Dimorphic RBCs Not Reportable 05/12/22 22:47 Polychromasia Not Reportable 05/12/22 22:47 Hypochromasia 1+ 05/12/22 22:47 Poikilocytosis Not Reportable 05/12/22 22:47 Anisocytosis Not Reportable 05/12/22 22:47 Microcytosis Not Reportable 05/12/22 22:47 Macrocytosis Not Reportable 05/12/22 22:47 Spherocytes Not Reportable 05/12/22 22:47 Pappenheimer Bodies Not Reportable 05/12/22 22:47 Sickle Cells Not Reportable 05/12/22 22:47 Target Cells Not Reportable 05/12/22 22:47 Tear Drop Cells Not Reportable 05/12/22 22:47 Ovalocytes Not Reportable 05/12/22 22:47 Helmet Cells Not Reportable 05/12/22 22:47 [place] Bodies Not Reportable 05/12/22 22:47 Bellamy Rings Not Reportable 05/12/22 22:47 Imelda Cells Not Reportable 05/12/22 22:47 Bite Cells Not Reportable 05/12/22 22:47 Crenated Cell Not Reportable 05/12/22 22:47 Elliptocytes Not Reportable 05/12/22 22:47 Acanthocytes (Spur) Not Reportable 05/12/22 22:47 Rouleaux Not Reportable 05/12/22 22:47 Hemoglobin C Crystals Not Reportable 05/12/22 22:47 Schistocytes Not Reportable 05/12/22 22:47 Malaria parasites Not Reportable 05/12/22 22:47 Jesse Bodies Not Reportable 05/12/22 22:47 Hem Pathologist Commnt No 05/12/22 22:47 PT 16.8 Sec. (12.2-14.9) H 05/12/22 14:25 INR 1.22 (0.87-1.13) H 05/12/22 14:25 APTT 29.6 Sec. (24.2-36.6) 05/12/22 14:25 ABG pH 7.354 pH Units (7.350-7.450) 05/12/22 22:47 ABG pCO2 36.7 mm Hg 05/12/22 22:47 ABG pO2 55.5 mm Hg (80.0-90.0) L 05/12/22 22:47 ABG HCO3 20.0 mmol/L (20.0-26.0) 05/12/22 22:47 ABG O2 Saturation 89.0 % (95.0-99.0) L 05/12/22 22:47 ABG O2 Content 16.6 (0.0-44) 05/12/22 22:47 ABG Base Excess -4.9 mmol/L (-2.0-3.0) L 05/12/22 22:47 ABG Hemoglobin 13.8 gm/dl (12.0-16.0) 05/12/22 22:47 ABG Carboxyhemoglobin 3.2 % (0.0-5.0) 05/12/22 22:47 ABG Methemoglobin 0.8 % (0.0-1.5) 05/12/22 22:47 VBG pH 7.354 (7.320-7.420) 05/12/22 22:47 Oxyhemoglobin 85.4 % (95.0-99.0) L 05/12/22 22:47 FiO2 21 % 05/12/22 22:47 Sodium 136 mmol/L (137-145) L 05/18/22 04:35 Potassium 3.6 mmol/L (3.6-5.0) 05/18/22 04:35 Chloride 106.4 mmol/L (98-107) 05/18/22 04:35 Carbon Dioxide 18 mmol/L (22-30) L 05/18/22 04:35 Anion Gap 15 mmol/L 05/18/22 04:35 BUN 39 mg/dL (7-17) H 05/18/22 04:35 Creatinine 3.2 mg/dL (0.6-1.2) H 05/18/22 04:35 Estimated GFR 20 ml/min 05/18/22 04:35 BUN/Creatinine Ratio 12 % 05/18/22 04:35 Glucose 202 mg/dL (65-100) H 05/18/22 04:35 POC Glucose 270 mg/dL (70-105) H 05/17/22 23:13 Hemoglobin A1c 14.4 % (4-6) H 05/14/22 14:23 Ketones Quantitative Negative (Negative) 05/12/22 22:47 Lactic Acid 1.00 mmol/L (0.7-2.0) 05/14/22 04:20 Calcium 8.1 mg/dL (8.4-10.2) L 05/18/22 04:35 Phosphorus 3.00 mg/dL (2.5-4.5) 05/15/22 03:48 Magnesium 2.30 mg/dL (1.7-2.3) 05/15/22 03:48 Total Bilirubin < 0.20 mg/dL (0.1-1.2) 05/16/22 09:22 AST 11 units/L (5-40) 05/16/22 09:22 ALT 11 units/L (7-56) 05/16/22 09:22 Alkaline Phosphatase 78 units/L (35-129) 05/16/22 09:22 Total Creatine Kinase 217 units/L (30-135) H 05/14/22 04:20 Troponin T 0.028 ng/mL (0.00-0.029) 05/12/22 22:47 C-Reactive Protein 1.40 mg/dL (0.00-1.30) H 05/14/22 04:20 Serum Total Protein 5.5 g/dL (6.1-8.1) L 05/14/22 04:20 Total Protein 5.1 g/dL (6.3-8.2) L 05/16/22 09:22 Albumin 2.7 g/dL (3.9-5) L 05/16/22 09:22 Albumin/Globulin Ratio 1.1 % 05/16/22 09:22 Tngwd-7-Lngizgubs 0.3 g/dL (0.2-0.3) 05/14/22 04:20 Tdnrr-5-Pucsfthul 1.2 g/dL (0.5-0.9) H 05/14/22 04:20 Beta Globulins 0.4 g/dL (0.2-0.5) 05/14/22 04:20 Gamma Globulins 0.7 g/dL (0.8-1.7) L 05/14/22 04:20 Abnorm Protein Band 1 see below 05/14/22 04:20 PEP Interpretation see below H 05/14/22 04:20 Procalcitonin 0.56 ng/mL (<0.15) 05/14/22 04:20 TSH 0.422 mlU/mL (0.270-4.200) 05/12/22 14:25 Free T4 1.02 ng/dL (0.76-1.46) 05/12/22 14:25 PTH Intact 149.4 pg/mL (15-65) H 05/14/22 04:20 Urine Color Yellow (Yellow) 05/12/22 19:04 Urine Turbidity Clear (Clear) 05/12/22 19:04 Specific [place] (Man) 1.015 (1.003-1.030) 05/12/22 19:04 Ur Protein (Man) 2+ mg/dL (Negative) 05/12/22 19:04 Ur Ketones (Man) Negative (Negative) 05/12/22 19:04 Ur Nitrite (Man) Negative (Negative) 05/12/22 19:04 Urine Bilirubin (Man) Negative (Negative) 05/12/22 19:04 Leukocyte Esterase (Man) Negative (Negative) 05/12/22 19:04 Urine WBC (Auto) < 1.0 /HPF (0.0-6.0) 05/12/22 19:04 Urine RBC (Auto) < 1.0 /HPF (0.0-6.0) 05/12/22 19:04 Urine RBC (Manual) 1+ (Negative) 05/12/22 19:04 Urine Creatinine 86.3 mg/dL (0.1-20.0) H 05/13/22 Unknown Protein/Creatinin Ratio 4.20 05/13/22 19:34 Urine Sodium 21 mmol/L 05/13/22 Unknown Urine Total Protein 735 mg/dL (5-11.8) H 05/13/22 19:34 CSF Appearance Clear 05/14/22 11:32 CSF Color [place] 05/14/22 11:32 CSF WBC 53 /mm3 (1-10) 05/14/22 11:32 CSF RBC 2000 /mm3 (0-0) 05/14/22 11:32 CSF Seg Neutrophils 97 % (0-6) 05/14/22 11:32 CSF Lymphocytes % 2 % (40-80) 05/14/22 11:32 CSF Reactive Lymphs 0 % 05/14/22 11:32 CSF Monocytes % 1 % (15-45) 05/14/22 11:32 CSF Eosinophils % 0 % 05/14/22 11:32 CSF Basophils 0 % 05/14/22 11:32 CSF Pathologist Review C 05/14/22 11:32 CSF Glucose 137 mg/dL 05/14/22 11:32 CSF Total Protein 32 mg/dL 05/14/22 11:32 Random Vancomycin 5.9 ug/mL (0-40.0) 05/17/22 04:00 Salicylates < 0.3 mg/dL (2.8-20.0) L 05/12/22 14:25 Urine Opiates Screen Negative 05/12/22 19:04 Urine Methadone Screen Negative 05/12/22 19:04 Acetaminophen 5.0 ug/mL (10.0-30.0) L 05/12/22 14:25 Ur Barbiturates Screen Negative 05/12/22 19:04 Ur Phencyclidine Scrn Negative 05/12/22 19:04 Ur Amphetamines Screen Negative 05/12/22 19:04 U Benzodiazepines Scrn Negative 05/12/22 19:04 Urine Cocaine Screen Negative 05/12/22 19:04 U Marijuana (THC) Screen Positive 05/12/22 19:04 Drugs of Abuse Note Disclamer 05/12/22 19:04 Plasma/Serum Alcohol < 0.01 % (0-0.07) 05/12/22 22:47 Complement C3 180 mg/dL (83-193) 05/14/22 04:20 Complement C4 43 mg/dL (15-57) 05/14/22 04:20 Coronavirus (PCR) Negative (Negative) 05/13/22 09:30 Microbiology: Microbiology 05/12/22 22:47 Peripheral/Venous Blood Culture - Final NO GROWTH AFTER 5 DAYS 05/12/22 22:47 Peripheral/Venous Blood Culture - Final NO GROWTH AFTER 5 DAYS Vergara/IV: Voiding Method Indwelling Catheter Active Medications - Current Medications Current Medications: Generic Name Dose Route Start Last Admin Trade Name Freq PRN Reason Stop Dose Admin Acetaminophen 650 mg 05/13/22 02:07 05/14/22 08:08 Acetaminophen 325 Mg Tab PO 650 mg Q6H PRN Administration Pain MILD(1-3)/Fever >100.5/PATINO Amlodipine Besylate 10 mg 05/18/22 10:00 05/18/22 09:57 Amlodipine 10 Mg Tab PO 10 mg QDAY@1000 BRAD Administration Atorvastatin Calcium 40 mg 05/18/22 22:00 Atorvastatin 40 Mg Tab PO QHS BRAD Carvedilol 25 mg 05/18/22 10:00 05/18/22 09:57 Carvedilol 25 Mg Tab PO 25 mg BID BRAD Administration Dextrose 0 ml 05/13/22 02:07 Dextrose 50% In Water (25gm) 50 Ml Syringe IV Q30MIN PRN Hypoglycemia Protocol Heparin Sodium (Porcine) 5,000 unit 05/13/22 06:00 05/18/22 07:40 Heparin 5,000 Unit/1 Ml Vial SUB-Q 5,000 unit Q8HR BRAD Administration Hydralazine HCl 100 mg 05/18/22 09:00 05/18/22 09:58 Hydralazine 100 Mg Tab PO 100 mg TID BRAD Administration Hydralazine HCl 10 mg 05/18/22 10:20 Hydralazine 20 Mg/1 Ml Inj IV Q4HR PRN Hypertension Vancomycin HCl 1,500 mg/ 530 mls @ 333.333 mls/hr 05/18/22 10:00 05/18/22 09:52 Sodium Chloride IV 05/18/22 14:00 333.333 mls/hr ONCE@1000 BRAD Administration Cefepime HCl 2 gm in 100 mls @ 200 mls/hr 05/18/22 12:00 Cefepime/Ns 2 Gm/100 Ml IV Q12H [facility] Protocol Insulin Glargine 40 units 05/17/22 22:00 05/17/22 22:08 Insulin Glargine 100 Units/Ml SUB-Q 40 units QHS BRAD Administration Insulin Human Lispro 0 unit 05/18/22 11:30 Insulin Lispro 100 Unit/Ml SUB-Q ACHS [facility] Protocol Labetalol HCl 10 mg 05/16/22 14:19 05/18/22 07:14 Labetalol 20 Mg/4 Ml Inj IV 10 mg Q4HR PRN Administration sbp> 160 Lacosamide 100 mg 05/18/22 10:00 05/18/22 09:57 Lacosamide 100 Mg Tab PO 100 mg Q12HR BRAD Administration Levetiracetam 1,000 mg 05/18/22 10:00 05/18/22 09:57 Levetiracetam 500 Mg Tab PO 1,000 mg BID BRAD Administration Lorazepam 2 mg 05/13/22 13:03 05/14/22 11:30 Lorazepam 2 Mg/Ml Vial IV 2 mg Q4H PRN Administration Seizures Magnesium Hydroxide 30 ml 05/13/22 02:07 Magnesium Hydroxide (Mom) Oral Liqd Udc PO Q4H PRN Constipation Ondansetron HCl 4 mg 05/13/22 02:07 Ondansetron 4 Mg/2 Ml Inj IV Q8H PRN Nausea And Vomiting Sodium Chloride 10 ml 05/13/22 10:00 05/18/22 10:05 Sodium Chloride 0.9% 10 Ml Flush Syringe IV 10 ml BID BRAD Administration Sodium Chloride 10 ml 05/13/22 02:07 Sodium Chloride 0.9% 10 Ml Flush Syringe IV PRN PRN LINE FLUSH Nutrition/Malnutrition Assess - Dietary Evaluation Nutrition/Malnutrition Findings: Nutrition Notes Start: 05/13/22 11:36 Freq: Status: Active Protocol: Document 05/15/22 11:17 SIOMARA (Rec: 05/15/22 11:45 SIOMARA [id number]) Nutrition Notes Initial or Follow up Reassessment Current Diagnosis Acute Kidney Injury,CKD(stage I-IV),Diabetes,Sepsis, Hypertension,Malnutrition Other Pertinent Diagnosis SIRS, r/o Meningoencephalitis, Seizures, Metabolic Acidosis, Tachycardia. Current Diet TF-Nepro w/CARBSTEADY @ 40 ml/ hr (since D 05/13). Labs/Tests 05/15: Cl 115.5, CO2 19, BUN 44, Crea 4.0, Glu 339. Pertinent Medications 05/15: Lantus 15U, Humalog 8U, others nutritionally unremarkable. Height 5 ft 7 in Weight 113 kg [place] Body Weight (kg) 61.36 BMI 38.9 Weight change and time frame No body weight change reported in 2 days. Weight Status Obese Subjective/Other Information RD consult for TF tolerance/ continuation assessment. TF continues as prescribed, and well tolerated, according to RN notes. Pt is on Room Air, O2 saturation @ 99%, according to Physical Assessment History notes. Pt is swallow impaired, according to Physical Assessment History notes, but no USER EXPERIENCE DEVELOPER note available at the time and Not able to contact RN over the phone, will assess at F/U. Percent of energy/protein needs met: Prescribed TF-Nepro w/ CARBSTEADY @ 40 ml/hr provides for energy/protein needs (1, 710 Kcal/77 g) during LOS, 101 % Kcal; 100% AA. Burn Absent Trauma Absent GI Symptoms None Difficulty In Swallowing Food Allergy No Skin Integrity/Comment Assessment WNL. Current % PO Other Minimum of two criteria No Fluid Accumulation N/A Reduced Quality Consultant Strength N/A (non-severe) Protein-Calorie Malnutrition N\A #1 Nutrition Diagnosis Inadequate oral intake Comments: TF continues as prescribed, and well tolerated, according to RN notes. Diagnosis Progress(for reassessment Continues documentation) Is patient on ventilator? No Is Patient Ambulatory and/or Out of Bed No REE-([facility]-confined to bed) 2248.872 Kcal/Kg value to use for calculation 15 Approximate Energy Requirements Using 1695 kcal/Kg Calculation Used for Recommendations Kcal/kg Additional Notes Protein: 0.8-1.2 g/Kg AdjBW; 70-104 g/day. Fluids: 1 ml/Kcal, or as per MD. Nutrition Intervention Nutrition Support: Continue TF-Nepro w/CARBSTEADY @ 40 ml/hr. Flush: 170 ml water Q 4 hr, or as per MD. Kcal 1,710 Protein (gm) 77 Carbohydrates (gm) 153 Fat (gm) 91 Fluid (mL) 691 Fiber (gm) 12 % RDI: 101% Kcal; 100% AA Goal #1 Provide at least 75% of energy /protein needs through Enteral Feeding during LOS. Follow-Up By: 05/22/22 Additional Comments Continue monitoring TF tolerance, [id number] status, and BM.
[2022-05-18] MEDS ORDERED: CEFEPIME/NS 2 GM/100 ML 2 GM/100 ML BAG IV SCH (12:00)
--- NOTE | 2022-05-18 13:02 | Progress Note ---
Assessment and Plan Hypertensive emergency with seizures H/O Seizures Morbid obesity Acute toxic metabolic encephalopathy Leukocytosis Acute kidney injury possibly on chronic Lactic acidosis Hyperglycemia Pyrexia - discontinue RIJ CVL, place midline or peripheral IVs -Antibiotics and antiinfective per ID - continue accuchecks with glycemic control per SSI for target blood glucose of < 180 mg/dL; avoid hypoglycemia - prn supplemental oxygen, keep SpO2 90-92% - prn bronchodilators with pulmonary hygiene per RT - prn analgesia per pain score - Maintenance of sleep-wake cycle, avoid delirium - VTE prophylaxis - PT/OT/ROM exercises - Monitor hemodynamics closely - continue other care per attending / other consultants - discharge planning Subjective Date of service: 05/18/22 Principal diagnosis: HTNsive emergency with seizures; Morbid obesity; AMS; Leukocytosis; RODRÍGUEZ Interval history: Patient is seen today for: HTNsive emergency with seizures; Morbid obesity; AMS; Leukocytosis; RODRÍGUEZ; Lactic acidosis Seen and examined at bedside; 24hour events reviewed; nursing and respiratory care staff consulted; no adverse overnight events reported to me; resting peacefully in bed; no emesis or overt aspiration; afebrile; denies any chest pain, no shortness of breath Objective Vital Signs - 12hr 05/18/22 05/18/22 05/18/22 05:58 07:14 11:59 Temperature 97.5 F L 98.0 F Pulse Rate 86 88 Respiratory 20 20 Rate Blood Pressure 161/93 161/73 131/80 O2 Sat by Pulse 100 98 Oximetry Constitutional: no acute distress, alert, other (young obese female with mildly increased respiratory effort at rest) Eyes: non-icteric ENT: oropharynx moist Neck: supple, no lymphadenopathy, no JVD, other (large circumference, RIJ CVL) Effort: mildly labored Ascultation: Bilateral: clear, diminished breath sounds Percussion: Bilateral: not dull Cardiovascular: regular rate and rhythm, other (S1.S2) Gastrointestinal: normoactive bowel sounds, soft, non-tender, non-distended (protuberant) Integumentary: normal Extremities: no cyanosis, no edema, pulses normal, no ischemia or petechiae Neurologic: normal mental status, non-focal exam (grossly), pupils equal and round, CN II-XII normal, motor strength normal and Psychiatric: mood appropriate, affect normal CBC and BMP: 05/19/22 05:02 05/19/22 05:02 ABG, PT/INR, D-dimer: ABG ABG pH 7.354 pH Units (7.350-7.450) 05/12/22 22:47 ABG pCO2 36.7 mm Hg 05/12/22 22:47 ABG pO2 55.5 mm Hg (80.0-90.0) L 05/12/22 22:47 ABG O2 Saturation 89.0 % (95.0-99.0) L 05/12/22 22:47 PT/INR, D-dimer PT 16.8 Sec. (12.2-14.9) H 05/12/22 14:25 INR 1.22 (0.87-1.13) H 05/12/22 14:25 Abnormal lab findings: Abnormal Labs 05/12/22 05/12/22 05/12/22 14:25 14:25 14:25 WBC 13.1 H RBC 5.37 H MCV 78 L MCH 25 L RDW 16.2 H Lymph % (Auto) [place] % (Auto) [place] # (Auto) Baso # (Auto) Seg Neutrophils % Seg Neuts % (Manual) 88.0 H Lymphocytes % (Manual) 7.0 L Monocytes % (Manual) Seg Neutrophils # Seg Neutrophils # Man 11.5 H Lymphocytes # (Manual) 0.9 L Monocytes # (Manual) PT 16.8 H INR 1.22 H ABG pO2 ABG O2 Saturation ABG Base Excess Oxyhemoglobin Sodium Potassium Chloride Carbon Dioxide 18 L BUN 26 H Creatinine 3.1 H Glucose 580 H* POC Glucose Hemoglobin A1c Lactic Acid Calcium Total Creatine Kinase C-Reactive Protein Serum Total Protein Total Protein 6.2 L Albumin 3.3 L Ycjrf-7-Yuanvefbg Gamma Globulins PEP Interpretation PTH Intact Urine Creatinine Urine Total Protein Salicylates Acetaminophen 05/12/22 05/12/22 05/12/22 14:25 14:25 14:25 WBC RBC MCV MCH RDW Lymph % (Auto) [place] % (Auto) [place] # (Auto) Baso # (Auto) Seg Neutrophils % Seg Neuts % (Manual) Lymphocytes % (Manual) Monocytes % (Manual) Seg Neutrophils # Seg Neutrophils # Man Lymphocytes # (Manual) Monocytes # (Manual) PT INR ABG pO2 ABG O2 Saturation ABG Base Excess Oxyhemoglobin Sodium Potassium Chloride Carbon Dioxide BUN Creatinine Glucose POC Glucose Hemoglobin A1c Lactic Acid 2.80 H* Calcium Total Creatine Kinase C-Reactive Protein Serum Total Protein Total Protein Albumin Rpfxv-8-Tmbziunny Gamma Globulins PEP Interpretation PTH Intact Urine Creatinine Urine Total Protein Salicylates < 0.3 L Acetaminophen 5.0 L 05/12/22 05/12/22 05/12/22 22:47 22:47 22:47 WBC 15.4 H RBC 5.42 H MCV 77 L MCH 24 L RDW 16.3 H Lymph % (Auto) [place] % (Auto) [place] # (Auto) Baso # (Auto) Seg Neutrophils % Seg Neuts % (Manual) 85.0 H Lymphocytes % (Manual) 7.0 L Monocytes % (Manual) 8.0 H Seg Neutrophils # Seg Neutrophils # Man 13.1 H Lymphocytes # (Manual) 1.1 L Monocytes # (Manual) 1.2 H PT INR ABG pO2 ABG O2 Saturation ABG Base Excess Oxyhemoglobin Sodium Potassium Chloride 110.1 H Carbon Dioxide 19 L BUN 27 H Creatinine 3.3 H Glucose 361 H POC Glucose Hemoglobin A1c Lactic Acid 2.70 H* Calcium Total Creatine Kinase C-Reactive Protein Serum Total Protein Total Protein Albumin 3.3 L Wnqiz-9-Guawcbenl Gamma Globulins PEP Interpretation PTH Intact Urine Creatinine Urine Total Protein Salicylates Acetaminophen 05/12/22 05/13/22 05/13/22 22:47 01:53 06:30 WBC RBC MCV MCH RDW Lymph % (Auto) [place] % (Auto) [place] # (Auto) Baso # (Auto) Seg Neutrophils % Seg Neuts % (Manual) Lymphocytes % (Manual) Monocytes % (Manual) Seg Neutrophils # Seg Neutrophils # Man Lymphocytes # (Manual) Monocytes # (Manual) PT INR ABG pO2 55.5 L ABG O2 Saturation 89.0 L ABG Base Excess -4.9 L Oxyhemoglobin 85.4 L Sodium Potassium Chloride Carbon Dioxide BUN Creatinine Glucose POC Glucose 511 H Hemoglobin A1c Lactic Acid 2.30 H* Calcium Total Creatine Kinase C-Reactive Protein Serum Total Protein Total Protein Albumin Tvlbs-1-Ymdrckrkj Gamma Globulins PEP Interpretation PTH Intact Urine Creatinine Urine Total Protein Salicylates Acetaminophen 05/13/22 05/13/22 05/13/22 10:27 11:33 16:12 WBC RBC MCV MCH RDW Lymph % (Auto) [place] % (Auto) [place] # (Auto) Baso # (Auto) Seg Neutrophils % Seg Neuts % (Manual) Lymphocytes % (Manual) Monocytes % (Manual) Seg Neutrophils # Seg Neutrophils # Man Lymphocytes # (Manual) Monocytes # (Manual) PT INR ABG pO2 ABG O2 Saturation ABG Base Excess Oxyhemoglobin Sodium Potassium Chloride Carbon Dioxide BUN Creatinine Glucose POC Glucose 492 H 500 H 331 H Hemoglobin A1c Lactic Acid Calcium Total Creatine Kinase C-Reactive Protein Serum Total Protein Total Protein Albumin Nislm-2-Gcxatxnoy Gamma Globulins PEP Interpretation PTH Intact Urine Creatinine Urine Total Protein Salicylates Acetaminophen 05/13/22 05/13/22 05/13/22 19:34 21:55 23:50 WBC RBC MCV MCH RDW Lymph % (Auto) [place] % (Auto) [place] # (Auto) Baso # (Auto) Seg Neutrophils % Seg Neuts % (Manual) Lymphocytes % (Manual) Monocytes % (Manual) Seg Neutrophils # Seg Neutrophils # Man Lymphocytes # (Manual) Monocytes # (Manual) PT INR ABG pO2 ABG O2 Saturation ABG Base Excess Oxyhemoglobin Sodium Potassium Chloride Carbon Dioxide BUN Creatinine Glucose POC Glucose 268 H 256 H Hemoglobin A1c Lactic Acid Calcium Total Creatine Kinase C-Reactive Protein Serum Total Protein Total Protein Albumin Kmglc-8-Rkhxbjybm Gamma Globulins PEP Interpretation PTH Intact Urine Creatinine 174.8 H Urine Total Protein 735 H Salicylates Acetaminophen 05/13/22 05/14/22 05/14/22 Unknown 04:20 04:20 WBC 18.3 H RBC MCV 78 L MCH 24 L RDW 16.6 H Lymph % (Auto) 12.1 L [place] % (Auto) 11.6 H [place] # (Auto) 2.1 H Baso # (Auto) 0.2 H Seg Neutrophils % 75.0 H Seg Neuts % (Manual) Lymphocytes % (Manual) Monocytes % (Manual) Seg Neutrophils # 13.7 H Seg Neutrophils # Man Lymphocytes # (Manual) Monocytes # (Manual) PT INR ABG pO2 ABG O2 Saturation ABG Base Excess Oxyhemoglobin Sodium 146 H Potassium 3.4 L Chloride 115.1 H Carbon Dioxide 17 L BUN 35 H Creatinine 3.9 H Glucose 224 H POC Glucose Hemoglobin A1c Lactic Acid Calcium Total Creatine Kinase C-Reactive Protein 1.40 H Serum Total Protein Total Protein Albumin Usgtf-4-Tlbkmqazq Gamma Globulins PEP Interpretation PTH Intact Urine Creatinine 86.3 H Urine Total Protein Salicylates Acetaminophen 05/14/22 05/14/22 05/14/22 04:20 04:20 04:20 WBC RBC MCV MCH RDW Lymph % (Auto) [place] % (Auto) [place] # (Auto) Baso # (Auto) Seg Neutrophils % Seg Neuts % (Manual) Lymphocytes % (Manual) Monocytes % (Manual) Seg Neutrophils # Seg Neutrophils # Man Lymphocytes # (Manual) Monocytes # (Manual) PT INR ABG pO2 ABG O2 Saturation ABG Base Excess Oxyhemoglobin Sodium Potassium Chloride Carbon Dioxide BUN Creatinine Glucose POC Glucose Hemoglobin A1c Lactic Acid Calcium Total Creatine Kinase 217 H C-Reactive Protein Serum Total Protein 5.5 L Total Protein Albumin 2.5 L Krfqe-9-Kmbjwuvcj 1.2 H Gamma Globulins 0.7 L PEP Interpretation see below H PTH Intact 149.4 H Urine Creatinine Urine Total Protein Salicylates Acetaminophen 05/14/22 05/14/22 05/14/22 06:10 07:23 13:25 WBC RBC MCV MCH RDW Lymph % (Auto) [place] % (Auto) [place] # (Auto) Baso # (Auto) Seg Neutrophils % Seg Neuts % (Manual) Lymphocytes % (Manual) Monocytes % (Manual) Seg Neutrophils # Seg Neutrophils # Man Lymphocytes # (Manual) Monocytes # (Manual) PT INR ABG pO2 ABG O2 Saturation ABG Base Excess Oxyhemoglobin Sodium Potassium Chloride Carbon Dioxide BUN Creatinine Glucose POC Glucose 257 H 240 H 323 H Hemoglobin A1c Lactic Acid Calcium Total Creatine Kinase C-Reactive Protein Serum Total Protein Total Protein Albumin Wiakm-4-Rivsnshaq Gamma Globulins PEP Interpretation PTH Intact Urine Creatinine Urine Total Protein Salicylates Acetaminophen 05/14/22 05/14/22 05/15/22 14:23 17:28 00:02 WBC RBC MCV MCH RDW Lymph % (Auto) [place] % (Auto) [place] # (Auto) Baso # (Auto) Seg Neutrophils % Seg Neuts % (Manual) Lymphocytes % (Manual) Monocytes % (Manual) Seg Neutrophils # Seg Neutrophils # Man Lymphocytes # (Manual) Monocytes # (Manual) PT INR ABG pO2 ABG O2 Saturation ABG Base Excess Oxyhemoglobin Sodium Potassium Chloride Carbon Dioxide BUN Creatinine Glucose POC Glucose 339 H 392 H Hemoglobin A1c 14.4 H Lactic Acid Calcium Total Creatine Kinase C-Reactive Protein Serum Total Protein Total Protein Albumin Pzqxh-1-Zwuvvvhaj Gamma Globulins PEP Interpretation PTH Intact Urine Creatinine Urine Total Protein Salicylates Acetaminophen 05/15/22 05/15/22 05/15/22 03:48 03:48 05:50 WBC RBC MCV 78 L MCH 25 L RDW 16.7 H Lymph % (Auto) [place] % (Auto) [place] # (Auto) Baso # (Auto) Seg Neutrophils % Seg Neuts % (Manual) Lymphocytes % (Manual) Monocytes % (Manual) Seg Neutrophils # Seg Neutrophils # Man Lymphocytes # (Manual) Monocytes # (Manual) PT INR ABG pO2 ABG O2 Saturation ABG Base Excess Oxyhemoglobin Sodium Potassium Chloride 115.5 H Carbon Dioxide 19 L BUN 44 H Creatinine 4.0 H Glucose 339 H POC Glucose 307 H Hemoglobin A1c Lactic Acid Calcium Total Creatine Kinase C-Reactive Protein Serum Total Protein Total Protein Albumin Bjjbw-0-Daswggtcq Gamma Globulins PEP Interpretation PTH Intact Urine Creatinine Urine Total Protein Salicylates Acetaminophen 05/15/22 05/15/22 05/16/22 13:30 17:42 00:34 WBC RBC MCV MCH RDW Lymph % (Auto) [place] % (Auto) [place] # (Auto) Baso # (Auto) Seg Neutrophils % Seg Neuts % (Manual) Lymphocytes % (Manual) Monocytes % (Manual) Seg Neutrophils # Seg Neutrophils # Man Lymphocytes # (Manual) Monocytes # (Manual) PT INR ABG pO2 ABG O2 Saturation ABG Base Excess Oxyhemoglobin Sodium Potassium Chloride Carbon Dioxide BUN Creatinine Glucose POC Glucose 327 H 388 H 411 H Hemoglobin A1c Lactic Acid Calcium Total Creatine Kinase C-Reactive Protein Serum Total Protein Total Protein Albumin Mytzz-3-Bzppwdxep Gamma Globulins PEP Interpretation PTH Intact Urine Creatinine Urine Total Protein Salicylates Acetaminophen 05/16/22 05/16/22 05/16/22 05:27 07:59 09:22 WBC RBC MCV 77 L MCH 25 L RDW 17.0 H Lymph % (Auto) [place] % (Auto) 9.9 H [place] # (Auto) 1.1 H Baso # (Auto) 0.2 H Seg Neutrophils % 70.2 H Seg Neuts % (Manual) Lymphocytes % (Manual) Monocytes % (Manual) Seg Neutrophils # Seg Neutrophils # Man Lymphocytes # (Manual) Monocytes # (Manual) PT INR ABG pO2 ABG O2 Saturation ABG Base Excess Oxyhemoglobin Sodium Potassium Chloride Carbon Dioxide BUN Creatinine Glucose POC Glucose 358 H 308 H Hemoglobin A1c Lactic Acid Calcium Total Creatine Kinase C-Reactive Protein Serum Total Protein Total Protein Albumin Ocrye-4-Ryktjlrek Gamma Globulins PEP Interpretation PTH Intact Urine Creatinine Urine Total Protein Salicylates Acetaminophen 05/16/22 05/16/22 05/16/22 09:22 11:36 17:37 WBC RBC MCV MCH RDW Lymph % (Auto) [place] % (Auto) [place] # (Auto) Baso # (Auto) Seg Neutrophils % Seg Neuts % (Manual) Lymphocytes % (Manual) Monocytes % (Manual) Seg Neutrophils # Seg Neutrophils # Man Lymphocytes # (Manual) Monocytes # (Manual) PT INR ABG pO2 ABG O2 Saturation ABG Base Excess Oxyhemoglobin Sodium Potassium 3.5 L Chloride 107.6 H Carbon Dioxide 18 L BUN 48 H Creatinine 3.9 H Glucose 284 H POC Glucose 255 H 324 H Hemoglobin A1c Lactic Acid Calcium Total Creatine Kinase C-Reactive Protein Serum Total Protein Total Protein 5.1 L Albumin 2.7 L Pdrse-2-Edrocfasx Gamma Globulins PEP Interpretation PTH Intact Urine Creatinine Urine Total Protein Salicylates Acetaminophen 05/16/22 05/17/22 05/17/22 23:48 05:20 12:47 WBC RBC MCV MCH RDW Lymph % (Auto) [place] % (Auto) [place] # (Auto) Baso # (Auto) Seg Neutrophils % Seg Neuts % (Manual) Lymphocytes % (Manual) Monocytes % (Manual) Seg Neutrophils # Seg Neutrophils # Man Lymphocytes # (Manual) Monocytes # (Manual) PT INR ABG pO2 ABG O2 Saturation ABG Base Excess Oxyhemoglobin Sodium Potassium Chloride Carbon Dioxide BUN Creatinine Glucose POC Glucose 293 H 267 H 173 H Hemoglobin A1c Lactic Acid Calcium Total Creatine Kinase C-Reactive Protein Serum Total Protein Total Protein Albumin Uvpuj-2-Yfrsyrstf Gamma Globulins PEP Interpretation PTH Intact Urine Creatinine Urine Total Protein Salicylates Acetaminophen 05/17/22 05/17/22 05/17/22 12:55 17:47 19:57 WBC RBC MCV MCH RDW Lymph % (Auto) [place] % (Auto) [place] # (Auto) Baso # (Auto) Seg Neutrophils % Seg Neuts % (Manual) Lymphocytes % (Manual) Monocytes % (Manual) Seg Neutrophils # Seg Neutrophils # Man Lymphocytes # (Manual) Monocytes # (Manual) PT INR ABG pO2 ABG O2 Saturation ABG Base Excess Oxyhemoglobin Sodium Potassium Chloride 107.6 H Carbon Dioxide 19 L BUN 40 H Creatinine 3.1 H Glucose 171 H POC Glucose 246 H 256 H Hemoglobin A1c Lactic Acid Calcium 8.2 L Total Creatine Kinase C-Reactive Protein Serum Total Protein Total Protein Albumin Pjicz-9-Goxrajudk Gamma Globulins PEP Interpretation PTH Intact Urine Creatinine Urine Total Protein Salicylates Acetaminophen 05/17/22 05/18/22 23:13 04:35 WBC RBC MCV MCH RDW Lymph % (Auto) [place] % (Auto) [place] # (Auto) Baso # (Auto) Seg Neutrophils % Seg Neuts % (Manual) Lymphocytes % (Manual) Monocytes % (Manual) Seg Neutrophils # Seg Neutrophils # Man Lymphocytes # (Manual) Monocytes # (Manual) PT INR ABG pO2 ABG O2 Saturation ABG Base Excess Oxyhemoglobin Sodium 136 L Potassium Chloride Carbon Dioxide 18 L BUN 39 H Creatinine 3.2 H Glucose 202 H POC Glucose 270 H Hemoglobin A1c Lactic Acid Calcium 8.1 L Total Creatine Kinase C-Reactive Protein Serum Total Protein Total Protein Albumin Blimg-4-Yvghfwpgt Gamma Globulins PEP Interpretation PTH Intact Urine Creatinine Urine Total Protein Salicylates Acetaminophen Allied health notes reviewed: nursing
[2022-05-18 14:55] LABS: ABG Base Excess -6.8 mmol/L (-2.0-3.0); ABG HCO3 17.1 mmol/L (20.0-26.0); ABG Methemoglobin 0.6 % (0.0-1.5); ABG Oxygen Saturation 97.1 % (95.0-99.0); ABG PCO2 29.3 mm Hg; ABG PH 7.385 pH Units (7.350-7.450); ABG PO2 86.8 mm Hg (80.0-90.0)
--- NOTE | 2022-05-18 15:41 | Progress Note ---
Assessment and Plan # Acute Kidney Injury: suspect pre-renal injury and tubular injury in setting of hyperglycemia, seizure episode, sepsis. May have CKD at baseline given DM, HTN, obesity - creatinine improving now 3.1->3.9->4.0->3.9->3.1->3.2, hopefully reached plateau with improvement in tachycardia, sepsis. Mild acidosis, hypokalemia, hypernatremia improving/stable - urinalysis noted, check UP/C, check serologies-> note ~4g proteinuria in setting of uncontrolled diabetes - CK reasonable at 217 - PTH ~140, phos/ca WNL - renal ultrasound with no acute obstruction, note potential angiomyolipoma, outpatient follow up - glucose control per primary - hold home diuretics, if having worsening respiratory status or edema, plan for IV diuretics prn only - avoid nephrotoxins - renally dose medications - I/Os- non-oliguric currently - no immediate need for kidney biopsy or renal replacement therapy # Metabolic Acidosis: note elevated lactate, no obvious ingestion, now stable # Seizure: note neurology input # HTN: BP very high initially, s/p cardene gtt, agree with current regimen, addition of hydralazine # Tachycardia: HR high in setting of sepsis initially, now better, agree with carvedilol # Fever: ID input noted, note concern for infectious cause of encephalopathy, s/p LP # DM/Hyperglycemia: per primary Subjective Date of service: 05/18/22 Principal diagnosis: HTNsive emergency with seizures; Morbid obesity; AMS; Leukocytosis; RODRÍGUEZ Interval history: Resting in bed, no major changes noted, appears more awake and alert, transferred to floor Objective - Exam Narrative Exam: General appearance: Present: no acute distress, well-nourished, obese Eyes: Present: PERRL, EOM intact ENT: dentition normal Neck: Present: supple, normal ROM Respiratory: bilateral: CTA CV: Present: S1 & S2 Extremities: no ischemia, pulses intact, pulses symmetrical, No edema General gastrointestinal: Present: soft, non-tender, non-distended, normal bowel sounds Integumentary: Present: clear, warm, dry, normal turgor. Absent: rash Musculoskeletal: generalized weakness Psychiatric: drowsy Neurologic: awake, alert - Vital Signs Vital signs: Vital Signs - 12hr 05/18/22 05/18/22 05/18/22 05:58 07:14 10:00 Temperature 97.5 F L Pulse Rate 86 Respiratory 20 Rate Blood Pressure 161/93 161/73 O2 Sat by Pulse 100 99 Oximetry 05/18/22 11:59 Temperature 98.0 F Pulse Rate 88 Respiratory 20 Rate Blood Pressure 131/80 O2 Sat by Pulse 98 Oximetry - Lab 05/16/22 09:22 05/18/22 04:35 Most recent lab results ABG pH 7.385 pH Units (7.350-7.450) 05/18/22 14:30 ABG pCO2 29.3 mm Hg 05/18/22 14:30 ABG pO2 86.8 mm Hg (80.0-90.0) 05/18/22 14:30 ABG HCO3 17.1 mmol/L (20.0-26.0) L 05/18/22 14:30 ABG O2 Saturation 97.1 % (95.0-99.0) 05/18/22 14:30 Calcium 8.1 mg/dL (8.4-10.2) L 05/18/22 04:35 Phosphorus 3.00 mg/dL (2.5-4.5) 05/15/22 03:48 Magnesium 2.30 mg/dL (1.7-2.3) 05/15/22 03:48 Urine Creatinine 86.3 mg/dL (0.1-20.0) H 05/13/22 Unknown Urine Sodium 21 mmol/L 05/13/22 Unknown Urine Total Protein 735 mg/dL (5-11.8) H 05/13/22 19:34 Medications & Allergies - Medications Allergies/Adverse Reactions: Allergies No Known Allergies Allergy (Verified 05/13/22 19:13) Home Medications: Home Medications Medication Instructions Recorded Confirmed Last Taken Type No Known Home Medications [No 05/18/22 05/18/22 Unknown History Reported Home Medications] Active Medications: Generic Name Dose Route Start Last Admin Trade Name Wilq PRN Reason Stop Dose Admin Acetaminophen 650 mg 05/13/22 02:07 05/14/22 08:08 Acetaminophen 325 Mg Tab PO 650 mg Q6H PRN Administration Pain MILD(1-3)/Fever >100.5/PATINO Amlodipine Besylate 10 mg 05/18/22 10:00 05/18/22 09:57 Amlodipine 10 Mg Tab PO 10 mg QDAY@1000 BRAD Administration Atorvastatin Calcium 40 mg 05/18/22 22:00 Atorvastatin 40 Mg Tab PO QHS BRAD Carvedilol 25 mg 05/18/22 10:00 05/18/22 09:57 Carvedilol 25 Mg Tab PO 25 mg BID BRAD Administration Dextrose 0 ml 05/13/22 02:07 Dextrose 50% In Water (25gm) 50 Ml Syringe IV Q30MIN PRN Hypoglycemia Protocol Heparin Sodium (Porcine) 5,000 unit 05/13/22 06:00 05/18/22 14:05 Heparin 5,000 Unit/1 Ml Vial SUB-Q 5,000 unit Q8HR BRAD Administration Hydralazine HCl 100 mg 05/18/22 09:00 05/18/22 14:05 Hydralazine 100 Mg Tab PO 100 mg TID BRAD Administration Hydralazine HCl 10 mg 05/18/22 10:20 Hydralazine 20 Mg/1 Ml Inj IV Q4HR PRN Hypertension Ceftriaxone Sodium 2 gm in 100 mls @ 200 mls/hr 05/18/22 22:00 Rocephin/Ns 2 Gm/100 Ml IV 05/27/22 22:29 Q12H BRAD Protocol Insulin Glargine 40 units 05/17/22 22:00 05/17/22 22:08 Insulin Glargine 100 Units/Ml SUB-Q 40 units QHS BRAD Administration Insulin Human Lispro 0 unit 05/18/22 11:30 05/18/22 11:30 Insulin Lispro 100 Unit/Ml SUB-Q 3 unit ACHS BRAD Administration Protocol Labetalol HCl 10 mg 05/16/22 14:19 05/18/22 07:14 Labetalol 20 Mg/4 Ml Inj IV 10 mg Q4HR PRN Administration sbp> 160 Lacosamide 100 mg 05/18/22 10:00 05/18/22 09:57 Lacosamide 100 Mg Tab PO 100 mg Q12HR BRAD Administration Levetiracetam 1,000 mg 05/18/22 10:00 05/18/22 09:57 Levetiracetam 500 Mg Tab PO 1,000 mg BID BRAD Administration Lorazepam 2 mg 05/13/22 13:03 05/14/22 11:30 Lorazepam 2 Mg/Ml Vial IV 2 mg Q4H PRN Administration Seizures Magnesium Hydroxide 30 ml 05/13/22 02:07 Magnesium Hydroxide (Mom) Oral Liqd Udc PO Q4H PRN Constipation Ondansetron HCl 4 mg 05/13/22 02:07 Ondansetron 4 Mg/2 Ml Inj IV Q8H PRN Nausea And Vomiting Sodium Chloride 10 ml 05/13/22 10:00 05/18/22 10:05 Sodium Chloride 0.9% 10 Ml Flush Syringe IV 10 ml BID BRAD Administration Sodium Chloride 10 ml 05/13/22 02:07 Sodium Chloride 0.9% 10 Ml Flush Syringe IV PRN PRN LINE FLUSH
[2022-05-18] MEDS: cefTRIAXone/NS 2 GM/100 ML 2 GM/100 ML BAG IV SCH (21:43)
[2022-05-18] MEDS: INSULIN GLARGINE 100 UNITS/ML SUB-Q SCH (23:23)
[2022-05-19 06:08] LABS: Hematocrit 31.7 % (30.3-42.9); Hemoglobin 9.9 gm/dl (10.1-14.3); Mean Corpuscular HGB Conc 31 % (30-34); Mean Corpuscular Volume 78 fl (79-97); Platelet Count 177 K/mm3 (140-440); Red Blood Count 4.08 M/mm3 (3.65-5.03); Red Cell Distribution Width 16.2 % (13.2-15.2)
[2022-05-19] MEDS: HEPARIN 5,000 UNIT/1 ML VIAL SUB-Q SCH ×3 (06:08→22:33)
[2022-05-19 06:23] LABS: Calcium 8.4 mg/dL (8.4-10.2)
--- NOTE | 2022-05-19 07:22 | Progress Note ---
Assessment and Plan Assessment and plan: This is a 31-year-old female with seizures, HTN, DM and medical noncompliance who presented to emergency department on 05/13 after a seizure episode associated with progressive weakness. Per EMS patient was said to have woken up in the night had an episode of vomiting and subsequently had seizures. In the emergency department work-up showed acute kidney injury with a BUN/creatinine of 26/3.1, glucose of 580, urinalysis was unremarkable, UDS was positive for marijuana, leukocytosis at 13.1 and CXR showed no acute findings along with a CT scan. In the emergency department patient had another seizure and was given Ativan and loaded with Keppra. Patient also had BP in the 200s over 130s and was given labetalol and was started on a Cardene drip. She also had was febrile to 103 in the ED. Patient was admitted to the hospitalist service with seizure disorder, hyperglycemia, hypertensive urgency and acute kidney injury with consults to nephrology, neurology. Hospital course to date: 05/13: CCM and ID consulted. Patient had possible seizure activity and was started. Ativan. Patient had EEG today. MRI brain pending. Urine lites pending. Patient febrile started on cefepime, procalcitonin, CRP and COVID-19 PCR pending. 05/14: Patient received LP today, MRI brain without contrast, hemoglobin A1c ordered 05/15: Answers most questions correctly. s/p LP. Pattern not c/w viral meningitis. d/c acyclovir. follow CSF culture. Continue tx with cefepime IV, vancomycin IV. Nephrology following due to poor renal fx, worsened cr today to 4.0. Will continue IVF hydration. EEG pending. MRA head completed but limited study due to motion artifact...periventricular and scatter foci of deep white matter hyperintensity noted. Will follow neurology input. 05/16: Resting comfortably on encounter. Clinically improved AOX4, answers all questions appropriately. Will continue renally dosed Vancomycin IV and Cefepime IV. ID recs and nephrology recs noted. Marginal improvement in Cr: 3.9 today. 05/17: Awaiting AM labs. Patient is resting comfortably, mental status continues to be improved. PT consultation as patient needs to be more physically active. NO growth thus far on csf culture. Continue abx and antiepileptics. 05/18: Renal function remains relatively stable with creatinine at 3.2 up slightly from 3.1 yesterday. Discontinue the IV fluids at this time. Continue to hold diuresis per nephrology. We will add hydralazine as needed for better b lood pressure control. ID recommendation reviewed. Patient will need home antibiotics arranged. Expected end of antibiotics 10 3. Okay to proceed with midline and discontinue central line. Her mentation is well improved and diet has been adjusted to regular diet. 05/19: Patient continues to show improvement. Creatinine down to 2.6. Fluids has been discontinued as of yesterday. Blood pressure better controlled. Mild elevation in WBC to 12.4 but no fever noted. Awaiting for ID for home a ntibiotics orders and discharge planning By case management. Assessment and Plan: Neuro: Seizures, h/o seizure disorder, noncompliance, Meningoencephalitis POA -Loaded with Keppra in ED -Keppra IV + vimpat -Reorientation as needed -Maintain sleep-wake cycle -aspiration/seizure precautions -As needed analgesia -CT head shows no acute intracranial abnormality -MRI brain and MRA V pending -EEG pending -LP 05/14 (opening pressure 100) -Neurology consulted, appreciate recommendations Cardiac: Hypertensive urgency, h/o hypertension -Cardiology consulted, appreciate recommendations -Blood pressure monitoring per protocol -s/p Cardene drip -Started on amlodipine, hydralazine Respiratory: NAD -Pulmonary hygiene -SPO2 monitor per protocol GI: Morbid obesity, moderate protein calorie malnutrition -PPI -NTR consulted for tube feedings : Acute kidney injury (pre renal/ATN/maybe CKD component) , metabolic acidosis -Nephrology consulted, appreciate recommendations -Monitor intake and output -Renally dose medications -Avoid nephrotoxic medications -FeNa 0.56% -Renal ultrasound shows normal-sized but echogenic kidneys consistent with medical renal disease, no hydronephrosis, 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 -COVID-19 PCR negative -f/u blood culture -Monitor WBC and temperature curve Endo: Hyperglycemia, h/o DM -Avoid hypoglycemia -SSI -Accu-Cheks q. every 6 -Long-acting insulin, titrate as neede -Hemoglobin A1c 14.4 Heme: Leukocytosis -Trend CBC -Transfuse hemoglobin less than 7 -SCDs to BLE while in bed History Interval history: Patient seen and examined this morning no new complaints. No new issues overnight blood pressure stabilized Hospitalist Physical - Physical exam Narrative exam: General appearance: Present: No acute distress noted - EENT Eyes: Present: PERRL ENT: hearing intact, clear oral mucosa - Neck Neck: Present: supple, normal ROM, masses or JVD. central line in right neck IJ - Respiratory Respiratory effort: normal Respiratory: bilateral: CTA - Cardiovascular Heart Sounds: Present: S1 & S2. Absent: rub, click - Extremities Extremities: pulses symmetrical, No edema Extremity abnormal: edema Peripheral Pulses: within normal limits - Abdominal General gastrointestinal: Present: soft, non-tender, non-distended, normal bowel sounds Male genitourinary: Present: normal - Integumentary Integumentary: Present: clear, warm, dry - Musculoskeletal Musculoskeletal: gait normal, strength equal bilaterally - Psychiatric Psychiatric: appropriate mood/affect, intact judgment & insight - Neurologic Neurologic: CNII-XII intact, moves all extremities - Constitutional Vitals: Temp Pulse Resp BP Pulse Ox 98.9 F 93 H 18 144/79 98 05/18/22 21:24 05/18/22 21:24 05/18/22 21:24 05/18/22 21:24 05/18/22 22:00 General appearance: Present: no acute distress, well-nourished, obese HEART Score - HEART Score Troponin: Troponin T 0.028 ng/mL (0.00-0.029) 05/12/22 22:47 Results - Labs CBC & Chem 7: 05/19/22 05:02 05/19/22 05:02 Labs: Laboratory Last Values WBC 12.4 K/mm3 (4.5-11.0) H 05/19/22 05:02 RBC 4.08 M/mm3 (3.65-5.03) 05/19/22 05:02 Hgb 9.9 gm/dl (10.1-14.3) L 05/19/22 05:02 Hct 31.7 % (30.3-42.9) 05/19/22 05:02 MCV 78 fl (79-97) L 05/19/22 05:02 MCH 24 pg (28-32) L 05/19/22 05:02 MCHC 31 % (30-34) 05/19/22 05:02 RDW 16.2 % (13.2-15.2) H 05/19/22 05:02 Plt Count 177 K/mm3 (140-440) 05/19/22 05:02 Lymph % (Auto) 16.7 % (13.4-35.0) 05/16/22 09:22 [place] % (Auto) 9.9 % (0.0-7.3) H 05/16/22 09:22 Eos % (Auto) 1.4 % (0.0-4.3) 05/16/22 09:22 Baso % (Auto) 1.8 % (0.0-1.8) 05/16/22 09: Lymph # (Auto) 1.8 K/mm3 (1.2-5.4) 05/16/22 09:22 [place] # (Auto) 1.1 K/mm3 (0.0-0.8) H 05/16/22 09:22 Eos # (Auto) 0.2 K/mm3 (0.0-0.4) 05/16/22 09:22 Baso # (Auto) 0.2 K/mm3 (0.0-0.1) H 05/16/22 09:22 Add Manual Diff Complete 05/12/22 22:47 Total Counted 100 05/12/22 22:47 Seg Neutrophils % 70.2 % (40.0-70.0) H 05/16/22 09:22 Seg Neuts % (Manual) 85.0 % (40.0-70.0) H 05/12/22 22:47 Band Neutrophils % 0 % 05/12/22 22:47 Lymphocytes % (Manual) 7.0 % (13.4-35.0) L 05/12/22 22:47 Reactive Lymphs % (Man) 0 % 05/12/22 22:47 Monocytes % (Manual) 8.0 % (0.0-7.3) H 05/12/22 22:47 Eosinophils % (Manual) 0 % (0.0-4.3) 05/12/22 22:47 Basophils % (Manual) 0 % (0.0-1.8) 05/12/22 22:47 Metamyelocytes % 0 % 05/12/22 22:47 Myelocytes % 0 % 05/12/22 22:47 Promyelocytes % 0 % 05/12/22 22:47 Blast Cells % 0 % 05/12/22 22:47 Nucleated RBC % Not Reportable 05/12/22 22:47 Seg Neutrophils # 7.7 K/mm3 (1.8-7.7) 05/16/22 09:22 Seg Neutrophils # Man 13.1 K/mm3 (1.8-7.7) H 05/12/22 22:47 Band Neutrophils # 0.0 K/mm3 05/12/22 22:47 Lymphocytes # (Manual) 1.1 K/mm3 (1.2-5.4) L 05/12/22 22:47 Abs React Lymphs (Man) 0.0 K/mm3 05/12/22 22:47 Monocytes # (Manual) 1.2 K/mm3 (0.0-0.8) H 05/12/22 22:47 Eosinophils # (Manual) 0.0 K/mm3 (0.0-0.4) 05/12/22 22:47 Basophils # (Manual) 0.0 K/mm3 (0.0-0.1) 05/12/22 22:47 Metamyelocytes # 0.0 K/mm3 05/12/22 22:47 Myelocytes # 0.0 K/mm3 05/12/22 22:47 Promyelocytes # 0.0 K/mm3 05/12/22 22:47 Blast Cells # 0.0 K/mm3 05/12/22 22:47 WBC Morphology Not Reportable 05/12/22 22:47 Hypersegmented Neuts Not Reportable 05/12/22 22:47 Hyposegmented Neuts Not Reportable 05/12/22 22:47 Hypogranular Neuts Not Reportable 05/12/22 22:47 Smudge Cells Not Reportable 05/12/22 22:47 Toxic Granulation Not Reportable 05/12/22 22:47 Toxic Vacuolation Not Reportable 05/12/22 22:47 Dohle Bodies Not Reportable 05/12/22 22:47 Pelger-Huet Anomaly Not Reportable 05/12/22 22:47 Tima Rods Not Reportable 05/12/22 22:47 Platelet Estimate Consistent w auto 05/12/22 22:47 Clumped Platelets Not Reportable 05/12/22 22:47 Plt Clumps, EDTA Not Reportable 05/12/22 22:47 Large Platelets Not Reportable 05/12/22 22:47 Giant Platelets Not Reportable 05/12/22 22:47 Platelet Satelliting Not Reportable 05/12/22 22:47 Plt Morphology Comment Not Reportable 05/12/22 22:47 RBC Morphology Not Reportable 05/12/22 22:47 Dimorphic RBCs Not Reportable 05/12/22 22:47 Polychromasia Not Reportable 05/12/22 22:47 Hypochromasia 1+ 05/12/22 22:47 Poikilocytosis Not Reportable 05/12/22 22:47 Anisocytosis Not Reportable 05/12/22 22:47 Microcytosis Not Reportable 05/12/22 22:47 Macrocytosis Not Reportable 05/12/22 22:47 Spherocytes Not Reportable 05/12/22 22:47 Pappenheimer Bodies Not Reportable 05/12/22 22:47 Sickle Cells Not Reportable 05/12/22 22:47 Target Cells Not Reportable 05/12/22 22:47 Tear Drop Cells Not Reportable 05/12/22 22:47 Ovalocytes Not Reportable 05/12/22 22:47 Helmet Cells Not Reportable 05/12/22 22:47 [place] Bodies Not Reportable 05/12/22 22:47 [place] Rings Not Reportable 05/12/22 22:47 Imelda Cells Not Reportable 05/12/22 22:47 Bite Cells Not Reportable 05/12/22 22:47 Crenated Cell Not Reportable 05/12/22 22:47 Elliptocytes Not Reportable 05/12/22 22:47 Acanthocytes (Spur) Not Reportable 05/12/22 22:47 Rouleaux Not Reportable 05/12/22 22:47 Hemoglobin C Crystals Not Reportable 05/12/22 22:47 Schistocytes Not Reportable 05/12/22 22:47 Malaria parasites Not Reportable 05/12/22 22:47 Jesse Bodies Not Reportable 05/12/22 22:47 Hem Pathologist Commnt No 05/12/22 22:47 PT 16.8 Sec. (12.2-14.9) H 05/12/22 14:25 INR 1.22 (0.87-1.13) H 05/12/22 14:25 APTT 29.6 Sec. (24.2-36.6) 05/12/22 14:25 ABG pH 7.385 pH Units (7.350-7.450) 05/18/22 14:30 ABG pCO2 29.3 mm Hg 05/18/22 14:30 ABG pO2 86.8 mm Hg (80.0-90.0) 05/18/22 14:30 ABG HCO3 17.1 mmol/L (20.0-26.0) L 05/18/22 14:30 ABG O2 Saturation 97.1 % (95.0-99.0) 05/18/22 14:30 ABG O2 Content 14.1 (0.0-44) 05/18/22 14:30 ABG Base Excess -6.8 mmol/L (-2.0-3.0) L 05/18/22 14:30 ABG Hemoglobin 10.4 gm/dl (12.0-16.0) L 05/18/22 14:30 ABG Carboxyhemoglobin 1.3 % (0.0-5.0) 05/18/22 14:30 ABG Methemoglobin 0.6 % (0.0-1.5) 05/18/22 14:30 VBG pH 7.354 (7.320-7.420) 05/12/22 22:47 Oxyhemoglobin 95.2 % (95.0-99.0) 05/18/22 14:30 FiO2 21 % 05/18/22 14:30 Sodium 137 mmol/L (137-145) 05/19/22 05:02 Potassium 3.6 mmol/L (3.6-5.0) 05/19/22 05:02 Chloride 109.1 mmol/L (98-107) H 05/19/22 05:02 Carbon Dioxide 17 mmol/L (22-30) L 05/19/22 05:02 Anion Gap 15 mmol/L 05/19/22 05:02 BUN 36 mg/dL (7-17) H 05/19/22 05:02 Creatinine 2.6 mg/dL (0.6-1.2) H 05/19/22 05:02 Estimated GFR 26 ml/min 05/19/22 05:02 BUN/Creatinine Ratio 14 % 05/19/22 05:02 Glucose 164 mg/dL (65-100) H 05/19/22 05:02 POC Glucose 247 mg/dL (70-105) H 05/18/22 16:27 Hemoglobin A1c 14.4 % (4-6) H 05/14/22 14:23 Ketones Quantitative Negative (Negative) 05/12/22 22:47 Lactic Acid 1.00 mmol/L (0.7-2.0) 05/14/22 04:20 Calcium 8.4 mg/dL (8.4-10.2) 05/19/22 05:02 Phosphorus 3.00 mg/dL (2.5-4.5) 05/15/22 03:48 Magnesium 2.30 mg/dL (1.7-2.3) 05/15/22 03:48 Total Bilirubin < 0.20 mg/dL (0.1-1.2) 05/16/22 09:22 AST 11 units/L (5-40) 05/16/22 09:22 ALT 11 units/L (7-56) 05/16/22 09:22 Alkaline Phosphatase 78 units/L (35-129) 05/16/22 09:22 Total Creatine Kinase 217 units/L (30-135) H 05/14/22 04:20 Troponin T 0.028 ng/mL (0.00-0.029) 05/12/22 22:47 C-Reactive Protein 1.40 mg/dL (0.00-1.30) H 05/14/22 04:20 Serum Total Protein 5.5 g/dL (6.1-8.1) L 05/14/22 04:20 Total Protein 5.1 g/dL (6.3-8.2) L 05/16/22 09:22 Albumin 2.7 g/dL (3.9-5) L 05/16/22 09:22 Albumin/Globulin Ratio 1.1 % 05/16/22 09:22 Owwio-6-Odkradfix 0.3 g/dL (0.2-0.3) 05/14/22 04:20 Hlliy-1-Lyprulkxw 1.2 g/dL (0.5-0.9) H 05/14/22 04:20 Beta Globulins 0.4 g/dL (0.2-0.5) 05/14/22 04:20 Gamma Globulins 0.7 g/dL (0.8-1.7) L 05/14/22 04:20 Abnorm Protein Band 1 see below 05/14/22 04:20 PEP Interpretation see below H 05/14/22 04:20 Procalcitonin 0.56 ng/mL (<0.15) 05/14/22 04:20 TSH 0.422 mlU/mL (0.270-4.200) 05/12/22 14:25 Free T4 1.02 ng/dL (0.76-1.46) 05/12/22 14:25 PTH Intact 149.4 pg/mL (15-65) H 05/14/22 04:20 Urine Color Yellow (Yellow) 05/12/22 19:04 Urine Turbidity Clear (Clear) 05/12/22 19:04 Specific [place] (Man) 1.015 (1.003-1.030) 05/12/22 19:04 Ur Protein (Man) 2+ mg/dL (Negative) 05/12/22 19:04 Ur Ketones (Man) Negative (Negative) 05/12/22 19:04 Ur Nitrite (Man) Negative (Negative) 05/12/22 19:04 Urine Bilirubin (Man) Negative (Negative) 05/12/22 19:04 Leukocyte Esterase (Man) Negative (Negative) 05/12/22 19:04 Urine WBC (Auto) < 1.0 /HPF (0.0-6.0) 05/12/22 19:04 Urine RBC (Auto) < 1.0 /HPF (0.0-6.0) 05/12/22 19:04 Urine RBC (Manual) 1+ (Negative) 05/12/22 19:04 Urine Creatinine 86.3 mg/dL (0.1-20.0) H 05/13/22 Unknown Protein/Creatinin Ratio 4.20 05/13/22 19:34 Urine Sodium 21 mmol/L 05/13/22 Unknown Urine Total Protein 735 mg/dL (5-11.8) H 05/13/22 19:34 CSF Appearance Clear 05/14/22 11:32 CSF Color [place] 05/14/22 11:32 CSF WBC 53 /mm3 (1-10) 05/14/22 11:32 CSF RBC 2000 /mm3 (0-0) 05/14/22 11:32 CSF Seg Neutrophils 97 % (0-6) 05/14/22 11:32 CSF Lymphocytes % 2 % (40-80) 05/14/22 11:32 CSF Reactive Lymphs 0 % 05/14/22 11:32 CSF Monocytes % 1 % (15-45) 05/14/22 11:32 CSF Eosinophils % 0 % 05/14/22 11:32 CSF Basophils 0 % 05/14/22 11:32 CSF Pathologist Review C 05/14/22 11:32 CSF Glucose 137 mg/dL 05/14/22 11:32 CSF Total Protein 32 mg/dL 05/14/22 11:32 CSF VDRL Nonreactive (Nonreactive) 05/14/22 11:32 Random Vancomycin 26.7 ug/mL (0-40.0) 05/19/22 05:02 Salicylates < 0.3 mg/dL (2.8-20.0) L 05/12/22 14:25 Urine Opiates Screen Negative 05/12/22 19:04 Urine Methadone Screen Negative 05/12/22 19:04 Acetaminophen 5.0 ug/mL (10.0-30.0) L 05/12/22 14:25 Ur Barbiturates Screen Negative 05/12/22 19:04 Ur Phencyclidine Scrn Negative 05/12/22 19:04 Ur Amphetamines Screen Negative 05/12/22 19:04 U Benzodiazepines Scrn Negative 05/12/22 19:04 Urine Cocaine Screen Negative 05/12/22 19:04 U Marijuana (THC) Screen Positive 05/12/22 19:04 Drugs of Abuse Note Disclamer 05/12/22 19:04 Plasma/Serum Alcohol < 0.01 % (0-0.07) 05/12/22 22:47 Complement C3 180 mg/dL (83-193) 05/14/22 04:20 Complement C4 43 mg/dL (15-57) 05/14/22 04:20 Coronavirus (PCR) Negative (Negative) 05/13/22 09:30 Vergara/IV: Voiding Method Indwelling Catheter Active Medications - Current Medications Current Medications: Generic Name Dose Route Start Last Admin Trade Name Freq PRN Reason Stop Dose Admin Acetaminophen 650 mg 05/13/22 02:07 05/14/22 08:08 Acetaminophen 325 Mg Tab PO 650 mg Q6H PRN Administration Pain MILD(1-3)/Fever >100.5/PATINO Amlodipine Besylate 10 mg 05/18/22 10:00 05/18/22 09:57 Amlodipine 10 Mg Tab PO 10 mg QDAY@1000 BRAD Administration Atorvastatin Calcium 40 mg 05/18/22 22:00 05/18/22 21:39 Atorvastatin 40 Mg Tab PO 40 mg QHS BRAD Administration Carvedilol 25 mg 05/18/22 10:00 05/18/22 21:38 Carvedilol 25 Mg Tab PO 25 mg BID BRAD Administration Dextrose 0 ml 05/13/22 02:07 Dextrose 50% In Water (25gm) 50 Ml Syringe IV Q30MIN PRN Hypoglycemia Protocol Heparin Sodium (Porcine) 5,000 unit 05/13/22 06:00 05/19/22 06:08 Heparin 5,000 Unit/1 Ml Vial SUB-Q 5,000 unit Q8HR BRAD Administration Hydralazine HCl 100 mg 05/18/22 09:00 05/18/22 21:39 Hydralazine 100 Mg Tab PO 100 mg TID BRAD Administration Hydralazine HCl 10 mg 05/18/22 10:20 Hydralazine 20 Mg/1 Ml Inj IV Q4HR PRN Hypertension Ceftriaxone Sodium 2 gm in 100 mls @ 200 mls/hr 05/18/22 22:00 05/18/22 21:43 Rocephin/Ns 2 Gm/100 Ml IV 05/27/22 22:29 200 mls/hr Q12H BRAD Administration Protocol Insulin Glargine 40 units 05/17/22 22:00 05/18/22 23:23 Insulin Glargine 100 Units/Ml SUB-Q 40 units QHS BRAD Administration Insulin Human Lispro 0 unit 05/18/22 11:30 05/18/22 23:23 Insulin Lispro 100 Unit/Ml SUB-Q 4 unit ACHS BRAD Administration Protocol Labetalol HCl 10 mg 05/16/22 14:19 05/18/22 07:14 Labetalol 20 Mg/4 Ml Inj IV 10 mg Q4HR PRN Administration sbp> 160 Lacosamide 100 mg 05/18/22 10:00 05/18/22 21:37 Lacosamide 100 Mg Tab PO 100 mg Q12HR BRAD Administration Levetiracetam 1,000 mg 05/18/22 10:00 05/18/22 21:39 Levetiracetam 500 Mg Tab PO 1,000 mg BID BRAD Administration Lorazepam 2 mg 05/13/22 13:03 05/14/22 11:30 Lorazepam 2 Mg/Ml Vial IV 2 mg Q4H PRN Administration Seizures Magnesium Hydroxide 30 ml 05/13/22 02:07 Magnesium Hydroxide (Mom) Oral Liqd Udc PO Q4H PRN Constipation Ondansetron HCl 4 mg 05/13/22 02:07 Ondansetron 4 Mg/2 Ml Inj IV Q8H PRN Nausea And Vomiting Sodium Chloride 10 ml 05/13/22 10:00 05/18/22 21:40 Sodium Chloride 0.9% 10 Ml Flush Syringe IV 10 ml BID BRAD Administration Sodium Chloride 10 ml 05/13/22 02:07 Sodium Chloride 0.9% 10 Ml Flush Syringe IV PRN PRN LINE FLUSH Nutrition/Malnutrition Assess - Dietary Evaluation Nutrition/Malnutrition Findings: Nutrition Notes Start: 05/13/22 1 1:36 Freq: Status: Active Protocol: Document 05/15/22 11:17 SIOMARA (Rec: 05/15/22 11:45 SIOMARA [id number]) Nutrition Notes Initial or Follow up Reassessment Current Diagnosis Acute Kidney Injury,CKD(stage I-IV),Diabetes,Sepsis, Hypertension,Malnutrition Other Pertinent Diagnosis SIRS, r/o Meningoencephalitis, Seizures, Metabolic Acidosis, Tachycardia. Current Diet TF-Nepro w/CARBSTEADY @ 40 ml/ hr (since D 05/13). Labs/Tests 05/15: Cl 115.5, CO2 19, BUN 44, Crea 4.0, Glu 339. Pertinent Medications 05/15: Lantus 15U, Humalog 8U, others nutritionally unremarkable. Height 5 ft 7 in Weight 113 kg [place] Body Weight (kg) 61.36 BMI 38.9 Weight change and time frame No body weight change reported in 2 days. Weight Status Obese Subjective/Other Information RD consult for TF tolerance/ continuation assessment. TF continues as prescribed, and well tolerated, according to RN notes. Pt is on Room Air, O2 saturation @ 99%, according to Physical Assessment History notes. Pt is swallow impaired, according to Physical Assessment History notes, but no GARDENER FLORIST note available at the time and Not able to contact RN over the phone, will assess at F/U. Percent of energy/protein needs met: Prescribed TF-Nepro w/ CARBSTEADY @ 40 ml/hr provides for energy/protein needs (1, 710 Kcal/77 g) during LOS, 101 % Kcal; 100% AA. Burn Absent Trauma Absent GI Symptoms None Difficulty In Swallowing Food Allergy No Skin Integrity/Comment Assessment WNL. Current % PO Other Minimum of two criteria No Fluid Accumulation N/A Reduced Last [place] Strength N/A (non-severe) Protein-Calorie Malnutrition N\A #1 Nutrition Diagnosis Inadequate oral intake Comments: TF continues as prescribed, and well tolerated, according to RN notes. Diagnosis Progress(for reassessment Continues documentation) Is patient on ventilator? No Is Patient Ambulatory and/or Out of Bed No REE-([facility]-confined to bed) 2248.872 Kcal/Kg value to use for calculation 15 Approximate Energy Requirements Using 1695 kcal/Kg Calculation Used for Recommendations Kcal/kg Additional Notes Protein: 0.8-1.2 g/Kg AdjBW; 70-104 g/day. Fluids: 1 ml/Kcal, or as per MD. Nutrition Intervention Nutrition Support: Continue TF-Nepro w/CARBSTEADY @ 40 ml/hr. Flush: 170 ml water Q 4 hr, or as per MD. Kcal 1,710 Protein (gm) 77 Carbohydrates (gm) 153 Fat (gm) 91 Fluid (mL) 691 Fiber (gm) 12 % RDI: 101% Kcal; 100% AA Goal #1 Provide at least 75% of energy /protein needs through Enteral Feeding during LOS. Follow-Up By: 05/22/22 Additional Comments Continue monitoring TF tolerance, [id number] status, and BM.
[2022-05-19] MEDS: INSULIN LISPRO 100 UNIT/ML SUB-Q SCH ×4 (07:30→22:47)
[2022-05-19] MEDS: hydrALAZINE 100 MG TAB PO SCH ×3 (08:00→21:02)
[2022-05-19] MEDS: cefTRIAXone/NS 2 GM/100 ML 2 GM/100 ML BAG IV SCH ×2 (10:05→21:02)
[2022-05-19] MEDS: LACOSAMIDE 100 MG TAB PO SCH ×2 (10:05→21:02)
[2022-05-19] MEDS: levETIRAcetam 500 MG TAB PO SCH ×2 (10:06→21:01)
[2022-05-19] MEDS: amLODIPine 10 MG TAB PO SCH (10:06)
[2022-05-19] MEDS: carvediloL 25 MG TAB PO SCH ×2 (10:08→21:01)
--- NOTE | 2022-05-19 15:30 | Progress Note ---
Assessment and Plan # Acute Kidney Injury: suspect pre-renal injury and tubular injury in setting of hyperglycemia, seizure episode, sepsis. May have CKD at baseline given DM, HTN, obesity - creatinine improving now 3.1->3.9->4.0->3.9->3.1->3.2->2.6, hopefully reached plateau with improvement in tachycardia, sepsis. Mild acidosis, hypokalemia, hypernatremia improving/stable - urinalysis noted, check serologies-> note ~4g proteinuria in setting of uncon trolled diabetes - CK reasonable at 217 - PTH ~140, phos/ca WNL - renal ultrasound with no acute obstruction, note potential angiomyolipoma, outpatient follow up - glucose control per primary - hold home diuretics, if having worsening respiratory status or edema, plan for IV diuretics prn only - avoid nephrotoxins - renally dose medications - I/Os- non-oliguric currently - no immediate need for kidney biopsy or renal replacement therapy # Metabolic Acidosis: note elevated lactate, no obvious ingestion, now stable # Seizure: note neurology input # HTN: BP very high initially, s/p cardene gtt, agree with current regimen, addition of hydralazine # Tachycardia: HR high in setting of sepsis initially, now better, agree with carvedilol # Fever: ID input noted, note concern for infectious cause of encephalopathy, s/p LP # DM/Hyperglycemia: per primary Subjective Date of service: 05/19/22 Principal diagnosis: HTNsive emergency with seizures; Morbid obesity; AMS; Leukocytosis; RODRÍGUEZ Interval history: Resting in bed, no major changes noted, appears more awake and alert Objective - Exam Narrative Exam: General appearance: Present: no acute distress, well-nourished, obese Eyes: Present: PERRL, EOM intact ENT: dentition normal Neck: Present: supple, normal ROM Respiratory: bilateral: CTA CV: Present: S1 & S2 Extremities: no ischemia, pulses intact, pulses symmetrical, No edema General gastrointestinal: Present: soft, non-tender, non-distended, normal bowel sounds Integumentary: Present: clear, warm, dry, normal turgor. Absent: rash Musculoskeletal: generalized weakness Psychiatric: drowsy Neurologic: awake, alert - Vital Signs Vital signs: Vital Signs - 12hr 05/19/22 10:00 O2 Sat by Pulse 98 Oximetry - Lab 05/19/22 05:02 05/19/22 05:02 Most recent lab results ABG pH 7.385 pH Units (7.350-7.450) 05/18/22 14:30 ABG pCO2 29.3 mm Hg 05/18/22 14:30 ABG pO2 86.8 mm Hg (80.0-90.0) 05/18/22 14:30 ABG HCO3 17.1 mmol/L (20.0-26.0) L 05/18/22 14:30 ABG O2 Saturation 97.1 % (95.0-99.0) 05/18/22 14:30 Calcium 8.4 mg/dL (8.4-10.2) 05/19/22 05:02 Phosphorus 3.00 mg/dL (2.5-4.5) 05/15/22 03:48 Magnesium 2.30 mg/dL (1.7-2.3) 05/15/22 03:48 Urine Creatinine 86.3 mg/dL (0.1-20.0) H 05/13/22 Unknown Urine Sodium 21 mmol/L 05/13/22 Unknown Urine Total Protein 735 mg/dL (5-11.8) H 05/13/22 19:34 Medications & Allergies - Medications Allergies/Adverse Reactions: Allergies No Known Allergies Allergy (Verified 05/13/22 19:13) Home Medications: Home Medications Medication Instructions Recorded Confirmed Last Taken Type No Known Home Medications [No 05/18/22 05/18/22 Unknown History Reported Home Medications] Active Medications: Generic Name Dose Route Start Last Admin Trade Name Wilq PRN Reason Stop Dose Admin Acetaminophen 650 mg 05/13/22 02:07 05/14/22 08:08 Acetaminophen 325 Mg Tab PO 650 mg Q6H PRN Administration Pain MILD(1-3)/Fever >100.5/PATINO Amlodipine Besylate 10 mg 05/18/22 10:00 05/19/22 10:06 Amlodipine 10 Mg Tab PO 10 mg QDAY@1000 BRAD Administration Atorvastatin Calcium 40 mg 05/18/22 22:00 05/18/22 21:39 Atorvastatin 40 Mg Tab PO 40 mg QHS BRAD Administration Carvedilol 25 mg 05/18/22 10:00 05/19/22 10:08 Carvedilol 25 Mg Tab PO 25 mg BID BRAD Administration Dextrose 0 ml 05/13/22 02:07 Dextrose 50% In Water (25gm) 50 Ml Syringe IV Q30MIN PRN Hypoglycemia Protocol Heparin Sodium (Porcine) 5,000 unit 05/13/22 06:00 05/19/22 14:07 Heparin 5,000 Unit/1 Ml Vial SUB-Q 5,000 unit Q8HR BRAD Administration Hydralazine HCl 100 mg 05/18/22 09:00 05/19/22 14:07 Hydralazine 100 Mg Tab PO 100 mg TID BRAD Administration Hydralazine HCl 10 mg 05/18/22 10:20 Hydralazine 20 Mg/1 Ml Inj IV Q4HR PRN Hypertension Ceftriaxone Sodium 2 gm in 100 mls @ 200 mls/hr 05/18/22 22:00 05/19/22 10:05 Rocephin/Ns 2 Gm/100 Ml IV 05/27/22 22:29 200 mls/hr Q12H BRAD Administration Protocol Insulin Glargine 40 units 05/17/22 22:00 05/18/22 23:23 Insulin Glargine 100 Units/Ml SUB-Q 40 units QHS BRAD Administration Insulin Human Lispro 0 unit 05/18/22 11:30 05/19/22 11:30 Insulin Lispro 100 Unit/Ml SUB-Q 4 unit ACHS BRAD Administration Protocol Lacosamide 100 mg 05/18/22 10:00 05/19/22 10:05 Lacosamide 100 Mg Tab PO 100 mg Q12HR BRAD Administration Levetiracetam 1,000 mg 05/18/22 10:00 05/19/22 10:06 Levetiracetam 500 Mg Tab PO 1,000 mg BID BRAD Administration Lorazepam 2 mg 05/13/22 13:03 05/14/22 11:30 Lorazepam 2 Mg/Ml Vial IV 2 mg Q4H PRN Administration Seizures Magnesium Hydroxide 30 ml 05/13/22 02:07 Magnesium Hydroxide (Mom) Oral Liqd Udc PO Q4H PRN Constipation Ondansetron HCl 4 mg 05/13/22 02:07 Ondansetron 4 Mg/2 Ml Inj IV Q8H PRN Nausea And Vomiting Sodium Chloride 10 ml 05/13/22 10:00 05/19/22 10:06 Sodium Chloride 0.9% 10 Ml Flush Syringe IV 10 ml BID BRAD Administration Sodium Chloride 10 ml 05/13/22 02:07 Sodium Chloride 0.9% 10 Ml Flush Syringe IV PRN PRN LINE FLUSH
[2022-05-19] MEDS: INSULIN GLARGINE 100 UNITS/ML SUB-Q SCH (22:33)
[2022-05-20 06:24] LABS: Hematocrit 30.6 % (30.3-42.9); Hemoglobin 9.4 gm/dl (10.1-14.3); Mean Corpuscular HGB Conc 31 % (30-34); Mean Corpuscular Volume 79 fl (79-97); Platelet Count 179 K/mm3 (140-440); Red Blood Count 3.88 M/mm3 (3.65-5.03); Red Cell Distribution Width 16.1 % (13.2-15.2)
[2022-05-20] MEDS: HEPARIN 5,000 UNIT/1 ML VIAL SUB-Q SCH ×3 (06:30→22:07)
[2022-05-20 06:38] LABS: Calcium 8.4 mg/dL (8.4-10.2)
--- NOTE | 2022-05-20 07:30 | Progress Note ---
Assessment and Plan Assessment and plan: Assessment and plan: This is a 31-year-old female with seizures, HTN, DM and medical noncompliance who presented to emergency department on 05/13 after a seizure episode associated with progressive weakness. Per EMS patient was said to have woken up in the night had an episode of vomiting and subsequently had seizures. In the emergency department work-up showed acute kidney injury with a BUN/creatinine of 26/3.1, glucose of 580, urinalysis was unremarkable, UDS was positive for marijuana, leukocytosis at 13.1 and CXR showed no acute findings along with a CT scan. In the emergency department patient had another seizure and was given Ativan and loaded with Keppra. Patient also had BP in the 200s over 130s and was given labetalol and was started on a Cardene drip. She also had was febrile to 103 in the ED. Patient was admitted to the hospitalist service with seizure disorder, hyperglycemia, hypertensive urgency and acute kidney injury with consults to nephrology, neurology. Hospital course to date: 05/13: CCM and ID consulted. Patient had possible seizure activity and was started. Ativan. Patient had EEG today. MRI brain pending. Urine lites pending. Patient febrile started on cefepime, procalcitonin, CRP and COVID-19 PCR pending. 05/14: Patient received LP today, MRI brain without contrast, hemoglobin A1c or dered 05/15: Answers most questions correctly. s/p LP. Pattern not c/w viral meningitis. d/c acyclovir. follow CSF culture. Continue tx with cefepime IV, vancomycin IV. Nephrology following due to poor renal fx, worsened cr today to 4.0. Will continue IVF hydration. EEG pending. MRA head completed but limited study due to motion artifact...periventricular and scatter foci of deep white matter hyperintensity noted. Will follow neurology input. 05/16: Resting comfortably on encounter. Clinically improved AOX4, answers all questions appropriately. Will continue renally dosed Vancomycin IV and Cefepime IV. ID recs and nephrology recs noted. Marginal improvement in Cr: 3.9 today. 05/17: Awaiting AM labs. Patient is resting comfortably, mental status continues to be improved. PT consultation as patient needs to be more physically active. NO growth thus far on csf culture. Continue abx and antiepileptics. 05/18: Renal function remains relatively stable with creatinine at 3.2 up slightly from 3.1 yesterday. Discontinue the IV fluids at this time. Continue to hold diuresis per nephrology. We will add hydralazine as needed for better blood pressure control. ID recommendation reviewed. Patient will need home antibiotics arranged. Expected end of antibiotics 10 3. Okay to proceed with midline and discontinue central line. Her mentation is well improved and diet has been adjusted to regular diet. 05/19: Patient continues to show improvement. Creatinine down to 2.6. Fluids has been discontinued as of yesterday. Blood pressure better controlled. Mild elevation in WBC to 12.4 but no fever noted. Awaiting for ID for home antibiotics orders and discharge planning by case management. 05/20: Midline order placed for OP abx. Patient is doing well this AM. Anticipate d/c this week once abx arrangements made. Assessment and Plan: Neuro: Seizures, h/o seizure disorder, noncompliance, Meningoencephalitis POA -Loaded with Keppra in ED -Keppra IV + vimpat -Reorientation as needed -Maintain sleep-wake cycle -aspiration/seizure precautions -As needed analgesia -CT head shows no acute intracranial abnormality -MRI brain and MRA V pending -EEG pending -LP 05/14 (opening pressure 100) -Neurology consulted, appreciate recommendations Cardiac: Hypertensive urgency, h/o hypertension -Cardiology consulted, appreciate recommendations -Blood pressure monitoring per protocol -s/p Cardene drip -Started on amlodipine, hydralazine Respiratory: NAD -Pulmonary hygiene -SPO2 monitor per protocol GI: Morbid obesity, moderate protein calorie malnutrition -PPI -NTR consulted for tube feedings : Acute kidney injury (pre renal/ATN/maybe CKD component) , metabolic acidosis -Nephrology consulted, appreciate recommendations -Monitor intake and output -Renally dose medications -Avoid nephrotoxic medications -FeNa 0.56% -Renal ultrasound shows normal-sized but echogenic kidneys consistent with medical renal disease, no hydronephrosis, 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 -COVID-19 PCR negative -f/u blood culture -Monitor WBC and temperature curve Endo: Hyperglycemia, h/o DM -Avoid hypoglycemia -SSI -Accu-Cheks q. every 6 -Long-acting insulin, titrate as neede -Hemoglobin A1c 14.4 Heme: Leukocytosis -Trend CBC -Transfuse hemoglobin less than 7 -SCDs to BLE while in bed #Advance care planning Disease education conducted, care plan discussed, diagnoses discussed, prognosis discussed, patient is full code, patient acknowledges understanding and agree wi th care plan, +30 minutes. Time spent: +35 min CPT 16404 History Interval history: Resting comfortably on encounter. No acute complaints. Encourage physical activity and ambulation. Hospitalist Physical - Physical exam Narrative exam: General appearance: Present: mild distress - EENT Eyes: Present: PERRL ENT: hearing intact, clear oral mucosa - Neck Neck: Present: supple, normal ROM, masses or JVD. central line in right neck IJ - Respiratory Respiratory effort: normal Respiratory: bilateral: CTA - Cardiovascular Heart Sounds: Present: S1 & S2. Absent: rub, click - Extremities Extremities: pulses symmetrical, No edema Extremity abnormal: edema Peripheral Pulses: within normal limits - Abdominal General gastrointestinal: Present: soft, non-tender, non-distended, normal bowel sounds Male genitourinary: Present: normal - Integumentary Integumentary: Present: clear, warm, dry - Musculoskeletal Musculoskeletal: gait normal, strength equal bilaterally - Psychiatric Psychiatric: appropriate mood/affect, intact judgment & insight - Neurologic Neurologic: CNII-XII intact, moves all extremities - Constitutional Vitals: Temp Pulse Resp BP Pulse Ox 97.5 F L 100 H 16 154/93 96 05/19/22 20:57 05/19/22 20:57 05/19/22 20:57 05/19/22 20:57 05/19/22 20:57 General appearance: Present: no acute distress, well-nourished, obese HEART Score - HEART Score Troponin: Troponin T 0.028 ng/mL (0.00-0.029) 05/12/22 22:47 Results - Labs CBC & Chem 7: 05/20/22 05:06 05/20/22 05:06 Labs: Laboratory Last Values WBC 12.1 K/mm3 (4.5-11.0) H 05/20/22 05:06 RBC 3.88 M/mm3 (3.65-5.03) 05/20/22 05:06 Hgb 9.4 gm/dl (10.1-14.3) L 05/20/22 05:06 Hct 30.6 % (30.3-42.9) 05/20/22 05:06 MCV 79 fl (79-97) 05/20/22 05:06 MCH 24 pg (28-32) L 05/20/22 05:06 MCHC 31 % (30-34) 05/20/22 05:06 RDW 16.1 % (13.2-15.2) H 05/20/22 05:06 Plt Count 179 K/mm3 (140-440) 05/20/22 05:06 Lymph % (Auto) 16.7 % (13.4-35.0) 05/16/22 09:22 [place] % (Auto) 9.9 % (0.0-7.3) H 05/16/22 09:22 Eos % (Auto) 1.4 % (0.0-4.3) 05/16/22 09:22 Baso % (Auto) 1.8 % (0.0-1.8) 05/16/22 09:22 Lymph # (Auto) 1.8 K/mm3 (1.2-5.4) 05/16/22 09: [place] # (Auto) 1.1 K/mm3 (0.0-0.8) H 05/16/22 09:22 Eos # (Auto) 0.2 K/mm3 (0.0-0.4) 05/16/22 09: Baso # (Auto) 0.2 K/mm3 (0.0-0.1) H 05/16/22 09:22 Add Manual Diff Complete 05/12/22 22:47 Total Counted 100 05/12/22 22:47 Seg Neutrophils % 70.2 % (40.0-70.0) H 05/16/22 09:22 Seg Neuts % (Manual) 85.0 % (40.0-70.0) H 05/12/22 22:47 Band Neutrophils % 0 % 05/12/22 22:47 Lymphocytes % (Manual) 7.0 % (13.4-35.0) L 05/12/22 22:47 Reactive Lymphs % (Man) 0 % 05/12/22 22:47 Monocytes % (Manual) 8.0 % (0.0-7.3) H 05/12/22 22:47 Eosinophils % (Manual) 0 % (0.0-4.3) 05/12/22 22:47 Basophils % (Manual) 0 % (0.0-1.8) 05/12/22 22:47 Metamyelocytes % 0 % 05/12/22 22:47 Myelocytes % 0 % 05/12/22 22:47 Promyelocytes % 0 % 05/12/22 22:47 Blast Cells % 0 % 05/12/22 22:47 Nucleated RBC % Not Reportable 05/12/22 22:47 Seg Neutrophils # 7.7 K/mm3 (1.8-7.7) 05/16/22 09: Seg Neutrophils # Man 13.1 K/mm3 (1.8-7.7) H 05/12/22 22:47 Band Neutrophils # 0.0 K/mm3 05/12/22 22:47 Lymphocytes # (Manual) 1.1 K/mm3 (1.2-5.4) L 05/12/22 22:47 Abs React Lymphs (Man) 0.0 K/mm3 05/12/22 22:47 Monocytes # (Manual) 1.2 K/mm3 (0.0-0.8) H 05/12/22 22:47 Eosinophils # (Manual) 0.0 K/mm3 (0.0-0.4) 05/12/22 22:47 Basophils # (Manual) 0.0 K/mm3 (0.0-0.1) 05/12/22 22:47 Metamyelocytes # 0.0 K/mm3 05/12/22 22:47 Myelocytes # 0.0 K/mm3 05/12/22 22:47 Promyelocytes # 0.0 K/mm3 05/12/22 22:47 Blast Cells # 0.0 K/mm3 05/12/22 22:47 WBC Morphology Not Reportable 05/12/22 22:47 Hypersegmented Neuts Not Reportable 05/12/22 22:47 Hyposegmented Neuts Not Reportable 05/12/22 22:47 Hypogranular Neuts Not Reportable 05/12/22 22:47 Smudge Cells Not Reportable 05/12/22 22:47 Toxic Granulation Not Reportable 05/12/22 22:47 Toxic Vacuolation Not Reportable 05/12/22 22:47 Dohle Bodies Not Reportable 05/12/22 22:47 Pelger-Huet Anomaly Not Reportable 05/12/22 22:47 Tima Rods Not Reportable 05/12/22 22:47 Platelet Estimate Consistent w auto 05/12/22 22:47 Clumped Platelets Not Reportable 05/12/22 22:47 Plt Clumps, EDTA Not Reportable 05/12/22 22:47 Large Platelets Not Reportable 05/12/22 22:47 Giant Platelets Not Reportable 05/12/22 22:47 Platelet Satelliting Not Reportable 05/12/22 22:47 Plt Morphology Comment Not Reportable 05/12/22 22:47 RBC Morphology Not Reportable 05/12/22 22:47 Dimorphic RBCs Not Reportable 05/12/22 22:47 Polychromasia Not Reportable 05/12/22 22:47 Hypochromasia 1+ 05/12/22 22:47 Poikilocytosis Not Reportable 05/12/22 22:47 Anisocytosis Not Reportable 05/12/22 22:47 Microcytosis Not Reportable 05/12/22 22:47 Macrocytosis Not Reportable 05/12/22 22:47 Spherocytes Not Reportable 05/12/22 22:47 Pappenheimer Bodies Not Reportable 05/12/22 22:47 Sickle Cells Not Reportable 05/12/22 22:47 Target Cells Not Reportable 05/12/22 22:47 Tear Drop Cells Not Reportable 05/12/22 22:47 Ovalocytes Not Reportable 05/12/22 22:47 Helmet Cells Not Reportable 05/12/22 22:47 [place] Bodies Not Reportable 05/12/22 22:47 Luna Rings Not Reportable 05/12/22 22:47 Imelda Cells Not Reportable 05/12/22 22:47 Bite Cells Not Reportable 05/12/22 22:47 Crenated Cell Not Reportable 05/12/22 22:47 Elliptocytes Not Reportable 05/12/22 22:47 Acanthocytes (Spur) Not Reportable 05/12/22 22:47 Rouleaux Not Reportable 05/12/22 22:47 Hemoglobin C Crystals Not Reportable 05/12/22 22:47 Schistocytes Not Reportable 05/12/22 22:47 Malaria parasites Not Reportable 05/12/22 22:47 Jesse Bodies Not Reportable 05/12/22 22:47 Hem Pathologist Commnt No 05/12/22 22:47 PT 16.8 Sec. (12.2-14.9) H 05/12/22 14:25 INR 1.22 (0.87-1.13) H 05/12/22 14:25 APTT 29.6 Sec. (24.2-36.6) 05/12/22 14:25 ABG pH 7.385 pH Units (7.350-7.450) 05/18/22 14:30 ABG pCO2 29.3 mm Hg 05/18/22 14:30 ABG pO2 86.8 mm Hg (80.0-90.0) 05/18/22 14:30 ABG HCO3 17.1 mmol/L (20.0-26.0) L 05/18/22 14:30 ABG O2 Saturation 97.1 % (95.0-99.0) 05/18/22 14:30 ABG O2 Content 14.1 (0.0-44) 05/18/22 14:30 ABG Base Excess -6.8 mmol/L (-2.0-3.0) L 05/18/22 14:30 ABG Hemoglobin 10.4 gm/dl (12.0-16.0) L 05/18/22 14:30 ABG Carboxyhemoglobin 1.3 % (0.0-5.0) 05/18/22 14:30 ABG Methemoglobin 0.6 % (0.0-1.5) 05/18/22 14:30 VBG pH 7.354 (7.320-7.420) 05/12/22 22:47 Oxyhemoglobin 95.2 % (95.0-99.0) 05/18/22 14:30 FiO2 21 % 05/18/22 14:30 Sodium 140 mmol/L (137-145) 05/20/22 05:06 Potassium 3.8 mmol/L (3.6-5.0) 05/20/22 05:06 Chloride 110.8 mmol/L (98-107) H 05/20/22 05:06 Carbon Dioxide 17 mmol/L (22-30) L 05/20/22 05:06 Anion Gap 16 mmol/L 05/20/22 05:06 BUN 33 mg/dL (7-17) H 05/20/22 05:06 Creatinine 2.4 mg/dL (0.6-1.2) H 05/20/22 05:06 Estimated GFR 28 ml/min 05/20/22 05:06 BUN/Creatinine Ratio 14 % 05/20/22 05:06 Glucose 185 mg/dL (65-100) H 05/20/22 05:06 POC Glucose 277 mg/dL (70-105) H 05/19/22 22:32 Hemoglobin A1c 14.4 % (4-6) H 05/14/22 14:23 Ketones Quantitative Negative (Negative) 05/12/22 22:47 Lactic Acid 1.00 mmol/L (0.7-2.0) 05/14/22 04:20 Calcium 8.4 mg/dL (8.4-10.2) 05/20/22 05:06 Phosphorus 3.00 mg/dL (2.5-4.5) 05/15/22 03:48 Magnesium 2.30 mg/dL (1.7-2.3) 05/15/22 03:48 Total Bilirubin < 0.20 mg/dL (0.1-1.2) 05/16/22 09:22 AST 11 units/L (5-40) 05/16/22 09:22 ALT 11 units/L (7-56) 05/16/22 09:22 Alkaline Phosphatase 78 units/L (35-129) 05/16/22 09:22 Total Creatine Kinase 217 units/L (30-135) H 05/14/22 04:20 Troponin T 0.028 ng/mL (0.00-0.029) 05/12/22 22:47 C-Reactive Protein 1.40 mg/dL (0.00-1.30) H 05/14/22 04:20 Serum Total Protein 5.5 g/dL (6.1-8.1) L 05/14/22 04:20 Total Protein 5.1 g/dL (6.3-8.2) L 05/16/22 09:22 Albumin 2.7 g/dL (3.9-5) L 05/16/22 09:22 Albumin/Globulin Ratio 1.1 % 05/16/22 09: Wodsr-6-Awvndeuil 0.3 g/dL (0.2-0.3) 05/14/22 04:20 Xhnlx-5-Odwwdmgzv 1.2 g/dL (0.5-0.9) H 05/14/22 04:20 Beta Globulins 0.4 g/dL (0.2-0.5) 05/14/22 04:20 Gamma Globulins 0.7 g/dL (0.8-1.7) L 05/14/22 04:20 Abnorm Protein Band 1 see below 05/14/22 04:20 PEP Interpretation see below H 05/14/22 04:20 Procalcitonin 0.56 ng/mL (<0.15) 05/14/22 04:20 TSH 0.422 mlU/mL (0.270-4.200) 05/12/22 14:25 Free T4 1.02 ng/dL (0.76-1.46) 05/12/22 14:25 PTH Intact 149.4 pg/mL (15-65) H 05/14/22 04:20 Urine Color Yellow (Yellow) 05/12/22 19:04 Urine Turbidity Clear (Clear) 05/12/22 19:04 Specific [place] (Man) 1.015 (1.003-1.030) 05/12/22 19:04 Ur Protein (Man) 2+ mg/dL (Negative) 05/12/22 19:04 Ur Ketones (Man) Negative (Negative) 05/12/22 19:04 Ur Nitrite (Man) Negative (Negative) 05/12/22 19:04 Urine Bilirubin (Man) Negative (Negative) 05/12/22 19:04 Leukocyte Esterase (Man) Negative (Negative) 05/12/22 19:04 Urine WBC (Auto) < 1.0 /HPF (0.0-6.0) 05/12/22 19:04 Urine RBC (Auto) < 1.0 /HPF (0.0-6.0) 05/12/22 19:04 Urine RBC (Manual) 1+ (Negative) 05/12/22 19:04 Urine Creatinine 86.3 mg/dL (0.1-20.0) H 05/13/22 Unknown Protein/Creatinin Ratio 4.20 05/13/22 19:34 Urine Sodium 21 mmol/L 05/13/22 Unknown Urine Total Protein 735 mg/dL (5-11.8) H 05/13/22 19:34 CSF Appearance Clear 05/14/22 11:32 CSF Color [place] 05/14/22 11:32 CSF WBC 53 /mm3 (1-10) 05/14/22 11:32 CSF RBC 2000 /mm3 (0-0) 05/14/22 11:32 CSF Seg Neutrophils 97 % (0-6) 05/14/22 11:32 CSF Lymphocytes % 2 % (40-80) 05/14/22 11:32 CSF Reactive Lymphs 0 % 05/14/22 11:32 CSF Monocytes % 1 % (15-45) 05/14/22 11:32 CSF Eosinophils % 0 % 05/14/22 11:32 CSF Basophils 0 % 05/14/22 11:32 CSF Pathologist Review C 05/14/22 11:32 CSF Glucose 137 mg/dL 05/14/22 11:32 CSF Total Protein 32 mg/dL 05/14/22 11:32 CSF VDRL Nonreactive (Nonreactive) 05/14/22 11:32 Random Vancomycin 26.7 ug/mL (0-40.0) 05/19/22 05:02 Salicylates < 0.3 mg/dL (2.8-20.0) L 05/12/22 14:25 Urine Opiates Screen Negative 05/12/22 19:04 Urine Methadone Screen Negative 05/12/22 19:04 Acetaminophen 5.0 ug/mL (10.0-30.0) L 05/12/22 14:25 Ur Barbiturates Screen Negative 05/12/22 19:04 Ur Phencyclidine Scrn Negative 05/12/22 19:04 Ur Amphetamines Screen Negative 05/12/22 19:04 U Benzodiazepines Scrn Negative 05/12/22 19:04 Urine Cocaine Screen Negative 05/12/22 19:04 U Marijuana (THC) Screen Positive 05/12/22 19:04 Drugs of Abuse Note Disclamer 05/12/22 19:04 Plasma/Serum Alcohol < 0.01 % (0-0.07) 05/12/22 22:47 Complement C3 180 mg/dL (83-193) 05/14/22 04:20 Complement C4 43 mg/dL (15-57) 05/14/22 04:20 Coronavirus (PCR) Negative (Negative) 05/13/22 09:30 Vergara/IV: Voiding Method Indwelling Catheter Active Medications - Current Medications Current Medications: Generic Name Dose Route Start Last Admin Trade Name Freq PRN Reason Stop Dose Admin Acetaminophen 650 mg 05/13/22 02:07 05/14/22 08:08 Acetaminophen 325 Mg Tab PO 650 mg Q6H PRN Administration Pain MILD(1-3)/Fever >100.5/PATINO Amlodipine Besylate 10 mg 05/18/22 10:00 05/19/22 10:06 Amlodipine 10 Mg Tab PO 10 mg QDAY@1000 BRAD Administration Atorvastatin Calcium 40 mg 05/18/22 22:00 05/19/22 21:01 Atorvastatin 40 Mg Tab PO 40 mg QHS BRAD Administration Carvedilol 25 mg 05/18/22 10:00 05/19/22 21:01 Carvedilol 25 Mg Tab PO 25 mg BID BRAD Administration Dextrose 0 ml 05/13/22 02:07 Dextrose 50% In Water (25gm) 50 Ml Syringe IV Q30MIN PRN Hypoglycemia Protocol Heparin Sodium (Porcine) 5,000 unit 05/13/22 06:00 05/20/22 06:30 Heparin 5,000 Unit/1 Ml Vial SUB-Q 5,000 unit Q8HR BRAD Administration Hydralazine HCl 100 mg 05/18/22 09:00 05/19/22 21:02 Hydralazine 100 Mg Tab PO 100 mg TID BRAD Administration Hydralazine HCl 10 mg 05/18/22 10:20 Hydralazine 20 Mg/1 Ml Inj IV Q4HR PRN Hypertension Ceftriaxone Sodium 2 gm in 100 mls @ 200 mls/hr 05/18/22 22:00 05/19/22 21:02 Rocephin/Ns 2 Gm/100 Ml IV 05/27/22 22:29 200 mls/hr Q12H BRAD Administration Protocol Insulin Glargine 40 units 05/17/22 22:00 05/19/22 22:33 Insulin Glargine 100 Units/Ml SUB-Q 40 units QHS BRAD Administration Insulin Human Lispro 0 unit 05/18/22 11:30 05/19/22 22:47 Insulin Lispro 100 Unit/Ml SUB-Q 6 unit ACHS BRAD Administration Protocol Lacosamide 100 mg 05/18/22 10:00 05/19/22 21:02 Lacosamide 100 Mg Tab PO 100 mg Q12HR BRAD Administration Levetiracetam 1,000 mg 05/18/22 10:00 05/19/22 21:01 Levetiracetam 500 Mg Tab PO 1,000 mg BID BRAD Administration Lorazepam 2 mg 05/13/22 13:03 05/14/22 11:30 Lorazepam 2 Mg/Ml Vial IV 2 mg Q4H PRN Administration Seizures Magnesium Hydroxide 30 ml 05/13/22 02:07 Magnesium Hydroxide (Mom) Oral Liqd Udc PO Q4H PRN Constipation Ondansetron HCl 4 mg 05/13/22 02:07 Ondansetron 4 Mg/2 Ml Inj IV Q8H PRN Nausea And Vomiting Sodium Chloride 10 ml 05/13/22 10:00 05/19/22 22:33 Sodium Chloride 0.9% 10 Ml Flush Syringe IV 10 ml BID BRAD Administration Sodium Chloride 10 ml 05/13/22 02:07 Sodium Chloride 0.9% 10 Ml Flush Syringe IV PRN PRN LINE FLUSH Nutrition/Malnutrition Assess - Dietary Evaluation Nutrition/Malnutrition Findings: Nutrition Notes Start: 05/13/22 11:36 Freq: Status: Active Protocol: Document 05/15/22 11:17 SIOMARA (Rec: 05/15/22 11:45 SIOMARA [id number]) Nutrition Notes Initial or Follow up Reassessment Current Diagnosis Acute Kidney Injury,CKD(stage I-IV),Diabetes,Sepsis, Hypertension,Malnutrition Other Pertinent Diagnosis SIRS, r/o Meningoencephalitis, Seizures, Metabolic Acidosis, Tachycardia. Current Diet TF-Nepro w/CARBSTEADY @ 40 ml/ hr (since D 05/13). Labs/Tests 05/15: Cl 115.5, CO2 19, BUN 44, Crea 4.0, Glu 339. Pertinent Medications 05/15: Lantus 15U, Humalog 8U, others nutritionally unremarkable. Height 5 ft 7 in Weight 113 kg [place] Body Weight (kg) 61.36 BMI 38.9 Weight change and time frame No body weight change reported in 2 days. Weight Status Obese Subjective/Other Information RD consult for TF tolerance/ continuation assessment. TF continues as prescribed, and well tolerated, according to RN notes. Pt is on Room Air, O2 saturation @ 99%, according to Physical Assessment History notes. Pt is swallow impaired, according to Physical Assessment History notes, but no PLANNER CHIEF note available at the time and Not able to contact RN over the phone, will assess at F/U. Percent of energy/protein needs met: Prescribed TF-Nepro w/ CARBSTEADY @ 40 ml/hr provides for energy/protein needs (1, 710 Kcal/77 g) during LOS, 101 % Kcal; 100% AA. Burn Absent Trauma Absent GI Symptoms None Difficulty In Swallowing Food Allergy No Skin Integrity/Comment Assessment WNL. Current % PO Other Minimum of two criteria No Fluid Accumulation N/A Reduced House Builder Strength N/A (non-severe) Protein-Calorie Malnutrition N\A #1 Nutrition Diagnosis Inadequate oral intake Comments: TF continues as prescribed, and well tolerated, according to RN notes. Diagnosis Progress(for reassessment Continues documentation) Is patient on ventilator? No Is Patient Ambulatory and/or Out of Bed No REE-([facility]-confined to bed) 2248.872 Kcal/Kg value to use for calculation 15 Approximate Energy Requirements Using 1695 kcal/Kg Calculation Used for Recommendations Kcal/kg Additional Notes Protein: 0.8-1.2 g/Kg AdjBW; 70-104 g/day. Fluids: 1 ml/Kcal, or as per MD. Nutrition Intervention Nutrition Support: Continue TF-Nepro w/CARBSTEADY @ 40 ml/hr. Flush: 170 ml water Q 4 hr, or as per MD. Kcal 1,710 Protein (gm) 77 Carbohydrates (gm) 153 Fat (gm) 91 Fluid (mL) 691 Fiber (gm) 12 % RDI: 101% Kcal; 100% AA Goal #1 Provide at least 75% of energy /protein needs through Enteral Feeding during LOS. Follow-Up By: 05/22/22 Additional Comments Continue monitoring TF tolerance, [id number] status, and BM.
[2022-05-20] MEDS: carvediloL 25 MG TAB PO SCH ×2 (09:27→22:07)
[2022-05-20] MEDS: NIFEdipine XL 90 MG TAB PO SCH (09:27)
[2022-05-20] MEDS: LACOSAMIDE 100 MG TAB PO SCH ×2 (09:28→22:08)
[2022-05-20] MEDS: levETIRAcetam 500 MG TAB PO SCH ×2 (09:28→22:07)
[2022-05-20] MEDS: INSULIN LISPRO 100 UNIT/ML SUB-Q SCH ×4 (09:28→22:10)
[2022-05-20] MEDS: hydrALAZINE 100 MG TAB PO SCH ×3 (09:28→21:02)
[2022-05-20] MEDS: cefTRIAXone/NS 2 GM/100 ML 2 GM/100 ML BAG IV SCH ×2 (10:03→22:05)
[2022-05-20 10:28] LABS: Myeloperoxidase Antibody <1.0 AI (<1.0)
--- NOTE | 2022-05-20 10:55 | Progress Note ---
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 Continue current management * ID recommendations noted. Abx per ID * Glycemic control * Continue current antiHTN medications * Dose medications for renal function * Avoid potential nephrotoxins * Recommend outpatient nephrology follow up at discharge Subjective Date of service: 05/20/22 Principal diagnosis: HTNsive emergency with seizures; Morbid obesity; AMS; Leukocytosis; RODRÍGUEZ Interval history: Chart, vitals, labs reviewed. Sterile procedure in progress at time of visit. Objective - Exam Narrative Exam: Physical exam deferred. Sterile procedure (PICC placement) in progress at time of visit. - Vital Signs Vital signs: Vital Signs - 12hr 05/20/22 08:24 O2 Sat by Pulse 98 Oximetry - Lab 05/20/22 05:06 05/20/22 05:06 Most recent lab results ABG pH 7.385 pH Units (7.350-7.450) 05/18/22 14:30 ABG pCO2 29.3 mm Hg 05/18/22 14:30 ABG pO2 86.8 mm Hg (80.0-90.0) 05/18/22 14:30 ABG HCO3 17.1 mmol/L (20.0-26.0) L 05/18/22 14:30 ABG O2 Saturation 97.1 % (95.0-99.0) 05/18/22 14:30 Calcium 8.4 mg/dL (8.4-10.2) 05/20/22 05:06 Phosphorus 3.00 mg/dL (2.5-4.5) 05/15/22 03:48 Magnesium 2.30 mg/dL (1.7-2.3) 05/15/22 03:48 Urine Creatinine 86.3 mg/dL (0.1-20.0) H 05/13/22 Unknown Urine Sodium 21 mmol/L 05/13/22 Unknown Urine Total Protein 735 mg/dL (5-11.8) H 05/13/22 19:34 Medications & Allergies - Medications Allergies/Adverse Reactions: Allergies No Known Allergies Allergy (Verified 05/13/22 19:13) Home Medications: Home Medications Medication Instructions Recorded Confirmed Last Taken Type No Known Home Medications [No 05/18/22 05/18/22 Unknown History Reported Home Medications] Active Medications: Generic Name Dose Route Start Last Admin Trade Name Emmanuel PRN Reason Stop Dose Admin Acetaminophen 650 mg 05/13/22 02:07 05/14/22 08:08 Acetaminophen 325 Mg Tab PO 650 mg Q6H PRN Administration Pain MILD(1-3)/Fever >100.5/PATINO Atorvastatin Calcium 40 mg 05/18/22 22:00 05/19/22 21:01 Atorvastatin 40 Mg Tab PO 40 mg QHS BRAD Administration Carvedilol 25 mg 05/18/22 10:00 05/20/22 09:27 Carvedilol 25 Mg Tab PO 25 mg BID BRAD Administration Dextrose 0 ml 05/13/22 02:07 Dextrose 50% In Water (25gm) 50 Ml Syringe IV Q30MIN PRN Hypoglycemia Protocol Heparin Sodium (Porcine) 5,000 unit 05/13/22 06:00 05/20/22 06:30 Heparin 5,000 Unit/1 Ml Vial SUB-Q 5,000 unit Q8HR BRAD Administration Hydralazine HCl 100 mg 05/18/22 09:00 05/20/22 09:28 Hydralazine 100 Mg Tab PO 100 mg TID BRAD Administration Hydralazine HCl 10 mg 05/18/22 10:20 Hydralazine 20 Mg/1 Ml Inj IV Q4HR PRN Hypertension Ceftriaxone Sodium 2 gm in 100 mls @ 200 mls/hr 05/18/22 22:00 05/20/22 10:03 Rocephin/Ns 2 Gm/100 Ml IV 05/27/22 22:29 200 mls/hr Q12H BRAD Administration Protocol Insulin Glargine 40 units 05/17/22 22:00 05/19/22 22:33 Insulin Glargine 100 Units/Ml SUB-Q 40 units QHS BRAD Administration Insulin Human Lispro 0 unit 05/18/22 11:30 05/20/22 09:28 Insulin Lispro 100 Unit/Ml SUB-Q 3 unit ACHS BRAD Administration Protocol Lacosamide 100 mg 05/18/22 10:00 05/20/22 09:28 Lacosamide 100 Mg Tab PO 100 mg Q12HR BRAD Administration Levetiracetam 1,000 mg 05/18/22 10:00 05/20/22 09:28 Levetiracetam 500 Mg Tab PO 1,000 mg BID BRAD Administration Lorazepam 2 mg 05/13/22 13:03 05/14/22 11:30 Lorazepam 2 Mg/Ml Vial IV 2 mg Q4H PRN Administration Seizures Magnesium Hydroxide 30 ml 05/13/22 02:07 Magnesium Hydroxide (Mom) Oral Liqd Udc PO Q4H PRN Constipation Nifedipine 90 mg 05/20/22 10:00 05/20/22 09:27 Nifedipine Xl 90 Mg Tab PO 90 mg QDAY BRAD Administration Ondansetron HCl 4 mg 05/13/22 02:07 Ondansetron 4 Mg/2 Ml Inj IV Q8H PRN Nausea And Vomiting Sodium Chloride 10 ml 05/13/22 10:00 05/20/22 09:27 Sodium Chloride 0.9% 10 Ml Flush Syringe IV 10 ml BID BRDA Administration Sodium Chloride 10 ml 05/13/22 02:07 Sodium Chloride 0.9% 10 Ml Flush Syringe IV PRN PRN LINE FLUSH
--- NOTE | 2022-05-20 11:43 | Progress Note ---
Assessment and Plan 31-year-old -[place] female Morbidly brought to the emergency room for evaluation of seizure episode which happened overnight with associated progressive weakness. Patient is visiting from [place] and was said not to have had enough rest since arrival few days ago. Most of the history was gotten from the ER staff as patient is unable to give any coherent history at this time and no family member is available. Patient was said to have woken up in the night had an episode of vomiting and subsequently had seizures. She was said to have had another episode of seizure while in the emergency room and had been started on Keppra and also given some Ativan. Work-up in the emergency room , significant findings on the labs with a BUN of 26 and creatinine of 3.1. Initial blood glucose of 580 and subsequently 361. Urinalysis was unremarkable. UDS was positive for marijuana. Leukocytosis of 13.1. CT scan of the head shows no acute findings. Chest x-ray shows no acute findings. Blood pressure has been quite elevated with systolic in the 200s and diastolic in the 130s. Patient initially given IV labetalol and then subsequently placed on Cardene drip. Patient also developed a fever while in the emergency room with temperature of about 103 F. Patient has been admitted with seizure disorder, hyperglycemia, hypertensive urgency and RODRÍGUEZ. Patient denies smoking, alcohol or drug abuse. Patient not working. Not . Has no children. Patient awake. Patient is on room air. O2 saturation 98%. No acute respiratory distress. Sitting up by the side of the bed. ABG on room air ABG pH 7.354 pH Units (7.350-7.450) 05/12/22 22:47 ABG pCO2 36.7 mm Hg 05/12/22 22:47 ABG pO2 55.5 mm Hg (80.0-90.0) L 05/12/22 22:47 ABG O2 Saturation 89.0 % (95.0-99.0) L 05/12/22 22:47 Based on this blood gas results, Patient candidate for home O2. However O2 saturation running 98% on room air. Recommend to repeat blood gases on room air before discharge. Patient alert, awake. Oriented. Resting on room air. Denies chest pain, shortness of breath or cough. Patient afebrile. Has leukocytosis. Blood pressure 131/80, Pulse 88, Respirations 20. Chest xray done 05/12/22 reported No significant pulmonary or pleural abnormality. No pneumothorax. Chest xray 05/16/22 reported No significant pulmonary or pleural abnormality. No pneumothorax. Central line tip in the right atrium. This could be retracted 3 cm. Patient is on ceftraxone,, S/C Heparin, . Recommend GI prophylaxis. - Patient Problems (1) Seizure Current Visit: Yes Status: Acute Plan to address problem: Patient is on Keppra and ativan. (2) Hyperglycemia Current Visit: Yes Status: Acute Plan to address problem: Recent blood sugur 185. Patient is on S/C Insulin. (3) Hypertensive crisis Current Visit: Yes Status: Acute Plan to address problem: Patient is on Amalodipine, Hydralazine,Labetalol. (4) Dehydration Current Visit: Yes Status: Acute Plan to address problem: Recived I/V fluids. BMP to day 05/20/22 reported BUN 33, Creatnine 3.4 (5) Postictal state Current Visit: Yes Status: Acute Plan to address problem: Patient awake, talking now. (6) RODRÍGUEZ (acute kidney injury) Current Visit: Yes Status: Acute Plan to address problem: BUN 33 . Creatinine 2.4 Nephrology consulted. Subjective Date of service: 05/20/22 Principal diagnosis: HTNsive emergency with seizures; Morbid obesity; AMS; Leukocytosis; RODRÍGUEZ Interval history: 31-year-old -[place] female Morbidly brought to the emergency room for evaluation of seizure episode which happened overnight with associated progressive weakness. Patient is visiting from [place] and was said not to have had enough rest since arrival few days ago. Most of the history was gotten from the ER staff as patient is unable to give any coherent history at this time and no family member is available. Patient was said to have woken up in the night had an episode of vomiting and subsequently had seizures. She was said to have had another episode of seizure while in the emergency room and had been started on Keppra and also given some Ativan. Work-up in the emergency room , significant findings on the labs with a BUN of 26 and creatinine of 3.1. Initial blood glucose of 580 and subsequently 361. Urinalysis was unremarkable. UDS was positive for marijuana. Leukocytosis of 13.1. CT scan of the head shows no acute findings. Chest x-ray shows no acute findings. Blood pressure has been quite elevated with systolic in the 200s and diastolic in the 130s. Patient initially given IV labetalol and then subsequently placed on Cardene drip. Patient also developed a fever while in the emergency room with temperature of about 103 F. Patient has been admitted with seizure disorder, hyperglycemia, hypertensive urgency and RODRÍGUEZ. Patient denies smoking, alcohol or drug abuse. Patient not working. Not . Has no children. Patient awake. Patient is on room air. O2 saturation 98%. No acute respiratory distress. Sitting up by the side of the bed. ABG on room air ABG pH 7.354 pH Units (7.350-7.450) 05/12/22 22:47 ABG pCO2 36.7 mm Hg 05/12/22 22:47 ABG pO2 55.5 mm Hg (80.0-90.0) L 05/12/22 22:47 ABG O2 Saturation 89.0 % (95.0-99.0) L 05/12/22 22:47 Based on this blood gas results, Patient candidate for home O2. However O2 saturation running 98% on room air. Recommend to repeat blood gases on room air before discharge. Patient alert, awake. Oriented. Resting on room air. Denies chest pain, shortness of breath or cough. Patient afebrile. Has leukocytosis. Blood pressure 131/80, Pulse 88, Respirations 20. Chest xray done 05/12/22 reported No significant pulmonary or pleural abnormality. No pneumothorax. Chest xray 05/16/22 reported No significant pulmonary or pleural abnormality. No pneumothorax. Central line tip in the right atrium. This could be retracted 3 cm . Patient is on ceftraxone,, S/C Heparin, . Recommend GI prophylaxis. Objective Vital Signs - 12hr 05/20/22 08:24 O2 Sat by Pulse 98 Oximetry Constitutional: no acute distress, alert, other (young obese female with mildly increased respiratory effort at rest) Eyes: non-icteric ENT: oropharynx moist Neck: supple, no lymphadenopathy, no JVD, other (large circumference, RIJ CVL) Effort: mildly labored Ascultation: Bilateral: diminished breath sounds Percussion: Bilateral: not dull Cardiovascular: regular rate and rhythm, other (S1.S2) Gastrointestinal: normoactive bowel sounds, soft, non-tender, non-distended (protuberant) Integumentary: normal Extremities: no cyanosis, no edema, pulses normal, no ischemia or petechiae Neurologic: normal mental status, non-focal exam (grossly), pupils equal and round, CN II-XII normal, motor strength normal and Psychiatric: mood appropriate, affect normal CBC and BMP: 05/20/22 05:06 05/20/22 05:06 ABG, PT/INR, D-dimer: ABG ABG pH 7.385 pH Units (7.350-7.450) 05/18/22 14:30 ABG pCO2 29.3 mm Hg 05/18/22 14:30 ABG pO2 86.8 mm Hg (80.0-90.0) 05/18/22 14:30 ABG O2 Saturation 97.1 % (95.0-99.0) 05/18/22 14:30 PT/INR, D-dimer PT 16.8 Sec. (12.2-14.9) H 05/12/22 14:25 INR 1.22 (0.87-1.13) H 05/12/22 14:25 Abnormal lab findings: Abnormal Labs 05/12/22 05/12/22 05/12/22 14:25 14:25 14:25 WBC 13.1 H RBC 5.37 H Hgb MCV 78 L MCH 25 L RDW 16.2 H Lymph % (Auto) Caroline % (Auto) Caroline # (Auto) Baso # (Auto) Seg Neutrophils % Seg Neuts % (Manual) 88.0 H Lymphocytes % (Manual) 7.0 L Monocytes % (Manual) Seg Neutrophils # Seg Neutrophils # Man 11.5 H Lymphocytes # (Manual) 0.9 L Monocytes # (Manual) PT 16.8 H INR 1.22 H ABG pO2 ABG HCO3 ABG O2 Saturation ABG Base Excess ABG Hemoglobin Oxyhemoglobin Sodium Potassium Chloride Carbon Dioxide 18 L BUN 26 H Creatinine 3.1 H Glucose 580 H* POC Glucose Hemoglobin A1c Lactic Acid Calcium Total Creatine Kinase C-Reactive Protein Serum Total Protein Total Protein 6.2 L Albumin 3.3 L Mzifl-3-Ryilpnynd Gamma Globulins PEP Interpretation PTH Intact Urine Creatinine Urine Total Protein Salicylates Acetaminophen 05/12/22 05/12/22 05/12/22 14:25 14:25 14:25 WBC RBC Hgb MCV MCH RDW Lymph % (Auto) Caroline % (Auto) Caroline # (Auto) Baso # (Auto) Seg Neutrophils % Seg Neuts % (Manual) Lymphocytes % (Manual) Monocytes % (Manual) Seg Neutrophils # Seg Neutrophils # Man Lymphocytes # (Manual) Monocytes # (Manual) PT INR ABG pO2 ABG HCO3 ABG O2 Saturation ABG Base Excess ABG Hemoglobin Oxyhemoglobin Sodium Potassium Chloride Carbon Dioxide BUN Creatinine Glucose POC Glucose Hemoglobin A1c Lactic Acid 2.80 H* Calcium Total Creatine Kinase C-Reactive Protein Serum Total Protein Total Protein Albumin Txgao-8-Signnpjyv Gamma Globulins PEP Interpretation PTH Intact Urine Creatinine Urine Total Protein Salicylates < 0.3 L Acetaminophen 5.0 L 05/12/22 05/12/22 05/12/22 22:47 22:47 22:47 WBC 15.4 H RBC 5.42 H Hgb MCV 77 L MCH 24 L RDW 16.3 H Lymph % (Auto) Caroline % (Auto) Caroline # (Auto) Baso # (Auto) Seg Neutrophils % Seg Neuts % (Manual) 85.0 H Lymphocytes % (Manual) 7.0 L Monocytes % (Manual) 8.0 H Seg Neutrophils # Seg Neutrophils # Man 13.1 H Lymphocytes # (Manual) 1.1 L Monocytes # (Manual) 1.2 H PT INR ABG pO2 ABG HCO3 ABG O2 Saturation ABG Base Excess ABG Hemoglobin Oxyhemoglobin Sodium Potassium Chloride 110.1 H Carbon Dioxide 19 L BUN 27 H Creatinine 3.3 H Glucose 361 H POC Glucose Hemoglobin A1c Lactic Acid 2.70 H* Calcium Total Creatine Kinase C-Reactive Protein Serum Total Protein Total Protein Albumin 3.3 L Torrk-3-Ylauqhycd Gamma Globulins PEP Interpretation PTH Intact Urine Creatinine Urine Total Protein Salicylates Acetaminophen 05/12/22 05/13/22 05/13/22 22:47 01:53 06:30 WBC RBC Hgb MCV MCH RDW Lymph % (Auto) Caroline % (Auto) Caroline # (Auto) Baso # (Auto) Seg Neutrophils % Seg Neuts % (Manual) Lymphocytes % (Manual) Monocytes % (Manual) Seg Neutrophils # Seg Neutrophils # Man Lymphocytes # (Manual) Monocytes # (Manual) PT INR ABG pO2 55.5 L ABG HCO3 ABG O2 Saturation 89.0 L ABG Base Excess -4.9 L ABG Hemoglobin Oxyhemoglobin 85.4 L Sodium Potassium Chloride Carbon Dioxide BUN Creatinine Glucose POC Glucose 511 H Hemoglobin A1c Lactic Acid 2.30 H* Calcium Total Creatine Kinase C-Reactive Protein Serum Total Protein Total Protein Albumin Lktam-4-Qlpjavojv Gamma Globulins PEP Interpretation PTH Intact Urine Creatinine Urine Total Protein Salicylates Acetaminophen 05/13/22 05/13/22 05/13/22 10:27 11:33 16:12 WBC RBC Hgb MCV MCH RDW Lymph % (Auto) Caroline % (Auto) Caroline # (Auto) Baso # (Auto) Seg Neutrophils % Seg Neuts % (Manual) Lymphocytes % (Manual) Monocytes % (Manual) Seg Neutrophils # Seg Neutrophils # Man Lymphocytes # (Manual) Monocytes # (Manual) PT INR ABG pO2 ABG HCO3 ABG O2 Saturation ABG Base Excess ABG Hemoglobin Oxyhemoglobin Sodium Potassium Chloride Carbon Dioxide BUN Creatinine Glucose POC Glucose 492 H 500 H 331 H Hemoglobin A1c Lactic Acid Calcium Total Creatine Kinase C-Reactive Protein Serum Total Protein Total Protein Albumin Vkiwm-2-Nlgnweqvd Gamma Globulins PEP Interpretation PTH Intact Urine Creatinine Urine Total Protein Salicylates Acetaminophen 05/13/22 05/13/22 05/13/22 19:34 21:55 23:50 WBC RBC Hgb MCV MCH RDW Lymph % (Auto) Caroline % (Auto) Caroline # (Auto) Baso # (Auto) Seg Neutrophils % Seg Neuts % (Manual) Lymphocytes % (Manual) Monocytes % (Manual) Seg Neutrophils # Seg Neutrophils # Man Lymphocytes # (Manual) Monocytes # (Manual) PT INR ABG pO2 ABG HCO3 ABG O2 Saturation ABG Base Excess ABG Hemoglobin Oxyhemoglobin Sodium Potassium Chloride Carbon Dioxide BUN Creatinine Glucose POC Glucose 268 H 256 H Hemoglobin A1c Lactic Acid Calcium Total Creatine Kinase C-Reactive Protein Serum Total Protein Total Protein Albumin Ilgzx-7-Vzrnmqrbd Gamma Globulins PEP Interpretation PTH Intact Urine Creatinine 174.8 H Urine Total Protein 735 H Salicylates Acetaminophen 05/13/22 05/14/22 05/14/22 Unknown 04:20 04:20 WBC 18.3 H RBC Hgb MCV 78 L MCH 24 L RDW 16.6 H Lymph % (Auto) 12.1 L Caroline % (Auto) 11.6 H Caroline # (Auto) 2.1 H Baso # (Auto) 0.2 H Seg Neutrophils % 75.0 H Seg Neuts % (Manual) Lymphocytes % (Manual) Monocytes % (Manual) Seg Neutrophils # 13.7 H Seg Neutrophils # Man Lymphocytes # (Manual) Monocytes # (Manual) PT INR ABG pO2 ABG HCO3 ABG O2 Saturation ABG Base Excess ABG Hemoglobin Oxyhemoglobin Sodium 146 H Potassium 3.4 L Chloride 115.1 H Carbon Dioxide 17 L BUN 35 H Creatinine 3.9 H Glucose 224 H POC Glucose Hemoglobin A1c Lactic Acid Calcium Total Creatine Kinase C-Reactive Protein 1.40 H Serum Total Protein Total Protein Albumin Ndamj-1-Fmkjhqyyp Gamma Globulins PEP Interpretation PTH Intact Urine Creatinine 86.3 H Urine Total Protein Salicylates Acetaminophen 05/14/22 05/14/22 05/14/22 04:20 04:20 04:20 WBC RBC Hgb MCV MCH RDW Lymph % (Auto) Caroline % (Auto) Caroline # (Auto) Baso # (Auto) Seg Neutrophils % Seg Neuts % (Manual) Lymphocytes % (Manual) Monocytes % (Manual) Seg Neutrophils # Seg Neutrophils # Man Lymphocytes # (Manual) Monocytes # (Manual) PT INR ABG pO2 ABG HCO3 ABG O2 Saturation ABG Base Excess ABG Hemoglobin Oxyhemoglobin Sodium Potassium Chloride Carbon Dioxide BUN Creatinine Glucose POC Glucose Hemoglobin A1c Lactic Acid Calcium Total Creatine Kinase 217 H C-Reactive Protein Serum Total Protein 5.5 L Total Protein Albumin 2.5 L Jhldw-0-Pjuqayyak 1.2 H Gamma Globulins 0.7 L PEP Interpretation see below H PTH Intact 149.4 H Urine Creatinine Urine Total Protein Salicylates Acetaminophen 05/14/22 05/14/22 05/14/22 06:10 07:23 13:25 WBC RBC Hgb MCV MCH RDW Lymph % (Auto) Caroline % (Auto) Caroline # (Auto) Baso # (Auto) Seg Neutrophils % Seg Neuts % (Manual) Lymphocytes % (Manual) Monocytes % (Manual) Seg Neutrophils # Seg Neutrophils # Man Lymphocytes # (Manual) Monocytes # (Manual) PT INR ABG pO2 ABG HCO3 ABG O2 Saturation ABG Base Excess ABG Hemoglobin Oxyhemoglobin Sodium Potassium Chloride Carbon Dioxide BUN Creatinine Glucose POC Glucose 257 H 240 H 323 H Hemoglobin A1c Lactic Acid Calcium Total Creatine Kinase C-Reactive Protein Serum Total Protein Total Protein Albumin Kmqek-7-Uaowqbqmt Gamma Globulins PEP Interpretation PTH Intact Urine Creatinine Urine Total Protein Salicylates Acetaminophen 05/14/22 05/14/22 05/15/22 14:23 17:28 00:02 WBC RBC Hgb MCV MCH RDW Lymph % (Auto) Caroline % (Auto) Caroline # (Auto) Baso # (Auto) Seg Neutrophils % Seg Neuts % (Manual) Lymphocytes % (Manual) Monocytes % (Manual) Seg Neutrophils # Seg Neutrophils # Man Lymphocytes # (Manual) Monocytes # (Manual) PT INR ABG pO2 ABG HCO3 ABG O2 Saturation ABG Base Excess ABG Hemoglobin Oxyhemoglobin Sodium Potassium Chloride Carbon Dioxide BUN Creatinine Glucose POC Glucose 339 H 392 H Hemoglobin A1c 14.4 H Lactic Acid Calcium Total Creatine Kinase C-Reactive Protein Serum Total Protein Total Protein Albumin Apftq-8-Gruwuturf Gamma Globulins PEP Interpretation PTH Intact Urine Creatinine Urine Total Protein Salicylates Acetaminophen 05/15/22 05/15/22 05/15/22 03:48 03:48 05:50 WBC RBC Hgb MCV 78 L MCH 25 L RDW 16.7 H Lymph % (Auto) Caroline % (Auto) Caroline # (Auto) Baso # (Auto) Seg Neutrophils % Seg Neuts % (Manual) Lymphocytes % (Manual) Monocytes % (Manual) Seg Neutrophils # Seg Neutrophils # Man Lymphocytes # (Manual) Monocytes # (Manual) PT INR ABG pO2 ABG HCO3 ABG O2 Saturation ABG Base Excess ABG Hemoglobin Oxyhemoglobin Sodium Potassium Chloride 115.5 H Carbon Dioxide 19 L BUN 44 H Creatinine 4.0 H Glucose 339 H POC Glucose 307 H Hemoglobin A1c Lactic Acid Calcium Total Creatine Kinase C-Reactive Protein Serum Total Protein Total Protein Albumin Thpzs-5-Jlywhqyvu Gamma Globulins PEP Interpretation PTH Intact Urine Creatinine Urine Total Protein Salicylates Acetaminophen 05/15/22 05/15/22 05/16/22 13:30 17:42 00:34 WBC RBC Hgb MCV MCH RDW Lymph % (Auto) Caroline % (Auto) Caroline # (Auto) Baso # (Auto) Seg Neutrophils % Seg Neuts % (Manual) Lymphocytes % (Manual) Monocytes % (Manual) Seg Neutrophils # Seg Neutrophils # Man Lymphocytes # (Manual) Monocytes # (Manual) PT INR ABG pO2 ABG HCO3 ABG O2 Saturation ABG Base Excess ABG Hemoglobin Oxyhemoglobin Sodium Potassium Chloride Carbon Dioxide BUN Creatinine Glucose POC Glucose 327 H 388 H 411 H Hemoglobin A1c Lactic Acid Calcium Total Creatine Kinase C-Reactive Protein Serum Total Protein Total Protein Albumin Ykyko-5-Qnaryayoc Gamma Globulins PEP Interpretation PTH Intact Urine Creatinine Urine Total Protein Salicylates Acetaminophen 05/16/22 05/16/22 05/16/22 05:27 07:59 09:22 WBC RBC Hgb MCV 77 L MCH 25 L RDW 17.0 H Lymph % (Auto) Caroline % (Auto) 9.9 H Caroline # (Auto) 1.1 H Baso # (Auto) 0.2 H Seg Neutrophils % 70.2 H Seg Neuts % (Manual) Lymphocytes % (Manual) Monocytes % (Manual) Seg Neutrophils # Seg Neutrophils # Man Lymphocytes # (Manual) Monocytes # (Manual) PT INR ABG pO2 ABG HCO3 ABG O2 Saturation ABG Base Excess ABG Hemoglobin Oxyhemoglobin Sodium Potassium Chloride Carbon Dioxide BUN Creatinine Glucose POC Glucose 358 H 308 H Hemoglobin A1c Lactic Acid Calcium Total Creatine Kinase C-Reactive Protein Serum Total Protein Total Protein Albumin Agqpw-5-Iclrqgqvh Gamma Globulins PEP Interpretation PTH Intact Urine Creatinine Urine Total Protein Salicylates Acetaminophen 05/16/22 05/16/22 05/16/22 09:22 11:36 17:37 WBC RBC Hgb MCV MCH RDW Lymph % (Auto) Caroline % (Auto) Caroline # (Auto) Baso # (Auto) Seg Neutrophils % Seg Neuts % (Manual) Lymphocytes % (Manual) Monocytes % (Manual) Seg Neutrophils # Seg Neutrophils # Man Lymphocytes # (Manual) Monocytes # (Manual) PT INR ABG pO2 ABG HCO3 ABG O2 Saturation ABG Base Excess ABG Hemoglobin Oxyhemoglobin Sodium Potassium 3.5 L Chloride 107.6 H Carbon Dioxide 18 L BUN 48 H Creatinine 3.9 H Glucose 284 H POC Glucose 255 H 324 H Hemoglobin A1c Lactic Acid Calcium Total Creatine Kinase C-Reactive Protein Serum Total Protein Total Protein 5.1 L Albumin 2.7 L Ukrgk-7-Gohhfjnyt Gamma Globulins PEP Interpretation PTH Intact Urine Creatinine Urine Total Protein Salicylates Acetaminophen 05/16/22 05/17/22 05/17/22 23:48 05:20 12:47 WBC RBC Hgb MCV MCH RDW Lymph % (Auto) Caroline % (Auto) Caroline # (Auto) Baso # (Auto) Seg Neutrophils % Seg Neuts % (Manual) Lymphocytes % (Manual) Monocytes % (Manual) Seg Neutrophils # Seg Neutrophils # Man Lymphocytes # (Manual) Monocytes # (Manual) PT INR ABG pO2 ABG HCO3 ABG O2 Saturation ABG Base Excess ABG Hemoglobin Oxyhemoglobin Sodium Potassium Chloride Carbon Dioxide BUN Creatinine Glucose POC Glucose 293 H 267 H 173 H Hemoglobin A1c Lactic Acid Calcium Total Creatine Kinase C-Reactive Protein Serum Total Protein Total Protein Albumin Anljn-3-Puxtgwsgw Gamma Globulins PEP Interpretation PTH Intact Urine Creatinine Urine Total Protein Salicylates Acetaminophen 05/17/22 05/17/22 05/17/22 12:55 17:47 19:57 WBC RBC Hgb MCV MCH RDW Lymph % (Auto) Caroline % (Auto) Caroline # (Auto) Baso # (Auto) Seg Neutrophils % Seg Neuts % (Manual) Lymphocytes % (Manual) Monocytes % (Manual) Seg Neutrophils # Seg Neutrophils # Man Lymphocytes # (Manual) Monocytes # (Manual) PT INR ABG pO2 ABG HCO3 ABG O2 Saturation ABG Base Excess ABG Hemoglobin Oxyhemoglobin Sodium Potassium Chloride 107.6 H Carbon Dioxide 19 L BUN 40 H Creatinine 3.1 H Glucose 171 H POC Glucose 246 H 256 H Hemoglobin A1c Lactic Acid Calcium 8.2 L Total Creatine Kinase C-Reactive Protein Serum Total Protein Total Protein Albumin Blkvc-9-Wgqpzpjhe Gamma Globulins PEP Interpretation PTH Intact Urine Creatinine Urine Total Protein Salicylates Acetaminophen 05/17/22 05/18/22 05/18/22 23:13 04:35 14:30 WBC RBC Hgb MCV MCH RDW Lymph % (Auto) Caroline % (Auto) Caroline # (Auto) Baso # (Auto) Seg Neutrophils % Seg Neuts % (Manual) Lymphocytes % (Manual) Monocytes % (Manual) Seg Neutrophils # Seg Neutrophils # Man Lymphocytes # (Manual) Monocytes # (Manual) PT INR ABG pO2 ABG HCO3 17.1 L ABG O2 Saturation ABG Base Excess -6.8 L ABG Hemoglobin 10.4 L Oxyhemoglobin Sodium 136 L Potassium Chloride Carbon Dioxide 18 L BUN 39 H Creatinine 3.2 H Glucose 202 H POC Glucose 270 H Hemoglobin A1c Lactic Acid Calcium 8.1 L Total Creatine Kinase C-Reactive Protein Serum Total Protein Total Protein Albumin Exrjl-6-Uxoiqlgsu Gamma Globulins PEP Interpretation PTH Intact Urine Creatinine Urine Total Protein Salicylates Acetaminophen 05/18/22 05/18/22 05/19/22 16:27 22:06 05:02 WBC RBC Hgb MCV MCH RDW Lymph % (Auto) Caroline % (Auto) Caroline # (Auto) Baso # (Auto) Seg Neutrophils % Seg Neuts % (Manual) Lymphocytes % (Manual) Monocytes % (Manual) Seg Neutrophils # Seg Neutrophils # Man Lymphocytes # (Manual) Monocytes # (Manual) PT INR ABG pO2 ABG HCO3 ABG O2 Saturation ABG Base Excess ABG Hemoglobin Oxyhemoglobin Sodium Potassium Chloride 109.1 H Carbon Dioxide 17 L BUN 36 H Creatinine 2.6 H Glucose 164 H POC Glucose 247 H 227 H Hemoglobin A1c Lactic Acid Calcium Total Creatine Kinase C-Reactive Protein Serum Total Protein Total Protein Albumin Lcemf-6-Kxsontlgr Gamma Globulins PEP Interpretation PTH Intact Urine Creatinine Urine Total Protein Salicylates Acetaminophen 05/19/22 05/19/22 05/19/22 05:02 07:24 10:53 WBC 12.4 H RBC Hgb 9.9 L MCV 78 L MCH 24 L RDW 16.2 H Lymph % (Auto) Caroline % (Auto) Caroline # (Auto) Baso # (Auto) Seg Neutrophils % Seg Neuts % (Manual) Lymphocytes % (Manual) Monocytes % (Manual) Seg Neutrophils # Seg Neutrophils # Man Lymphocytes # (Manual) Monocytes # (Manual) PT INR ABG pO2 ABG HCO3 ABG O2 Saturation ABG Base Excess ABG Hemoglobin Oxyhemoglobin Sodium Potassium Chloride Carbon Dioxide BUN Creatinine Glucose POC Glucose 154 H 203 H Hemoglobin A1c Lactic Acid Calcium Total Creatine Kinase C-Reactive Protein Serum Total Protein Total Protein Albumin Gsapw-1-Phfsyasba Gamma Globulins PEP Interpretation PTH Intact Urine Creatinine Urine Total Protein Salicylates Acetaminophen 05/19/22 05/19/22 05/20/22 16:40 22:32 05:06 WBC 12.1 H RBC Hgb 9.4 L MCV MCH 24 L RDW 16.1 H Lymph % (Auto) Caroline % (Auto) Caroline # (Auto) Baso # (Auto) Seg Neutrophils % Seg Neuts % (Manual) Lymphocytes % (Manual) Monocytes % (Manual) Seg Neutrophils # Seg Neutrophils # Man Lymphocytes # (Manual) Monocytes # (Manual) PT INR ABG pO2 ABG HCO3 ABG O2 Saturation ABG Base Excess ABG Hemoglobin Oxyhemoglobin Sodium Potassium Chloride Carbon Dioxide BUN Creatinine Glucose POC Glucose 222 H 277 H Hemoglobin A1c Lactic Acid Calcium Total Creatine Kinase C-Reactive Protein Serum Total Protein Total Protein Albumin Wxitk-8-Ydthjxdie Gamma Globulins PEP Interpretation PTH Intact Urine Creatinine Urine Total Protein Salicylates Acetaminophen 05/20/22 05:06 WBC RBC Hgb MCV MCH RDW Lymph % (Auto) Caroline % (Auto) Caroline # (Auto) Baso # (Auto) Seg Neutrophils % Seg Neuts % (Manual) Lymphocytes % (Manual) Monocytes % (Manual) Seg Neutrophils # Seg Neutrophils # Man Lymphocytes # (Manual) Monocytes # (Manual) PT INR ABG pO2 ABG HCO3 ABG O2 Saturation ABG Base Excess ABG Hemoglobin Oxyhemoglobin Sodium Potassium Chloride 110.8 H Carbon Dioxide 17 L BUN 33 H Creatinine 2.4 H Glucose 185 H POC Glucose Hemoglobin A1c Lactic Acid Calcium Total Creatine Kinase C-Reactive Protein Serum Total Protein Total Protein Albumin Llzqz-5-Xwzupmjto Gamma Globulins PEP Interpretation PTH Intact Urine Creatinine Urine Total Protein Salicylates Acetaminophen Allied health notes reviewed: nursing
[2022-05-20 12:03] LABS: ANA Screen, IFA Negative (Negative)
--- NOTE | 2022-05-20 12:23 | Progress Note ---
Assessment and Plan Cultures: Blood culture no growth so far A/P: 31 yo F no PMHx now with: #SIRS/sepsis: With fevers, leukocytosis. 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 CSF with 97% neutrophils on 53 white blood cells. Probably consistent with bacterial meningitis, however elevated glucose points away from that. May be inflammatory secondary to seizures. #Seizures: Unclear etiology, awaiting MRI #RODRÍGUEZ: Renally dose medications Recs: -Continue renally dosed cefepime -Stop vancomycin -Case management consulted for ceftriaxone 2g q12h until 05/27/2022 -OK for midline on DC. Discussed with Dr. Lim Thank you for the consult, we will sign off. Please call questions. Tahira Cabrera MD [facility] ([facility]) O: [phone] F: [phone] Subjective Date of service: 05/20/22 Principal diagnosis: HTNsive emergency with seizures; Morbid obesity; AMS; Leukocytosis; RODRÍGUEZ Interval history: Afebrile, white count 12.1. Cultures remain negative. Objective - Exam Narrative Exam: Physical Exam: Constitutional: Alert, cooperative. No acute distress Head, Ears, Nose: Normocephalic, atraumatic. External ears, nose normal Eyes: Conjunctivae/corneas clear. No icterus. No ptosis. Neck: Supple, no meningeal signs Oral: dentition fair, no thrush Cardiovascular: S1, S2 normal. Respiratory: Good air entry, clear to auscultation bilaterally GI: Soft, non-tender; bowel sounds normal. No peritoneal signs. Musculoskeletal: No pedal edema, no cyanosis. Skin: No rash or abscess Hem/Lymphatic: No palpable cervical or supraclavicular nodes. No lymphangitis Psych: Mood ok. Affect normal Neurological: Awake, alert, oriented. No gross abnormality - Constitutional Vitals: Vital Signs Temp Pulse Resp BP Pulse Ox 97.5 F L 100 H 16 154/93 98 05/19/22 20:57 05/19/22 20:57 05/19/22 20:57 05/19/22 20:57 05/20/22 08:24 Temperature -Last 24 Hours Temperature 97.5 F Temperature 98.9 F - Labs CBC & Chem 7: 05/20/22 05:06 05/20/22 05:06 Labs: Abnormal lab results 05/18/22 05/19/22 05/19/22 Range/Units 22:06 07:24 10:53 WBC (4.5-11.0) K/mm3 Hgb (10.1-14.3) gm/dl MCH (28-32) pg RDW (13.2-15.2) % Chloride (98-107) mmol/L Carbon Dioxide (22-30) mmol/L BUN (7-17) mg/dL Creatinine (0.6-1.2) mg/dL Glucose (65-100) mg/dL POC Glucose 227 H 154 H 203 H (70-105) mg/dL 05/19/22 05/19/22 05/20/22 Range/Units 16:40 22:32 05:06 WBC 12.1 H (4.5-11.0) K/mm3 Hgb 9.4 L (10.1-14.3) gm/dl MCH 24 L (28-32) pg RDW 16.1 H (13.2-15.2) % Chloride (98-107) mmol/L Carbon Dioxide (22-30) mmol/L BUN (7-17) mg/dL Creatinine (0.6-1.2) mg/dL Glucose (65-100) mg/dL POC Glucose 222 H 277 H (70-105) mg/dL 05/20/22 Range/Units 05:06 WBC (4.5-11.0) K/mm3 Hgb (10.1-14.3) gm/dl MCH (28-32) pg RDW (13.2-15.2) % Chloride 110.8 H (98-107) mmol/L Carbon Dioxide 17 L (22-30) mmol/L BUN 33 H (7-17) mg/dL Creatinine 2.4 H (0.6-1.2) mg/dL Glucose 185 H (65-100) mg/dL POC Glucose (70-105) mg/dL
[2022-05-20] MEDS: INSULIN GLARGINE 100 UNITS/ML SUB-Q SCH (22:06)
[2022-05-21] MEDS: HEPARIN 5,000 UNIT/1 ML VIAL SUB-Q SCH ×3 (06:05→22:04)
[2022-05-21] MEDS: INSULIN LISPRO 100 UNIT/ML SUB-Q SCH ×2 (08:00→16:44)
--- NOTE | 2022-05-21 08:56 | Progress Note ---
Assessment and Plan 31-year-old -Danish female Morbidly brought to the emergency room for evaluation of seizure episode which happened overnight with associated progressive weakness. Patient is visiting from [place] and was said not to have had enough rest since arrival few days ago. Most of the history was gotten from the ER staff as patient is unable to give any coherent history at this time and no family member is available. Patient was said to have woken up in the night had an episode of vomiting and subsequently had seizures. She was said to have had another episode of seizure while in the emergency room and had been started on Keppra and also given some Ativan. Work-up in the emergency room , significant findings on the labs with a BUN of 26 and creatinine of 3.1. Initial blood glucose of 580 and subsequently 361. Urinalysis was unremarkable. UDS was positive for marijuana. Leukocytosis of 13.1. CT scan of the head shows no acute findings. Chest x-ray shows no acute findings. Blood pressure has been quite elevated with systolic in the 200s and diastolic in the 130s. Patient initially given IV labetalol and then subsequently placed on Cardene drip. Patient also developed a fever while in the emergency room with temperature of about 103 F. Patient has been admitted with seizure disorder, hyperglycemia, hypertensive urgency and RODRÍGUEZ. Patient denies smoking, alcohol or drug abuse. Patient not working. Not . Has no children. Patient awake. Patient is on room air. O2 saturation 100%. No acute respiratory distress. Sitting up by the side of the bed. ABG on room air ABG pH 7.354 pH Units (7.350-7.450) 05/12/22 22:47 ABG pCO2 36.7 mm Hg 05/12/22 22:47 ABG pO2 55.5 mm Hg (80.0-90.0) L 05/12/22 22:47 ABG O2 Saturation 89.0 % (95.0-99.0) L 05/12/22 22:47 Based on this blood gas results, Patient candidate for home O2. However O2 saturation running 100% on room air. Recommend to repeat blood gases on room air before discharge. Patient alert, awake. Oriented. Resting on room air. Denies chest pain, shortness of breath or cough. Patient afebrile. Has leukocytosis. Blood pressure 108/70, Pulse 99, Respirations 18. Chest xray done 05/12/22 reported No significant pulmonary or pleural abnormality. No pneumothorax. Chest xray 05/16/22 reported No significant pulmonary or pleural abnormality. No pneumothorax. Central line tip in the right atrium. This could be retracted 3 cm. Patient is on ceftraxone,, S/C Heparin, . Recommend GI prophylaxis. - Patient Problems (1) Seizure Current Visit: Yes Status: Acute Plan to address problem: Patient is on Keppra and ativan. (2) Hyperglycemia Current Visit: Yes Status: Acute Plan to address problem: Recent blood sugur 185. Patient is on S/C Insulin. (3) Hypertensive crisis Current Visit: Yes Status: Acute Plan to address problem: Patient is on Amalodipine, Hydralazine,Labetalol. (4) Dehydration Current Visit: Yes Status: Acute Plan to address problem: Recived I/V fluids. BMP to day 05/20/22 reported BUN 33, Creatnine 3.4 (5) Postictal state Current Visit: Yes Status: Acute Plan to address problem: Patient awake, talking now. (6) RODRÍGUEZ (acute kidney injury) Current Visit: Yes Status: Acute Plan to address problem: BUN 33 . Creatinine 2.4 Nephrology consulted. Subjective Date of service: 05/21/22 Principal diagnosis: HTNsive emergency with seizures; Morbid obesity; AMS; Leukocytosis; RODRÍGUEZ Interval history: 31-year-old -Danish female Morbidly brought to the emergency room for evaluation of seizure episode which happened overnight with associated progressive weakness. Patient is visiting from [place] and was said not to have had enough rest since arrival few days ago. Most of the history was gotten from the ER staff as patient is unable to give any coherent history at this time and no family member is available. Patient was said to have woken up in the night had an episode of vomiting and subsequently had seizures. She was said to have had another episode of seizure while in the emergency room and had been started on Keppra and also given some Ativan. Work-up in the emergency room , significant findings on the labs with a BUN of 26 and creatinine of 3.1. Initial blood glucose of 580 and subsequently 361. Urinalysis was unremarkable. UDS was positive for marijuana. Leukocytosis of 13.1. CT scan of the head shows no acute findings. Chest x-ray shows no acute findings. Blood pressure has been quite elevated with systolic in the 200s and diastolic in the 130s. Patient initially given IV labetalol and then subsequently placed on Cardene drip. Patient also developed a fever while in the emergency room with temperature of about 103 F. Patient has been admitted with seizure disorder, hyperglycemia, hypertensive urgency and RODRÍGUEZ. Patient denies smoking, alcohol or drug abuse. Patient not working. Not . Has no children. Patient awake. Patient is on room air. O2 saturation 100%. No acute respiratory distress. Sitting up by the side of the bed. ABG on room air ABG pH 7.354 pH Units (7.350-7.450) 05/12/22 22:47 ABG pCO2 36.7 mm Hg 05/12/22 22:47 ABG pO2 55.5 mm Hg (80.0-90.0) L 05/12/22 22:47 ABG O2 Saturation 89.0 % (95.0-99.0) L 05/12/22 22:47 Based on this blood gas results, Patient candidate for home O2. However O2 saturation running 100% on room air. Recommend to repeat blood gases on room air before discharge. Patient alert, awake. Oriented. Resting on room air. Denies chest pain, shortness of breath or cough. Patient afebrile. Has leukocytosis. Blood pressure 108/70, Pulse 99, Respirations 18. Chest xray done 05/12/22 reported No significant pulmonary or pleural abnormality. No pneumothorax. Chest xray 05/16/22 reported No significant pulmonary or pleural abnormality. No pneumothorax. Central line tip in the right atrium. This could be retracted 3 cm. Patient is on ceftraxone,, S/C Heparin, . Recommend GI prophylaxis. Objective Vital Signs - 12hr 05/20/22 05/20/22 22:00 22:11 Temperature 98.8 F Pulse Rate 99 H Respiratory 18 Rate Blood Pressure 145/79 O2 Sat by Pulse 98 100 Oximetry Constitutional: no acute distress, alert Eyes: non-icteric ENT: oropharynx moist Neck: supple, no lymphadenopathy, no JVD, other (large circumference, RIJ CVL) Effort: mildly labored Ascultation: Bilateral: diminished breath sounds Percussion: Bilateral: not dull Cardiovascular: regular rate and rhythm, other (S1.S2) Gastrointestinal: normoactive bowel sounds, soft, non-tender, non-distended (protuberant) Integumentary: normal Extremities: no cyanosis, no edema, pulses normal, no ischemia or petechiae Neurologic: normal mental status, non-focal exam (grossly), pupils equal and round, CN II-XII normal, motor strength normal and Psychiatric: mood appropriate, affect normal CBC and BMP: 05/20/22 05:06 05/20/22 05:06 ABG, PT/INR, D-dimer: ABG ABG pH 7.385 pH Units (7.350-7.450) 05/18/22 14:30 ABG pCO2 29.3 mm Hg 05/18/22 14:30 ABG pO2 86.8 mm Hg (80.0-90.0) 05/18/22 14:30 ABG O2 Saturation 97.1 % (95.0-99.0) 05/18/22 14:30 PT/INR, D-dimer PT 16.8 Sec. (12.2-14.9) H 05/12/22 14:25 INR 1.22 (0.87-1.13) H 05/12/22 14:25 Abnormal lab findings: Abnormal Labs 05/12/22 05/12/22 05/12/22 14:25 14:25 14:25 WBC 13.1 H RBC 5.37 H Hgb MCV 78 L MCH 25 L RDW 16.2 H Lymph % (Auto) Greenlee % (Auto) Greenlee # (Auto) Baso # (Auto) Seg Neutrophils % Seg Neuts % (Manual) 88.0 H Lymphocytes % (Manual) 7.0 L Monocytes % (Manual) Seg Neutrophils # Seg Neutrophils # Man 11.5 H Lymphocytes # (Manual) 0.9 L Monocytes # (Manual) PT 16.8 H INR 1.22 H ABG pO2 ABG HCO3 ABG O2 Saturation ABG Base Excess ABG Hemoglobin Oxyhemoglobin Sodium Potassium Chloride Carbon Dioxide 18 L BUN 26 H Creatinine 3.1 H Glucose 580 H* POC Glucose Hemoglobin A1c Lactic Acid Calcium Total Creatine Kinase C-Reactive Protein Serum Total Protein Total Protein 6.2 L Albumin 3.3 L Lgpcr-8-Yifzhpmnz Gamma Globulins PEP Interpretation PTH Intact Urine Creatinine Urine Total Protein Salicylates Acetaminophen 05/12/22 05/12/22 05/12/22 14:25 14:25 14:25 WBC RBC Hgb MCV MCH RDW Lymph % (Auto) [place]lee % (Auto) [place] # (Auto) Baso # (Auto) Seg Neutrophils % Seg Neuts % (Manual) Lymphocytes % (Manual) Monocytes % (Manual) Seg Neutrophils # Seg Neutrophils # Man Lymphocytes # (Manual) Monocytes # (Manual) PT INR ABG pO2 ABG HCO3 ABG O2 Saturation ABG Base Excess ABG Hemoglobin Oxyhemoglobin Sodium Potassium Chloride Carbon Dioxide BUN Creatinine Glucose POC Glucose Hemoglobin A1c Lactic Acid 2.80 H* Calcium Total Creatine Kinase C-Reactive Protein Serum Total Protein Total Protein Albumin Hpago-7-Iehjnezof Gamma Globulins PEP Interpretation PTH Intact Urine Creatinine Urine Total Protein Salicylates < 0.3 L Acetaminophen 5.0 L 05/12/22 05/12/22 05/12/22 22:47 22:47 22:47 WBC 15.4 H RBC 5.42 H Hgb MCV 77 L MCH 24 L RDW 16.3 H Lymph % (Auto) [place]lee % (Auto) [place] # (Auto) Baso # (Auto) Seg Neutrophils % Seg Neuts % (Manual) 85.0 H Lymphocytes % (Manual) 7.0 L Monocytes % (Manual) 8.0 H Seg Neutrophils # Seg Neutrophils # Man 13.1 H Lymphocytes # (Manual) 1.1 L Monocytes # (Manual) 1.2 H PT INR ABG pO2 ABG HCO3 ABG O2 Saturation ABG Base Excess ABG Hemoglobin Oxyhemoglobin Sodium Potassium Chloride 110.1 H Carbon Dioxide 19 L BUN 27 H Creatinine 3.3 H Glucose 361 H POC Glucose Hemoglobin A1c Lactic Acid 2.70 H* Calcium Total Creatine Kinase C-Reactive Protein Serum Total Protein Total Protein Albumin 3.3 L Ckzag-6-Yqlmfnagp Gamma Globulins PEP Interpretation PTH Intact Urine Creatinine Urine Total Protein Salicylates Acetaminophen 05/12/22 05/13/22 05/13/22 22:47 01:53 06:30 WBC RBC Hgb MCV MCH RDW Lymph % (Auto) [place]lee % (Auto) [place] # (Auto) Baso # (Auto) Seg Neutrophils % Seg Neuts % (Manual) Lymphocytes % (Manual) Monocytes % (Manual) Seg Neutrophils # Seg Neutrophils # Man Lymphocytes # (Manual) Monocytes # (Manual) PT INR ABG pO2 55.5 L ABG HCO3 ABG O2 Saturation 89.0 L ABG Base Excess -4.9 L ABG Hemoglobin Oxyhemoglobin 85.4 L Sodium Potassium Chloride Carbon Dioxide BUN Creatinine Glucose POC Glucose 511 H Hemoglobin A1c Lactic Acid 2.30 H* Calcium Total Creatine Kinase C-Reactive Protein Serum Total Protein Total Protein Albumin Pnvcr-0-Syadtnefv Gamma Globulins PEP Interpretation PTH Intact Urine Creatinine Urine Total Protein Salicylates Acetaminophen 05/13/22 05/13/22 05/13/22 10:27 11:33 16:12 WBC RBC Hgb MCV MCH RDW Lymph % (Auto) [place]lee % (Auto) [place] # (Auto) Baso # (Auto) Seg Neutrophils % Seg Neuts % (Manual) Lymphocytes % (Manual) Monocytes % (Manual) Seg Neutrophils # Seg Neutrophils # Man Lymphocytes # (Manual) Monocytes # (Manual) PT INR ABG pO2 ABG HCO3 ABG O2 Saturation ABG Base Excess ABG Hemoglobin Oxyhemoglobin Sodium Potassium Chloride Carbon Dioxide BUN Creatinine Glucose POC Glucose 492 H 500 H 331 H Hemoglobin A1c Lactic Acid Calcium Total Creatine Kinase C-Reactive Protein Serum Total Protein Total Protein Albumin Jmpey-4-Ocunwgkyz Gamma Globulins PEP Interpretation PTH Intact Urine Creatinine Urine Total Protein Salicylates Acetaminophen 05/13/22 05/13/22 05/13/22 19:34 21:55 23:50 WBC RBC Hgb MCV MCH RDW Lymph % (Auto) [place]lee % (Auto) [place] # (Auto) Baso # (Auto) Seg Neutrophils % Seg Neuts % (Manual) Lymphocytes % (Manual) Monocytes % (Manual) Seg Neutrophils # Seg Neutrophils # Man Lymphocytes # (Manual) Monocytes # (Manual) PT INR ABG pO2 ABG HCO3 ABG O2 Saturation ABG Base Excess ABG Hemoglobin Oxyhemoglobin Sodium Potassium Chloride Carbon Dioxide BUN Creatinine Glucose POC Glucose 268 H 256 H Hemoglobin A1c Lactic Acid Calcium Total Creatine Kinase C-Reactive Protein Serum Total Protein Total Protein Albumin Zvvxc-1-Rqanmwlfp Gamma Globulins PEP Interpretation PTH Intact Urine Creatinine 174.8 H Urine Total Protein 735 H Salicylates Acetaminophen 05/13/22 05/14/22 05/14/22 Unknown 04:20 04:20 WBC 18.3 H RBC Hgb MCV 78 L MCH 24 L RDW 16.6 H Lymph % (Auto) 12.1 L [place] % (Auto) 11.6 H [place] # (Auto) 2.1 H Baso # (Auto) 0.2 H Seg Neutrophils % 75.0 H Seg Neuts % (Manual) Lymphocytes % (Manual) Monocytes % (Manual) Seg Neutrophils # 13.7 H Seg Neutrophils # Man Lymphocytes # (Manual) Monocytes # (Manual) PT INR ABG pO2 ABG HCO3 ABG O2 Saturation ABG Base Excess ABG Hemoglobin Oxyhemoglobin Sodium 146 H Potassium 3.4 L Chloride 115.1 H Carbon Dioxide 17 L BUN 35 H Creatinine 3.9 H Glucose 224 H POC Glucose Hemoglobin A1c Lactic Acid Calcium Total Creatine Kinase C-Reactive Protein 1.40 H Serum Total Protein Total Protein Albumin Kbisr-7-Cnvkigyow Gamma Globulins PEP Interpretation PTH Intact Urine Creatinine 86.3 H Urine Total Protein Salicylates Acetaminophen 05/14/22 05/14/22 05/14/22 04:20 04:20 04:20 WBC RBC Hgb MCV MCH RDW Lymph % (Auto) [place]lee % (Auto) [place] # (Auto) Baso # (Auto) Seg Neutrophils % Seg Neuts % (Manual) Lymphocytes % (Manual) Monocytes % (Manual) Seg Neutrophils # Seg Neutrophils # Man Lymphocytes # (Manual) Monocytes # (Manual) PT INR ABG pO2 ABG HCO3 ABG O2 Saturation ABG Base Excess ABG Hemoglobin Oxyhemoglobin Sodium Potassium Chloride Carbon Dioxide BUN Creatinine Glucose POC Glucose Hemoglobin A1c Lactic Acid Calcium Total Creatine Kinase 217 H C-Reactive Protein Serum Total Protein 5.5 L Total Protein Albumin 2.5 L Mavvk-2-Asqeecamz 1.2 H Gamma Globulins 0.7 L PEP Interpretation see below H PTH Intact 149.4 H Urine Creatinine Urine Total Protein Salicylates Acetaminophen 05/14/22 05/14/22 05/14/22 06:10 07:23 13:25 WBC RBC Hgb MCV MCH RDW Lymph % (Auto) [place]lee % (Auto) [place] # (Auto) Baso # (Auto) Seg Neutrophils % Seg Neuts % (Manual) Lymphocytes % (Manual) Monocytes % (Manual) Seg Neutrophils # Seg Neutrophils # Man Lymphocytes # (Manual) Monocytes # (Manual) PT INR ABG pO2 ABG HCO3 ABG O2 Saturation ABG Base Excess ABG Hemoglobin Oxyhemoglobin Sodium Potassium Chloride Carbon Dioxide BUN Creatinine Glucose POC Glucose 257 H 240 H 323 H Hemoglobin A1c Lactic Acid Calcium Total Creatine Kinase C-Reactive Protein Serum Total Protein Total Protein Albumin Tbqzy-1-Ivehhhloy Gamma Globulins PEP Interpretation PTH Intact Urine Creatinine Urine Total Protein Salicylates Acetaminophen 05/14/22 05/14/22 05/15/22 14:23 17:28 00:02 WBC RBC Hgb MCV MCH RDW Lymph % (Auto) [place]lee % (Auto) [place] # (Auto) Baso # (Auto) Seg Neutrophils % Seg Neuts % (Manual) Lymphocytes % (Manual) Monocytes % (Manual) Seg Neutrophils # Seg Neutrophils # Man Lymphocytes # (Manual) Monocytes # (Manual) PT INR ABG pO2 ABG HCO3 ABG O2 Saturation ABG Base Excess ABG Hemoglobin Oxyhemoglobin Sodium Potassium Chloride Carbon Dioxide BUN Creatinine Glucose POC Glucose 339 H 392 H Hemoglobin A1c 14.4 H Lactic Acid Calcium Total Creatine Kinase C-Reactive Protein Serum Total Protein Total Protein Albumin Ckzpb-8-Cvilmatng Gamma Globulins PEP Interpretation PTH Intact Urine Creatinine Urine Total Protein Salicylates Acetaminophen 05/15/22 05/15/22 05/15/22 03:48 03:48 05:50 WBC RBC Hgb MCV 78 L MCH 25 L RDW 16.7 H Lymph % (Auto) [place] % (Auto) [place] # (Auto) Baso # (Auto) Seg Neutrophils % Seg Neuts % (Manual) Lymphocytes % (Manual) Monocytes % (Manual) Seg Neutrophils # Seg Neutrophils # Man Lymphocytes # (Manual) Monocytes # (Manual) PT INR ABG pO2 ABG HCO3 ABG O2 Saturation ABG Base Excess ABG Hemoglobin Oxyhemoglobin Sodium Potassium Chloride 115.5 H Carbon Dioxide 19 L BUN 44 H Creatinine 4.0 H Glucose 339 H POC Glucose 307 H Hemoglobin A1c Lactic Acid Calcium Total Creatine Kinase C-Reactive Protein Serum Total Protein Total Protein Albumin Jjekb-4-Frczbekqn Gamma Globulins PEP Interpretation PTH Intact Urine Creatinine Urine Total Protein Salicylates Acetaminophen 05/15/22 05/15/22 05/16/22 13:30 17:42 00:34 WBC RBC Hgb MCV MCH RDW Lymph % (Auto) [place]lee % (Auto) [place] # (Auto) Baso # (Auto) Seg Neutrophils % Seg Neuts % (Manual) Lymphocytes % (Manual) Monocytes % (Manual) Seg Neutrophils # Seg Neutrophils # Man Lymphocytes # (Manual) Monocytes # (Manual) PT INR ABG pO2 ABG HCO3 ABG O2 Saturation ABG Base Excess ABG Hemoglobin Oxyhemoglobin Sodium Potassium Chloride Carbon Dioxide BUN Creatinine Glucose POC Glucose 327 H 388 H 411 H Hemoglobin A1c Lactic Acid Calcium Total Creatine Kinase C-Reactive Protein Serum Total Protein Total Protein Albumin Rucxy-7-Haigaunwy Gamma Globulins PEP Interpretation PTH Intact Urine Creatinine Urine Total Protein Salicylates Acetaminophen 05/16/22 05/16/22 05/16/22 05:27 07:59 09:22 WBC RBC Hgb MCV 77 L MCH 25 L RDW 17.0 H Lymph % (Auto) [place] % (Auto) 9.9 H [place] # (Auto) 1.1 H Baso # (Auto) 0.2 H Seg Neutrophils % 70.2 H Seg Neuts % (Manual) Lymphocytes % (Manual) Monocytes % (Manual) Seg Neutrophils # Seg Neutrophils # Man Lymphocytes # (Manual) Monocytes # (Manual) PT INR ABG pO2 ABG HCO3 ABG O2 Saturation ABG Base Excess ABG Hemoglobin Oxyhemoglobin Sodium Potassium Chloride Carbon Dioxide BUN Creatinine Glucose POC Glucose 358 H 308 H Hemoglobin A1c Lactic Acid Calcium Total Creatine Kinase C-Reactive Protein Serum Total Protein Total Protein Albumin Sitni-0-Frazdixfd Gamma Globulins PEP Interpretation PTH Intact Urine Creatinine Urine Total Protein Salicylates Acetaminophen 05/16/22 05/16/22 05/16/22 09:22 11:36 17:37 WBC RBC Hgb MCV MCH RDW Lymph % (Auto) [place]lee % (Auto) [place] # (Auto) Baso # (Auto) Seg Neutrophils % Seg Neuts % (Manual) Lymphocytes % (Manual) Monocytes % (Manual) Seg Neutrophils # Seg Neutrophils # Man Lymphocytes # (Manual) Monocytes # (Manual) PT INR ABG pO2 ABG HCO3 ABG O2 Saturation ABG Base Excess ABG Hemoglobin Oxyhemoglobin Sodium Potassium 3.5 L Chloride 107.6 H Carbon Dioxide 18 L BUN 48 H Creatinine 3.9 H Glucose 284 H POC Glucose 255 H 324 H Hemoglobin A1c Lactic Acid Calcium Total Creatine Kinase C-Reactive Protein Serum Total Protein Total Protein 5.1 L Albumin 2.7 L Fqezm-7-Busnlabtc Gamma Globulins PEP Interpretation PTH Intact Urine Creatinine Urine Total Protein Salicylates Acetaminophen 05/16/22 05/17/22 05/17/22 23:48 05:20 12:47 WBC RBC Hgb MCV MCH RDW Lymph % (Auto) [place] % (Auto) [place] # (Auto) Baso # (Auto) Seg Neutrophils % Seg Neuts % (Manual) Lymphocytes % (Manual) Monocytes % (Manual) Seg Neutrophils # Seg Neutrophils # Man Lymphocytes # (Manual) Monocytes # (Manual) PT INR ABG pO2 ABG HCO3 ABG O2 Saturation ABG Base Excess ABG Hemoglobin Oxyhemoglobin Sodium Potassium Chloride Carbon Dioxide BUN Creatinine Glucose POC Glucose 293 H 267 H 173 H Hemoglobin A1c Lactic Acid Calcium Total Creatine Kinase C-Reactive Protein Serum Total Protein Total Protein Albumin Msyqp-3-Vzdwcdaou Gamma Globulins PEP Interpretation PTH Intact Urine Creatinine Urine Total Protein Salicylates Acetaminophen 05/17/22 05/17/22 05/17/22 12:55 17:47 19:57 WBC RBC Hgb MCV MCH RDW Lymph % (Auto) [place] % (Auto) [place] # (Auto) Baso # (Auto) Seg Neutrophils % Seg Neuts % (Manual) Lymphocytes % (Manual) Monocytes % (Manual) Seg Neutrophils # Seg Neutrophils # Man Lymphocytes # (Manual) Monocytes # (Manual) PT INR ABG pO2 ABG HCO3 ABG O2 Saturation ABG Base Excess ABG Hemoglobin Oxyhemoglobin Sodium Potassium Chloride 107.6 H Carbon Dioxide 19 L BUN 40 H Creatinine 3.1 H Glucose 171 H POC Glucose 246 H 256 H Hemoglobin A1c Lactic Acid Calcium 8.2 L Total Creatine Kinase C-Reactive Protein Serum Total Protein Total Protein Albumin Malzt-0-Kfgehwyjg Gamma Globulins PEP Interpretation PTH Intact Urine Creatinine Urine Total Protein Salicylates Acetaminophen 05/17/22 05/18/22 05/18/22 23:13 04:35 14:30 WBC RBC Hgb MCV MCH RDW Lymph % (Auto) [place] % (Auto) [place] # (Auto) Baso # (Auto) Seg Neutrophils % Seg Neuts % (Manual) Lymphocytes % (Manual) Monocytes % (Manual) Seg Neutrophils # Seg Neutrophils # Man Lymphocytes # (Manual) Monocytes # (Manual) PT INR ABG pO2 ABG HCO3 17.1 L ABG O2 Saturation ABG Base Excess -6.8 L ABG Hemoglobin 10.4 L Oxyhemoglobin Sodium 136 L Potassium Chloride Carbon Dioxide 18 L BUN 39 H Creatinine 3.2 H Glucose 202 H POC Glucose 270 H Hemoglobin A1c Lactic Acid Calcium 8.1 L Total Creatine Kinase C-Reactive Protein Serum Total Protein Total Protein Albumin Jrkot-4-Ubqhinuas Gamma Globulins PEP Interpretation PTH Intact Urine Creatinine Urine Total Protein Salicylates Acetaminophen 05/18/22 05/18/22 05/19/22 16:27 22:06 05:02 WBC RBC Hgb MCV MCH RDW Lymph % (Auto) [place] % (Auto) [place] # (Auto) Baso # (Auto) Seg Neutrophils % Seg Neuts % (Manual) Lymphocytes % (Manual) Monocytes % (Manual) Seg Neutrophils # Seg Neutrophils # Man Lymphocytes # (Manual) Monocytes # (Manual) PT INR ABG pO2 ABG HCO3 ABG O2 Saturation ABG Base Excess ABG Hemoglobin Oxyhemoglobin Sodium Potassium Chloride 109.1 H Carbon Dioxide 17 L BUN 36 H Creatinine 2.6 H Glucose 164 H POC Glucose 247 H 227 H Hemoglobin A1c Lactic Acid Calcium Total Creatine Kinase C-Reactive Protein Serum Total Protein Total Protein Albumin Eleme-4-Agruspnpk Gamma Globulins PEP Interpretation PTH Intact Urine Creatinine Urine Total Protein Salicylates Acetaminophen 05/19/22 05/19/22 05/19/22 05:02 07:24 10:53 WBC 12.4 H RBC Hgb 9.9 L MCV 78 L MCH 24 L RDW 16.2 H Lymph % (Auto) [place] % (Auto) [place] # (Auto) Baso # (Auto) Seg Neutrophils % Seg Neuts % (Manual) Lymphocytes % (Manual) Monocytes % (Manual) Seg Neutrophils # Seg Neutrophils # Man Lymphocytes # (Manual) Monocytes # (Manual) PT INR ABG pO2 ABG HCO3 ABG O2 Saturation ABG Base Excess ABG Hemoglobin Oxyhemoglobin Sodium Potassium Chloride Carbon Dioxide BUN Creatinine Glucose POC Glucose 154 H 203 H Hemoglobin A1c Lactic Acid Calcium Total Creatine Kinase C-Reactive Protein Serum Total Protein Total Protein Albumin Ipnhh-5-Sbrpchqiy Gamma Globulins PEP Interpretation PTH Intact Urine Creatinine Urine Total Protein Salicylates Acetaminophen 05/19/22 05/19/22 05/20/22 16:40 22:32 05:06 WBC 12.1 H RBC Hgb 9.4 L MCV MCH 24 L RDW 16.1 H Lymph % (Auto) [place] % (Auto) [place] # (Auto) Baso # (Auto) Seg Neutrophils % Seg Neuts % (Manual) Lymphocytes % (Manual) Monocytes % (Manual) Seg Neutrophils # Seg Neutrophils # Man Lymphocytes # (Manual) Monocytes # (Manual) PT INR ABG pO2 ABG HCO3 ABG O2 Saturation ABG Base Excess ABG Hemoglobin Oxyhemoglobin Sodium Potassium Chloride Carbon Dioxide BUN Creatinine Glucose POC Glucose 222 H 277 H Hemoglobin A1c Lactic Acid Calcium Total Creatine Kinase C-Reactive Protein Serum Total Protein Total Protein Albumin Gasuy-4-Mmbepumkz Gamma Globulins PEP Interpretation PTH Intact Urine Creatinine Urine Total Protein Salicylates Acetaminophen 05/20/22 05/20/22 05/21/22 05:06 22:10 07:42 WBC RBC Hgb MCV MCH RDW Lymph % (Auto) [place] % (Auto) [place] # (Auto) Baso # (Auto) Seg Neutrophils % Seg Neuts % (Manual) Lymphocytes % (Manual) Monocytes % (Manual) Seg Neutrophils # Seg Neutrophils # Man Lymphocytes # (Manual) Monocytes # (Manual) PT INR ABG pO2 ABG HCO3 ABG O2 Saturation ABG Base Excess ABG Hemoglobin Oxyhemoglobin Sodium Potassium Chloride 110.8 H Carbon Dioxide 17 L BUN 33 H Creatinine 2.4 H Glucose 185 H POC Glucose 199 H 143 H Hemoglobin A1c Lactic Acid Calcium Total Creatine Kinase C-Reactive Protein Serum Total Protein Total Protein Albumin Wzaxi-8-Gwapjdfed Gamma Globulins PEP Interpretation PTH Intact Urine Creatinine Urine Total Protein Salicylates Acetaminophen Allied health notes reviewed: nursing
--- NOTE | 2022-05-21 10:16 | Progress Note ---
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 Continue current management * ID recommendations noted. Abx per ID * Glycemic control * Continue current antiHTN medications * Dose medications for renal function * Avoid potential nephrotoxins * Recommend outpatient nephrology follow up at discharge - patient reports that she resided in [place] and plans to return after discharge. Patient advised of need for close nephrology follow up Subjective Date of service: 05/21/22 Principal diagnosis: HTNsive emergency with seizures; Morbid obesity; AMS; Le ukocytosis; RODRÍGUEZ Interval history: Patient has no complaints Objective - General Appearance General appearance: well-developed, well-nourished EENT: ATNC Respiratory: Present: Clear to Ascultation Cardiology: regular, S1S2 Gastrointestinal: obese Integumentary: no rash, warm and dry Neurologic: alert and oriented x3 Psychiatric: cooperative - Lab 05/20/22 05:06 05/20/22 05:06 Most recent lab results ABG pH 7.385 pH Units (7.350-7.450) 05/18/22 14:30 ABG pCO2 29.3 mm Hg 05/18/22 14:30 ABG pO2 86.8 mm Hg (80.0-90.0) 05/18/22 14:30 ABG HCO3 17.1 mmol/L (20.0-26.0) L 05/18/22 14:30 ABG O2 Saturation 97.1 % (95.0-99.0) 05/18/22 14:30 Calcium 8.4 mg/dL (8.4-10.2) 05/20/22 05:06 Phosphorus 3.00 mg/dL (2.5-4.5) 05/15/22 03:48 Magnesium 2.30 mg/dL (1.7-2.3) 05/15/22 03:48 Urine Creatinine 86.3 mg/dL (0.1-20.0) H 05/13/22 Unknown Urine Sodium 21 mmol/L 05/13/22 Unknown Urine Total Protein 735 mg/dL (5-11.8) H 05/13/22 19:34 Medications & Allergies - Medications Allergies/Adverse Reactions: Allergies No Known Allergies Allergy (Verified 05/13/22 19:13) Home Medications: Home Medications Medication Instructions Recorded Confirmed Last Taken Type No Known Home Medications [No 05/18/22 05/18/22 Unknown History Reported Home Medications] Active Medications: Generic Name Dose Route Start Last Admin Trade Name Freq PRN Reason Stop Dose Admin Acetaminophen 650 mg 05/13/22 02:07 05/14/22 08:08 Acetaminophen 325 Mg Tab PO 650 mg Q6H PRN Administration Pain MILD(1-3)/Fever >100.5/PATINO Atorvastatin Calcium 40 mg 05/18/22 22:00 05/20/22 22:07 Atorvastatin 40 Mg Tab PO 40 mg QHS BRAD Administration Carvedilol 25 mg 05/18/22 10:00 05/20/22 22:07 Carvedilol 25 Mg Tab PO 25 mg BID BRAD Administration Dextrose 0 ml 05/13/22 02:07 Dextrose 50% In Water (25gm) 50 Ml Syringe IV Q30MIN PRN Hypoglycemia Protocol Heparin Sodium (Porcine) 5,000 unit 05/13/22 06:00 05/21/22 06:05 Heparin 5,000 Unit/1 Ml Vial SUB-Q 5,000 unit Q8HR BRAD Administration Hydralazine HCl 100 mg 05/18/22 09:00 05/20/22 21:02 Hydralazine 100 Mg Tab PO 100 mg TID BRAD Administration Hydralazine HCl 10 mg 05/18/22 10:20 Hydralazine 20 Mg/1 Ml Inj IV Q4HR PRN Hypertension Ceftriaxone Sodium 2 gm in 100 mls @ 200 mls/hr 05/18/22 22:00 05/20/22 22:05 Rocephin/Ns 2 Gm/100 Ml IV 05/27/22 22:29 200 mls/hr Q12H BRAD Administration Protocol Insulin Glargine 40 units 05/17/22 22:00 05/20/22 22:06 Insulin Glargine 100 Units/Ml SUB-Q 40 units QHS BRAD Administration Insulin Human Lispro 0 unit 05/18/22 11:30 05/20/22 22:10 Insulin Lispro 100 Unit/Ml SUB-Q 3 unit ACHS BRAD Administration Protocol Lacosamide 100 mg 05/18/22 10:00 05/20/22 22:08 Lacosamide 100 Mg Tab PO 100 mg Q12HR BRAD Administration Levetiracetam 1,000 mg 05/18/22 10:00 05/20/22 22:07 Levetiracetam 500 Mg Tab PO 1,000 mg BID BRAD Administration Lorazepam 2 mg 05/13/22 13:03 05/14/22 11:30 Lorazepam 2 Mg/Ml Vial IV 2 mg Q4H PRN Administration Seizures Magnesium Hydroxide 30 ml 05/13/22 02:07 Magnesium Hydroxide (Mom) Oral Liqd Udc PO Q4H PRN Constipation Nifedipine 90 mg 05/20/22 10:00 05/20/22 09:27 Nifedipine Xl 90 Mg Tab PO 90 mg QDAY BRAD Administration Ondansetron HCl 4 mg 05/13/22 02:07 Ondansetron 4 Mg/2 Ml Inj IV Q8H PRN Nausea And Vomiting Sodium Chloride 10 ml 05/13/22 10:00 05/20/22 22:07 Sodium Chloride 0.9% 10 Ml Flush Syringe IV 10 ml BID BRAD Administration Sodium Chloride 10 ml 05/13/22 02:07 Sodium Chloride 0.9% 10 Ml Flush Syringe IV PRN PRN LINE FLUSH
--- NOTE | 2022-05-21 12:21 | Progress Note ---
Assessment and Plan Assessment and plan: This is a 31-year-old female with seizures, HTN, DM and medical noncompliance who presented to emergency department on 05/13 after a seizure episode associated with progressive weakness. Per EMS patient was said to have woken up in the night had an episode of vomiting and subsequently had seizures. In the emergency department work-up showed acute kidney injury with a BUN/creatinine of 26/3.1, glucose of 580, urinalysis was unremarkable, UDS was positive for marijuana, leukocytosis at 13.1 and CXR showed no acute findings along with a CT scan. In the emergency department patient had another seizure and was given Ativan and loaded with Keppra. Patient also had BP in the 200s over 130s and was given labetalol and was started on a Cardene drip. She also had was febrile to 103 in the ED. Patient was admitted to the hospitalist service with seizure disorder, hyperglycemia, hypertensive urgency and acute kidney injury with consults to nephrology, neurology. Hospital course to date: 05/13: CCM and ID consulted. Patient had possible seizure activity and was started. Ativan. Patient had EEG today. MRI brain pending. Urine lites pending. Patient febrile started on cefepime, procalcitonin, CRP and COVID-19 PCR pending. 05/14: Patient received LP today, MRI brain without contrast, hemoglobin A1c ordered 05/15: Answers most questions correctly. s/p LP. Pattern not c/w viral meningitis. d/c acyclovir. follow CSF culture. Continue tx with cefepime IV, vancomycin IV. Nephrology following due to poor renal fx, worsened cr today to 4.0. Will continue IVF hydration. EEG pending. MRA head completed but limited study due to motion artifact...periventricular and scatter foci of deep white matter hyperintensity noted. Will follow neurology input. 05/16: Resting comfortably on encounter. Clinically improved AOX4, answers all questions appropriately. Will continue renally dosed Vancomycin IV and Cefepime IV. ID recs and nephrology recs noted. Marginal improvement in Cr: 3.9 today. 05/17: Awaiting AM labs. Patient is resting comfortably, mental status continues to be improved. PT consultation as patient needs to be more physically active. N O growth thus far on csf culture. Continue abx and antiepileptics. 05/18: Renal function remains relatively stable with creatinine at 3.2 up slightly from 3.1 yesterday. Discontinue the IV fluids at this time. Continue to hold diuresis per nephrology. We will add hydralazine as needed for better blood pressure control. ID recommendation reviewed. Patient will need home antibiotics arranged. Expected end of antibiotics 10 3. Okay to proceed with midline and discontinue central line. Her mentation is well improved and diet has been adjusted to regular diet. 05/19: Patient continues to show improvement. Creatinine down to 2.6. Fluids has been discontinued as of yesterday. Blood pressure better controlled. Mild elevation in WBC to 12.4 but no fever noted. Awaiting for ID for home antibiotics orders and discharge planning by case management. 05/20: Midline order placed for OP abx. Patient is doing well this AM. Anticipate d/c this week once abx arrangements made. 05/21: Patient insurance does not cover IV rocephin. ID recommends continuing rocephin until course completed. Anticipate discharge 05/27 once abx completed. Discussed with patient who agrees. 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 -Renally dose medications and avoid nephrotoxic medications -maybe due to chronic uncontrolled HTN and diabetes -Nephrology consulted, appreciate recommendations -patient urged to follow up with Nephrology in [place] #Hypertensive urgency #Hypertension -Blood pressure monitoring per protocol -s/p Cardene drip -continue amlodipine, hydralazine -patient will follow up with PCP for titration of medications at discharge #Morbid obesity #Moderate protein calorie malnutrition -PPI -NTR consulted for tube feedings #Type 2 Diabetes Mellitus -Hemoglobin A1c 14.4 -continue lantus 40UQHS -continue accuchecks and SSI -goal glucose 140-180 while inpatient #Leukocytosis-improved -likely secondary to encephalitis #Advance care planning -Disease education conducted, care plan discussed, diagnoses discussed, prognosis discussed, patient is full code, patient acknowledges understanding and agree with care plan, +30 minutes. History Interval history: No acute events overnight. Patient has no complaints at this time. Hospitalist Physical - Physical exam Narrative exam: GENERAL: Well-developed well-nourished. In no acute distress. HEENT: Normocephalic. Atraumatic. NECK: Supple. RIJ catheter. CHEST/LUNGS: CTAB on room air HEART/CARDIOVASCULAR: RRR. No murmur, rubs or gallops appreciated. ABDOMEN: +BS. NT/ND. SKIN: No rashes noted. NEURO: No focal motor deficit. Follows all commands. MUSCULOSKELETAL: No joint effusion EXTREMITIES: No cyanosis, clubbing or edema. PSYCH: Cooperative. - Constitutional Vitals: Temp Pulse Resp BP Pulse Ox 98.8 F 99 H 18 145/79 100 05/20/22 22:11 05/20/22 22:11 05/20/22 22:11 05/20/22 22:11 05/20/22 22:11 General appearance: Present: no acute distress, well-nourished, obese HEART Score - HEART Score Troponin: Troponin T 0.028 ng/mL (0.00-0.029) 05/12/22 22:47 Results - Labs CBC & Chem 7: 05/20/22 05:06 05/20/22 05:06 Labs: Laboratory Last Values WBC 12.1 K/mm3 (4.5-11.0) H 05/20/22 05:06 RBC 3.88 M/mm3 (3.65-5.03) 05/20/22 05:06 Hgb 9.4 gm/dl (10.1-14.3) L 05/20/22 05:06 Hct 30.6 % (30.3-42.9) 05/20/22 05:06 MCV 79 fl (79-97) 05/20/22 05:06 MCH 24 pg (28-32) L 05/20/22 05:06 MCHC 31 % (30-34) 05/20/22 05:06 RDW 16.1 % (13.2-15.2) H 05/20/22 05:06 Plt Count 179 K/mm3 (140-440) 05/20/22 05:06 Lymph % (Auto) 16.7 % (13.4-35.0) 05/16/22 09:22 Wallace % (Auto) 9.9 % (0.0-7.3) H 05/16/22 09:22 Eos % (Auto) 1.4 % (0.0-4.3) 05/16/22 09:22 Baso % (Auto) 1.8 % (0.0-1.8) 05/16/22 09:22 Lymph # (Auto) 1.8 K/mm3 (1.2-5.4) 05/16/22 09:22 Wallace # (Auto) 1.1 K/mm3 (0.0-0.8) H 05/16/22 09:22 Eos # (Auto) 0.2 K/mm3 (0.0-0.4) 05/16/22 09: Baso # (Auto) 0.2 K/mm3 (0.0-0.1) H 05/16/22 09:22 Add Manual Diff Complete 05/12/22 22:47 Total Counted 100 05/12/22 22:47 Seg Neutrophils % 70.2 % (40.0-70.0) H 05/16/22 09:22 Seg Neuts % (Manual) 85.0 % (40.0-70.0) H 05/12/22 22:47 Band Neutrophils % 0 % 05/12/22 22:47 Lymphocytes % (Manual) 7.0 % (13.4-35.0) L 05/12/22 22:47 Reactive Lymphs % (Man) 0 % 05/12/22 22:47 Monocytes % (Manual) 8.0 % (0.0-7.3) H 05/12/22 22:47 Eosinophils % (Manual) 0 % (0.0-4.3) 05/12/22 22:47 Basophils % (Manual) 0 % (0.0-1.8) 05/12/22 22:47 Metamyelocytes % 0 % 05/12/22 22:47 Myelocytes % 0 % 05/12/22 22:47 Promyelocytes % 0 % 05/12/22 22:47 Blast Cells % 0 % 05/12/22 22:47 Nucleated RBC % Not Reportable 05/12/22 22:47 Seg Neutrophils # 7.7 K/mm3 (1.8-7.7) 05/16/22 09: Seg Neutrophils # Man 13.1 K/mm3 (1.8-7.7) H 05/12/22 22:47 Band Neutrophils # 0.0 K/mm3 05/12/22 22:47 Lymphocytes # (Manual) 1.1 K/mm3 (1.2-5.4) L 05/12/22 22:47 Abs React Lymphs (Man) 0.0 K/mm3 05/12/22 22:47 Monocytes # (Manual) 1.2 K/mm3 (0.0-0.8) H 05/12/22 22:47 Eosinophils # (Manual) 0.0 K/mm3 (0.0-0.4) 05/12/22 22:47 Basophils # (Manual) 0.0 K/mm3 (0.0-0.1) 05/12/22 22:47 Metamyelocytes # 0.0 K/mm3 05/12/22 22:47 Myelocytes # 0.0 K/mm3 05/12/22 22:47 Promyelocytes # 0.0 K/mm3 05/12/22 22:47 Blast Cells # 0.0 K/mm3 05/12/22 22:47 WBC Morphology Not Reportable 05/12/22 22:47 Hypersegmented Neuts Not Reportable 05/12/22 22:47 Hyposegmented Neuts Not Reportable 05/12/22 22:47 Hypogranular Neuts Not Reportable 05/12/22 22:47 Smudge Cells Not Reportable 05/12/22 22:47 Toxic Granulation Not Reportable 05/12/22 22:47 Toxic Vacuolation Not Reportable 05/12/22 22:47 Dohle Bodies Not Reportable 05/12/22 22:47 Pelger-Huet Anomaly Not Reportable 05/12/22 22:47 Tima Rods Not Reportable 05/12/22 22:47 Platelet Estimate Consistent w auto 05/12/22 22:47 Clumped Platelets Not Reportable 05/12/22 22:47 Plt Clumps, EDTA Not Reportable 05/12/22 22:47 Large Platelets Not Reportable 05/12/22 22:47 Giant Platelets Not Reportable 05/12/22 22:47 Platelet Satelliting Not Reportable 05/12/22 22:47 Plt Morphology Comment Not Reportable 05/12/22 22:47 RBC Morphology Not Reportable 05/12/22 22:47 Dimorphic RBCs Not Reportable 05/12/22 22:47 Polychromasia Not Reportable 05/12/22 22:47 Hypochromasia 1+ 05/12/22 22:47 Poikilocytosis Not Reportable 05/12/22 22:47 Anisocytosis Not Reportable 05/12/22 22:47 Microcytosis Not Reportable 05/12/22 22:47 Macrocytosis Not Reportable 05/12/22 22:47 Spherocytes Not Reportable 05/12/22 22:47 Pappenheimer Bodies Not Reportable 05/12/22 22:47 Sickle Cells Not Reportable 05/12/22 22:47 Target Cells Not Reportable 05/12/22 22:47 Tear Drop Cells Not Reportable 05/12/22 22:47 Ovalocytes Not Reportable 05/12/22 22:47 Helmet Cells Not Reportable 05/12/22 22:47 Inigue[place] Bodies Not Reportable 05/12/22 22:47 Cogswell Rings Not Reportable 05/12/22 22:47 Imelda Cells Not Reportable 05/12/22 22:47 Bite Cells Not Reportable 05/12/22 22:47 Crenated Cell Not Reportable 05/12/22 22:47 Elliptocytes Not Reportable 05/12/22 22:47 Acanthocytes (Spur) Not Reportable 05/12/22 22:47 Rouleaux Not Reportable 05/12/22 22:47 Hemoglobin C Crystals Not Reportable 05/12/22 22:47 Schistocytes Not Reportable 05/12/22 22:47 Malaria parasites Not Reportable 05/12/22 22:47 Jesse Bodies Not Reportable 05/12/22 22:47 Hem Pathologist Commnt No 05/12/22 22:47 PT 16.8 Sec. (12.2-14.9) H 05/12/22 14:25 INR 1.22 (0.87-1.13) H 05/12/22 14:25 APTT 29.6 Sec. (24.2-36.6) 05/12/22 14:25 ABG pH 7.385 pH Units (7.350-7.450) 05/18/22 14:30 ABG pCO2 29.3 mm Hg 05/18/22 14:30 ABG pO2 86.8 mm Hg (80.0-90.0) 05/18/22 14:30 ABG HCO3 17.1 mmol/L (20.0-26.0) L 05/18/22 14:30 ABG O2 Saturation 97.1 % (95.0-99.0) 05/18/22 14:30 ABG O2 Content 14.1 (0.0-44) 05/18/22 14:30 ABG Base Excess -6.8 mmol/L (-2.0-3.0) L 05/18/22 14:30 ABG Hemoglobin 10.4 gm/dl (12.0-16.0) L 05/18/22 14:30 ABG Carboxyhemoglobin 1.3 % (0.0-5.0) 05/18/22 14:30 ABG Methemoglobin 0.6 % (0.0-1.5) 05/18/22 14:30 VBG pH 7.354 (7.320-7.420) 05/12/22 22:47 Oxyhemoglobin 95.2 % (95.0-99.0) 05/18/22 14:30 FiO2 21 % 05/18/22 14:30 Sodium 140 mmol/L (137-145) 05/20/22 05:06 Potassium 3.8 mmol/L (3.6-5.0) 05/20/22 05:06 Chloride 110.8 mmol/L (98-107) H 05/20/22 05:06 Carbon Dioxide 17 mmol/L (22-30) L 05/20/22 05:06 Anion Gap 16 mmol/L 05/20/22 05:06 BUN 33 mg/dL (7-17) H 05/20/22 05:06 Creatinine 2.4 mg/dL (0.6-1.2) H 05/20/22 05:06 Estimated GFR 28 ml/min 05/20/22 05:06 BUN/Creatinine Ratio 14 % 05/20/22 05:06 Glucose 185 mg/dL (65-100) H 05/20/22 05:06 POC Glucose 143 mg/dL (70-105) H 05/21/22 07:42 Hemoglobin A1c 14.4 % (4-6) H 05/14/22 14:23 Ketones Quantitative Negative (Negative) 05/12/22 22:47 Lactic Acid 1.00 mmol/L (0.7-2.0) 05/14/22 04:20 Calcium 8.4 mg/dL (8.4-10.2) 05/20/22 05:06 Phosphorus 3.00 mg/dL (2.5-4.5) 05/15/22 03:48 Magnesium 2.30 mg/dL (1.7-2.3) 05/15/22 03:48 Total Bilirubin < 0.20 mg/dL (0.1-1.2) 05/16/22 09:22 AST 11 units/L (5-40) 05/16/22 09:22 ALT 11 units/L (7-56) 05/16/22 09:22 Alkaline Phosphatase 78 units/L (35-129) 05/16/22 09:22 Total Creatine Kinase 217 units/L (30-135) H 05/14/22 04:20 Troponin T 0.028 ng/mL (0.00-0.029) 05/12/22 22:47 C-Reactive Protein 1.40 mg/dL (0.00-1.30) H 05/14/22 04:20 Serum Total Protein 5.5 g/dL (6.1-8.1) L 05/14/22 04:20 Total Protein 5.1 g/dL (6.3-8.2) L 05/16/22 09:22 Albumin 2.7 g/dL (3.9-5) L 05/16/22 09:22 Albumin/Globulin Ratio 1.1 % 05/16/22 09:22 Nwqqa-1-Fwqjvukvr 0.3 g/dL (0.2-0.3) 05/14/22 04:20 Zisnq-2-Wqeasuprg 1.2 g/dL (0.5-0.9) H 05/14/22 04:20 Beta Globulins 0.4 g/dL (0.2-0.5) 05/14/22 04:20 Gamma Globulins 0.7 g/dL (0.8-1.7) L 05/14/22 04:20 Abnorm Protein Band 1 see below 05/14/22 04:20 PEP Interpretation see below H 05/14/22 04:20 Procalcitonin 0.56 ng/mL (<0.15) 05/14/22 04:20 TSH 0.422 mlU/mL (0.270-4.200) 05/12/22 14:25 Free T4 1.02 ng/dL (0.76-1.46) 05/12/22 14:25 PTH Intact 149.4 pg/mL (15-65) H 05/14/22 04:20 Urine Color Yellow (Yellow) 05/12/22 19:04 Urine Turbidity Clear (Clear) 05/12/22 19:04 Specific Sandy (Man) 1.015 (1.003-1.030) 05/12/22 19:04 Ur Protein (Man) 2+ mg/dL (Negative) 05/12/22 19:04 Ur Ketones (Man) Negative (Negative) 05/12/22 19:04 Ur Nitrite (Man) Negative (Negative) 05/12/22 19:04 Urine Bilirubin (Man) Negative (Negative) 05/12/22 19:04 Leukocyte Esterase (Man) Negative (Negative) 05/12/22 19:04 Urine WBC (Auto) < 1.0 /HPF (0.0-6.0) 05/12/22 19:04 Urine RBC (Auto) < 1.0 /HPF (0.0-6.0) 05/12/22 19:04 Urine RBC (Manual) 1+ (Negative) 05/12/22 19:04 Urine Creatinine 86.3 mg/dL (0.1-20.0) H 05/13/22 Unknown Protein/Creatinin Ratio 4.20 05/13/22 19:34 Urine Sodium 21 mmol/L 05/13/22 Unknown Urine Total Protein 735 mg/dL (5-11.8) H 05/13/22 19:34 CSF Appearance Clear 05/14/22 11:32 CSF Color [place] 05/14/22 11:32 CSF WBC 53 /mm3 (1-10) 05/14/22 11:32 CSF RBC 2000 /mm3 (0-0) 05/14/22 11:32 CSF Seg Neutrophils 97 % (0-6) 05/14/22 11:32 CSF Lymphocytes % 2 % (40-80) 05/14/22 11:32 CSF Reactive Lymphs 0 % 05/14/22 11:32 CSF Monocytes % 1 % (15-45) 05/14/22 11:32 CSF Eosinophils % 0 % 05/14/22 11:32 CSF Basophils 0 % 05/14/22 11:32 CSF Pathologist Review C 05/14/22 11:32 CSF Glucose 137 mg/dL 05/14/22 11:32 CSF Total Protein 32 mg/dL 05/14/22 11:32 CSF VDRL Nonreactive (Nonreactive) 05/14/22 11:32 Random Vancomycin 26.7 ug/mL (0-40.0) 05/19/22 05:02 Salicylates < 0.3 mg/dL (2.8-20.0) L 05/12/22 14:25 Urine Opiates Screen Negative 05/12/22 19:04 Urine Methadone Screen Negative 05/12/22 19:04 Acetaminophen 5.0 ug/mL (10.0-30.0) L 05/12/22 14:25 Ur Barbiturates Screen Negative 05/12/22 19:04 Ur Phencyclidine Scrn Negative 05/12/22 19:04 Ur Amphetamines Screen Negative 05/12/22 19:04 U Benzodiazepines Scrn Negative 05/12/22 19:04 Urine Cocaine Screen Negative 05/12/22 19:04 U Marijuana (THC) Screen Positive 05/12/22 19:04 Drugs of Abuse Note Disclamer 05/12/22 19:04 Plasma/Serum Alcohol < 0.01 % (0-0.07) 05/12/22 22:47 MERVIN Screen Negative (Negative) 05/14/22 04:20 Proteinase 3 (PR3) Ab <1.0 AI (<1.0) 05/14/22 04:20 Myeloperoxidase Ab <1.0 AI (<1.0) 05/14/22 04:20 Complement C3 180 mg/dL (83-193) 05/14/22 04:20 Complement C4 43 mg/dL (15-57) 05/14/22 04:20 Coronavirus (PCR) Negative (Negative) 05/13/22 09:30 Microbiology: Microbiology 05/14/22 11:32 Cerebral Spinal Fluid CSF Culture - Final Vergara/IV: Voiding Method Toilet Active Medications - Current Medications Current Medications: Generic Name Dose Route Start Last Admin Trade Name Freq PRN Reason Stop Dose Admin Acetaminophen 650 mg 05/13/22 02:07 05/14/22 08:08 Acetaminophen 325 Mg Tab PO 650 mg Q6H PRN Administration Pain MILD(1-3)/Fever >100.5/PATINO Atorvastatin Calcium 40 mg 05/18/22 22:00 05/20/22 22:07 Atorvastatin 40 Mg Tab PO 40 mg QHS BRAD Administration Carvedilol 25 mg 05/18/22 10:00 05/20/22 22:07 Carvedilol 25 Mg Tab PO 25 mg BID BRAD Administration Dextrose 0 ml 05/13/22 02:07 Dextrose 50% In Water (25gm) 50 Ml Syringe IV Q30MIN PRN Hypoglycemia Protocol Heparin Sodium (Porcine) 5,000 unit 05/13/22 06:00 05/21/22 06:05 Heparin 5,000 Unit/1 Ml Vial SUB-Q 5,000 unit Q8HR BRAD Administration Hydralazine HCl 100 mg 05/18/22 09:00 05/20/22 21:02 Hydralazine 100 Mg Tab PO 100 mg TID BRAD Administration Hydralazine HCl 10 mg 05/18/22 10:20 Hydralazine 20 Mg/1 Ml Inj IV Q4HR PRN Hypertension Ceftriaxone Sodium 2 gm in 100 mls @ 200 mls/hr 05/18/22 22:00 05/20/22 22:05 Rocephin/Ns 2 Gm/100 Ml IV 05/27/22 22:29 200 mls/hr Q12H BRAD Administration Protocol Insulin Glargine 40 units 05/17/22 22:00 05/20/22 22:06 Insulin Glargine 100 Units/Ml SUB-Q 40 units QHS BRAD Administration Insulin Human Lispro 0 unit 05/18/22 11:30 05/21/22 08:00 Insulin Lispro 100 Unit/Ml SUB-Q Not Given ACHS BRAD Protocol Lacosamide 100 mg 05/18/22 10:00 05/20/22 22:08 Lacosamide 100 Mg Tab PO 100 mg Q12HR BRAD Administration Levetiracetam 1,000 mg 05/18/22 10:00 05/20/22 22:07 Levetiracetam 500 Mg Tab PO 1,000 mg BID BRAD Administration Lorazepam 2 mg 05/13/22 13:03 05/14/22 11:30 Lorazepam 2 Mg/Ml Vial IV 2 mg Q4H PRN Administration Seizures Magnesium Hydroxide 30 ml 05/13/22 02:07 Magnesium Hydroxide (Mom) Oral Liqd Udc PO Q4H PRN Constipation Nifedipine 90 mg 05/20/22 10:00 05/20/22 09:27 Nifedipine Xl 90 Mg Tab PO 90 mg QDAY BRAD Administration Ondansetron HCl 4 mg 05/13/22 02:07 Ondansetron 4 Mg/2 Ml Inj IV Q8H PRN Nausea And Vomiting Sodium Chloride 10 ml 05/13/22 10:00 05/20/22 22:07 Sodium Chloride 0.9% 10 Ml Flush Syringe IV 10 ml BID BRAD Administration Sodium Chloride 10 ml 05/13/22 02:07 Sodium Chloride 0.9% 10 Ml Flush Syringe IV PRN PRN LINE FLUSH Nutrition/Malnutrition Assess - Dietary Evaluation Nutrition/Malnutrition Findings: Nutrition Notes Start: 05/13/22 11:36 Freq: Status: Active Protocol: Document 05/15/22 11:17 SIOMARA (Rec: 05/15/22 11:45 SIOMARA [email or web address]) Nutrition Notes Initial or Follow up Reassessment Current Diagnosis Acute Kidney Injury,CKD(stage I-IV),Diabetes,Sepsis, Hypertension,Malnutrition Other Pertinent Diagnosis SIRS, r/o Meningoencephalitis, Seizures, Metabolic Acidosis, Tachycardia. Current Diet TF-Nepro w/CARBSTEADY @ 40 ml/ hr (since D 05/13). Labs/Tests 05/15: Cl 115.5, CO2 19, BUN 44, Crea 4.0, Glu 339. Pertinent Medications 05/15: Lantus 15U, Humalog 8U, others nutritionally unremarkable. Height 5 ft 7 in Weight 113 kg [place] Body Weight (kg) 61.36 BMI 38.9 Weight change and time frame No body weight change reported in 2 days. Weight Status Obese Subjective/Other Information RD consult for TF tolerance/ continuation assessment. TF continues as prescribed, and well tolerated, according to RN notes. Pt is on Room Air, O2 saturation @ 99%, according to Physical Assessment History notes. Pt is swallow impaired, according to Physical Assessment History notes, but no STARS ANALYTICAL LEAD note available at the time and Not able to contact RN over the phone, will assess at F/U. Percent of energy/protein needs met: Prescribed TF-Nepro w/ CARBSTEADY @ 40 ml/hr provides for energy/protein needs (1, 710 Kcal/77 g) during LOS, 101 % Kcal; 100% AA. Burn Absent Trauma Absent GI Symptoms None Difficulty In Swallowing Food Allergy No Skin Integrity/Comment Assessment WNL. 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 Diagnosis Progress(for reassessment Continues documentation) Is patient on ventilator? No Is Patient Ambulatory and/or Out of Bed No REE-([place]-confined to bed) 2248.872 Kcal/Kg value to use for calculation 15 Approximate Energy Requirements Using 1695 kcal/Kg Calculation Used for Recommendations Kcal/kg Additional Notes Protein: 0.8-1.2 g/Kg AdjBW; 70-104 g/day. Fluids: 1 ml/Kcal, or as per MD. Nutrition Intervention Nutrition Support: Continue TF-Nepro w/CARBSTEADY @ 40 ml/hr. Flush: 170 ml water Q 4 hr, or as per MD. Kcal 1,710 Protein (gm) 77 Carbohydrates (gm) 153 Fat (gm) 91 Fluid (mL) 691 Fiber (gm) 12 % RDI: 101% Kcal; 100% AA Goal #1 Provide at least 75% of energy /protein needs through Enteral Feeding during LOS. Follow-Up By: 05/22/22 Additional Comments Continue monitoring TF tolerance, [id number] status, and BM.
[2022-05-21] MEDS: cefTRIAXone/NS 2 GM/100 ML 2 GM/100 ML BAG IV SCH ×2 (16:01→23:28)
[2022-05-21] MEDS: NIFEdipine XL 90 MG TAB PO SCH (16:03)
[2022-05-21] MEDS: carvediloL 25 MG TAB PO SCH ×2 (16:03→22:03)
[2022-05-21] MEDS: levETIRAcetam 500 MG TAB PO SCH ×2 (16:03→22:03)
[2022-05-21] MEDS: LACOSAMIDE 100 MG TAB PO SCH ×2 (16:05→22:04)
[2022-05-21] MEDS: hydrALAZINE 100 MG TAB PO SCH ×2 (16:06→22:03)
[2022-05-22] MEDS: INSULIN GLARGINE 100 UNITS/ML SUB-Q SCH ×2 (00:04→23:42)
[2022-05-22] MEDS: INSULIN LISPRO 100 UNIT/ML SUB-Q SCH ×6 (00:05→23:42)
[2022-05-22] MEDS: ZOLPIDEM 5 MG TAB PO PRN ×2 (03:45→23:56)
[2022-05-22] MEDS: HEPARIN 5,000 UNIT/1 ML VIAL SUB-Q SCH ×3 (06:06→23:22)
[2022-05-22] MEDS: hydrALAZINE 100 MG TAB PO SCH ×4 (08:09→23:22)
[2022-05-22] MEDS: cefTRIAXone/NS 2 GM/100 ML 2 GM/100 ML BAG IV SCH ×2 (09:17→23:34)
[2022-05-22] MEDS: NIFEdipine XL 90 MG TAB PO SCH (09:18)
[2022-05-22] MEDS: levETIRAcetam 500 MG TAB PO SCH ×2 (09:18→23:16)
[2022-05-22] MEDS: carvediloL 25 MG TAB PO SCH ×2 (09:18→23:18)
--- NOTE | 2022-05-22 12:57 | Progress Note ---
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 Daily BMP ordered * Renal function is stable, overall improved. Continue current management * Abx per ID; per chart, patient to remains hospitalized as insurance does not cover abx. Stop date May 27 * Glycemic control * Continue current antiHTN medications * Dose medications for renal function * Avoid potential nephrotoxins * Recommend outpatient nephrology follow up at discharge - patient reports that she resided in [place] and plans to return after discharge. Patient advised of need for close nephrology follow up Subjective Date of service: 05/22/22 Principal diagnosis: HTNsive emergency with seizures; Morbid obesity; AMS; Leukocytosis; RODRÍGUEZ Interval history: Patient has on complaints today Objective - Vital Signs Vital signs: Vital Signs - 12hr 05/22/22 04:47 Temperature 98.4 F Pulse Rate 89 Respiratory 20 Rate Blood Pressure 123/61 O2 Sat by Pulse 92 Oximetry - General Appearance General appearance: well-developed, well-nourished EENT: ATNC Respiratory: Present: Clear to Ascultation Cardiology: regular, S1S2 Gastrointestinal: normal, no tenderness, no distended Neurologic: alert and oriented x3 Psychiatric: cooperative - Lab 05/20/22 05:06 05/20/22 05:06 Most recent lab results ABG pH 7.385 pH Units (7.350-7.450) 05/18/22 14:30 ABG pCO2 29.3 mm Hg 05/18/22 14:30 ABG pO2 86.8 mm Hg (80.0-90.0) 05/18/22 14:30 ABG HCO3 17.1 mmol/L (20.0-26.0) L 05/18/22 14:30 ABG O2 Saturation 97.1 % (95.0-99.0) 05/18/22 14:30 Calcium 8.4 mg/dL (8.4-10.2) 05/20/22 05:06 Phosphorus 3.00 mg/dL (2.5-4.5) 05/15/22 03:48 Magnesium 2.30 mg/dL (1.7-2.3) 05/15/22 03:48 Urine Creatinine 86.3 mg/dL (0.1-20.0) H 05/13/22 Unknown Urine Sodium 21 mmol/L 05/13/22 Unknown Urine Total Protein 735 mg/dL (5-11.8) H 05/13/22 19:34 Medications & Allergies - Medications Allergies/Adverse Reactions: Allergies Penicillins Allergy (Verified 05/22/22 17:04) Hives Home Medications: Home Medications Medication Instructions Recorded Confirmed Last Taken Type AtorvaSTATin [Lipitor] 40 mg PO QHS 05/22/22 05/22/22 Unknown History Ferrous Sulfate [Iron 325 MG] 325 mg PO QDAY 05/22/22 05/22/22 Unknown History Folic Acid [Folvite] 1 mg PO QDAY 05/22/22 05/22/22 Unknown History Furosemide [Lasix] 20 mg PO QDAY 05/22/22 05/22/22 Unknown History Insulin Aspart [Novolog Flexpen] 15 unit SQ BID 05/22/22 05/22/22 Unknown History Insulin Detemir [Levemir Flextouch] 10 unit SQ BID 05/22/22 05/22/22 Unknown History Spironolactone [Aldactone] 25 mg PO QDAY 05/22/22 05/22/22 Unknown History amLODIPine [Norvasc] 10 mg PO DAILY 05/22/22 05/22/22 Unknown History carvediloL [Coreg] 50 mg PO BID 05/22/22 05/22/22 Unknown History hydrALAZINE [Apresoline TAB] 100 mg PO TID 05/22/22 05/22/22 Unknown History levETIRAcetam [Keppra TAB] 500 mg PO BID 05/22/22 05/22/22 Unknown History Active Medications: Generic Name Dose Route Start Last Admin Trade Name Freq PRN Reason Stop Dose Admin Acetaminophen 650 mg 05/13/22 02:07 05/14/22 08:08 Acetaminophen 325 Mg Tab PO 650 mg Q6H PRN Administration Pain MILD(1-3)/Fever >100.5/PATINO Atorvastatin Calcium 40 mg 05/18/22 22:00 05/21/22 22:04 Atorvastatin 40 Mg Tab PO 40 mg QHS BRAD Administration Carvedilol 25 mg 05/18/22 10:00 05/22/22 09:18 Carvedilol 25 Mg Tab PO 25 mg BID BRAD Administration Dextrose 0 ml 05/13/22 02:07 Dextrose 50% In Water (25gm) 50 Ml Syringe IV Q30MIN PRN Hypoglycemia Protocol Heparin Sodium (Porcine) 5,000 unit 05/13/22 06:00 05/22/22 06:06 Heparin 5,000 Unit/1 Ml Vial SUB-Q 5,000 unit Q8HR BRAD Administration Hydralazine HCl 100 mg 05/18/22 09:00 05/22/22 09:18 Hydralazine 100 Mg Tab PO 100 mg TID BRAD Administration Hydralazine HCl 10 mg 05/18/22 10:20 Hydralazine 20 Mg/1 Ml Inj IV Q4HR PRN Hypertension Ceftriaxone Sodium 2 gm in 100 mls @ 200 mls/hr 05/18/22 22:00 05/22/22 09:17 Rocephin/Ns 2 Gm/100 Ml IV 05/27/22 22:29 200 mls/hr Q12H BRAD Administration Protocol Insulin Glargine 40 units 05/17/22 22:00 05/22/22 00:04 Insulin Glargine 100 Units/Ml SUB-Q 40 units QHS BRAD Administration Insulin Human Lispro 0 unit 05/18/22 11:30 05/22/22 11:16 Insulin Lispro 100 Unit/Ml SUB-Q Not Given ACHS [facility] Protocol Lacosamide 100 mg 05/18/22 10:00 05/21/22 22:04 Lacosamide 100 Mg Tab PO 100 mg Q12HR BRAD Administration Levetiracetam 1,000 mg 05/18/22 10:00 05/22/22 09:18 Levetiracetam 500 Mg Tab PO 1,000 mg BID BRAD Administration Lorazepam 2 mg 05/13/22 13:03 05/14/22 11:30 Lorazepam 2 Mg/Ml Vial IV 2 mg Q4H PRN Administration Seizures Magnesium Hydroxide 30 ml 05/13/22 02:07 Magnesium Hydroxide (Mom) Oral Liqd Udc PO Q4H PRN Constipation Nifedipine 90 mg 05/20/22 10:00 05/22/22 09:18 Nifedipine Xl 90 Mg Tab PO 90 mg QDAY BRAD Administration Ondansetron HCl 4 mg 05/13/22 02:07 Ondansetron 4 Mg/2 Ml Inj IV Q8H PRN Nausea And Vomiting Sodium Chloride 10 ml 05/13/22 10:00 05/22/22 09:18 Sodium Chloride 0.9% 10 Ml Flush Syringe IV 10 ml BID BRAD Administration Sodium Chloride 10 ml 05/13/22 02:07 Sodium Chloride 0.9% 10 Ml Flush Syringe IV PRN PRN LINE FLUSH Zolpidem Tartrate 5 mg 05/22/22 00:53 05/22/22 03:45 Zolpidem 5 Mg Tab PO 5 mg QHS PRN Administration Sleep
--- NOTE | 2022-05-22 13:51 | Progress Note ---
Assessment and Plan 31-year-old -Iranian female Morbidly brought to the emergency room for evaluation of seizure episode which happened overnight with associated progressive weakness. Patient is visiting from [place] and was said not to have had enough rest since arrival few days ago. Most of the history was gotten from the ER staff as patient is unable to give any coherent history at this time and no family member is available. Patient was said to have woken up in the night had an episode of vomiting and subsequently had seizures. She was said to have had another episode of seizure while in the emergency room and had been started on Keppra and also given some Ativan. Work-up in the emergency room , significant findings on the labs with a BUN of 26 and creatinine of 3.1. Initial blood glucose of 580 and subsequently 361. Urinalysis was unremarkable. UDS was positive for marijuana. Leukocytosis of 13.1. CT scan of the head shows no acute findings. Chest x-ray shows no acute findings. Blood pressure has been quite elevated with systolic in the 200s and diastolic in the 130s. Patient initially given IV labetalol and then subsequently placed on Cardene drip. Patient also developed a fever while in the emergency room with temperature of about 103 F. Patient has been admitted with seizure disorder, hyperglycemia, hypertensive urgency and RODRÍGUEZ. Patient denies smoking, alcohol or drug abuse. Patient not working. Not . Has no children. Patient awake. Patient is on room air. O2 saturation 92%. No acute respiratory distress. Patient resting in bed. ABG on room air ABG pH 7.354 pH Units (7.350-7.450) 05/12/22 22:47 ABG pCO2 36.7 mm Hg 05/12/22 22:47 ABG pO2 55.5 mm Hg (80.0-90.0) L 05/12/22 22:47 ABG O2 Saturation 89.0 % (95.0-99.0) L 05/12/22 22:47 Based on this blood gas results, Patient candidate for home O2. O2 saturation running 92% on room air. Recommend to repeat blood gases on room air before discharge. Patient alert, awake. Oriented. Resting on room air. Denies chest pain, shortness of breath or cough. Patient afebrile. Has leukocytosis. Blood pressure 123/61, Pulse 89, Respirations 20. Chest xray done 05/12/22 reported No significant pulmonary or pleural abnormality. No pneumothorax. Chest xray 05/16/22 reported No significant pulmonary or pleural abnormality. No pneumothorax. Central line tip in the right atrium. This could be retracted 3 cm. Patient is on ceftraxone,, S/C Heparin, . Recommend GI prophylaxis. - Patient Problems (1) Seizure Current Visit: Yes Status: Acute Plan to address problem: Patient is on Keppra and ativan. (2) Hyperglycemia Current Visit: Yes Status: Acute Plan to address problem: Recent blood sugur 237. Patient is on S/C Insulin. (3) Hypertensive crisis Current Visit: Yes Status: Acute Plan to address problem: Patient is on Amalodipine, Hydralazine,Labetalol. (4) Dehydration Current Visit: Yes Status: Acute Plan to address problem: Recived I/V fluids. BMP to day 05/20/22 reported BUN 33, Creatnine 3.4 (5) Postictal state Current Visit: Yes Status: Acute Plan to address problem: Patient awake, talking now. (6) RODRÍGUEZ (acute kidney injury) Current Visit: Yes Status: Acute Plan to address problem: BUN 33 . Creatinine 2.4 Nephrology consulted. Subjective Date of service: 05/22/22 Principal diagnosis: HTNsive emergency with seizures; Morbid obesity; AMS; Leukocytosis; RODRÍGUEZ Interval history: 31-year-old -Iranian female Morbidly brought to the emergency room for evaluation of seizure episode which happened overnight with associated progressive weakness. Patient is visiting from [place] and was said not to have had enough rest since arrival few days ago. Most of the history was gotten from the ER staff as patient is unable to give any coherent history at this time and no family member is available. Patient was said to have woken up in the night had an episode of vomiting and subsequently had seizures. She was said to have had another episode of seizure while in the emergency room and had been started on Keppra and also given some Ativan. Work-up in the emergency room , significant findings on the labs with a BUN of 26 and creatinine of 3.1. Initial blood glucose of 580 and subsequently 361. Urinalysis was unremarkable. UDS was positive for marijuana. Leukocytosis of 13.1. CT scan of the head shows no acute findings. Chest x-ray shows no acute findings. Blood pressure has been quite elevated with systolic in the 200s and diastolic in the 130s. Patient initially given IV labetalol and then subsequently placed on Cardene drip. Patient also developed a fever while in the emergency room with temperature of about 103 F. Patient has been admitted with seizure disorder, hyperglycemia, hypertensive urgency and RODRÍGUEZ. Patient denies smoking, alcohol or drug abuse. Patient not working. Not . Has no children. Patient awake. Patient is on room air. O2 saturation 92%. No acute respiratory distress. Patient resting in bed. ABG on room air ABG pH 7.354 pH Units (7.350-7.450) 05/12/22 22:47 ABG pCO2 36.7 mm Hg 05/12/22 22:47 ABG pO2 55.5 mm Hg (80.0-90.0) L 05/12/22 22:47 ABG O2 Saturation 89.0 % (95.0-99.0) L 05/12/22 22:47 Based on this blood gas results, Patient candidate for home O2. O2 saturation running 92% on room air. Recommend to repeat blood gases on room air before discharge. Patient alert, awake. Oriented. Resting on room air. Denies chest pain, shortness of breath or cough. Patient afebrile. Has leukocytosis. Blood pressure 123/61, Pulse 89, Respirations 20. Chest xray done 05/12/22 reported No significant pulmonary or pleural abnormality. No pneumothorax. Chest xray 05/16/22 reported No significant pulmonary or pleural abnormality. No pneumothorax. Central line tip in the right atrium. This could be retracted 3 cm. Patient is on ceftraxone,, S/C Heparin, . Recommend GI prophylaxis. Objective Vital Signs - 12hr 05/22/22 04:47 Temperature 98.4 F Pulse Rate 89 Respiratory 20 Rate Blood Pressure 123/61 O2 Sat by Pulse 92 Oximetry Constitutional: no acute distress, alert Eyes: non-icteric ENT: oropharynx moist Neck: supple, no lymphadenopathy, no JVD, other (large circumference, RIJ CVL) Effort: mildly labored Ascultation: Bilateral: diminished breath sounds Percussion: Bilateral: not dull Cardiovascular: regular rate and rhythm, other (S1.S2) Gastrointestinal: normoactive bowel sounds, soft, non-tender, non-distended (protuberant) Integumentary: normal Extremities: no cyanosis, no edema, pulses normal, no ischemia or petechiae Neurologic: normal mental status, non-focal exam (grossly), pupils equal and round, CN II-XII normal, motor strength normal and Psychiatric: mood appropriate, affect normal CBC and BMP: 05/20/22 05:06 05/20/22 05:06 ABG, PT/INR, D-dimer: ABG ABG pH 7.385 pH Units (7.350-7.450) 05/18/22 14:30 ABG pCO2 29.3 mm Hg 05/18/22 14:30 ABG pO2 86.8 mm Hg (80.0-90.0) 05/18/22 14:30 ABG O2 Saturation 97.1 % (95.0-99.0) 05/18/22 14:30 PT/INR, D-dimer PT 16.8 Sec. (12.2-14.9) H 05/12/22 14:25 INR 1.22 (0.87-1.13) H 05/12/22 14:25 Abnormal lab findings: Abnormal Labs 05/12/22 05/12/22 05/12/22 14:25 14:25 14:25 WBC 13.1 H RBC 5.37 H Hgb MCV 78 L MCH 25 L RDW 16.2 H Lymph % (Auto) [place] % (Auto) [place] # (Auto) Baso # (Auto) Seg Neutrophils % Seg Neuts % (Manual) 88.0 H Lymphocytes % (Manual) 7.0 L Monocytes % (Manual) Seg Neutrophils # Seg Neutrophils # Man 11.5 H Lymphocytes # (Manual) 0.9 L Monocytes # (Manual) PT 16.8 H INR 1.22 H ABG pO2 ABG HCO3 ABG O2 Saturation ABG Base Excess ABG Hemoglobin Oxyhemoglobin Sodium Potassium Chloride Carbon Dioxide 18 L BUN 26 H Creatinine 3.1 H Glucose 580 H* POC Glucose Hemoglobin A1c Lactic Acid Calcium Total Creatine Kinase C-Reactive Protein Serum Total Protein Total Protein 6.2 L Albumin 3.3 L Bxxut-5-Glevrlofn Gamma Globulins PEP Interpretation PTH Intact Urine Creatinine Urine Total Protein Salicylates Acetaminophen 05/12/22 05/12/22 05/12/22 14:25 14:25 14:25 WBC RBC Hgb MCV MCH RDW Lymph % (Auto) [place] % (Auto) [place] # (Auto) Baso # (Auto) Seg Neutrophils % Seg Neuts % (Manual) Lymphocytes % (Manual) Monocytes % (Manual) Seg Neutrophils # Seg Neutrophils # Man Lymphocytes # (Manual) Monocytes # (Manual) PT INR ABG pO2 ABG HCO3 ABG O2 Saturation ABG Base Excess ABG Hemoglobin Oxyhemoglobin Sodium Potassium Chloride Carbon Dioxide BUN Creatinine Glucose POC Glucose Hemoglobin A1c Lactic Acid 2.80 H* Calcium Total Creatine Kinase C-Reactive Protein Serum Total Protein Total Protein Albumin Noreh-9-Tuylanxgg Gamma Globulins PEP Interpretation PTH Intact Urine Creatinine Urine Total Protein Salicylates < 0.3 L Acetaminophen 5.0 L 05/12/22 05/12/22 05/12/22 22:47 22:47 22:47 WBC 15.4 H RBC 5.42 H Hgb MCV 77 L MCH 24 L RDW 16.3 H Lymph % (Auto) [place] % (Auto) [place] # (Auto) Baso # (Auto) Seg Neutrophils % Seg Neuts % (Manual) 85.0 H Lymphocytes % (Manual) 7.0 L Monocytes % (Manual) 8.0 H Seg Neutrophils # Seg Neutrophils # Man 13.1 H Lymphocytes # (Manual) 1.1 L Monocytes # (Manual) 1.2 H PT INR ABG pO2 ABG HCO3 ABG O2 Saturation ABG Base Excess ABG Hemoglobin Oxyhemoglobin Sodium Potassium Chloride 110.1 H Carbon Dioxide 19 L BUN 27 H Creatinine 3.3 H Glucose 361 H POC Glucose Hemoglobin A1c Lactic Acid 2.70 H* Calcium Total Creatine Kinase C-Reactive Protein Serum Total Protein Total Protein Albumin 3.3 L Ofdvk-0-Pwvczdcua Gamma Globulins PEP Interpretation PTH Intact Urine Creatinine Urine Total Protein Salicylates Acetaminophen 05/12/22 05/13/22 05/13/22 22:47 01:53 06:30 WBC RBC Hgb MCV MCH RDW Lymph % (Auto) [place] % (Auto) [place] # (Auto) Baso # (Auto) Seg Neutrophils % Seg Neuts % (Manual) Lymphocytes % (Manual) Monocytes % (Manual) Seg Neutrophils # Seg Neutrophils # Man Lymphocytes # (Manual) Monocytes # (Manual) PT INR ABG pO2 55.5 L ABG HCO3 ABG O2 Saturation 89.0 L ABG Base Excess -4.9 L ABG Hemoglobin Oxyhemoglobin 85.4 L Sodium Potassium Chloride Carbon Dioxide BUN Creatinine Glucose POC Glucose 511 H Hemoglobin A1c Lactic Acid 2.30 H* Calcium Total Creatine Kinase C-Reactive Protein Serum Total Protein Total Protein Albumin Jxjnd-9-Byxnmwbsa Gamma Globulins PEP Interpretation PTH Intact Urine Creatinine Urine Total Protein Salicylates Acetaminophen 05/13/22 05/13/22 05/13/22 10:27 11:33 16:12 WBC RBC Hgb MCV MCH RDW Lymph % (Auto) [place] % (Auto) [place] # (Auto) Baso # (Auto) Seg Neutrophils % Seg Neuts % (Manual) Lymphocytes % (Manual) Monocytes % (Manual) Seg Neutrophils # Seg Neutrophils # Man Lymphocytes # (Manual) Monocytes # (Manual) PT INR ABG pO2 ABG HCO3 ABG O2 Saturation ABG Base Excess ABG Hemoglobin Oxyhemoglobin Sodium Potassium Chloride Carbon Dioxide BUN Creatinine Glucose POC Glucose 492 H 500 H 331 H Hemoglobin A1c Lactic Acid Calcium Total Creatine Kinase C-Reactive Protein Serum Total Protein Total Protein Albumin Vkxnc-9-Ddgjpqeol Gamma Globulins PEP Interpretation PTH Intact Urine Creatinine Urine Total Protein Salicylates Acetaminophen 05/13/22 05/13/22 05/13/22 19:34 21:55 23:50 WBC RBC Hgb MCV MCH RDW Lymph % (Auto) [place] % (Auto) [place] # (Auto) Baso # (Auto) Seg Neutrophils % Seg Neuts % (Manual) Lymphocytes % (Manual) Monocytes % (Manual) Seg Neutrophils # Seg Neutrophils # Man Lymphocytes # (Manual) Monocytes # (Manual) PT INR ABG pO2 ABG HCO3 ABG O2 Saturation ABG Base Excess ABG Hemoglobin Oxyhemoglobin Sodium Potassium Chloride Carbon Dioxide BUN Creatinine Glucose POC Glucose 268 H 256 H Hemoglobin A1c Lactic Acid Calcium Total Creatine Kinase C-Reactive Protein Serum Total Protein Total Protein Albumin Vcree-5-Ljgafpmmw Gamma Globulins PEP Interpretation PTH Intact Urine Creatinine 174.8 H Urine Total Protein 735 H Salicylates Acetaminophen 05/13/22 05/14/22 05/14/22 Unknown 04:20 04:20 WBC 18.3 H RBC Hgb MCV 78 L MCH 24 L RDW 16.6 H Lymph % (Auto) 12.1 L [place] % (Auto) 11.6 H [place] # (Auto) 2.1 H Baso # (Auto) 0.2 H Seg Neutrophils % 75.0 H Seg Neuts % (Manual) Lymphocytes % (Manual) Monocytes % (Manual) Seg Neutrophils # 13.7 H Seg Neutrophils # Man Lymphocytes # (Manual) Monocytes # (Manual) PT INR ABG pO2 ABG HCO3 ABG O2 Saturation ABG Base Excess ABG Hemoglobin Oxyhemoglobin Sodium 146 H Potassium 3.4 L Chloride 115.1 H Carbon Dioxide 17 L BUN 35 H Creatinine 3.9 H Glucose 224 H POC Glucose Hemoglobin A1c Lactic Acid Calcium Total Creatine Kinase C-Reactive Protein 1.40 H Serum Total Protein Total Protein Albumin Cjbxp-1-Cvuueeiir Gamma Globulins PEP Interpretation PTH Intact Urine Creatinine 86.3 H Urine Total Protein Salicylates Acetaminophen 05/14/22 05/14/22 05/14/22 04:20 04:20 04:20 WBC RBC Hgb MCV MCH RDW Lymph % (Auto) [place] % (Auto) [place] # (Auto) Baso # (Auto) Seg Neutrophils % Seg Neuts % (Manual) Lymphocytes % (Manual) Monocytes % (Manual) Seg Neutrophils # Seg Neutrophils # Man Lymphocytes # (Manual) Monocytes # (Manual) PT INR ABG pO2 ABG HCO3 ABG O2 Saturation ABG Base Excess ABG Hemoglobin Oxyhemoglobin Sodium Potassium Chloride Carbon Dioxide BUN Creatinine Glucose POC Glucose Hemoglobin A1c Lactic Acid Calcium Total Creatine Kinase 217 H C-Reactive Protein Serum Total Protein 5.5 L Total Protein Albumin 2.5 L Wbylh-5-Nftvinmbo 1.2 H Gamma Globulins 0.7 L PEP Interpretation see below H PTH Intact 149.4 H Urine Creatinine Urine Total Protein Salicylates Acetaminophen 05/14/22 05/14/22 05/14/22 06:10 07:23 13:25 WBC RBC Hgb MCV MCH RDW Lymph % (Auto) [place] % (Auto) [place] # (Auto) Baso # (Auto) Seg Neutrophils % Seg Neuts % (Manual) Lymphocytes % (Manual) Monocytes % (Manual) Seg Neutrophils # Seg Neutrophils # Man Lymphocytes # (Manual) Monocytes # (Manual) PT INR ABG pO2 ABG HCO3 ABG O2 Saturation ABG Base Excess ABG Hemoglobin Oxyhemoglobin Sodium Potassium Chloride Carbon Dioxide BUN Creatinine Glucose POC Glucose 257 H 240 H 323 H Hemoglobin A1c Lactic Acid Calcium Total Creatine Kinase C-Reactive Protein Serum Total Protein Total Protein Albumin Doxih-4-Zcafjihob Gamma Globulins PEP Interpretation PTH Intact Urine Creatinine Urine Total Protein Salicylates Acetaminophen 05/14/22 05/14/22 05/15/22 14:23 17:28 00:02 WBC RBC Hgb MCV MCH RDW Lymph % (Auto) [place] % (Auto) [place] # (Auto) Baso # (Auto) Seg Neutrophils % Seg Neuts % (Manual) Lymphocytes % (Manual) Monocytes % (Manual) Seg Neutrophils # Seg Neutrophils # Man Lymphocytes # (Manual) Monocytes # (Manual) PT INR ABG pO2 ABG HCO3 ABG O2 Saturation ABG Base Excess ABG Hemoglobin Oxyhemoglobin Sodium Potassium Chloride Carbon Dioxide BUN Creatinine Glucose POC Glucose 339 H 392 H Hemoglobin A1c 14.4 H Lactic Acid Calcium Total Creatine Kinase C-Reactive Protein Serum Total Protein Total Protein Albumin Efycp-8-Adcmdyvtv Gamma Globulins PEP Interpretation PTH Intact Urine Creatinine Urine Total Protein Salicylates Acetaminophen 05/15/22 05/15/22 05/15/22 03:48 03:48 05:50 WBC RBC Hgb MCV 78 L MCH 25 L RDW 16.7 H Lymph % (Auto) [place] % (Auto) [place] # (Auto) Baso # (Auto) Seg Neutrophils % Seg Neuts % (Manual) Lymphocytes % (Manual) Monocytes % (Manual) Seg Neutrophils # Seg Neutrophils # Man Lymphocytes # (Manual) Monocytes # (Manual) PT INR ABG pO2 ABG HCO3 ABG O2 Saturation ABG Base Excess ABG Hemoglobin Oxyhemoglobin Sodium Potassium Chloride 115.5 H Carbon Dioxide 19 L BUN 44 H Creatinine 4.0 H Glucose 339 H POC Glucose 307 H Hemoglobin A1c Lactic Acid Calcium Total Creatine Kinase C-Reactive Protein Serum Total Protein Total Protein Albumin Jtzts-7-Sdtnookfb Gamma Globulins PEP Interpretation PTH Intact Urine Creatinine Urine Total Protein Salicylates Acetaminophen 05/15/22 05/15/22 05/16/22 13:30 17:42 00:34 WBC RBC Hgb MCV MCH RDW Lymph % (Auto) [place] % (Auto) [place] # (Auto) Baso # (Auto) Seg Neutrophils % Seg Neuts % (Manual) Lymphocytes % (Manual) Monocytes % (Manual) Seg Neutrophils # Seg Neutrophils # Man Lymphocytes # (Manual) Monocytes # (Manual) PT INR ABG pO2 ABG HCO3 ABG O2 Saturation ABG Base Excess ABG Hemoglobin Oxyhemoglobin Sodium Potassium Chloride Carbon Dioxide BUN Creatinine Glucose POC Glucose 327 H 388 H 411 H Hemoglobin A1c Lactic Acid Calcium Total Creatine Kinase C-Reactive Protein Serum Total Protein Total Protein Albumin Kmpvw-7-Copkthjvm Gamma Globulins PEP Interpretation PTH Intact Urine Creatinine Urine Total Protein Salicylates Acetaminophen 05/16/22 05/16/22 05/16/22 05:27 07:59 09:22 WBC RBC Hgb MCV 77 L MCH 25 L RDW 17.0 H Lymph % (Auto) [place] % (Auto) 9.9 H [place] # (Auto) 1.1 H Baso # (Auto) 0.2 H Seg Neutrophils % 70.2 H Seg Neuts % (Manual) Lymphocytes % (Manual) Monocytes % (Manual) Seg Neutrophils # Seg Neutrophils # Man Lymphocytes # (Manual) Monocytes # (Manual) PT INR ABG pO2 ABG HCO3 ABG O2 Saturation ABG Base Excess ABG Hemoglobin Oxyhemoglobin Sodium Potassium Chloride Carbon Dioxide BUN Creatinine Glucose POC Glucose 358 H 308 H Hemoglobin A1c Lactic Acid Calcium Total Creatine Kinase C-Reactive Protein Serum Total Protein Total Protein Albumin Dhesm-9-Jvkwwmboo Gamma Globulins PEP Interpretation PTH Intact Urine Creatinine Urine Total Protein Salicylates Acetaminophen 05/16/22 05/16/22 05/16/22 09:22 11:36 17:37 WBC RBC Hgb MCV MCH RDW Lymph % (Auto) [place] % (Auto) [place] # (Auto) Baso # (Auto) Seg Neutrophils % Seg Neuts % (Manual) Lymphocytes % (Manual) Monocytes % (Manual) Seg Neutrophils # Seg Neutrophils # Man Lymphocytes # (Manual) Monocytes # (Manual) PT INR ABG pO2 ABG HCO3 ABG O2 Saturation ABG Base Excess ABG Hemoglobin Oxyhemoglobin Sodium Potassium 3.5 L Chloride 107.6 H Carbon Dioxide 18 L BUN 48 H Creatinine 3.9 H Glucose 284 H POC Glucose 255 H 324 H Hemoglobin A1c Lactic Acid Calcium Total Creatine Kinase C-Reactive Protein Serum Total Protein Total Protein 5.1 L Albumin 2.7 L Pdonr-2-Egkqkvvig Gamma Globulins PEP Interpretation PTH Intact Urine Creatinine Urine Total Protein Salicylates Acetaminophen 05/16/22 05/17/22 05/17/22 23:48 05:20 12:47 WBC RBC Hgb MCV MCH RDW Lymph % (Auto) [place] % (Auto) [place] # (Auto) Baso # (Auto) Seg Neutrophils % Seg Neuts % (Manual) Lymphocytes % (Manual) Monocytes % (Manual) Seg Neutrophils # Seg Neutrophils # Man Lymphocytes # (Manual) Monocytes # (Manual) PT INR ABG pO2 ABG HCO3 ABG O2 Saturation ABG Base Excess ABG Hemoglobin Oxyhemoglobin Sodium Potassium Chloride Carbon Dioxide BUN Creatinine Glucose POC Glucose 293 H 267 H 173 H Hemoglobin A1c Lactic Acid Calcium Total Creatine Kinase C-Reactive Protein Serum Total Protein Total Protein Albumin Pjvix-4-Ptfxxbihq Gamma Globulins PEP Interpretation PTH Intact Urine Creatinine Urine Total Protein Salicylates Acetaminophen 05/17/22 05/17/22 05/17/22 12:55 17:47 19:57 WBC RBC Hgb MCV MCH RDW Lymph % (Auto) [place] % (Auto) [place] # (Auto) Baso # (Auto) Seg Neutrophils % Seg Neuts % (Manual) Lymphocytes % (Manual) Monocytes % (Manual) Seg Neutrophils # Seg Neutrophils # Man Lymphocytes # (Manual) Monocytes # (Manual) PT INR ABG pO2 ABG HCO3 ABG O2 Saturation ABG Base Excess ABG Hemoglobin Oxyhemoglobin Sodium Potassium Chloride 107.6 H Carbon Dioxide 19 L BUN 40 H Creatinine 3.1 H Glucose 171 H POC Glucose 246 H 256 H Hemoglobin A1c Lactic Acid Calcium 8.2 L Total Creatine Kinase C-Reactive Protein Serum Total Protein Total Protein Albumin Ymljb-3-Uoazkrojz Gamma Globulins PEP Interpretation PTH Intact Urine Creatinine Urine Total Protein Salicylates Acetaminophen 05/17/22 05/18/22 05/18/22 23:13 04:35 14:30 WBC RBC Hgb MCV MCH RDW Lymph % (Auto) [place] % (Auto) [place] # (Auto) Baso # (Auto) Seg Neutrophils % Seg Neuts % (Manual) Lymphocytes % (Manual) Monocytes % (Manual) Seg Neutrophils # Seg Neutrophils # Man Lymphocytes # (Manual) Monocytes # (Manual) PT INR ABG pO2 ABG HCO3 17.1 L ABG O2 Saturation ABG Base Excess -6.8 L ABG Hemoglobin 10.4 L Oxyhemoglobin Sodium 136 L Potassium Chloride Carbon Dioxide 18 L BUN 39 H Creatinine 3.2 H Glucose 202 H POC Glucose 270 H Hemoglobin A1c Lactic Acid Calcium 8.1 L Total Creatine Kinase C-Reactive Protein Serum Total Protein Total Protein Albumin Uklro-3-Hcvvqdiqp Gamma Globulins PEP Interpretation PTH Intact Urine Creatinine Urine Total Protein Salicylates Acetaminophen 05/18/22 05/18/22 05/19/22 16:27 22:06 05:02 WBC RBC Hgb MCV MCH RDW Lymph % (Auto) [place] % (Auto) [place] # (Auto) Baso # (Auto) Seg Neutrophils % Seg Neuts % (Manual) Lymphocytes % (Manual) Monocytes % (Manual) Seg Neutrophils # Seg Neutrophils # Man Lymphocytes # (Manual) Monocytes # (Manual) PT INR ABG pO2 ABG HCO3 ABG O2 Saturation ABG Base Excess ABG Hemoglobin Oxyhemoglobin Sodium Potassium Chloride 109.1 H Carbon Dioxide 17 L BUN 36 H Creatinine 2.6 H Glucose 164 H POC Glucose 247 H 227 H Hemoglobin A1c Lactic Acid Calcium Total Creatine Kinase C-Reactive Protein Serum Total Protein Total Protein Albumin Qtxwq-3-Xpjglbzsp Gamma Globulins PEP Interpretation PTH Intact Urine Creatinine Urine Total Protein Salicylates Acetaminophen 05/19/22 05/19/22 05/19/22 05:02 07:24 10:53 WBC 12.4 H RBC Hgb 9.9 L MCV 78 L MCH 24 L RDW 16.2 H Lymph % (Auto) [place] % (Auto) [place] # (Auto) Baso # (Auto) Seg Neutrophils % Seg Neuts % (Manual) Lymphocytes % (Manual) Monocytes % (Manual) Seg Neutrophils # Seg Neutrophils # Man Lymphocytes # (Manual) Monocytes # (Manual) PT INR ABG pO2 ABG HCO3 ABG O2 Saturation ABG Base Excess ABG Hemoglobin Oxyhemoglobin Sodium Potassium Chloride Carbon Dioxide BUN Creatinine Glucose POC Glucose 154 H 203 H Hemoglobin A1c Lactic Acid Calcium Total Creatine Kinase C-Reactive Protein Serum Total Protein Total Protein Albumin Qvabl-8-Uiowtktyi Gamma Globulins PEP Interpretation PTH Intact Urine Creatinine Urine Total Protein Salicylates Acetaminophen 05/19/22 05/19/22 05/20/22 16:40 22:32 05:06 WBC 12.1 H RBC Hgb 9.4 L MCV MCH 24 L RDW 16.1 H Lymph % (Auto) [place] % (Auto) [place] # (Auto) Baso # (Auto) Seg Neutrophils % Seg Neuts % (Manual) Lymphocytes % (Manual) Monocytes % (Manual) Seg Neutrophils # Seg Neutrophils # Man Lymphocytes # (Manual) Monocytes # (Manual) PT INR ABG pO2 ABG HCO3 ABG O2 Saturation ABG Base Excess ABG Hemoglobin Oxyhemoglobin Sodium Potassium Chloride Carbon Dioxide BUN Creatinine Glucose POC Glucose 222 H 277 H Hemoglobin A1c Lactic Acid Calcium Total Creatine Kinase C-Reactive Protein Serum Total Protein Total Protein Albumin Trhqx-1-Wjncbdxzk Gamma Globulins PEP Interpretation PTH Intact Urine Creatinine Urine Total Protein Salicylates Acetaminophen 05/20/22 05/20/22 05/21/22 05:06 22:10 07:42 WBC RBC Hgb MCV MCH RDW Lymph % (Auto) [place] % (Auto) [place] # (Auto) Baso # (Auto) Seg Neutrophils % Seg Neuts % (Manual) Lymphocytes % (Manual) Monocytes % (Manual) Seg Neutrophils # Seg Neutrophils # Man Lymphocytes # (Manual) Monocytes # (Manual) PT INR ABG pO2 ABG HCO3 ABG O2 Saturation ABG Base Excess ABG Hemoglobin Oxyhemoglobin Sodium Potassium Chloride 110.8 H Carbon Dioxide 17 L BUN 33 H Creatinine 2.4 H Glucose 185 H POC Glucose 199 H 143 H Hemoglobin A1c Lactic Acid Calcium Total Creatine Kinase C-Reactive Protein Serum Total Protein Total Protein Albumin Gcoup-2-Udyfiwtyc Gamma Globulins PEP Interpretation PTH Intact Urine Creatinine Urine Total Protein Salicylates Acetaminophen 05/22/22 05/22/22 08:00 11:17 WBC RBC Hgb MCV MCH RDW Lymph % (Auto) [place] % (Auto) [place] # (Auto) Baso # (Auto) Seg Neutrophils % Seg Neuts % (Manual) Lymphocytes % (Manual) Monocytes % (Manual) Seg Neutrophils # Seg Neutrophils # Man Lymphocytes # (Manual) Monocytes # (Manual) PT INR ABG pO2 ABG HCO3 ABG O2 Saturation ABG Base Excess ABG Hemoglobin Oxyhemoglobin Sodium Potassium Chloride Carbon Dioxide BUN Creatinine Glucose POC Glucose 186 H 226 H Hemoglobin A1c Lactic Acid Calcium Total Creatine Kinase C-Reactive Protein Serum Total Protein Total Protein Albumin Vqydu-8-Klzuxetfa Gamma Globulins PEP Interpretation PTH Intact Urine Creatinine Urine Total Protein Salicylates Acetaminophen Allied health notes reviewed: nursing
--- NOTE | 2022-05-22 14:23 | Progress Note ---
Assessment and Plan Assessment and plan: This is a 31-year-old female with seizures, HTN, DM and medical noncompliance who presented to emergency department on 05/13 after a seizure episode associated with progressive weakness. Per EMS patient was said to have woken up in the night had an episode of vomiting and subsequently had seizures. In the emergency department work-up showed acute kidney injury with a BUN/creatinine of 26/3.1, glucose of 580, urinalysis was unremarkable, UDS was positive for marijuana, leukocytosis at 13.1 and CXR showed no acute findings along with a CT scan. In the emergency department patient had another seizure and was given Ativan and loaded with Keppra. Patient also had BP in the 200s over 130s and was given labetalol and was started on a Cardene drip. She also had was febrile to 103 in the ED. Patient was admitted to the hospitalist service with seizure disorder, hyperglycemia, hypertensive urgency and acute kidney injury with consults to nephrology, neurology. Hospital course to date: 05/13: CCM and ID consulted. Patient had possible seizure activity and was started. Ativan. Patient had EEG today. MRI brain pending. Urine lites pending. Patient febrile started on cefepime, procalcitonin, CRP and COVID-19 PCR pending. 05/14: Patient received LP today, MRI brain without contrast, hemoglobin A1c ordered 05/15: Answers most questions correctly. s/p LP. Pattern not c/w viral meningitis. d/c acyclovir. follow CSF culture. Continue tx with cefepime IV, vancomycin IV. Nephrology following due to poor renal fx, worsened cr today to 4.0. Will continue IVF hydration. EEG pending. MRA head completed but limited study due to motion artifact...periventricular and scatter foci of deep white matter hyperintensity noted. Will follow neurology input. 05/16: Resting comfortably on encounter. Clinically improved AOX4, answers all questions appropriately. Will continue renally dosed Vancomycin IV and Cefepime IV. ID recs and nephrology recs noted. Marginal improvement in Cr: 3.9 today. 05/17: Awaiting AM labs. Patient is resting comfortably, mental status continues to be improved. PT consultation as patient needs to be more physically active. N O growth thus far on csf culture. Continue abx and antiepileptics. 05/18: Renal function remains relatively stable with creatinine at 3.2 up slightly from 3.1 yesterday. Discontinue the IV fluids at this time. Continue to hold diuresis per nephrology. We will add hydralazine as needed for better blood pressure control. ID recommendation reviewed. Patient will need home antibiotics arranged. Expected end of antibiotics 10 3. Okay to proceed with midline and discontinue central line. Her mentation is well improved and diet has been adjusted to regular diet. 05/19: Patient continues to show improvement. Creatinine down to 2.6. Fluids has been discontinued as of yesterday. Blood pressure better controlled. Mild elevation in WBC to 12.4 but no fever noted. Awaiting for ID for home antibiotics orders and discharge planning by case management. 05/20: Midline order placed for OP abx. Patient is doing well this AM. Anticipate d/c this week once abx arrangements made. 05/21: Patient insurance does not cover IV rocephin. ID recommends continuing rocephin until course completed. Anticipate discharge 05/27 once abx completed. Discussed with patient who agrees. 05/22: Patient clinically stable. 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 -Renally dose medications and avoid nephrotoxic medications -maybe due to chronic uncontrolled HTN and diabetes -Nephrology consulted, appreciate recommendations -patient urged to follow up with Nephrology in [place] #Hypertensive urgency #Hypertension -Blood pressure monitoring per protocol -s/p Cardene drip -continue amlodipine, hydralazine -patient will follow up with PCP for titration of medications at discharge #Morbid obesity #Moderate protein calorie malnutrition -PPI -NTR consulted for tube feedings #Type 2 Diabetes Mellitus -Hemoglobin A1c 14.4 -continue lantus 40UQHS -continue accuchecks and SSI -goal glucose 140-180 while inpatient #Leukocytosis-improved -likely secondary to encephalitis #Advance care planning -Disease education conducted, care plan discussed, diagnoses discussed, prognosis discussed, patient is full code, patient acknowledges understanding and agree with care plan, +30 minutes. History Interval history: No acute events overnight. Patient has no complaints at this time. Hospitalist Physical - Physical exam Narrative exam: GENERAL: Well-developed well-nourished. In no acute distress. HEENT: Normocephalic. Atraumatic. NECK: Supple. RIJ catheter. CHEST/LUNGS: CTAB on room air HEART/CARDIOVASCULAR: RRR. No murmur, rubs or gallops appreciated. ABDOMEN: +BS. NT/ND. SKIN: No rashes noted. NEURO: No focal motor deficit. Follows all commands. MUSCULOSKELETAL: No joint effusion EXTREMITIES: No cyanosis, clubbing or edema. PSYCH: Cooperative. - Constitutional Vitals: Temp Pulse Resp BP Pulse Ox 98.4 F 89 20 123/61 92 05/22/22 04:47 05/22/22 04:47 05/22/22 04:47 05/22/22 04:47 05/22/22 04:47 HEART Score - HEART Score Troponin: Troponin T 0.028 ng/mL (0.00-0.029) 05/12/22 22:47 Results - Labs CBC & Chem 7: 05/20/22 05:06 05/20/22 05:06 Labs: Laboratory Last Values WBC 12.1 K/mm3 (4.5-11.0) H 05/20/22 05:06 RBC 3.88 M/mm3 (3.65-5.03) 05/20/22 05:06 Hgb 9.4 gm/dl (10.1-14.3) L 05/20/22 05:06 Hct 30.6 % (30.3-42.9) 05/20/22 05:06 MCV 79 fl (79-97) 05/20/22 05:06 MCH 24 pg (28-32) L 05/20/22 05:06 MCHC 31 % (30-34) 05/20/22 05:06 RDW 16.1 % (13.2-15.2) H 05/20/22 05:06 Plt Count 179 K/mm3 (140-440) 05/20/22 05:06 Lymph % (Auto) 16.7 % (13.4-35.0) 05/16/22 09:22 Ness % (Auto) 9.9 % (0.0-7.3) H 05/16/22 09:22 Eos % (Auto) 1.4 % (0.0-4.3) 05/16/22 09:22 Baso % (Auto) 1.8 % (0.0-1.8) 05/16/22 09:22 Lymph # (Auto) 1.8 K/mm3 (1.2-5.4) 05/16/22 09:22 Ness # (Auto) 1.1 K/mm3 (0.0-0.8) H 05/16/22 09:22 Eos # (Auto) 0.2 K/mm3 (0.0-0.4) 05/16/22 09:22 Baso # (Auto) 0.2 K/mm3 (0.0-0.1) H 05/16/22 09:22 Add Manual Diff Complete 05/12/22 22:47 Total Counted 100 05/12/22 22:47 Seg Neutrophils % 70.2 % (40.0-70.0) H 05/16/22 09:22 Seg Neuts % (Manual) 85.0 % (40.0-70.0) H 05/12/22 22:47 Band Neutrophils % 0 % 05/12/22 22:47 Lymphocytes % (Manual) 7.0 % (13.4-35.0) L 05/12/22 22:47 Reactive Lymphs % (Man) 0 % 05/12/22 22:47 Monocytes % (Manual) 8.0 % (0.0-7.3) H 05/12/22 22:47 Eosinophils % (Manual) 0 % (0.0-4.3) 05/12/22 22:47 Basophils % (Manual) 0 % (0.0-1.8) 05/12/22 22:47 Metamyelocytes % 0 % 05/12/22 22:47 Myelocytes % 0 % 05/12/22 22:47 Promyelocytes % 0 % 05/12/22 22:47 Blast Cells % 0 % 05/12/22 22:47 Nucleated RBC % Not Reportable 05/12/22 22:47 Seg Neutrophils # 7.7 K/mm3 (1.8-7.7) 05/16/22 09: Seg Neutrophils # Man 13.1 K/mm3 (1.8-7.7) H 05/12/22 22:47 Band Neutrophils # 0.0 K/mm3 05/12/22 22:47 Lymphocytes # (Manual) 1.1 K/mm3 (1.2-5.4) L 05/12/22 22:47 Abs React Lymphs (Man) 0.0 K/mm3 05/12/22 22:47 Monocytes # (Manual) 1.2 K/mm3 (0.0-0.8) H 05/12/22 22:47 Eosinophils # (Manual) 0.0 K/mm3 (0.0-0.4) 05/12/22 22:47 Basophils # (Manual) 0.0 K/mm3 (0.0-0.1) 05/12/22 22:47 Metamyelocytes # 0.0 K/mm3 05/12/22 22:47 Myelocytes # 0.0 K/mm3 05/12/22 22:47 Promyelocytes # 0.0 K/mm3 05/12/22 22:47 Blast Cells # 0.0 K/mm3 05/12/22 22:47 WBC Morphology Not Reportable 05/12/22 22:47 Hypersegmented Neuts Not Reportable 05/12/22 22:47 Hyposegmented Neuts Not Reportable 05/12/22 22:47 Hypogranular Neuts Not Reportable 05/12/22 22:47 Smudge Cells Not Reportable 05/12/22 22:47 Toxic Granulation Not Reportable 05/12/22 22:47 Toxic Vacuolation Not Reportable 05/12/22 22:47 Dohle Bodies Not Reportable 05/12/22 22:47 Pelger-Huet Anomaly Not Reportable 05/12/22 22:47 Tima Rods Not Reportable 05/12/22 22:47 Platelet Estimate Consistent w auto 05/12/22 22:47 Clumped Platelets Not Reportable 05/12/22 22:47 Plt Clumps, EDTA Not Reportable 05/12/22 22:47 Large Platelets Not Reportable 05/12/22 22:47 Giant Platelets Not Reportable 05/12/22 22:47 Platelet Satelliting Not Reportable 05/12/22 22:47 Plt Morphology Comment Not Reportable 05/12/22 22:47 RBC Morphology Not Reportable 05/12/22 22:47 Dimorphic RBCs Not Reportable 05/12/22 22:47 Polychromasia Not Reportable 05/12/22 22:47 Hypochromasia 1+ 05/12/22 22:47 Poikilocytosis Not Reportable 05/12/22 22:47 Anisocytosis Not Reportable 05/12/22 22:47 Microcytosis Not Reportable 05/12/22 22:47 Macrocytosis Not Reportable 05/12/22 22:47 Spherocytes Not Reportable 05/12/22 22:47 Pappenheimer Bodies Not Reportable 05/12/22 22:47 Sickle Cells Not Reportable 05/12/22 22:47 Target Cells Not Reportable 05/12/22 22:47 Tear Drop Cells Not Reportable 05/12/22 22:47 Ovalocytes Not Reportable 05/12/22 22:47 Helmet Cells Not Reportable 05/12/22 22:47 [place] Bodies Not Reportable 05/12/22 22:47 [place] Rings Not Reportable 05/12/22 22:47 Imelda Cells Not Reportable 05/12/22 22:47 Bite Cells Not Reportable 05/12/22 22:47 Crenated Cell Not Reportable 05/12/22 22:47 Elliptocytes Not Reportable 05/12/22 22:47 Acanthocytes (Spur) Not Reportable 05/12/22 22:47 Rouleaux Not Reportable 05/12/22 22:47 Hemoglobin C Crystals Not Reportable 05/12/22 22:47 Schistocytes Not Reportable 05/12/22 22:47 Malaria parasites Not Reportable 05/12/22 22:47 Jesse Bodies Not Reportable 05/12/22 22:47 Hem Pathologist Commnt No 05/12/22 22:47 PT 16.8 Sec. (12.2-14.9) H 05/12/22 14:25 INR 1.22 (0.87-1.13) H 05/12/22 14:25 APTT 29.6 Sec. (24.2-36.6) 05/12/22 14:25 ABG pH 7.385 pH Units (7.350-7.450) 05/18/22 14:30 ABG pCO2 29.3 mm Hg 05/18/22 14:30 ABG pO2 86.8 mm Hg (80.0-90.0) 05/18/22 14:30 ABG HCO3 17.1 mmol/L (20.0-26.0) L 05/18/22 14:30 ABG O2 Saturation 97.1 % (95.0-99.0) 05/18/22 14:30 ABG O2 Content 14.1 (0.0-44) 05/18/22 14:30 ABG Base Excess -6.8 mmol/L (-2.0-3.0) L 05/18/22 14:30 ABG Hemoglobin 10.4 gm/dl (12.0-16.0) L 05/18/22 14:30 ABG Carboxyhemoglobin 1.3 % (0.0-5.0) 05/18/22 14:30 ABG Methemoglobin 0.6 % (0.0-1.5) 05/18/22 14:30 VBG pH 7.354 (7.320-7.420) 05/12/22 22:47 Oxyhemoglobin 95.2 % (95.0-99.0) 05/18/22 14:30 FiO2 21 % 05/18/22 14:30 Sodium 140 mmol/L (137-145) 05/20/22 05:06 Potassium 3.8 mmol/L (3.6-5.0) 05/20/22 05:06 Chloride 110.8 mmol/L (98-107) H 05/20/22 05:06 Carbon Dioxide 17 mmol/L (22-30) L 05/20/22 05:06 Anion Gap 16 mmol/L 05/20/22 05:06 BUN 33 mg/dL (7-17) H 05/20/22 05:06 Creatinine 2.4 mg/dL (0.6-1.2) H 05/20/22 05:06 Estimated GFR 28 ml/min 05/20/22 05:06 BUN/Creatinine Ratio 14 % 05/20/22 05:06 Glucose 185 mg/dL (65-100) H 05/20/22 05:06 POC Glucose 226 mg/dL (70-105) H 05/22/22 11:17 Hemoglobin A1c 14.4 % (4-6) H 05/14/22 14:23 Ketones Quantitative Negative (Negative) 05/12/22 22:47 Lactic Acid 1.00 mmol/L (0.7-2.0) 05/14/22 04:20 Calcium 8.4 mg/dL (8.4-10.2) 05/20/22 05:06 Phosphorus 3.00 mg/dL (2.5-4.5) 05/15/22 03:48 Magnesium 2.30 mg/dL (1.7-2.3) 05/15/22 03:48 Total Bilirubin < 0.20 mg/dL (0.1-1.2) 05/16/22 09: AST 11 units/L (5-40) 05/16/22 09: ALT 11 units/L (7-56) 05/16/22 09:22 Alkaline Phosphatase 78 units/L (35-129) 05/16/22 09:22 Total Creatine Kinase 217 units/L (30-135) H 05/14/22 04:20 Troponin T 0.028 ng/mL (0.00-0.029) 05/12/22 22:47 C-Reactive Protein 1.40 mg/dL (0.00-1.30) H 05/14/22 04:20 Serum Total Protein 5.5 g/dL (6.1-8.1) L 05/14/22 04:20 Total Protein 5.1 g/dL (6.3-8.2) L 05/16/22 09:22 Albumin 2.7 g/dL (3.9-5) L 05/16/22 09:22 Albumin/Globulin Ratio 1.1 % 05/16/22 09:22 Aekre-7-Ppexqmcnq 0.3 g/dL (0.2-0.3) 05/14/22 04:20 Xhfbd-8-Pyyiwqdmk 1.2 g/dL (0.5-0.9) H 05/14/22 04:20 Beta Globulins 0.4 g/dL (0.2-0.5) 05/14/22 04:20 Gamma Globulins 0.7 g/dL (0.8-1.7) L 05/14/22 04:20 Abnorm Protein Band 1 see below 05/14/22 04:20 PEP Interpretation see below H 05/14/22 04:20 Procalcitonin 0.56 ng/mL (<0.15) 05/14/22 04:20 TSH 0.422 mlU/mL (0.270-4.200) 05/12/22 14:25 Free T4 1.02 ng/dL (0.76-1.46) 05/12/22 14:25 PTH Intact 149.4 pg/mL (15-65) H 05/14/22 04:20 Urine Color Yellow (Yellow) 05/12/22 19:04 Urine Turbidity Clear (Clear) 05/12/22 19:04 Specific [place] (Man) 1.015 (1.003-1.030) 05/12/22 19:04 Ur Protein (Man) 2+ mg/dL (Negative) 05/12/22 19:04 Ur Ketones (Man) Negative (Negative) 05/12/22 19:04 Ur Nitrite (Man) Negative (Negative) 05/12/22 19:04 Urine Bilirubin (Man) Negative (Negative) 05/12/22 19:04 Leukocyte Esterase (Man) Negative (Negative) 05/12/22 19:04 Urine WBC (Auto) < 1.0 /HPF (0.0-6.0) 05/12/22 19:04 Urine RBC (Auto) < 1.0 /HPF (0.0-6.0) 05/12/22 19:04 Urine RBC (Manual) 1+ (Negative) 05/12/22 19:04 Urine Creatinine 86.3 mg/dL (0.1-20.0) H 05/13/22 Unknown Protein/Creatinin Ratio 4.20 05/13/22 19:34 Urine Sodium 21 mmol/L 05/13/22 Unknown Urine Total Protein 735 mg/dL (5-11.8) H 05/13/22 19:34 CSF Appearance Clear 05/14/22 11:32 CSF Color [place] 05/14/22 11:32 CSF WBC 53 /mm3 (1-10) 05/14/22 11:32 CSF RBC 2000 /mm3 (0-0) 05/14/22 11:32 CSF Seg Neutrophils 97 % (0-6) 05/14/22 11:32 CSF Lymphocytes % 2 % (40-80) 05/14/22 11:32 CSF Reactive Lymphs 0 % 05/14/22 11:32 CSF Monocytes % 1 % (15-45) 05/14/22 11:32 CSF Eosinophils % 0 % 05/14/22 11:32 CSF Basophils 0 % 05/14/22 11:32 CSF Pathologist Review C 05/14/22 11:32 CSF Glucose 137 mg/dL 05/14/22 11:32 CSF Total Protein 32 mg/dL 05/14/22 11:32 CSF VDRL Nonreactive (Nonreactive) 05/14/22 11:32 Random Vancomycin 26.7 ug/mL (0-40.0) 05/19/22 05:02 Salicylates < 0.3 mg/dL (2.8-20.0) L 05/12/22 14:25 Urine Opiates Screen Negative 05/12/22 19:04 Urine Methadone Screen Negative 05/12/22 19:04 Acetaminophen 5.0 ug/mL (10.0-30.0) L 05/12/22 14:25 Ur Barbiturates Screen Negative 05/12/22 19:04 Ur Phencyclidine Scrn Negative 05/12/22 19:04 Ur Amphetamines Screen Negative 05/12/22 19:04 U Benzodiazepines Scrn Negative 05/12/22 19:04 Urine Cocaine Screen Negative 05/12/22 19:04 U Marijuana (THC) Screen Positive 05/12/22 19:04 Drugs of Abuse Note Disclamer 05/12/22 19:04 Plasma/Serum Alcohol < 0.01 % (0-0.07) 05/12/22 22:47 MERVIN Screen Negative (Negative) 05/14/22 04:20 Proteinase 3 (PR3) Ab <1.0 AI (<1.0) 05/14/22 04:20 Myeloperoxidase Ab <1.0 AI (<1.0) 05/14/22 04:20 Complement C3 180 mg/dL (83-193) 05/14/22 04:20 Complement C4 43 mg/dL (15-57) 05/14/22 04:20 Coronavirus (PCR) Negative (Negative) 05/13/22 09:30 Vergara/IV: Voiding Method External Female Catheter Active Medications - Current Medications Current Medications: Generic Name Dose Route Start Last Admin Trade Name Freq PRN Reason Stop Dose Admin Acetaminophen 650 mg 05/13/22 02:07 05/14/22 08:08 Acetaminophen 325 Mg Tab PO 650 mg Q6H PRN Administration Pain MILD(1-3)/Fever >100.5/PATINO Atorvastatin Calcium 40 mg 05/18/22 22:00 05/21/22 22:04 Atorvastatin 40 Mg Tab PO 40 mg QHS BRAD Administration Carvedilol 25 mg 05/18/22 10:00 05/22/22 09:18 Carvedilol 25 Mg Tab PO 25 mg BID BRAD Administration Dextrose 0 ml 05/13/22 02:07 Dextrose 50% In Water (25gm) 50 Ml Syringe IV Q30MIN PRN Hypoglycemia Protocol Heparin Sodium (Porcine) 5,000 unit 05/13/22 06:00 05/22/22 06:06 Heparin 5,000 Unit/1 Ml Vial SUB-Q 5,000 unit Q8HR BRAD Administration Hydralazine HCl 100 mg 05/18/22 09:00 05/22/22 09:18 Hydralazine 100 Mg Tab PO 100 mg TID BRAD Administration Hydralazine HCl 10 mg 05/18/22 10:20 Hydralazine 20 Mg/1 Ml Inj IV Q4HR PRN Hypertension Ceftriaxone Sodium 2 gm in 100 mls @ 200 mls/hr 05/18/22 22:00 05/22/22 09:17 Rocephin/Ns 2 Gm/100 Ml IV 05/27/22 22:29 200 mls/hr Q12H BRAD Administration Protocol Insulin Glargine 40 units 05/17/22 22:00 05/22/22 00:04 Insulin Glargine 100 Units/Ml SUB-Q 40 units QHS BRAD Administration Insulin Human Lispro 0 unit 05/18/22 11:30 05/22/22 11:16 Insulin Lispro 100 Unit/Ml SUB-Q Not Given ACHS BRAD Protocol Lacosamide 100 mg 05/18/22 10:00 05/21/22 22:04 Lacosamide 100 Mg Tab PO 100 mg Q12HR BRAD Administration Levetiracetam 1,000 mg 05/18/22 10:00 05/22/22 09:18 Levetiracetam 500 Mg Tab PO 1,000 mg BID BRAD Administration Lorazepam 2 mg 05/13/22 13:03 05/14/22 11:30 Lorazepam 2 Mg/Ml Vial IV 2 mg Q4H PRN Administration Seizures Magnesium Hydroxide 30 ml 05/13/22 02:07 Magnesium Hydroxide (Mom) Oral Liqd Udc PO Q4H PRN Constipation Nifedipine 90 mg 05/20/22 10:00 05/22/22 09:18 Nifedipine Xl 90 Mg Tab PO 90 mg QDAY BRAD Administration Ondansetron HCl 4 mg 05/13/22 02:07 Ondansetron 4 Mg/2 Ml Inj IV Q8H PRN Nausea And Vomiting Sodium Chloride 10 ml 05/13/22 10:00 05/22/22 09:18 Sodium Chloride 0.9% 10 Ml Flush Syringe IV 10 ml BID BRAD Administration Sodium Chloride 10 ml 05/13/22 02:07 Sodium Chloride 0.9% 10 Ml Flush Syringe IV PRN PRN LINE FLUSH Zolpidem Tartrate 5 mg 05/22/22 00:53 05/22/22 03:45 Zolpidem 5 Mg Tab PO 5 mg QHS PRN Administration Sleep Nutrition/Malnutrition Assess - Dietary Evaluation Nutrition/Malnutrition Findings: Nutrition Notes Start: 05/13/22 11:36 Freq: Status: Active Protocol: Document 05/15/22 11:17 SIOMARA (Rec: 05/15/22 11:45 SIOMARA [id number]) Nutrition Notes Initial or Follow up Reassessment Current Diagnosis Acute Kidney Injury,CKD(stage I-IV),Diabetes,Sepsis, Hypertension,Malnutrition Other Pertinent Diagnosis SIRS, r/o Meningoencephalitis, Seizures, Metabolic Acidosis, Tachycardia. Current Diet TF-Nepro w/CARBSTEADY @ 40 ml/ hr (since D 05/13). Labs/Tests 05/15: Cl 115.5, CO2 19, BUN 44, Crea 4.0, Glu 339. Pertinent Medications 05/15: Lantus 15U, Humalog 8U, others nutritionally unremarkable. Height 5 ft 7 in Weight 113 kg [place] Body Weight (kg) 61.36 BMI 38.9 Weight change and time frame No body weight change reported in 2 days. Weight Status Obese Subjective/Other Information RD consult for TF tolerance/ continuation assessment. TF continues as prescribed, and well tolerated, according to RN notes. Pt is on Room Air, O2 saturation @ 99%, according to Physical Assessment History notes. Pt is swallow impaired, according to Physical Assessment History notes, but no COMPOSITE ENGINEER note available at the time and Not able to contact RN over the phone, will assess at F/U. Percent of energy/protein needs met: Prescribed TF-Nepro w/ CARBSTEADY @ 40 ml/hr provides for energy/protein needs (1, 710 Kcal/77 g) during LOS, 101 % Kcal; 100% AA. Burn Absent Trauma Absent GI Symptoms None Difficulty In Swallowing Food Allergy No Skin Integrity/Comment Assessment WNL. 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 Diagnosis Progress(for reassessment Continues documentation) Is patient on ventilator? No Is Patient Ambulatory and/or Out of Bed No REE-([facility]-confined to bed) 2248.872 Kcal/Kg value to use for calculation 15 Approximate Energy Requirements Using 1695 kcal/Kg Calculation Used for Recommendations Kcal/kg Additional Notes Protein: 0.8-1.2 g/Kg AdjBW; 70-104 g/day. Fluids: 1 ml/Kcal, or as per MD. Nutrition Intervention Nutrition Support: Continue TF-Nepro w/CARBSTEADY @ 40 ml/hr. Flush: 170 ml water Q 4 hr, or as per MD. Kcal 1,710 Protein (gm) 77 Carbohydrates (gm) 153 Fat (gm) 91 Fluid (mL) 691 Fiber (gm) 12 % RDI: 101% Kcal; 100% AA Goal #1 Provide at least 75% of energy /protein needs through Enteral Feeding during LOS. Follow-Up By: 05/22/22 Additional Comments Continue monitoring TF tolerance, [id number] status, and BM.
[2022-05-22] MEDS: LACOSAMIDE 100 MG TAB PO SCH ×2 (15:12→23:17)
[2022-05-23 06:08] LABS: Calcium 8.7 mg/dL (8.4-10.2)
[2022-05-23] MEDS: HEPARIN 5,000 UNIT/1 ML VIAL SUB-Q SCH ×3 (06:14→21:18)
[2022-05-23 07:07] LABS: ABG Base Excess -6.1 mmol/L (-2.0-3.0); ABG HCO3 18.3 mmol/L (20.0-26.0); ABG Methemoglobin 0.6 % (0.0-1.5); ABG PCO2 31.7 mm Hg; ABG PH 7.379 pH Units (7.350-7.450); ABG PO2 83.3 mm Hg (80.0-90.0)
--- NOTE | 2022-05-23 08:59 | Progress Note ---
Assessment and Plan 31-year-old -[place] female Morbidly brought to the emergency room for evaluation of seizure episode which happened overnight with associated progressive weakness. Patient is visiting from [place] and was said not to have had enough rest since arrival few days ago. Most of the history was gotten from the ER staff as patient is unable to give any coherent history at this time and no family member is available. Patient was said to have woken up in the night had an episode of vomiting and subsequently had seizures. She was said to have had another episode of seizure while in the emergency room and had been started on Keppra and also given some Ativan. Work-up in the emergency room , significant findings on the labs with a BUN of 26 and creatinine of 3.1. Initial blood glucose of 580 and subsequently 361. Urinalysis was unremarkable. UDS was positive for marijuana. Leukocytosis of 13.1. CT scan of the head shows no acute findings. Chest x-ray shows no acute findings. Blood pressure has been quite elevated with systolic in the 200s and diastolic in the 130s. Patient initially given IV labetalol and then subsequently placed on Cardene drip. Patient also developed a fever while in the emergency room with temperature of about 103 F. Patient has been admitted with seizure disorder, hyperglycemia, hypertensive urgency and RODRÍGUEZ. Patient denies smoking, alcohol or drug abuse. Patient not working. Not . Has no children. Patient awake. Patient is on room air. O2 saturation 100%. No acute respiratory distress. Patient resting in bed. ABG repeated on room air. ABG pH 7.379 pH Units (7.350-7.450) 05/23/22 06:00 ABG pCO2 31.7 mm Hg 05/23/22 06:00 ABG pO2 83.3 mm Hg (80.0-90.0) 05/23/22 06:00 ABG O2 Saturation 97.0 % (95.0-99.0) 05/23/22 06:00 Denies chest pain, shortness of breath or cough. Patient afebrile. Has leukocytosis. Blood pressure 115/77, Pulse 91, Respirations 22. Chest xray done 05/12/22 reported No significant pulmonary or pleural abnormality. No pneumothorax. Chest xray 05/16/22 reported No significant pulmonary or pleural abnormality. No pneumothorax. Central line tip in the right atrium. This could be retracted 3 cm. Patient is on ceftraxone,, S/C Heparin, . Recommend GI prophylaxis. Patient afebrile. Has leukocytosis. Blood pressure 123/61, Pulse 89, Respirations 20. Chest xray done 05/12/22 reported No significant pulmonary or pleural abnormality. No pneumothorax. Chest xray 05/16/22 reported No significant pulmonary or pleural abnormality. No pneumothorax. Central line tip in the right atrium. This could be retracted 3 cm. Patient is on ceftraxone,, S/C Heparin, . Recommend GI prophylaxis. - Patient Problems (1) Seizure Current Visit: Yes Status: Acute Plan to address problem: Patient is on Keppra and ativan. (2) Hyperglycemia Current Visit: Yes Status: Acute Plan to address problem: Recent blood sugur 163. Patient is on S/C Insulin. (3) Hypertensive crisis Current Visit: Yes Status: Acute Plan to address problem: Patient is on Amalodipine, Hydralazine,Labetalol. (4) Dehydration Current Visit: Yes Status: Acute Plan to address problem: Recived I/V fluids. BMP to day 05/23/22 reported BUN 27, Creatnine 2.6 (5) Postictal state Current Visit: Yes Status: Acute Plan to address problem: Patient awake, talking now. (6) RODRÍGUEZ (acute kidney injury) Current Visit: Yes Status: Acute Plan to address problem: BUN 27 . Creatinine 2.6 Nephrology consulted. Subjective Date of service: 05/23/22 Principal diagnosis: HTNsive emergency with seizures; Morbid obesity; AMS; Leukocytosis; RODRÍGUEZ Interval history: 31-year-old -[place] female Morbidly brought to the emergency room for evaluation of seizure episode which happened overnight with associated progressive weakness. Patient is visiting from [place] and was said not to have had enough rest since arrival few days ago. Most of the history was gotten from the ER staff as patient is unable to give any coherent history at this time and no family member is available. Patient was said to have woken up in the night had an episode of vomiting and subsequently had seizures. She was said to have had another episode of seizure while in the emergency room and had been started on Keppra and also given some Ativan. Work-up in the emergency room , significant findings on the labs with a BUN of 26 and creatinine of 3.1. Initial blood glucose of 580 and subsequently 361. Urinalysis was unremarkable. UDS was positive for marijuana. Leukocytosis of 13.1. CT scan of the head shows no acute findings. Chest x-ray shows no acute findings. Blood pressure has been quite elevated with systolic in the 200s and diastolic in the 130s. Patient initially given IV labetalol and then subsequently placed on Cardene drip. Patient also developed a fever while in the emergency room with temperature of about 103 F. Patient has been admitted with seizure disorder, hyperglycemia, hypertensive urgency and RODRÍGUEZ. Patient denies smoking, alcohol or drug abuse. Patient not working. Not . Has no children. Patient awake. Patient is on room air. O2 saturation 100%. No acute respiratory distress. Patient resting in bed. ABG repeated on room air. ABG pH 7.379 pH Units (7.350-7.450) 05/23/22 06:00 ABG pCO2 31.7 mm Hg 05/23/22 06:00 ABG pO2 83.3 mm Hg (80.0-90.0) 05/23/22 06:00 ABG O2 Saturation 97.0 % (95.0-99.0) 05/23/22 06:00 Denies chest pain, shortness of breath or cough. Patient afebrile. Has leukocytosis. Blood pressure 115/77, Pulse 91, Respirations 22. Chest xray done 05/12/22 reported No significant pulmonary or pleural abnormality. No pneumothorax. Chest xray 05/16/22 reported No significant pulmonary or pleural abnormality. No pneumothorax. Central line tip in the right atrium. This could be retracted 3 cm. Patient is on ceftraxone,, S/C Heparin, . Recommend GI prophylaxis. Objective Vital Signs - 12hr 05/22/22 05/22/22 05/22/22 22:00 23:18 23:43 Temperature 97.8 F Pulse Rate 95 H 96 H Respiratory 20 Rate Blood Pressure 139/77 148/88 O2 Sat by Pulse 100 96 Oximetry 05/23/22 05:32 Temperature 98.6 F Pulse Rate 91 H Respiratory 22 Rate Blood Pressure 115/77 O2 Sat by Pulse 100 Oximetry Constitutional: no acute distress, alert Eyes: non-icteric ENT: oropharynx moist Neck: supple, no lymphadenopathy, no JVD, other (large circumference, RIJ CVL) Effort: mildly labored Ascultation: Bilateral: diminished breath sounds Percussion: Bilateral: not dull Cardiovascular: regular rate and rhythm, other (S1.S2) Gastrointestinal: normoactive bowel sounds, soft, non-tender, non-distended (protuberant) Integumentary: normal Extremities: no cyanosis, no edema, pulses normal, no ischemia or petechiae Neurologic: normal mental status, non-focal exam (grossly), pupils equal and round, CN II-XII normal, motor strength normal and Psychiatric: mood appropriate, affect normal CBC and BMP: 05/20/22 05:06 05/23/22 04:55 ABG, PT/INR, D-dimer: ABG ABG pH 7.379 pH Units (7.350-7.450) 05/23/22 06:00 ABG pCO2 31.7 mm Hg 05/23/22 06:00 ABG pO2 83.3 mm Hg (80.0-90.0) 05/23/22 06:00 ABG O2 Saturation 97.0 % (95.0-99.0) 05/23/22 06:00 PT/INR, D-dimer PT 16.8 Sec. (12.2-14.9) H 05/12/22 14:25 INR 1.22 (0.87-1.13) H 05/12/22 14:25 Abnormal lab findings: Abnormal Labs 05/12/22 05/12/22 05/12/22 14:25 14:25 14:25 WBC 13.1 H RBC 5.37 H Hgb MCV 78 L MCH 25 L RDW 16.2 H Lymph % (Auto) [place] % (Auto) [place] # (Auto) Baso # (Auto) Seg Neutrophils % Seg Neuts % (Manual) 88.0 H Lymphocytes % (Manual) 7.0 L Monocytes % (Manual) Seg Neutrophils # Seg Neutrophils # Man 11.5 H Lymphocytes # (Manual) 0.9 L Monocytes # (Manual) PT 16.8 H INR 1.22 H ABG pO2 ABG HCO3 ABG O2 Saturation ABG Base Excess ABG Hemoglobin Oxyhemoglobin Sodium Potassium Chloride Carbon Dioxide 18 L BUN 26 H Creatinine 3.1 H Glucose 580 H* POC Glucose Hemoglobin A1c Lactic Acid Calcium Total Creatine Kinase C-Reactive Protein Serum Total Protein Total Protein 6.2 L Albumin 3.3 L Gqwgc-3-Aojepqwxf Gamma Globulins PEP Interpretation PTH Intact Urine Creatinine Urine Total Protein Salicylates Acetaminophen 05/12/22 05/12/22 05/12/22 14:25 14:25 14:25 WBC RBC Hgb MCV MCH RDW Lymph % (Auto) [place] % (Auto) [place] # (Auto) Baso # (Auto) Seg Neutrophils % Seg Neuts % (Manual) Lymphocytes % (Manual) Monocytes % (Manual) Seg Neutrophils # Seg Neutrophils # Man Lymphocytes # (Manual) Monocytes # (Manual) PT INR ABG pO2 ABG HCO3 ABG O2 Saturation ABG Base Excess ABG Hemoglobin Oxyhemoglobin Sodium Potassium Chloride Carbon Dioxide BUN Creatinine Glucose POC Glucose Hemoglobin A1c Lactic Acid 2.80 H* Calcium Total Creatine Kinase C-Reactive Protein Serum Total Protein Total Protein Albumin Tfxws-5-Mfsfdlwsi Gamma Globulins PEP Interpretation PTH Intact Urine Creatinine Urine Total Protein Salicylates < 0.3 L Acetaminophen 5.0 L 05/12/22 05/12/22 05/12/22 22:47 22:47 22:47 WBC 15.4 H RBC 5.42 H Hgb MCV 77 L MCH 24 L RDW 16.3 H Lymph % (Auto) [place] % (Auto) [place] # (Auto) Baso # (Auto) Seg Neutrophils % Seg Neuts % (Manual) 85.0 H Lymphocytes % (Manual) 7.0 L Monocytes % (Manual) 8.0 H Seg Neutrophils # Seg Neutrophils # Man 13.1 H Lymphocytes # (Manual) 1.1 L Monocytes # (Manual) 1.2 H PT INR ABG pO2 ABG HCO3 ABG O2 Saturation ABG Base Excess ABG Hemoglobin Oxyhemoglobin Sodium Potassium Chloride 110.1 H Carbon Dioxide 19 L BUN 27 H Creatinine 3.3 H Glucose 361 H POC Glucose Hemoglobin A1c Lactic Acid 2.70 H* Calcium Total Creatine Kinase C-Reactive Protein Serum Total Protein Total Protein Albumin 3.3 L Rkxrw-9-Igobecvtb Gamma Globulins PEP Interpretation PTH Intact Urine Creatinine Urine Total Protein Salicylates Acetaminophen 05/12/22 05/13/22 05/13/22 22:47 01:53 06:30 WBC RBC Hgb MCV MCH RDW Lymph % (Auto) [place] % (Auto) [place] # (Auto) Baso # (Auto) Seg Neutrophils % Seg Neuts % (Manual) Lymphocytes % (Manual) Monocytes % (Manual) Seg Neutrophils # Seg Neutrophils # Man Lymphocytes # (Manual) Monocytes # (Manual) PT INR ABG pO2 55.5 L ABG HCO3 ABG O2 Saturation 89.0 L ABG Base Excess -4.9 L ABG Hemoglobin Oxyhemoglobin 85.4 L Sodium Potassium Chloride Carbon Dioxide BUN Creatinine Glucose POC Glucose 511 H Hemoglobin A1c Lactic Acid 2.30 H* Calcium Total Creatine Kinase C-Reactive Protein Serum Total Protein Total Protein Albumin Pqekj-9-Fxngdvoni Gamma Globulins PEP Interpretation PTH Intact Urine Creatinine Urine Total Protein Salicylates Acetaminophen 05/13/22 05/13/22 05/13/22 10:27 11:33 16:12 WBC RBC Hgb MCV MCH RDW Lymph % (Auto) [place] % (Auto) [place] # (Auto) Baso # (Auto) Seg Neutrophils % Seg Neuts % (Manual) Lymphocytes % (Manual) Monocytes % (Manual) Seg Neutrophils # Seg Neutrophils # Man Lymphocytes # (Manual) Monocytes # (Manual) PT INR ABG pO2 ABG HCO3 ABG O2 Saturation ABG Base Excess ABG Hemoglobin Oxyhemoglobin Sodium Potassium Chloride Carbon Dioxide BUN Creatinine Glucose POC Glucose 492 H 500 H 331 H Hemoglobin A1c Lactic Acid Calcium Total Creatine Kinase C-Reactive Protein Serum Total Protein Total Protein Albumin Vnntn-8-Clvbdegjf Gamma Globulins PEP Interpretation PTH Intact Urine Creatinine Urine Total Protein Salicylates Acetaminophen 05/13/22 05/13/22 05/13/22 19:34 21:55 23:50 WBC RBC Hgb MCV MCH RDW Lymph % (Auto) [place] % (Auto) [place] # (Auto) Baso # (Auto) Seg Neutrophils % Seg Neuts % (Manual) Lymphocytes % (Manual) Monocytes % (Manual) Seg Neutrophils # Seg Neutrophils # Man Lymphocytes # (Manual) Monocytes # (Manual) PT INR ABG pO2 ABG HCO3 ABG O2 Saturation ABG Base Excess ABG Hemoglobin Oxyhemoglobin Sodium Potassium Chloride Carbon Dioxide BUN Creatinine Glucose POC Glucose 268 H 256 H Hemoglobin A1c Lactic Acid Calcium Total Creatine Kinase C-Reactive Protein Serum Total Protein Total Protein Albumin Qvrqk-9-Xjoljxsvk Gamma Globulins PEP Interpretation PTH Intact Urine Creatinine 174.8 H Urine Total Protein 735 H Salicylates Acetaminophen 05/13/22 05/14/22 05/14/22 Unknown 04:20 04:20 WBC 18.3 H RBC Hgb MCV 78 L MCH 24 L RDW 16.6 H Lymph % (Auto) 12.1 L [place] % (Auto) 11.6 H [place] # (Auto) 2.1 H Baso # (Auto) 0.2 H Seg Neutrophils % 75.0 H Seg Neuts % (Manual) Lymphocytes % (Manual) Monocytes % (Manual) Seg Neutrophils # 13.7 H Seg Neutrophils # Man Lymphocytes # (Manual) Monocytes # (Manual) PT INR ABG pO2 ABG HCO3 ABG O2 Saturation ABG Base Excess ABG Hemoglobin Oxyhemoglobin Sodium 146 H Potassium 3.4 L Chloride 115.1 H Carbon Dioxide 17 L BUN 35 H Creatinine 3.9 H Glucose 224 H POC Glucose Hemoglobin A1c Lactic Acid Calcium Total Creatine Kinase C-Reactive Protein 1.40 H Serum Total Protein Total Protein Albumin Glrrl-5-Xlwlpyrgg Gamma Globulins PEP Interpretation PTH Intact Urine Creatinine 86.3 H Urine Total Protein Salicylates Acetaminophen 05/14/22 05/14/22 05/14/22 04:20 04:20 04:20 WBC RBC Hgb MCV MCH RDW Lymph % (Auto) [place] % (Auto) [place] # (Auto) Baso # (Auto) Seg Neutrophils % Seg Neuts % (Manual) Lymphocytes % (Manual) Monocytes % (Manual) Seg Neutrophils # Seg Neutrophils # Man Lymphocytes # (Manual) Monocytes # (Manual) PT INR ABG pO2 ABG HCO3 ABG O2 Saturation ABG Base Excess ABG Hemoglobin Oxyhemoglobin Sodium Potassium Chloride Carbon Dioxide BUN Creatinine Glucose POC Glucose Hemoglobin A1c Lactic Acid Calcium Total Creatine Kinase 217 H C-Reactive Protein Serum Total Protein 5.5 L Total Protein Albumin 2.5 L Fbckr-0-Zvyaudehg 1.2 H Gamma Globulins 0.7 L PEP Interpretation see below H PTH Intact 149.4 H Urine Creatinine Urine Total Protein Salicylates Acetaminophen 05/14/22 05/14/22 05/14/22 06:10 07:23 13:25 WBC RBC Hgb MCV MCH RDW Lymph % (Auto) [place] % (Auto) [place] # (Auto) Baso # (Auto) Seg Neutrophils % Seg Neuts % (Manual) Lymphocytes % (Manual) Monocytes % (Manual) Seg Neutrophils # Seg Neutrophils # Man Lymphocytes # (Manual) Monocytes # (Manual) PT INR ABG pO2 ABG HCO3 ABG O2 Saturation ABG Base Excess ABG Hemoglobin Oxyhemoglobin Sodium Potassium Chloride Carbon Dioxide BUN Creatinine Glucose POC Glucose 257 H 240 H 323 H Hemoglobin A1c Lactic Acid Calcium Total Creatine Kinase C-Reactive Protein Serum Total Protein Total Protein Albumin Pjadq-7-Zfsxojawr Gamma Globulins PEP Interpretation PTH Intact Urine Creatinine Urine Total Protein Salicylates Acetaminophen 05/14/22 05/14/22 05/15/22 14:23 17:28 00:02 WBC RBC Hgb MCV MCH RDW Lymph % (Auto) [place] % (Auto) [place] # (Auto) Baso # (Auto) Seg Neutrophils % Seg Neuts % (Manual) Lymphocytes % (Manual) Monocytes % (Manual) Seg Neutrophils # Seg Neutrophils # Man Lymphocytes # (Manual) Monocytes # (Manual) PT INR ABG pO2 ABG HCO3 ABG O2 Saturation ABG Base Excess ABG Hemoglobin Oxyhemoglobin Sodium Potassium Chloride Carbon Dioxide BUN Creatinine Glucose POC Glucose 339 H 392 H Hemoglobin A1c 14.4 H Lactic Acid Calcium Total Creatine Kinase C-Reactive Protein Serum Total Protein Total Protein Albumin Belai-3-Znqmqgcce Gamma Globulins PEP Interpretation PTH Intact Urine Creatinine Urine Total Protein Salicylates Acetaminophen 05/15/22 05/15/22 05/15/22 03:48 03:48 05:50 WBC RBC Hgb MCV 78 L MCH 25 L RDW 16.7 H Lymph % (Auto) [place] % (Auto) [place] # (Auto) Baso # (Auto) Seg Neutrophils % Seg Neuts % (Manual) Lymphocytes % (Manual) Monocytes % (Manual) Seg Neutrophils # Seg Neutrophils # Man Lymphocytes # (Manual) Monocytes # (Manual) PT INR ABG pO2 ABG HCO3 ABG O2 Saturation ABG Base Excess ABG Hemoglobin Oxyhemoglobin Sodium Potassium Chloride 115.5 H Carbon Dioxide 19 L BUN 44 H Creatinine 4.0 H Glucose 339 H POC Glucose 307 H Hemoglobin A1c Lactic Acid Calcium Total Creatine Kinase C-Reactive Protein Serum Total Protein Total Protein Albumin Lwdkl-6-Vrebtchtw Gamma Globulins PEP Interpretation PTH Intact Urine Creatinine Urine Total Protein Salicylates Acetaminophen 05/15/22 05/15/22 05/16/22 13:30 17:42 00:34 WBC RBC Hgb MCV MCH RDW Lymph % (Auto) [place] % (Auto) [place] # (Auto) Baso # (Auto) Seg Neutrophils % Seg Neuts % (Manual) Lymphocytes % (Manual) Monocytes % (Manual) Seg Neutrophils # Seg Neutrophils # Man Lymphocytes # (Manual) Monocytes # (Manual) PT INR ABG pO2 ABG HCO3 ABG O2 Saturation ABG Base Excess ABG Hemoglobin Oxyhemoglobin Sodium Potassium Chloride Carbon Dioxide BUN Creatinine Glucose POC Glucose 327 H 388 H 411 H Hemoglobin A1c Lactic Acid Calcium Total Creatine Kinase C-Reactive Protein Serum Total Protein Total Protein Albumin Vwhap-3-Rdbhctbms Gamma Globulins PEP Interpretation PTH Intact Urine Creatinine Urine Total Protein Salicylates Acetaminophen 05/16/22 05/16/22 05/16/22 05:27 07:59 09:22 WBC RBC Hgb MCV 77 L MCH 25 L RDW 17.0 H Lymph % (Auto) [place] % (Auto) 9.9 H [place] # (Auto) 1.1 H Baso # (Auto) 0.2 H Seg Neutrophils % 70.2 H Seg Neuts % (Manual) Lymphocytes % (Manual) Monocytes % (Manual) Seg Neutrophils # Seg Neutrophils # Man Lymphocytes # (Manual) Monocytes # (Manual) PT INR ABG pO2 ABG HCO3 ABG O2 Saturation ABG Base Excess ABG Hemoglobin Oxyhemoglobin Sodium Potassium Chloride Carbon Dioxide BUN Creatinine Glucose POC Glucose 358 H 308 H Hemoglobin A1c Lactic Acid Calcium Total Creatine Kinase C-Reactive Protein Serum Total Protein Total Protein Albumin Kndgv-4-Sczyoepzk Gamma Globulins PEP Interpretation PTH Intact Urine Creatinine Urine Total Protein Salicylates Acetaminophen 05/16/22 05/16/22 05/16/22 09:22 11:36 17:37 WBC RBC Hgb MCV MCH RDW Lymph % (Auto) [place] % (Auto) [place] # (Auto) Baso # (Auto) Seg Neutrophils % Seg Neuts % (Manual) Lymphocytes % (Manual) Monocytes % (Manual) Seg Neutrophils # Seg Neutrophils # Man Lymphocytes # (Manual) Monocytes # (Manual) PT INR ABG pO2 ABG HCO3 ABG O2 Saturation ABG Base Excess ABG Hemoglobin Oxyhemoglobin Sodium Potassium 3.5 L Chloride 107.6 H Carbon Dioxide 18 L BUN 48 H Creatinine 3.9 H Glucose 284 H POC Glucose 255 H 324 H Hemoglobin A1c Lactic Acid Calcium Total Creatine Kinase C-Reactive Protein Serum Total Protein Total Protein 5.1 L Albumin 2.7 L Vypab-4-Mmvoirawo Gamma Globulins PEP Interpretation PTH Intact Urine Creatinine Urine Total Protein Salicylates Acetaminophen 05/16/22 05/17/22 05/17/22 23:48 05:20 12:47 WBC RBC Hgb MCV MCH RDW Lymph % (Auto) [place] % (Auto) [place] # (Auto) Baso # (Auto) Seg Neutrophils % Seg Neuts % (Manual) Lymphocytes % (Manual) Monocytes % (Manual) Seg Neutrophils # Seg Neutrophils # Man Lymphocytes # (Manual) Monocytes # (Manual) PT INR ABG pO2 ABG HCO3 ABG O2 Saturation ABG Base Excess ABG Hemoglobin Oxyhemoglobin Sodium Potassium Chloride Carbon Dioxide BUN Creatinine Glucose POC Glucose 293 H 267 H 173 H Hemoglobin A1c Lactic Acid Calcium Total Creatine Kinase C-Reactive Protein Serum Total Protein Total Protein Albumin Aaspv-5-Ehyluadpp Gamma Globulins PEP Interpretation PTH Intact Urine Creatinine Urine Total Protein Salicylates Acetaminophen 05/17/22 05/17/22 05/17/22 12:55 17:47 19:57 WBC RBC Hgb MCV MCH RDW Lymph % (Auto) [place] % (Auto) [place] # (Auto) Baso # (Auto) Seg Neutrophils % Seg Neuts % (Manual) Lymphocytes % (Manual) Monocytes % (Manual) Seg Neutrophils # Seg Neutrophils # Man Lymphocytes # (Manual) Monocytes # (Manual) PT INR ABG pO2 ABG HCO3 ABG O2 Saturation ABG Base Excess ABG Hemoglobin Oxyhemoglobin Sodium Potassium Chloride 107.6 H Carbon Dioxide 19 L BUN 40 H Creatinine 3.1 H Glucose 171 H POC Glucose 246 H 256 H Hemoglobin A1c Lactic Acid Calcium 8.2 L Total Creatine Kinase C-Reactive Protein Serum Total Protein Total Protein Albumin Kmabo-9-Lvntlnnnc Gamma Globulins PEP Interpretation PTH Intact Urine Creatinine Urine Total Protein Salicylates Acetaminophen 05/17/22 05/18/22 05/18/22 23:13 04:35 14:30 WBC RBC Hgb MCV MCH RDW Lymph % (Auto) [place] % (Auto) [place] # (Auto) Baso # (Auto) Seg Neutrophils % Seg Neuts % (Manual) Lymphocytes % (Manual) Monocytes % (Manual) Seg Neutrophils # Seg Neutrophils # Man Lymphocytes # (Manual) Monocytes # (Manual) PT INR ABG pO2 ABG HCO3 17.1 L ABG O2 Saturation ABG Base Excess -6.8 L ABG Hemoglobin 10.4 L Oxyhemoglobin Sodium 136 L Potassium Chloride Carbon Dioxide 18 L BUN 39 H Creatinine 3.2 H Glucose 202 H POC Glucose 270 H Hemoglobin A1c Lactic Acid Calcium 8.1 L Total Creatine Kinase C-Reactive Protein Serum Total Protein Total Protein Albumin Kmzoc-0-Wkxvohufq Gamma Globulins PEP Interpretation PTH Intact Urine Creatinine Urine Total Protein Salicylates Acetaminophen 05/18/22 05/18/22 05/19/22 16:27 22:06 05:02 WBC RBC Hgb MCV MCH RDW Lymph % (Auto) [place] % (Auto) [place] # (Auto) Baso # (Auto) Seg Neutrophils % Seg Neuts % (Manual) Lymphocytes % (Manual) Monocytes % (Manual) Seg Neutrophils # Seg Neutrophils # Man Lymphocytes # (Manual) Monocytes # (Manual) PT INR ABG pO2 ABG HCO3 ABG O2 Saturation ABG Base Excess ABG Hemoglobin Oxyhemoglobin Sodium Potassium Chloride 109.1 H Carbon Dioxide 17 L BUN 36 H Creatinine 2.6 H Glucose 164 H POC Glucose 247 H 227 H Hemoglobin A1c Lactic Acid Calcium Total Creatine Kinase C-Reactive Protein Serum Total Protein Total Protein Albumin Yqjcw-5-Ghaitmeij Gamma Globulins PEP Interpretation PTH Intact Urine Creatinine Urine Total Protein Salicylates Acetaminophen 05/19/22 05/19/22 05/19/22 05:02 07:24 10:53 WBC 12.4 H RBC Hgb 9.9 L MCV 78 L MCH 24 L RDW 16.2 H Lymph % (Auto) [place] % (Auto) [place] # (Auto) Baso # (Auto) Seg Neutrophils % Seg Neuts % (Manual) Lymphocytes % (Manual) Monocytes % (Manual) Seg Neutrophils # Seg Neutrophils # Man Lymphocytes # (Manual) Monocytes # (Manual) PT INR ABG pO2 ABG HCO3 ABG O2 Saturation ABG Base Excess ABG Hemoglobin Oxyhemoglobin Sodium Potassium Chloride Carbon Dioxide BUN Creatinine Glucose POC Glucose 154 H 203 H Hemoglobin A1c Lactic Acid Calcium Total Creatine Kinase C-Reactive Protein Serum Total Protein Total Protein Albumin Akzyw-9-Svwfhjxli Gamma Globulins PEP Interpretation PTH Intact Urine Creatinine Urine Total Protein Salicylates Acetaminophen 05/19/22 05/19/22 05/20/22 16:40 22:32 05:06 WBC 12.1 H RBC Hgb 9.4 L MCV MCH 24 L RDW 16.1 H Lymph % (Auto) [place] % (Auto) [place] # (Auto) Baso # (Auto) Seg Neutrophils % Seg Neuts % (Manual) Lymphocytes % (Manual) Monocytes % (Manual) Seg Neutrophils # Seg Neutrophils # Man Lymphocytes # (Manual) Monocytes # (Manual) PT INR ABG pO2 ABG HCO3 ABG O2 Saturation ABG Base Excess ABG Hemoglobin Oxyhemoglobin Sodium Potassium Chloride Carbon Dioxide BUN Creatinine Glucose POC Glucose 222 H 277 H Hemoglobin A1c Lactic Acid Calcium Total Creatine Kinase C-Reactive Protein Serum Total Protein Total Protein Albumin Yvcla-3-Aqxiaelio Gamma Globulins PEP Interpretation PTH Intact Urine Creatinine Urine Total Protein Salicylates Acetaminophen 05/20/22 05/20/22 05/21/22 05:06 22:10 07:42 WBC RBC Hgb MCV MCH RDW Lymph % (Auto) [place] % (Auto) [place] # (Auto) Baso # (Auto) Seg Neutrophils % Seg Neuts % (Manual) Lymphocytes % (Manual) Monocytes % (Manual) Seg Neutrophils # Seg Neutrophils # Man Lymphocytes # (Manual) Monocytes # (Manual) PT INR ABG pO2 ABG HCO3 ABG O2 Saturation ABG Base Excess ABG Hemoglobin Oxyhemoglobin Sodium Potassium Chloride 110.8 H Carbon Dioxide 17 L BUN 33 H Creatinine 2.4 H Glucose 185 H POC Glucose 199 H 143 H Hemoglobin A1c Lactic Acid Calcium Total Creatine Kinase C-Reactive Protein Serum Total Protein Total Protein Albumin Vrsns-8-Pdogglbvn Gamma Globulins PEP Interpretation PTH Intact Urine Creatinine Urine Total Protein Salicylates Acetaminophen 05/22/22 05/22/22 05/22/22 08:00 11:17 15:52 WBC RBC Hgb MCV MCH RDW Lymph % (Auto) [place] % (Auto) [place] # (Auto) Baso # (Auto) Seg Neutrophils % Seg Neuts % (Manual) Lymphocytes % (Manual) Monocytes % (Manual) Seg Neutrophils # Seg Neutrophils # Man Lymphocytes # (Manual) Monocytes # (Manual) PT INR ABG pO2 ABG HCO3 ABG O2 Saturation ABG Base Excess ABG Hemoglobin Oxyhemoglobin Sodium Potassium Chloride Carbon Dioxide BUN Creatinine Glucose POC Glucose 186 H 226 H 237 H Hemoglobin A1c Lactic Acid Calcium Total Creatine Kinase C-Reactive Protein Serum Total Protein Total Protein Albumin Lfrhn-5-Yhqqqujrg Gamma Globulins PEP Interpretation PTH Intact Urine Creatinine Urine Total Protein Salicylates Acetaminophen 05/23/22 05/23/22 04:55 06:00 WBC RBC Hgb MCV MCH RDW Lymph % (Auto) [place] % (Auto) [place] # (Auto) Baso # (Auto) Seg Neutrophils % Seg Neuts % (Manual) Lymphocytes % (Manual) Monocytes % (Manual) Seg Neutrophils # Seg Neutrophils # Man Lymphocytes # (Manual) Monocytes # (Manual) PT INR ABG pO2 ABG HCO3 18.3 L ABG O2 Saturation ABG Base Excess -6.1 L ABG Hemoglobin 8.9 L Oxyhemoglobin 94.9 L Sodium Potassium Chloride 107.5 H Carbon Dioxide 18 L BUN 27 H Creatinine 2.6 H Glucose 173 H POC Glucose Hemoglobin A1c Lactic Acid Calcium Total Creatine Kinase C-Reactive Protein Serum Total Protein Total Protein Albumin Dqmtz-6-Ocwveomga Gamma Globulins PEP Interpretation PTH Intact Urine Creatinine Urine Total Protein Salicylates Acetaminophen Allied health notes reviewed: nursing
[2022-05-23] MEDS: carvediloL 25 MG TAB PO SCH ×2 (09:43→21:18)
[2022-05-23] MEDS: hydrALAZINE 100 MG TAB PO SCH ×3 (09:43→21:18)
[2022-05-23] MEDS: levETIRAcetam 500 MG TAB PO SCH ×2 (09:43→21:27)
[2022-05-23] MEDS: LACOSAMIDE 100 MG TAB PO SCH ×2 (09:43→21:18)
[2022-05-23] MEDS: cefTRIAXone/NS 2 GM/100 ML 2 GM/100 ML BAG IV SCH ×2 (09:43→21:30)
[2022-05-23] MEDS: NIFEdipine XL 90 MG TAB PO SCH (09:43)
--- NOTE | 2022-05-23 10:45 | Progress Note ---
Assessment and Plan Assessment and plan: This is a 31-year-old female with seizures, HTN, DM and medical noncompliance who presented to emergency department on 05/13 after a seizure episode associated with progressive weakness. Per EMS patient was said to have woken up in the night had an episode of vomiting and subsequently had seizures. In the emergency department work-up showed acute kidney injury with a BUN/creatinine of 26/3.1, glucose of 580, urinalysis was unremarkable, UDS was positive for marijuana, leukocytosis at 13.1 and CXR showed no acute findings along with a CT scan. In the emergency department patient had another seizure and was given Ativan and loaded with Keppra. Patient also had BP in the 200s over 130s and was given labetalol and was started on a Cardene drip. She also had was febrile to 103 in the ED. Patient was admitted to the hospitalist service with seizure disorder, hyperglycemia, hypertensive urgency and acute kidney injury with consults to nephrology, neurology. Hospital course to date: 05/13: CCM and ID consulted. Patient had possible seizure activity and was started. Ativan. Patient had EEG today. MRI brain pending. Urine lites pending. Patient febrile started on cefepime, procalcitonin, CRP and COVID-19 PCR pending. 05/14: Patient received LP today, MRI brain without contrast, hemoglobin A1c ordered 05/15: Answers most questions correctly. s/p LP. Pattern not c/w viral meningitis. d/c acyclovir. follow CSF culture. Continue tx with cefepime IV, vancomycin IV. Nephrology following due to poor renal fx, worsened cr today to 4.0. Will continue IVF hydration. EEG pending. MRA head completed but limited study due to motion artifact...periventricular and scatter foci of deep white matter hyperintensity noted. Will follow neurology input. 05/16: Resting comfortably on encounter. Clinically improved AOX4, answers all questions appropriately. Will continue renally dosed Vancomycin IV and Cefepime IV. ID recs and nephrology recs noted. Marginal improvement in Cr: 3.9 today. 05/17: Awaiting AM labs. Patient is resting comfortably, mental status continues to be improved. PT consultation as patient needs to be more physically active. N O growth thus far on csf culture. Continue abx and antiepileptics. 05/18: Renal function remains relatively stable with creatinine at 3.2 up slightly from 3.1 yesterday. Discontinue the IV fluids at this time. Continue to hold diuresis per nephrology. We will add hydralazine as needed for better blood pressure control. ID recommendation reviewed. Patient will need home antibiotics arranged. Expected end of antibiotics 10 3. Okay to proceed with midline and discontinue central line. Her mentation is well improved and diet has been adjusted to regular diet. 05/19: Patient continues to show improvement. Creatinine down to 2.6. Fluids has been discontinued as of yesterday. Blood pressure better controlled. Mild elevation in WBC to 12.4 but no fever noted. Awaiting for ID for home antibiotics orders and discharge planning by case management. 05/20: Midline order placed for OP abx. Patient is doing well this AM. Anticipate d/c this week once abx arrangements made. 05/21: Patient insurance does not cover IV rocephin. ID recommends continuing rocephin until course completed. Anticipate discharge 05/27 once abx completed. Discussed with patient who agrees. 05/22;05/23: Patient clinically stable. 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 -Renally dose medications and avoid nephrotoxic medications -maybe due to chronic uncontrolled HTN and diabetes -Nephrology consulted, appreciate recommendations -patient urged to follow up with Nephrology in [place] #Hypertensive urgency #Hypertension -Blood pressure monitoring per protocol -s/p Cardene drip -continue amlodipine, hydralazine -patient will follow up with PCP for titration of medications at discharge #Morbid obesity #Moderate protein calorie malnutrition -PPI -NTR consulted for tube feedings #Type 2 Diabetes Mellitus -Hemoglobin A1c 14.4 -continue lantus 40UQHS -continue accuchecks and SSI -goal glucose 140-180 while inpatient #Leukocytosis-improved -likely secondary to encephalitis #Advance care planning -Disease education conducted, care plan discussed, diagnoses discussed, prognosis discussed, patient is full code, patient acknowledges understanding and agree with care plan, +30 minutes. History Interval history: No acute events overnight. Patient has no complaints at this time. She denies discomfort, fever, chills and night sweats. Hospitalist Physical - Physical exam Narrative exam: GENERAL: Well-developed well-nourished. In no acute distress. HEENT: Normocephalic. Atraumatic. NECK: Supple. CHEST/LUNGS: CTAB on room air HEART/CARDIOVASCULAR: RRR. No murmur, rubs or gallops appreciated. ABDOMEN: +BS. NT/ND. NEURO: No focal motor deficit. Follows all commands. MUSCULOSKELETAL: No joint effusion EXTREMITIES: No cyanosis, clubbing or edema. PSYCH: Cooperative. - Constitutional Vitals: Temp Pulse Resp BP Pulse Ox 98.6 F 91 H 22 115/77 100 05/23/22 05:32 05/23/22 05:32 05/23/22 05:32 05/23/22 05:32 05/23/22 05:32 General appearance: Present: no acute distress, well-nourished, obese HEART Score - HEART Score Troponin: Troponin T 0.028 ng/mL (0.00-0.029) 05/12/22 22:47 Results - Labs CBC & Chem 7: 05/20/22 05:06 05/23/22 04:55 Labs: Laboratory Last Values WBC 12.1 K/mm3 (4.5-11.0) H 05/20/22 05:06 RBC 3.88 M/mm3 (3.65-5.03) 05/20/22 05:06 Hgb 9.4 gm/dl (10.1-14.3) L 05/20/22 05:06 Hct 30.6 % (30.3-42.9) 05/20/22 05:06 MCV 79 fl (79-97) 05/20/22 05:06 MCH 24 pg (28-32) L 05/20/22 05:06 MCHC 31 % (30-34) 05/20/22 05:06 RDW 16.1 % (13.2-15.2) H 05/20/22 05:06 Plt Count 179 K/mm3 (140-440) 05/20/22 05:06 Lymph % (Auto) 16.7 % (13.4-35.0) 05/16/22 09:22 [place] % (Auto) 9.9 % (0.0-7.3) H 05/16/22 09:22 Eos % (Auto) 1.4 % (0.0-4.3) 05/16/22 09:22 Baso % (Auto) 1.8 % (0.0-1.8) 05/16/22 09:22 Lymph # (Auto) 1.8 K/mm3 (1.2-5.4) 05/16/22 09: [place] # (Auto) 1.1 K/mm3 (0.0-0.8) H 05/16/22 09:22 Eos # (Auto) 0.2 K/mm3 (0.0-0.4) 05/16/22 09:22 Baso # (Auto) 0.2 K/mm3 (0.0-0.1) H 05/16/22 09:22 Add Manual Diff Complete 05/12/22 22:47 Total Counted 100 05/12/22 22:47 Seg Neutrophils % 70.2 % (40.0-70.0) H 05/16/22 09:22 Seg Neuts % (Manual) 85.0 % (40.0-70.0) H 05/12/22 22:47 Band Neutrophils % 0 % 05/12/22 22:47 Lymphocytes % (Manual) 7.0 % (13.4-35.0) L 05/12/22 22:47 Reactive Lymphs % (Man) 0 % 05/12/22 22:47 Monocytes % (Manual) 8.0 % (0.0-7.3) H 05/12/22 22:47 Eosinophils % (Manual) 0 % (0.0-4.3) 05/12/22 22:47 Basophils % (Manual) 0 % (0.0-1.8) 05/12/22 22:47 Metamyelocytes % 0 % 05/12/22 22:47 Myelocytes % 0 % 05/12/22 22:47 Promyelocytes % 0 % 05/12/22 22:47 Blast Cells % 0 % 05/12/22 22:47 Nucleated RBC % Not Reportable 05/12/22 22:47 Seg Neutrophils # 7.7 K/mm3 (1.8-7.7) 05/16/22 09: Seg Neutrophils # Man 13.1 K/mm3 (1.8-7.7) H 05/12/22 22:47 Band Neutrophils # 0.0 K/mm3 05/12/22 22:47 Lymphocytes # (Manual) 1.1 K/mm3 (1.2-5.4) L 05/12/22 22:47 Abs React Lymphs (Man) 0.0 K/mm3 05/12/22 22:47 Monocytes # (Manual) 1.2 K/mm3 (0.0-0.8) H 05/12/22 22:47 Eosinophils # (Manual) 0.0 K/mm3 (0.0-0.4) 05/12/22 22:47 Basophils # (Manual) 0.0 K/mm3 (0.0-0.1) 05/12/22 22:47 Metamyelocytes # 0.0 K/mm3 05/12/22 22:47 Myelocytes # 0.0 K/mm3 05/12/22 22:47 Promyelocytes # 0.0 K/mm3 05/12/22 22:47 Blast Cells # 0.0 K/mm3 05/12/22 22:47 WBC Morphology Not Reportable 05/12/22 22:47 Hypersegmented Neuts Not Reportable 05/12/22 22:47 Hyposegmented Neuts Not Reportable 05/12/22 22:47 Hypogranular Neuts Not Reportable 05/12/22 22:47 Smudge Cells Not Reportable 05/12/22 22:47 Toxic Granulation Not Reportable 05/12/22 22:47 Toxic Vacuolation Not Reportable 05/12/22 22:47 Dohle Bodies Not Reportable 05/12/22 22:47 Pelger-Huet Anomaly Not Reportable 05/12/22 22:47 Tima Rods Not Reportable 05/12/22 22:47 Platelet Estimate Consistent w auto 05/12/22 22:47 Clumped Platelets Not Reportable 05/12/22 22:47 Plt Clumps, EDTA Not Reportable 05/12/22 22:47 Large Platelets Not Reportable 05/12/22 22:47 Giant Platelets Not Reportable 05/12/22 22:47 Platelet Satelliting Not Reportable 05/12/22 22:47 Plt Morphology Comment Not Reportable 05/12/22 22:47 RBC Morphology Not Reportable 05/12/22 22:47 Dimorphic RBCs Not Reportable 05/12/22 22:47 Polychromasia Not Reportable 05/12/22 22:47 Hypochromasia 1+ 05/12/22 22:47 Poikilocytosis Not Reportable 05/12/22 22:47 Anisocytosis Not Reportable 05/12/22 22:47 Microcytosis Not Reportable 05/12/22 22:47 Macrocytosis Not Reportable 05/12/22 22:47 Spherocytes Not Reportable 05/12/22 22:47 Pappenheimer Bodies Not Reportable 05/12/22 22:47 Sickle Cells Not Reportable 05/12/22 22:47 Target Cells Not Reportable 05/12/22 22:47 Tear Drop Cells Not Reportable 05/12/22 22:47 Ovalocytes Not Reportable 05/12/22 22:47 Helmet Cells Not Reportable 05/12/22 22:47 [place] Bodies Not Reportable 05/12/22 22:47 [place] Rings Not Reportable 05/12/22 22:47 [place] Cells Not Reportable 05/12/22 22:47 Bite Cells Not Reportable 05/12/22 22:47 Crenated Cell Not Reportable 05/12/22 22:47 Elliptocytes Not Reportable 05/12/22 22:47 Acanthocytes (Spur) Not Reportable 05/12/22 22:47 Rouleaux Not Reportable 05/12/22 22:47 Hemoglobin C Crystals Not Reportable 05/12/22 22:47 Schistocytes Not Reportable 05/12/22 22:47 Malaria parasites Not Reportable 05/12/22 22:47 Jesse Bodies Not Reportable 05/12/22 22:47 Hem Pathologist Commnt No 05/12/22 22:47 PT 16.8 Sec. (12.2-14.9) H 05/12/22 14:25 INR 1.22 (0.87-1.13) H 05/12/22 14:25 APTT 29.6 Sec. (24.2-36.6) 05/12/22 14:25 ABG pH 7.379 pH Units (7.350-7.450) 05/23/22 06:00 ABG pCO2 31.7 mm Hg 05/23/22 06:00 ABG pO2 83.3 mm Hg (80.0-90.0) 05/23/22 06:00 ABG HCO3 18.3 mmol/L (20.0-26.0) L 05/23/22 06:00 ABG O2 Saturation 97.0 % (95.0-99.0) 05/23/22 06:00 ABG O2 Content 12.0 (0.0-44) 05/23/22 06:00 ABG Base Excess -6.1 mmol/L (-2.0-3.0) L 05/23/22 06:00 ABG Hemoglobin 8.9 gm/dl (12.0-16.0) L 05/23/22 06:00 ABG Carboxyhemoglobin 1.5 % (0.0-5.0) 05/23/22 06:00 ABG Methemoglobin 0.6 % (0.0-1.5) 05/23/22 06:00 VBG pH 7.354 (7.320-7.420) 05/12/22 22:47 Oxyhemoglobin 94.9 % (95.0-99.0) L 05/23/22 06:00 FiO2 21 % 05/23/22 06:00 Sodium 137 mmol/L (137-145) 05/23/22 04:55 Potassium 3.9 mmol/L (3.6-5.0) 05/23/22 04:55 Chloride 107.5 mmol/L (98-107) H 05/23/22 04:55 Carbon Dioxide 18 mmol/L (22-30) L 05/23/22 04:55 Anion Gap 15 mmol/L 05/23/22 04:55 BUN 27 mg/dL (7-17) H 05/23/22 04:55 Creatinine 2.6 mg/dL (0.6-1.2) H 05/23/22 04:55 Estimated GFR 26 ml/min 05/23/22 04:55 BUN/Creatinine Ratio 10 % 05/23/22 04:55 Glucose 173 mg/dL (65-100) H 05/23/22 04:55 POC Glucose 237 mg/dL (70-105) H 05/22/22 15:52 Hemoglobin A1c 14.4 % (4-6) H 05/14/22 14:23 Ketones Quantitative Negative (Negative) 05/12/22 22:47 Lactic Acid 1.00 mmol/L (0.7-2.0) 05/14/22 04:20 Calcium 8.7 mg/dL (8.4-10.2) 05/23/22 04:55 Phosphorus 3.00 mg/dL (2.5-4.5) 05/15/22 03:48 Magnesium 2.30 mg/dL (1.7-2.3) 05/15/22 03:48 Total Bilirubin < 0.20 mg/dL (0.1-1.2) 05/16/22 09:22 AST 11 units/L (5-40) 05/16/22 09:22 ALT 11 units/L (7-56) 05/16/22 09:22 Alkaline Phosphatase 78 units/L (35-129) 05/16/22 09:22 Total Creatine Kinase 217 units/L (30-135) H 05/14/22 04:20 Troponin T 0.028 ng/mL (0.00-0.029) 05/12/22 22:47 C-Reactive Protein 1.40 mg/dL (0.00-1.30) H 05/14/22 04:20 Serum Total Protein 5.5 g/dL (6.1-8.1) L 05/14/22 04:20 Total Protein 5.1 g/dL (6.3-8.2) L 05/16/22 09:22 Albumin 2.7 g/dL (3.9-5) L 05/16/22 09:22 Albumin/Globulin Ratio 1.1 % 05/16/22 09:22 Dmtgl-2-Dbihqrukm 0.3 g/dL (0.2-0.3) 05/14/22 04:20 Djqak-5-Izktcftnl 1.2 g/dL (0.5-0.9) H 05/14/22 04:20 Beta Globulins 0.4 g/dL (0.2-0.5) 05/14/22 04:20 Gamma Globulins 0.7 g/dL (0.8-1.7) L 05/14/22 04:20 Abnorm Protein Band 1 see below 05/14/22 04:20 PEP Interpretation see below H 05/14/22 04:20 Procalcitonin 0.56 ng/mL (<0.15) 05/14/22 04:20 TSH 0.422 mlU/mL (0.270-4.200) 05/12/22 14:25 Free T4 1.02 ng/dL (0.76-1.46) 05/12/22 14:25 PTH Intact 149.4 pg/mL (15-65) H 05/14/22 04:20 Urine Color Yellow (Yellow) 05/12/22 19:04 Urine Turbidity Clear (Clear) 05/12/22 19:04 Specific [place] (Man) 1.015 (1.003-1.030) 05/12/22 19:04 Ur Protein (Man) 2+ mg/dL (Negative) 05/12/22 19:04 Ur Ketones (Man) Negative (Negative) 05/12/22 19:04 Ur Nitrite (Man) Negative (Negative) 05/12/22 19:04 Urine Bilirubin (Man) Negative (Negative) 05/12/22 19:04 Leukocyte Esterase (Man) Negative (Negative) 05/12/22 19:04 Urine WBC (Auto) < 1.0 /HPF (0.0-6.0) 05/12/22 19:04 Urine RBC (Auto) < 1.0 /HPF (0.0-6.0) 05/12/22 19:04 Urine RBC (Manual) 1+ (Negative) 05/12/22 19:04 Urine Creatinine 86.3 mg/dL (0.1-20.0) H 05/13/22 Unknown Protein/Creatinin Ratio 4.20 05/13/22 19:34 Urine Sodium 21 mmol/L 05/13/22 Unknown Urine Total Protein 735 mg/dL (5-11.8) H 05/13/22 19:34 CSF Appearance Clear 05/14/22 11:32 CSF Color [place] 05/14/22 11:32 CSF WBC 53 /mm3 (1-10) 05/14/22 11:32 CSF RBC 2000 /mm3 (0-0) 05/14/22 11:32 CSF Seg Neutrophils 97 % (0-6) 05/14/22 11:32 CSF Lymphocytes % 2 % (40-80) 05/14/22 11:32 CSF Reactive Lymphs 0 % 05/14/22 11:32 CSF Monocytes % 1 % (15-45) 05/14/22 11:32 CSF Eosinophils % 0 % 05/14/22 11:32 CSF Basophils 0 % 05/14/22 11:32 CSF Pathologist Review C 05/14/22 11:32 CSF Glucose 137 mg/dL 05/14/22 11:32 CSF Total Protein 32 mg/dL 05/14/22 11:32 CSF VDRL Nonreactive (Nonreactive) 05/14/22 11:32 Random Vancomycin 26.7 ug/mL (0-40.0) 05/19/22 05:02 Salicylates < 0.3 mg/dL (2.8-20.0) L 05/12/22 14:25 Urine Opiates Screen Negative 05/12/22 19:04 Urine Methadone Screen Negative 05/12/22 19:04 Acetaminophen 5.0 ug/mL (10.0-30.0) L 05/12/22 14:25 Ur Barbiturates Screen Negative 05/12/22 19:04 Ur Phencyclidine Scrn Negative 05/12/22 19:04 Ur Amphetamines Screen Negative 05/12/22 19:04 U Benzodiazepines Scrn Negative 05/12/22 19:04 Urine Cocaine Screen Negative 05/12/22 19:04 U Marijuana (THC) Screen Positive 05/12/22 19:04 Drugs of Abuse Note Disclamer 05/12/22 19:04 Plasma/Serum Alcohol < 0.01 % (0-0.07) 05/12/22 22:47 MERVIN Screen Negative (Negative) 05/14/22 04:20 Proteinase 3 (PR3) Ab <1.0 AI (<1.0) 05/14/22 04:20 Myeloperoxidase Ab <1.0 AI (<1.0) 05/14/22 04:20 Complement C3 180 mg/dL (83-193) 05/14/22 04:20 Complement C4 43 mg/dL (15-57) 05/14/22 04:20 Coronavirus (PCR) Negative (Negative) 05/13/22 09:30 Vergara/IV: Voiding Method Toilet Active Medications - Current Medications Current Medications: Generic Name Dose Route Start Last Admin Trade Name Freq PRN Reason Stop Dose Admin Acetaminophen 650 mg 05/13/22 02:07 05/14/22 08:08 Acetaminophen 325 Mg Tab PO 650 mg Q6H PRN Administration Pain MILD(1-3)/Fever >100.5/PATINO Atorvastatin Calcium 40 mg 05/18/22 22:00 05/22/22 23:17 Atorvastatin 40 Mg Tab PO 40 mg QHS BRAD Administration Carvedilol 25 mg 05/18/22 10:00 05/23/22 09:43 Carvedilol 25 Mg Tab PO 25 mg BID BRAD Administration Dextrose 0 ml 05/13/22 02:07 Dextrose 50% In Water (25gm) 50 Ml Syringe IV Q30MIN PRN Hypoglycemia Protocol Heparin Sodium (Porcine) 5,000 unit 05/13/22 06:00 05/23/22 06:14 Heparin 5,000 Unit/1 Ml Vial SUB-Q 5,000 unit Q8HR BRAD Administration Hydralazine HCl 100 mg 05/18/22 09:00 05/23/22 09:43 Hydralazine 100 Mg Tab PO 100 mg TID BRAD Administration Hydralazine HCl 10 mg 05/18/22 10:20 Hydralazine 20 Mg/1 Ml Inj IV Q4HR PRN Hypertension Ceftriaxone Sodium 2 gm in 100 mls @ 200 mls/hr 05/18/22 22:00 05/23/22 09:43 Rocephin/Ns 2 Gm/100 Ml IV 05/27/22 22:29 200 mls/hr Q12H BRAD Administration Protocol Insulin Glargine 40 units 05/17/22 22:00 05/22/22 23:42 Insulin Glargine 100 Units/Ml SUB-Q 40 units QHS BRAD Administration Insulin Human Lispro 0 unit 05/18/22 11:30 05/22/22 23:42 Insulin Lispro 100 Unit/Ml SUB-Q 3 unit ACHS BRAD Administration Protocol Lacosamide 100 mg 05/18/22 10:00 05/23/22 09:43 Lacosamide 100 Mg Tab PO 100 mg Q12HR BRAD Administration Levetiracetam 1,000 mg 05/18/22 10:00 05/23/22 09:43 Levetiracetam 500 Mg Tab PO 1,000 mg BID BRAD Administration Lorazepam 2 mg 05/13/22 13:03 05/14/22 11:30 Lorazepam 2 Mg/Ml Vial IV 2 mg Q4H PRN Administration Seizures Magnesium Hydroxide 30 ml 05/13/22 02:07 Magnesium Hydroxide (Mom) Oral Liqd Udc PO Q4H PRN Constipation Nifedipine 90 mg 05/20/22 10:00 05/23/22 09:43 Nifedipine Xl 90 Mg Tab PO 90 mg QDAY BRAD Administration Ondansetron HCl 4 mg 05/13/22 02:07 Ondansetron 4 Mg/2 Ml Inj IV Q8H PRN Nausea And Vomiting Sodium Chloride 10 ml 05/13/22 10:00 05/23/22 09:43 Sodium Chloride 0.9% 10 Ml Flush Syringe IV 10 ml BID BRAD Administration Sodium Chloride 10 ml 05/13/22 02:07 Sodium Chloride 0.9% 10 Ml Flush Syringe IV PRN PRN LINE FLUSH Zolpidem Tartrate 5 mg 05/22/22 00:53 05/22/22 23:56 Zolpidem 5 Mg Tab PO 5 mg QHS PRN Administration Sleep Nutrition/Malnutrition Assess - Dietary Evaluation Nutrition/Malnutrition Findings: Nutrition Notes Start: 05/13/22 11:36 Freq: Status: Active Protocol: Document 05/22/22 16:35 CM (Rec: 05/22/22 16:39 CM [id number]) Co-Sign 05/22/22 16:35 WW Nutrition Notes Initial or Follow up Brief Note Current Diagnosis Acute Kidney Injury,Diabetes, Hypertension Current Diet Regular Diet Labs/Tests 05/22 Cl 110.8 CO2 17 BUN 33 Cr 2.4 Glu 185 Pertinent Medications 05/22: Atorvastatin Lantus Height 5 ft 7 in Weight 113 kg [place] Body Weight (kg) 61.36 BMI 38.9 Weight Status Obese Subjective/Other Information RD follow-up per protocol. Diet advanced to regular. 75% breakfast/lunch 05/20 100% x3 05/21 per ADL notes. Physical assessment WNL. Recommend changing to renal diet in setting of RODRÍGUEZ. 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
[2022-05-23] MEDS: INSULIN LISPRO 100 UNIT/ML SUB-Q SCH ×4 (11:28→23:25)
--- NOTE | 2022-05-23 13:59 | Progress Note ---
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 Continue current management * Start NaBicarbonate TID * Abx per ID; per chart, patient to remains hospitalized as insurance does not cover abx. Stop date May 27 * Glycemic control * Continue current antiHTN medications * Dose medications for renal function * Avoid potential nephrotoxins * Recommend outpatient nephrology follow up at discharge - patient reports that she resided in [place] and plans to return after discharge. Patient advised of need for close nephrology follow up Subjective Date of service: 05/23/22 Principal diagnosis: HTNsive emergency with seizures; Morbid obesity; AMS; Leukocytosis; RODRÍGUEZ Interval history: Patient has no complaints Objective - Vital Signs Vital signs: Vital Signs - 12hr 05/23/22 05/23/22 05:32 11:19 Temperature 98.6 F 98.4 F Pulse Rate 91 H 90 Respiratory 22 18 Rate Blood Pressure 115/77 133/77 O2 Sat by Pulse 100 96 Oximetry - General Appearance General appearance: well-developed, well-nourished EENT: ATNC Respiratory: Present: Clear to Ascultation Cardiology: regular, S1S2 Integumentary: warm and dry Neurologic: alert and oriented x3 Psychiatric: cooperative - Lab 05/20/22 05:06 05/23/22 04:55 Most recent lab results ABG pH 7.379 pH Units (7.350-7.450) 05/23/22 06:00 ABG pCO2 31.7 mm Hg 05/23/22 06:00 ABG pO2 83.3 mm Hg (80.0-90.0) 05/23/22 06:00 ABG HCO3 18.3 mmol/L (20.0-26.0) L 05/23/22 06:00 ABG O2 Saturation 97.0 % (95.0-99.0) 05/23/22 06:00 Calcium 8.7 mg/dL (8.4-10.2) 05/23/22 04:55 Phosphorus 3.00 mg/dL (2.5-4.5) 05/15/22 03:48 Magnesium 2.30 mg/dL (1.7-2.3) 05/15/22 03:48 Urine Creatinine 86.3 mg/dL (0.1-20.0) H 05/13/22 Unknown Urine Sodium 21 mmol/L 05/13/22 Unknown Urine Total Protein 735 mg/dL (5-11.8) H 05/13/22 19:34 Medications & Allergies - Medications Allergies/Adverse Reactions: Allergies Penicillins Allergy (Verified 05/22/22 17:04) Hives Home Medications: Home Medications Medication Instructions Recorded Confirmed Last Taken Type AtorvaSTATin [Lipitor] 40 mg PO QHS 05/22/22 05/22/22 Unknown History Ferrous Sulfate [Iron 325 MG] 325 mg PO QDAY 05/22/22 05/22/22 Unknown History Folic Acid [Folvite] 1 mg PO QDAY 05/22/22 05/22/22 Unknown History Furosemide [Lasix] 20 mg PO QDAY 05/22/22 05/22/22 Unknown History Insulin Aspart [Novolog Flexpen] 15 unit SQ BID 05/22/22 05/22/22 Unknown History Insulin Detemir [Levemir Flextouch] 10 unit SQ BID 05/22/22 05/22/22 Unknown H istory Spironolactone [Aldactone] 25 mg PO QDAY 05/22/22 05/22/22 Unknown History amLODIPine [Norvasc] 10 mg PO DAILY 05/22/22 05/22/22 Unknown History carvediloL [Coreg] 50 mg PO BID 05/22/22 05/22/22 Unknown History hydrALAZINE [Apresoline TAB] 100 mg PO TID 05/22/22 05/22/22 Unknown History levETIRAcetam [Keppra TAB] 500 mg PO BID 05/22/22 05/22/22 Unknown History Active Medications: Generic Name Dose Route Start Last Admin Trade Name Freq PRN Reason Stop Dose Admin Acetaminophen 650 mg 05/13/22 02:07 05/14/22 08:08 Acetaminophen 325 Mg Tab PO 650 mg Q6H PRN Administration Pain MILD(1-3)/Fever >100.5/PATINO Atorvastatin Calcium 40 mg 05/18/22 22:00 05/22/22 23:17 Atorvastatin 40 Mg Tab PO 40 mg QHS BRAD Administration Carvedilol 25 mg 05/18/22 10:00 05/23/22 09:43 Carvedilol 25 Mg Tab PO 25 mg BID BRAD Administration Dextrose 0 ml 05/13/22 02:07 Dextrose 50% In Water (25gm) 50 Ml Syringe IV Q30MIN PRN Hypoglycemia Protocol Heparin Sodium (Porcine) 5,000 unit 05/13/22 06:00 05/23/22 06:14 Heparin 5,000 Unit/1 Ml Vial SUB-Q 5,000 unit Q8HR BRAD Administration Hydralazine HCl 100 mg 05/18/22 09:00 05/23/22 09:43 Hydralazine 100 Mg Tab PO 100 mg TID BRAD Administration Hydralazine HCl 10 mg 05/18/22 10:20 Hydralazine 20 Mg/1 Ml Inj IV Q4HR PRN Hypertension Ceftriaxone Sodium 2 gm in 100 mls @ 200 mls/hr 05/18/22 22:00 05/23/22 09:43 Rocephin/Ns 2 Gm/100 Ml IV 05/27/22 22:29 200 mls/hr Q12H BRAD Administration Protocol Insulin Glargine 40 units 05/17/22 22:00 05/22/22 23:42 Insulin Glargine 100 Units/Ml SUB-Q 40 units QHS BRAD Administration Insulin Human Lispro 0 unit 05/18/22 11:30 05/23/22 11:28 Insulin Lispro 100 Unit/Ml SUB-Q Not Given ACHS [facility] Protocol Lacosamide 100 mg 05/18/22 10:00 05/23/22 09:43 Lacosamide 100 Mg Tab PO 100 mg Q12HR BRAD Administration Levetiracetam 1,000 mg 05/18/22 10:00 05/23/22 09:43 Levetiracetam 500 Mg Tab PO 1,000 mg BID BRAD Administration Lorazepam 2 mg 05/13/22 13:03 05/14/22 11:30 Lorazepam 2 Mg/Ml Vial IV 2 mg Q4H PRN Administration Seizures Magnesium Hydroxide 30 ml 05/13/22 02:07 Magnesium Hydroxide (Mom) Oral Liqd Udc PO Q4H PRN Constipation Nifedipine 90 mg 05/20/22 10:00 05/23/22 09:43 Nifedipine Xl 90 Mg Tab PO 90 mg QDAY BRAD Administration Ondansetron HCl 4 mg 05/13/22 02:07 Ondansetron 4 Mg/2 Ml Inj IV Q8H PRN Nausea And Vomiting Sodium Chloride 10 ml 05/13/22 10:00 05/23/22 09:43 Sodium Chloride 0.9% 10 Ml Flush Syringe IV 10 ml BID BRAD Administration Sodium Chloride 10 ml 05/13/22 02:07 Sodium Chloride 0.9% 10 Ml Flush Syringe IV PRN PRN LINE FLUSH Zolpidem Tartrate 5 mg 05/22/22 00:53 05/22/22 23:56 Zolpidem 5 Mg Tab PO 5 mg QHS PRN Administration Sleep
[2022-05-23] MEDS: SODIUM BICARBONATE 650 MG TAB PO SCH ×2 (15:00→21:18)
[2022-05-23] MEDS: ACETAMINOPHEN 325 MG TAB PO PRN (18:30)
[2022-05-23] MEDS: INSULIN GLARGINE 100 UNITS/ML SUB-Q SCH (21:18)
[2022-05-23] MEDS: ZOLPIDEM 5 MG TAB PO PRN (21:27)
[2022-05-24] MEDS: HEPARIN 5,000 UNIT/1 ML VIAL SUB-Q SCH ×4 (05:41→21:16)
--- NOTE | 2022-05-24 06:26 | Progress Note ---
Assessment and Plan 31-year-old -Liberian female Morbidly brought to the emergency room for evaluation of seizure episode which happened overnight with associated progressive weakness. Patient is visiting from [place] and was said not to have had enough rest since arrival few days ago. Most of the history was gotten from the ER staff as patient is unable to give any coherent history at this time and no family member is available. Patient was said to have woken up in the night had an episode of vomiting and subsequently had seizures. She was said to have had another episode of seizure while in the emergency room and had been started on Keppra and also given some Ativan. Work-up in the emergency room , significant findings on the labs with a BUN of 26 and creatinine of 3.1. Initial blood glucose of 580 and subsequently 361. Urinalysis was unremarkable. UDS was positive for marijuana. Leukocytosis of 13.1. CT scan of the head shows no acute findings. Chest x-ray shows no acute findings. Blood pressure has been quite elevated with systolic in the 200s and diastolic in the 130s. Patient initially given IV labetalol and then subsequently placed on Cardene drip. Patient also developed a fever while in the emergency room with temperature of about 103 F. Patient has been admitted with seizure disorder, hyperglycemia, hypertensive urgency and RODRÍGUEZ. Patient denies smoking, alcohol or drug abuse. Patient not working. Not . Has no children. Patient Sleeping at this time.. Patient is on room air. O2 saturation 100%. No acute respiratory distress. ABG repeated on room air. ABG pH 7.379 pH Units (7.350-7.450) 05/23/22 06:00 ABG pCO2 31.7 mm Hg 05/23/22 06:00 ABG pO2 83.3 mm Hg (80.0-90.0) 05/23/22 06:00 ABG O2 Saturation 97.0 % (95.0-99.0) 05/23/22 06:00 Patient afebrile. Has leukocytosis. Blood pressure 114/61, Pulse 62, Respirations 16. Chest xray done 05/12/22 reported No significant pulmonary or pleural abnormality. No pneumothorax. Chest xray 05/16/22 reported No significant pulmonary or pleural abnormality. No pneumothorax. Central line tip in the right atrium. This could be retracted 3 cm. Patient is on ceftraxone,, S/C Heparin, . Recommend GI prophylaxis. Chest xray done 05/12/22 reported No significant pulmonary or pleural abnormality. No pneumothorax. Chest xray 05/16/22 reported No significant pulmonary or pleural abnormality. No pneumothorax. Central line tip in the right atrium. This could be retracted 3 cm. Patient is on ceftraxone,, S/C Heparin, . Recommend GI prophylaxis. - Patient Problems (1) Seizure Current Visit: Yes Status: Acute Plan to address problem: Patient is on Keppra and ativan. Management as per primary care and neurology. (2) Hyperglycemia Current Visit: Yes Status: Acute Plan to address problem: Recent blood sugur 170. Patient is on S/C Insulin. Management as per primary care. (3) Hypertensive crisis Current Visit: Yes Status: Acute Plan to address problem: Patient is on Amalodipine, Hydralazine,Labetalol. (4) Dehydration Current Visit: Yes Status: Acute Plan to address problem: Recived I/V fluids. BMP to day 05/23/22 reported BUN 24, Creatnine 2.4 (5) Postictal state Current Visit: Yes Status: Acute Plan to address problem: Improved. (6) RODRÍGUEZ (acute kidney injury) Current Visit: Yes Status: Acute Plan to address problem: BUN 24 . Creatinine 2.4 Nephrology consulted. Subjective Date of service: 05/24/22 Principal diagnosis: HTNsive emergency with seizures; Morbid obesity; AMS; Leukocytosis; RODRÍGUEZ Interval history: 31-year-old -Liberian female Morbidly brought to the emergency room for evaluation of seizure episode which happened overnight with associated progressive weakness. Patient is visiting from [place] and was said not to have had enough rest since arrival few days ago. Most of the history was gotten from the ER staff as patient is unable to give any coherent history at this time and no family member is available. Patient was said to have woken up in the night had an episode of vomiting and subsequently had seizures. She was said to have had another episode of seizure while in the emergency room and had been started on Keppra and also given some Ativan. Work-up in the emergency room , significant findings on the labs with a BUN of 26 and creatinine of 3.1. Initial blood glucose of 580 and subsequently 361. Urinalysis was unremarkable. UDS was positive for marijuana. Leukocytosis of 13.1. CT scan of the head shows no acute findings. Chest x-ray shows no acute findings. Blood pressure has been quite elevated with systolic in the 200s and diastolic in the 130s. Patient initially given IV labetalol and then subsequently placed on Cardene drip. Patient also developed a fever while in the emergency room with temperature of about 103 F. Patient has been admitted with seizure disorder, hyperglycemia, hypertensive urgency and RODRÍGUEZ. Patient denies smoking, alcohol or drug abuse. Patient not working. Not . Has no children. Patient Sleeping at this time.. Patient is on room air. O2 saturation 100%. No acute respiratory distress. ABG repeated on room air. ABG pH 7.379 pH Units (7.350-7.450) 05/23/22 06:00 ABG pCO2 31.7 mm Hg 05/23/22 06:00 ABG pO2 83.3 mm Hg (80.0-90.0) 05/23/22 06:00 ABG O2 Saturation 97.0 % (95.0-99.0) 05/23/22 06:00 Patient afebrile. Has leukocytosis. Blood pressure 114/61, Pulse 62, Respirations 16. Chest xray done 05/12/22 reported No significant pulmonary or pleural abnormality. No pneumothorax. Chest xray 05/16/22 reported No significant pulmonary or pleural abnormality. No pneumothorax. Central line tip in the right atrium. This could be retracted 3 cm. Patient is on ceftraxone,, S/C Heparin, . Recommend GI prophylaxis. Objective Vital Signs - 12hr 05/23/22 05/23/22 05/24/22 21:08 22:00 04:47 Temperature 98.2 F 98.2 F Pulse Rate 63 62 Respiratory 16 16 Rate Blood Pressure 173/93 114/61 O2 Sat by Pulse 89 100 100 Oximetry Constitutional: no acute distress, asleep Eyes: non-icteric ENT: oropharynx moist Neck: supple, no lymphadenopathy, no JVD, other (large circumference, RIJ CVL) Effort: mildly labored Ascultation: Bilateral: diminished breath sounds Percussion: Bilateral: not dull Cardiovascular: regular rate and rhythm, other (S1.S2) Gastrointestinal: normoactive bowel sounds, soft, non-tender, non-distended (protuberant) Integumentary: normal Extremities: no cyanosis, no edema, pulses normal, no ischemia or petechiae Neurologic: non-focal exam (grossly), pupils equal and round, CN II-XII normal, motor strength normal and, other (Patient sleeping at this time.) Psychiatric: other (Patient sleeping at this time.) CBC and BMP: 05/20/22 05:06 05/24/22 06:33 ABG, PT/INR, D-dimer: ABG ABG pH 7.379 pH Units (7.350-7.450) 05/23/22 06:00 ABG pCO2 31.7 mm Hg 05/23/22 06:00 ABG pO2 83.3 mm Hg (80.0-90.0) 05/23/22 06:00 ABG O2 Saturation 97.0 % (95.0-99.0) 05/23/22 06:00 PT/INR, D-dimer PT 16.8 Sec. (12.2-14.9) H 05/12/22 14:25 INR 1.22 (0.87-1.13) H 05/12/22 14:25 Abnormal lab findings: Abnormal Labs 05/12/22 05/12/22 05/12/22 14:25 14:25 14:25 WBC 13.1 H RBC 5.37 H Hgb MCV 78 L MCH 25 L RDW 16.2 H Lymph % (Auto) Tift % (Auto) Tift # (Auto) Baso # (Auto) Seg Neutrophils % Seg Neuts % (Manual) 88.0 H Lymphocytes % (Manual) 7.0 L Monocytes % (Manual) Seg Neutrophils # Seg Neutrophils # Man 11.5 H Lymphocytes # (Manual) 0.9 L Monocytes # (Manual) PT 16.8 H INR 1.22 H ABG pO2 ABG HCO3 ABG O2 Saturation ABG Base Excess ABG Hemoglobin Oxyhemoglobin Sodium Potassium Chloride Carbon Dioxide 18 L BUN 26 H Creatinine 3.1 H Glucose 580 H* POC Glucose Hemoglobin A1c Lactic Acid Calcium Total Creatine Kinase C-Reactive Protein Serum Total Protein Total Protein 6.2 L Albumin 3.3 L Njhuo-1-Ooubzvyqr Gamma Globulins PEP Interpretation PTH Intact Urine Creatinine Urine Total Protein Salicylates Acetaminophen 05/12/22 05/12/22 05/12/22 14:25 14:25 14:25 WBC RBC Hgb MCV MCH RDW Lymph % (Auto) Tift % (Auto) Tift # (Auto) Baso # (Auto) Seg Neutrophils % Seg Neuts % (Manual) Lymphocytes % (Manual) Monocytes % (Manual) Seg Neutrophils # Seg Neutrophils # Man Lymphocytes # (Manual) Monocytes # (Manual) PT INR ABG pO2 ABG HCO3 ABG O2 Saturation ABG Base Excess ABG Hemoglobin Oxyhemoglobin Sodium Potassium Chloride Carbon Dioxide BUN Creatinine Glucose POC Glucose Hemoglobin A1c Lactic Acid 2.80 H* Calcium Total Creatine Kinase C-Reactive Protein Serum Total Protein Total Protein Albumin Jfihi-4-Qiulraqzl Gamma Globulins PEP Interpretation PTH Intact Urine Creatinine Urine Total Protein Salicylates < 0.3 L Acetaminophen 5.0 L 05/12/22 05/12/22 05/12/22 22:47 22:47 22:47 WBC 15.4 H RBC 5.42 H Hgb MCV 77 L MCH 24 L RDW 16.3 H Lymph % (Auto) Tift % (Auto) Tift # (Auto) Baso # (Auto) Seg Neutrophils % Seg Neuts % (Manual) 85.0 H Lymphocytes % (Manual) 7.0 L Monocytes % (Manual) 8.0 H Seg Neutrophils # Seg Neutrophils # Man 13.1 H Lymphocytes # (Manual) 1.1 L Monocytes # (Manual) 1.2 H PT INR ABG pO2 ABG HCO3 ABG O2 Saturation ABG Base Excess ABG Hemoglobin Oxyhemoglobin Sodium Potassium Chloride 110.1 H Carbon Dioxide 19 L BUN 27 H Creatinine 3.3 H Glucose 361 H POC Glucose Hemoglobin A1c Lactic Acid 2.70 H* Calcium Total Creatine Kinase C-Reactive Protein Serum Total Protein Total Protein Albumin 3.3 L Horzg-7-Lpedicuvt Gamma Globulins PEP Interpretation PTH Intact Urine Creatinine Urine Total Protein Salicylates Acetaminophen 05/12/22 05/13/22 05/13/22 22:47 01:53 06:30 WBC RBC Hgb MCV MCH RDW Lymph % (Auto) Tift % (Auto) Tift # (Auto) Baso # (Auto) Seg Neutrophils % Seg Neuts % (Manual) Lymphocytes % (Manual) Monocytes % (Manual) Seg Neutrophils # Seg Neutrophils # Man Lymphocytes # (Manual) Monocytes # (Manual) PT INR ABG pO2 55.5 L ABG HCO3 ABG O2 Saturation 89.0 L ABG Base Excess -4.9 L ABG Hemoglobin Oxyhemoglobin 85.4 L Sodium Potassium Chloride Carbon Dioxide BUN Creatinine Glucose POC Glucose 511 H Hemoglobin A1c Lactic Acid 2.30 H* Calcium Total Creatine Kinase C-Reactive Protein Serum Total Protein Total Protein Albumin Vepza-5-Tmrkihien Gamma Globulins PEP Interpretation PTH Intact Urine Creatinine Urine Total Protein Salicylates Acetaminophen 05/13/22 05/13/22 05/13/22 10:27 11:33 16:12 WBC RBC Hgb MCV MCH RDW Lymph % (Auto) Tift % (Auto) Tift # (Auto) Baso # (Auto) Seg Neutrophils % Seg Neuts % (Manual) Lymphocytes % (Manual) Monocytes % (Manual) Seg Neutrophils # Seg Neutrophils # Man Lymphocytes # (Manual) Monocytes # (Manual) PT INR ABG pO2 ABG HCO3 ABG O2 Saturation ABG Base Excess ABG Hemoglobin Oxyhemoglobin Sodium Potassium Chloride Carbon Dioxide BUN Creatinine Glucose POC Glucose 492 H 500 H 331 H Hemoglobin A1c Lactic Acid Calcium Total Creatine Kinase C-Reactive Protein Serum Total Protein Total Protein Albumin Oxhdi-0-Hphorwomt Gamma Globulins PEP Interpretation PTH Intact Urine Creatinine Urine Total Protein Salicylates Acetaminophen 05/13/22 05/13/22 05/13/22 19:34 21:55 23:50 WBC RBC Hgb MCV MCH RDW Lymph % (Auto) Tift % (Auto) Tift # (Auto) Baso # (Auto) Seg Neutrophils % Seg Neuts % (Manual) Lymphocytes % (Manual) Monocytes % (Manual) Seg Neutrophils # Seg Neutrophils # Man Lymphocytes # (Manual) Monocytes # (Manual) PT INR ABG pO2 ABG HCO3 ABG O2 Saturation ABG Base Excess ABG Hemoglobin Oxyhemoglobin Sodium Potassium Chloride Carbon Dioxide BUN Creatinine Glucose POC Glucose 268 H 256 H Hemoglobin A1c Lactic Acid Calcium Total Creatine Kinase C-Reactive Protein Serum Total Protein Total Protein Albumin Mhzit-5-Nxwjhtvtr Gamma Globulins PEP Interpretation PTH Intact Urine Creatinine 174.8 H Urine Total Protein 735 H Salicylates Acetaminophen 05/13/22 05/14/22 05/14/22 Unknown 04:20 04:20 WBC 18.3 H RBC Hgb MCV 78 L MCH 24 L RDW 16.6 H Lymph % (Auto) 12.1 L Tift % (Auto) 11.6 H Tift # (Auto) 2.1 H Baso # (Auto) 0.2 H Seg Neutrophils % 75.0 H Seg Neuts % (Manual) Lymphocytes % (Manual) Monocytes % (Manual) Seg Neutrophils # 13.7 H Seg Neutrophils # Man Lymphocytes # (Manual) Monocytes # (Manual) PT INR ABG pO2 ABG HCO3 ABG O2 Saturation ABG Base Excess ABG Hemoglobin Oxyhemoglobin Sodium 146 H Potassium 3.4 L Chloride 115.1 H Carbon Dioxide 17 L BUN 35 H Creatinine 3.9 H Glucose 224 H POC Glucose Hemoglobin A1c Lactic Acid Calcium Total Creatine Kinase C-Reactive Protein 1.40 H Serum Total Protein Total Protein Albumin Uxmux-0-Riexunuzu Gamma Globulins PEP Interpretation PTH Intact Urine Creatinine 86.3 H Urine Total Protein Salicylates Acetaminophen 05/14/22 05/14/22 05/14/22 04:20 04:20 04:20 WBC RBC Hgb MCV MCH RDW Lymph % (Auto) Tift % (Auto) Tift # (Auto) Baso # (Auto) Seg Neutrophils % Seg Neuts % (Manual) Lymphocytes % (Manual) Monocytes % (Manual) Seg Neutrophils # Seg Neutrophils # Man Lymphocytes # (Manual) Monocytes # (Manual) PT INR ABG pO2 ABG HCO3 ABG O2 Saturation ABG Base Excess ABG Hemoglobin Oxyhemoglobin Sodium Potassium Chloride Carbon Dioxide BUN Creatinine Glucose POC Glucose Hemoglobin A1c Lactic Acid Calcium Total Creatine Kinase 217 H C-Reactive Protein Serum Total Protein 5.5 L Total Protein Albumin 2.5 L Mytqw-2-Bitcieork 1.2 H Gamma Globulins 0.7 L PEP Interpretation see below H PTH Intact 149.4 H Urine Creatinine Urine Total Protein Salicylates Acetaminophen 05/14/22 05/14/22 05/14/22 06:10 07:23 13:25 WBC RBC Hgb MCV MCH RDW Lymph % (Auto) Tift % (Auto) Tift # (Auto) Baso # (Auto) Seg Neutrophils % Seg Neuts % (Manual) Lymphocytes % (Manual) Monocytes % (Manual) Seg Neutrophils # Seg Neutrophils # Man Lymphocytes # (Manual) Monocytes # (Manual) PT INR ABG pO2 ABG HCO3 ABG O2 Saturation ABG Base Excess ABG Hemoglobin Oxyhemoglobin Sodium Potassium Chloride Carbon Dioxide BUN Creatinine Glucose POC Glucose 257 H 240 H 323 H Hemoglobin A1c Lactic Acid Calcium Total Creatine Kinase C-Reactive Protein Serum Total Protein Total Protein Albumin Jdmac-6-Rcycdztry Gamma Globulins PEP Interpretation PTH Intact Urine Creatinine Urine Total Protein Salicylates Acetaminophen 05/14/22 05/14/22 05/15/22 14:23 17:28 00:02 WBC RBC Hgb MCV MCH RDW Lymph % (Auto) Tift % (Auto) Tift # (Auto) Baso # (Auto) Seg Neutrophils % Seg Neuts % (Manual) Lymphocytes % (Manual) Monocytes % (Manual) Seg Neutrophils # Seg Neutrophils # Man Lymphocytes # (Manual) Monocytes # (Manual) PT INR ABG pO2 ABG HCO3 ABG O2 Saturation ABG Base Excess ABG Hemoglobin Oxyhemoglobin Sodium Potassium Chloride Carbon Dioxide BUN Creatinine Glucose POC Glucose 339 H 392 H Hemoglobin A1c 14.4 H Lactic Acid Calcium Total Creatine Kinase C-Reactive Protein Serum Total Protein Total Protein Albumin Mvarp-1-Wpsizcwal Gamma Globulins PEP Interpretation PTH Intact Urine Creatinine Urine Total Protein Salicylates Acetaminophen 05/15/22 05/15/22 05/15/22 03:48 03:48 05:50 WBC RBC Hgb MCV 78 L MCH 25 L RDW 16.7 H Lymph % (Auto) Tift % (Auto) Tift # (Auto) Baso # (Auto) Seg Neutrophils % Seg Neuts % (Manual) Lymphocytes % (Manual) Monocytes % (Manual) Seg Neutrophils # Seg Neutrophils # Man Lymphocytes # (Manual) Monocytes # (Manual) PT INR ABG pO2 ABG HCO3 ABG O2 Saturation ABG Base Excess ABG Hemoglobin Oxyhemoglobin Sodium Potassium Chloride 115.5 H Carbon Dioxide 19 L BUN 44 H Creatinine 4.0 H Glucose 339 H POC Glucose 307 H Hemoglobin A1c Lactic Acid Calcium Total Creatine Kinase C-Reactive Protein Serum Total Protein Total Protein Albumin Lceus-4-Uvtkymmou Gamma Globulins PEP Interpretation PTH Intact Urine Creatinine Urine Total Protein Salicylates Acetaminophen 05/15/22 05/15/22 05/16/22 13:30 17:42 00:34 WBC RBC Hgb MCV MCH RDW Lymph % (Auto) Tift % (Auto) Tift # (Auto) Baso # (Auto) Seg Neutrophils % Seg Neuts % (Manual) Lymphocytes % (Manual) Monocytes % (Manual) Seg Neutrophils # Seg Neutrophils # Man Lymphocytes # (Manual) Monocytes # (Manual) PT INR ABG pO2 ABG HCO3 ABG O2 Saturation ABG Base Excess ABG Hemoglobin Oxyhemoglobin Sodium Potassium Chloride Carbon Dioxide BUN Creatinine Glucose POC Glucose 327 H 388 H 411 H Hemoglobin A1c Lactic Acid Calcium Total Creatine Kinase C-Reactive Protein Serum Total Protein Total Protein Albumin Yaldr-5-Uydgtgbde Gamma Globulins PEP Interpretation PTH Intact Urine Creatinine Urine Total Protein Salicylates Acetaminophen 0905/16/22 05/16/22 05:27 07:59 09:22 WBC RBC Hgb MCV 77 L MCH 25 L RDW 17.0 H Lymph % (Auto) Tift % (Auto) 9.9 H Tift # (Auto) 1.1 H Baso # (Auto) 0.2 H Seg Neutrophils % 70.2 H Seg Neuts % (Manual) Lymphocytes % (Manual) Monocytes % (Manual) Seg Neutrophils # Seg Neutrophils # Man Lymphocytes # (Manual) Monocytes # (Manual) PT INR ABG pO2 ABG HCO3 ABG O2 Saturation ABG Base Excess ABG Hemoglobin Oxyhemoglobin Sodium Potassium Chloride Carbon Dioxide BUN Creatinine Glucose POC Glucose 358 H 308 H Hemoglobin A1c Lactic Acid Calcium Total Creatine Kinase C-Reactive Protein Serum Total Protein Total Protein Albumin Ngugr-3-Kqkvabmnc Gamma Globulins PEP Interpretation PTH Intact Urine Creatinine Urine Total Protein Salicylates Acetaminophen 05/16/22 05/16/22 05/16/22 09:22 11:36 17:37 WBC RBC Hgb MCV MCH RDW Lymph % (Auto) Tift % (Auto) Tift # (Auto) Baso # (Auto) Seg Neutrophils % Seg Neuts % (Manual) Lymphocytes % (Manual) Monocytes % (Manual) Seg Neutrophils # Seg Neutrophils # Man Lymphocytes # (Manual) Monocytes # (Manual) PT INR ABG pO2 ABG HCO3 ABG O2 Saturation ABG Base Excess ABG Hemoglobin Oxyhemoglobin Sodium Potassium 3.5 L Chloride 107.6 H Carbon Dioxide 18 L BUN 48 H Creatinine 3.9 H Glucose 284 H POC Glucose 255 H 324 H Hemoglobin A1c Lactic Acid Calcium Total Creatine Kinase C-Reactive Protein Serum Total Protein Total Protein 5.1 L Albumin 2.7 L Mjsth-9-Pyquxzggk Gamma Globulins PEP Interpretation PTH Intact Urine Creatinine Urine Total Protein Salicylates Acetaminophen 05/16/22 05/17/22 05/17/22 23:48 05:20 12:47 WBC RBC Hgb MCV MCH RDW Lymph % (Auto) Tift % (Auto) Tift # (Auto) Baso # (Auto) Seg Neutrophils % Seg Neuts % (Manual) Lymphocytes % (Manual) Monocytes % (Manual) Seg Neutrophils # Seg Neutrophils # Man Lymphocytes # (Manual) Monocytes # (Manual) PT INR ABG pO2 ABG HCO3 ABG O2 Saturation ABG Base Excess ABG Hemoglobin Oxyhemoglobin Sodium Potassium Chloride Carbon Dioxide BUN Creatinine Glucose POC Glucose 293 H 267 H 173 H Hemoglobin A1c Lactic Acid Calcium Total Creatine Kinase C-Reactive Protein Serum Total Protein Total Protein Albumin Nssjb-7-Selugdqid Gamma Globulins PEP Interpretation PTH Intact Urine Creatinine Urine Total Protein Salicylates Acetaminophen 05/17/22 05/17/22 05/17/22 12:55 17:47 19:57 WBC RBC Hgb MCV MCH RDW Lymph % (Auto) Tift % (Auto) Tift # (Auto) Baso # (Auto) Seg Neutrophils % Seg Neuts % (Manual) Lymphocytes % (Manual) Monocytes % (Manual) Seg Neutrophils # Seg Neutrophils # Man Lymphocytes # (Manual) Monocytes # (Manual) PT INR ABG pO2 ABG HCO3 ABG O2 Saturation ABG Base Excess ABG Hemoglobin Oxyhemoglobin Sodium Potassium Chloride 107.6 H Carbon Dioxide 19 L BUN 40 H Creatinine 3.1 H Glucose 171 H POC Glucose 246 H 256 H Hemoglobin A1c Lactic Acid Calcium 8.2 L Total Creatine Kinase C-Reactive Protein Serum Total Protein Total Protein Albumin Shbie-0-Ggeviswuj Gamma Globulins PEP Interpretation PTH Intact Urine Creatinine Urine Total Protein Salicylates Acetaminophen 05/17/22 05/18/22 05/18/22 23:13 04:35 14:30 WBC RBC Hgb MCV MCH RDW Lymph % (Auto) Tift % (Auto) Tift # (Auto) Baso # (Auto) Seg Neutrophils % Seg Neuts % (Manual) Lymphocytes % (Manual) Monocytes % (Manual) Seg Neutrophils # Seg Neutrophils # Man Lymphocytes # (Manual) Monocytes # (Manual) PT INR ABG pO2 ABG HCO3 17.1 L ABG O2 Saturation ABG Base Excess -6.8 L ABG Hemoglobin 10.4 L Oxyhemoglobin Sodium 136 L Potassium Chloride Carbon Dioxide 18 L BUN 39 H Creatinine 3.2 H Glucose 202 H POC Glucose 270 H Hemoglobin A1c Lactic Acid Calcium 8.1 L Total Creatine Kinase C-Reactive Protein Serum Total Protein Total Protein Albumin Puriw-0-Ndglziupz Gamma Globulins PEP Interpretation PTH Intact Urine Creatinine Urine Total Protein Salicylates Acetaminophen 05/18/22 05/18/22 05/19/22 16:27 22:06 05:02 WBC RBC Hgb MCV MCH RDW Lymph % (Auto) Tift % (Auto) Tift # (Auto) Baso # (Auto) Seg Neutrophils % Seg Neuts % (Manual) Lymphocytes % (Manual) Monocytes % (Manual) Seg Neutrophils # Seg Neutrophils # Man Lymphocytes # (Manual) Monocytes # (Manual) PT INR ABG pO2 ABG HCO3 ABG O2 Saturation ABG Base Excess ABG Hemoglobin Oxyhemoglobin Sodium Potassium Chloride 109.1 H Carbon Dioxide 17 L BUN 36 H Creatinine 2.6 H Glucose 164 H POC Glucose 247 H 227 H Hemoglobin A1c Lactic Acid Calcium Total Creatine Kinase C-Reactive Protein Serum Total Protein Total Protein Albumin Wjkcf-8-Ewglcexrz Gamma Globulins PEP Interpretation PTH Intact Urine Creatinine Urine Total Protein Salicylates Acetaminophen 05/19/22 05/19/22 05/19/22 05:02 07:24 10:53 WBC 12.4 H RBC Hgb 9.9 L MCV 78 L MCH 24 L RDW 16.2 H Lymph % (Auto) Tift % (Auto) Tift # (Auto) Baso # (Auto) Seg Neutrophils % Seg Neuts % (Manual) Lymphocytes % (Manual) Monocytes % (Manual) Seg Neutrophils # Seg Neutrophils # Man Lymphocytes # (Manual) Monocytes # (Manual) PT INR ABG pO2 ABG HCO3 ABG O2 Saturation ABG Base Excess ABG Hemoglobin Oxyhemoglobin Sodium Potassium Chloride Carbon Dioxide BUN Creatinine Glucose POC Glucose 154 H 203 H Hemoglobin A1c Lactic Acid Calcium Total Creatine Kinase C-Reactive Protein Serum Total Protein Total Protein Albumin Hxkcn-4-Tonpsgdpc Gamma Globulins PEP Interpretation PTH Intact Urine Creatinine Urine Total Protein Salicylates Acetaminophen 05/19/22 05/19/22 05/20/22 16:40 22:32 05:06 WBC 12.1 H RBC Hgb 9.4 L MCV MCH 24 L RDW 16.1 H Lymph % (Auto) Tift % (Auto) Tift # (Auto) Baso # (Auto) Seg Neutrophils % Seg Neuts % (Manual) Lymphocytes % (Manual) Monocytes % (Manual) Seg Neutrophils # Seg Neutrophils # Man Lymphocytes # (Manual) Monocytes # (Manual) PT INR ABG pO2 ABG HCO3 ABG O2 Saturation ABG Base Excess ABG Hemoglobin Oxyhemoglobin Sodium Potassium Chloride Carbon Dioxide BUN Creatinine Glucose POC Glucose 222 H 277 H Hemoglobin A1c Lactic Acid Calcium Total Creatine Kinase C-Reactive Protein Serum Total Protein Total Protein Albumin Zvtpn-4-Umdeisqto Gamma Globulins PEP Interpretation PTH Intact Urine Creatinine Urine Total Protein Salicylates Acetaminophen 05/20/22 05/20/22 05/21/22 05:06 22:10 07:42 WBC RBC Hgb MCV MCH RDW Lymph % (Auto) Tift % (Auto) Tift # (Auto) Baso # (Auto) Seg Neutrophils % Seg Neuts % (Manual) Lymphocytes % (Manual) Monocytes % (Manual) Seg Neutrophils # Seg Neutrophils # Man Lymphocytes # (Manual) Monocytes # (Manual) PT INR ABG pO2 ABG HCO3 ABG O2 Saturation ABG Base Excess ABG Hemoglobin Oxyhemoglobin Sodium Potassium Chloride 110.8 H Carbon Dioxide 17 L BUN 33 H Creatinine 2.4 H Glucose 185 H POC Glucose 199 H 143 H Hemoglobin A1c Lactic Acid Calcium Total Creatine Kinase C-Reactive Protein Serum Total Protein Total Protein Albumin Qxfgb-8-Vjkdjfoju Gamma Globulins PEP Interpretation PTH Intact Urine Creatinine Urine Total Protein Salicylates Acetaminophen 05/22/22 05/22/22 05/22/22 08:00 11:17 15:52 WBC RBC Hgb MCV MCH RDW Lymph % (Auto) Tift % (Auto) Tift # (Auto) Baso # (Auto) Seg Neutrophils % Seg Neuts % (Manual) Lymphocytes % (Manual) Monocytes % (Manual) Seg Neutrophils # Seg Neutrophils # Man Lymphocytes # (Manual) Monocytes # (Manual) PT INR ABG pO2 ABG HCO3 ABG O2 Saturation ABG Base Excess ABG Hemoglobin Oxyhemoglobin Sodium Potassium Chloride Carbon Dioxide BUN Creatinine Glucose POC Glucose 186 H 226 H 237 H Hemoglobin A1c Lactic Acid Calcium Total Creatine Kinase C-Reactive Protein Serum Total Protein Total Protein Albumin Mzhfc-4-Drptyrqwf Gamma Globulins PEP Interpretation PTH Intact Urine Creatinine Urine Total Protein Salicylates Acetaminophen 05/23/22 05/23/22 05/23/22 04:55 06:00 07:49 WBC RBC Hgb MCV MCH RDW Lymph % (Auto) Tift % (Auto) Tift # (Auto) Baso # (Auto) Seg Neutrophils % Seg Neuts % (Manual) Lymphocytes % (Manual) Monocytes % (Manual) Seg Neutrophils # Seg Neutrophils # Man Lymphocytes # (Manual) Monocytes # (Manual) PT INR ABG pO2 ABG HCO3 18.3 L ABG O2 Saturation ABG Base Excess -6.1 L ABG Hemoglobin 8.9 L Oxyhemoglobin 94.9 L Sodium Potassium Chloride 107.5 H Carbon Dioxide 18 L BUN 27 H Creatinine 2.6 H Glucose 173 H POC Glucose 163 H Hemoglobin A1c Lactic Acid Calcium Total Creatine Kinase C-Reactive Protein Serum Total Protein Total Protein Albumin Edtea-5-Btrnzkmyt Gamma Globulins PEP Interpretation PTH Intact Urine Creatinine Urine Total Protein Salicylates Acetaminophen 05/23/22 16:10 WBC RBC Hgb MCV MCH RDW Lymph % (Auto) Tift % (Auto) Tift # (Auto) Baso # (Auto) Seg Neutrophils % Seg Neuts % (Manual) Lymphocytes % (Manual) Monocytes % (Manual) Seg Neutrophils # Seg Neutrophils # Man Lymphocytes # (Manual) Monocytes # (Manual) PT INR ABG pO2 ABG HCO3 ABG O2 Saturation ABG Base Excess ABG Hemoglobin Oxyhemoglobin Sodium Potassium Chloride Carbon Dioxide BUN Creatinine Glucose POC Glucose 197 H Hemoglobin A1c Lactic Acid Calcium Total Creatine Kinase C-Reactive Protein Serum Total Protein Total Protein Albumin Pyhwl-2-Iowfozupf Gamma Globulins PEP Interpretation PTH Intact Urine Creatinine Urine Total Protein Salicylates Acetaminophen Allied health notes reviewed: nursing
--- NOTE | 2022-05-24 08:28 | Progress Note ---
Assessment and Plan Assessment and plan: This is a 31-year-old female with seizures, HTN, DM and medical noncompliance who presented to emergency department on 05/13 after a seizure episode associated with progressive weakness. Per EMS patient was said to have woken up in the night had an episode of vomiting and subsequently had seizures. In the emergency department work-up showed acute kidney injury with a BUN/creatinine of 26/3.1, glucose of 580, urinalysis was unremarkable, UDS was positive for marijuana, leukocytosis at 13.1 and CXR showed no acute findings along with a CT scan. In the emergency department patient had another seizure and was given Ativan and loaded with Keppra. Patient also had BP in the 200s over 130s and was given labetalol and was started on a Cardene drip. She also had was febrile to 103 in the ED. Patient was admitted to the hospitalist service with seizure disorder, hyperglycemia, hypertensive urgency and acute kidney injury with consults to nephrology, neurology. Hospital course to date: 05/13: CCM and ID consulted. Patient had possible seizure activity and was started. Ativan. Patient had EEG today. MRI brain pending. Urine lites pending. Patient febrile started on cefepime, procalcitonin, CRP and COVID-19 PCR pending. 05/14: Patient received LP today, MRI brain without contrast, hemoglobin A1c ordered 05/15: Answers most questions correctly. s/p LP. Pattern not c/w viral meningitis. d/c acyclovir. follow CSF culture. Continue tx with cefepime IV, vancomycin IV. Nephrology following due to poor renal fx, worsened cr today to 4.0. Will continue IVF hydration. EEG pending. MRA head completed but limited study due to motion artifact...periventricular and scatter foci of deep white matter hyperintensity noted. Will follow neurology input. 05/16: Resting comfortably on encounter. Clinically improved AOX4, answers all questions appropriately. Will continue renally dosed Vancomycin IV and Cefepime IV. ID recs and nephrology recs noted. Marginal improvement in Cr: 3.9 today. 05/17: Awaiting AM labs. Patient is resting comfortably, mental status continues to be improved. PT consultation as patient needs to be more physically active. N O growth thus far on csf culture. Continue abx and antiepileptics. 05/18: Renal function remains relatively stable with creatinine at 3.2 up slightly from 3.1 yesterday. Discontinue the IV fluids at this time. Continue to hold diuresis per nephrology. We will add hydralazine as needed for better blood pressure control. ID recommendation reviewed. Patient will need home antibiotics arranged. Expected end of antibiotics 10 3. Okay to proceed with midline and discontinue central line. Her mentation is well improved and diet has been adjusted to regular diet. 05/19: Patient continues to show improvement. Creatinine down to 2.6. Fluids has been discontinued as of yesterday. Blood pressure better controlled. Mild elevation in WBC to 12.4 but no fever noted. Awaiting for ID for home antibiotics orders and discharge planning by case management. 05/20: Midline order placed for OP abx. Patient is doing well this AM. Anticipate d/c this week once abx arrangements made. 05/21: Patient insurance does not cover IV rocephin. ID recommends continuing rocephin until course completed. Anticipate discharge 05/27 once abx completed. Discussed with patient who agrees. 05/22;05/23;05/24: Patient clinically stable. 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 -Renally dose medications and avoid nephrotoxic medications -maybe due to chronic uncontrolled HTN and diabetes -Nephrology consulted, appreciate recommendations -patient urged to follow up with Nephrology in [place] #Hypertensive urgency #Hypertension -Blood pressure monitoring per protocol -s/p Cardene drip -continue amlodipine, hydralazine -patient will follow up with PCP for titration of medications at discharge #Morbid obesity #Moderate protein calorie malnutrition -PPI -NTR consulted for tube feedings #Type 2 Diabetes Mellitus -Hemoglobin A1c 14.4 -continue lantus 40UQHS -continue accuchecks and SSI -goal glucose 140-180 while inpatient #Leukocytosis-improved -likely secondary to encephalitis #Advance care planning -Disease education conducted, care plan discussed, diagnoses discussed, prognosis discussed, patient is full code, patient acknowledges understanding and agree with care plan, +30 minutes. History Interval history: Patient has no complaints at this time. She denies discomfort, fever, chills and night sweats. Hospitalist Physical - Physical exam Narrative exam: GENERAL: Well-developed well-nourished. In no acute distress. HEENT: Normocephalic. Atraumatic. NECK: Supple. CHEST/LUNGS: CTAB on room air HEART/CARDIOVASCULAR: RRR. No murmur, rubs or gallops appreciated. ABDOMEN: +BS. NT/ND. NEURO: No focal motor deficit. Follows all commands. MUSCULOSKELETAL: No joint effusion EXTREMITIES: No cyanosis, clubbing or edema. PSYCH: Cooperative. - Constitutional Vitals: Temp Pulse Resp BP Pulse Ox 98.2 F 62 16 114/61 100 05/24/22 04:47 05/24/22 04:47 05/24/22 04:47 05/24/22 04:47 05/24/22 04:47 HEART Score - HEART Score Troponin: Troponin T 0.028 ng/mL (0.00-0.029) 05/12/22 22:47 Results - Labs CBC & Chem 7: 05/20/22 05:06 05/24/22 06:33 Labs: Laboratory Last Values WBC 12.1 K/mm3 (4.5-11.0) H 05/20/22 05:06 RBC 3.88 M/mm3 (3.65-5.03) 05/20/22 05:06 Hgb 9.4 gm/dl (10.1-14.3) L 05/20/22 05:06 Hct 30.6 % (30.3-42.9) 05/20/22 05:06 MCV 79 fl (79-97) 05/20/22 05:06 MCH 24 pg (28-32) L 05/20/22 05:06 MCHC 31 % (30-34) 05/20/22 05:06 RDW 16.1 % (13.2-15.2) H 05/20/22 05:06 Plt Count 179 K/mm3 (140-440) 05/20/22 05:06 Lymph % (Auto) 16.7 % (13.4-35.0) 05/16/22 09:22 Bent % (Auto) 9.9 % (0.0-7.3) H 05/16/22 09:22 Eos % (Auto) 1.4 % (0.0-4.3) 05/16/22 09:22 Baso % (Auto) 1.8 % (0.0-1.8) 05/16/22 09:22 Lymph # (Auto) 1.8 K/mm3 (1.2-5.4) 05/16/22 09:22 Bent # (Auto) 1.1 K/mm3 (0.0-0.8) H 05/16/22 09:22 Eos # (Auto) 0.2 K/mm3 (0.0-0.4) 05/16/22 09: Baso # (Auto) 0.2 K/mm3 (0.0-0.1) H 05/16/22 09:22 Add Manual Diff Complete 05/12/22 22:47 Total Counted 100 05/12/22 22:47 Seg Neutrophils % 70.2 % (40.0-70.0) H 05/16/22 09:22 Seg Neuts % (Manual) 85.0 % (40.0-70.0) H 05/12/22 22:47 Band Neutrophils % 0 % 05/12/22 22:47 Lymphocytes % (Manual) 7.0 % (13.4-35.0) L 05/12/22 22:47 Reactive Lymphs % (Man) 0 % 05/12/22 22:47 Monocytes % (Manual) 8.0 % (0.0-7.3) H 05/12/22 22:47 Eosinophils % (Manual) 0 % (0.0-4.3) 05/12/22 22:47 Basophils % (Manual) 0 % (0.0-1.8) 05/12/22 22:47 Metamyelocytes % 0 % 05/12/22 22:47 Myelocytes % 0 % 05/12/22 22:47 Promyelocytes % 0 % 05/12/22 22:47 Blast Cells % 0 % 05/12/22 22:47 Nucleated RBC % Not Reportable 05/12/22 22:47 Seg Neutrophils # 7.7 K/mm3 (1.8-7.7) 05/16/22 09: Seg Neutrophils # Man 13.1 K/mm3 (1.8-7.7) H 05/12/22 22:47 Band Neutrophils # 0.0 K/mm3 05/12/22 22:47 Lymphocytes # (Manual) 1.1 K/mm3 (1.2-5.4) L 05/12/22 22:47 Abs React Lymphs (Man) 0.0 K/mm3 05/12/22 22:47 Monocytes # (Manual) 1.2 K/mm3 (0.0-0.8) H 05/12/22 22:47 Eosinophils # (Manual) 0.0 K/mm3 (0.0-0.4) 05/12/22 22:47 Basophils # (Manual) 0.0 K/mm3 (0.0-0.1) 05/12/22 22:47 Metamyelocytes # 0.0 K/mm3 05/12/22 22:47 Myelocytes # 0.0 K/mm3 05/12/22 22:47 Promyelocytes # 0.0 K/mm3 05/12/22 22:47 Blast Cells # 0.0 K/mm3 05/12/22 22:47 WBC Morphology Not Reportable 05/12/22 22:47 Hypersegmented Neuts Not Reportable 05/12/22 22:47 Hyposegmented Neuts Not Reportable 05/12/22 22:47 Hypogranular Neuts Not Reportable 05/12/22 22:47 Smudge Cells Not Reportable 05/12/22 22:47 Toxic Granulation Not Reportable 05/12/22 22:47 Toxic Vacuolation Not Reportable 05/12/22 22:47 Dohle Bodies Not Reportable 05/12/22 22:47 Pelger-Huet Anomaly Not Reportable 05/12/22 22:47 Tima Rods Not Reportable 05/12/22 22:47 Platelet Estimate Consistent w auto 05/12/22 22:47 Clumped Platelets Not Reportable 05/12/22 22:47 Plt Clumps, EDTA Not Reportable 05/12/22 22:47 Large Platelets Not Reportable 05/12/22 22:47 Giant Platelets Not Reportable 05/12/22 22:47 Platelet Satelliting Not Reportable 05/12/22 22:47 Plt Morphology Comment Not Reportable 05/12/22 22:47 RBC Morphology Not Reportable 05/12/22 22:47 Dimorphic RBCs Not Reportable 05/12/22 22:47 Polychromasia Not Reportable 05/12/22 22:47 Hypochromasia 1+ 05/12/22 22:47 Poikilocytosis Not Reportable 05/12/22 22:47 Anisocytosis Not Reportable 05/12/22 22:47 Microcytosis Not Reportable 05/12/22 22:47 Macrocytosis Not Reportable 05/12/22 22:47 Spherocytes Not Reportable 05/12/22 22:47 Pappenheimer Bodies Not Reportable 05/12/22 22:47 Sickle Cells Not Reportable 05/12/22 22:47 Target Cells Not Reportable 05/12/22 22:47 Tear Drop Cells Not Reportable 05/12/22 22:47 Ovalocytes Not Reportable 05/12/22 22:47 Helmet Cells Not Reportable 05/12/22 22:47 Iniguez-Mather Bodies Not Reportable 05/12/22 22:47 [place] Rings Not Reportable 05/12/22 22:47 Imelda Cells Not Reportable 05/12/22 22:47 Bite Cells Not Reportable 05/12/22 22:47 Crenated Cell Not Reportable 05/12/22 22:47 Elliptocytes Not Reportable 05/12/22 22:47 Acanthocytes (Spur) Not Reportable 05/12/22 22:47 Rouleaux Not Reportable 05/12/22 22:47 Hemoglobin C Crystals Not Reportable 05/12/22 22:47 Schistocytes Not Reportable 05/12/22 22:47 Malaria parasites Not Reportable 05/12/22 22:47 Jesse Bodies Not Reportable 05/12/22 22:47 Hem Pathologist Commnt No 05/12/22 22:47 PT 16.8 Sec. (12.2-14.9) H 05/12/22 14:25 INR 1.22 (0.87-1.13) H 05/12/22 14:25 APTT 29.6 Sec. (24.2-36.6) 05/12/22 14:25 ABG pH 7.379 pH Units (7.350-7.450) 05/23/22 06:00 ABG pCO2 31.7 mm Hg 05/23/22 06:00 ABG pO2 83.3 mm Hg (80.0-90.0) 05/23/22 06:00 ABG HCO3 18.3 mmol/L (20.0-26.0) L 05/23/22 06:00 ABG O2 Saturation 97.0 % (95.0-99.0) 05/23/22 06:00 ABG O2 Content 12.0 (0.0-44) 05/23/22 06:00 ABG Base Excess -6.1 mmol/L (-2.0-3.0) L 05/23/22 06:00 ABG Hemoglobin 8.9 gm/dl (12.0-16.0) L 05/23/22 06:00 ABG Carboxyhemoglobin 1.5 % (0.0-5.0) 05/23/22 06:00 ABG Methemoglobin 0.6 % (0.0-1.5) 05/23/22 06:00 VBG pH 7.354 (7.320-7.420) 05/12/22 22:47 Oxyhemoglobin 94.9 % (95.0-99.0) L 05/23/22 06:00 FiO2 21 % 05/23/22 06:00 Sodium 137 mmol/L (137-145) 05/23/22 04:55 Potassium 3.9 mmol/L (3.6-5.0) 05/23/22 04:55 Chloride 107.5 mmol/L (98-107) H 05/23/22 04:55 Carbon Dioxide 18 mmol/L (22-30) L 05/23/22 04:55 Anion Gap 15 mmol/L 05/23/22 04:55 BUN 27 mg/dL (7-17) H 05/23/22 04:55 Creatinine 2.6 mg/dL (0.6-1.2) H 05/23/22 04:55 Estimated GFR 26 ml/min 05/23/22 04:55 BUN/Creatinine Ratio 10 % 05/23/22 04:55 Glucose 173 mg/dL (65-100) H 05/23/22 04:55 POC Glucose 197 mg/dL (70-105) H 05/23/22 16:10 Hemoglobin A1c 14.4 % (4-6) H 05/14/22 14:23 Ketones Quantitative Negative (Negative) 05/12/22 22:47 Lactic Acid 1.00 mmol/L (0.7-2.0) 05/14/22 04:20 Calcium 8.7 mg/dL (8.4-10.2) 05/23/22 04:55 Phosphorus 3.00 mg/dL (2.5-4.5) 05/15/22 03:48 Magnesium 2.30 mg/dL (1.7-2.3) 05/15/22 03:48 Total Bilirubin < 0.20 mg/dL (0.1-1.2) 05/16/22 09:22 AST 11 units/L (5-40) 05/16/22 09:22 ALT 11 units/L (7-56) 05/16/22 09:22 Alkaline Phosphatase 78 units/L (35-129) 05/16/22 09:22 Total Creatine Kinase 217 units/L (30-135) H 05/14/22 04:20 Troponin T 0.028 ng/mL (0.00-0.029) 05/12/22 22:47 C-Reactive Protein 1.40 mg/dL (0.00-1.30) H 05/14/22 04:20 Serum Total Protein 5.5 g/dL (6.1-8.1) L 05/14/22 04:20 Total Protein 5.1 g/dL (6.3-8.2) L 05/16/22 09:22 Albumin 2.7 g/dL (3.9-5) L 05/16/22 09:22 Albumin/Globulin Ratio 1.1 % 05/16/22 09:22 Lboty-4-Vlunijwew 0.3 g/dL (0.2-0.3) 05/14/22 04:20 Ermrz-6-Gkkxiqrjm 1.2 g/dL (0.5-0.9) H 05/14/22 04:20 Beta Globulins 0.4 g/dL (0.2-0.5) 05/14/22 04:20 Gamma Globulins 0.7 g/dL (0.8-1.7) L 05/14/22 04:20 Abnorm Protein Band 1 see below 05/14/22 04:20 PEP Interpretation see below H 05/14/22 04:20 Procalcitonin 0.56 ng/mL (<0.15) 05/14/22 04:20 TSH 0.422 mlU/mL (0.270-4.200) 05/12/22 14:25 Free T4 1.02 ng/dL (0.76-1.46) 05/12/22 14:25 PTH Intact 149.4 pg/mL (15-65) H 05/14/22 04:20 Urine Color Yellow (Yellow) 05/12/22 19:04 Urine Turbidity Clear (Clear) 05/12/22 19:04 Specific [place] (Man) 1.015 (1.003-1.030) 05/12/22 19:04 Ur Protein (Man) 2+ mg/dL (Negative) 05/12/22 19:04 Ur Ketones (Man) Negative (Negative) 05/12/22 19:04 Ur Nitrite (Man) Negative (Negative) 05/12/22 19:04 Urine Bilirubin (Man) Negative (Negative) 05/12/22 19:04 Leukocyte Esterase (Man) Negative (Negative) 05/12/22 19:04 Urine WBC (Auto) < 1.0 /HPF (0.0-6.0) 05/12/22 19:04 Urine RBC (Auto) < 1.0 /HPF (0.0-6.0) 05/12/22 19:04 Urine RBC (Manual) 1+ (Negative) 05/12/22 19:04 Urine Creatinine 86.3 mg/dL (0.1-20.0) H 05/13/22 Unknown Protein/Creatinin Ratio 4.20 05/13/22 19:34 Urine Sodium 21 mmol/L 05/13/22 Unknown Urine Total Protein 735 mg/dL (5-11.8) H 05/13/22 19:34 CSF Appearance Clear 05/14/22 11:32 CSF Color [place] 05/14/22 11:32 CSF WBC 53 /mm3 (1-10) 05/14/22 11:32 CSF RBC 2000 /mm3 (0-0) 05/14/22 11:32 CSF Seg Neutrophils 97 % (0-6) 05/14/22 11:32 CSF Lymphocytes % 2 % (40-80) 05/14/22 11:32 CSF Reactive Lymphs 0 % 05/14/22 11:32 CSF Monocytes % 1 % (15-45) 05/14/22 11:32 CSF Eosinophils % 0 % 05/14/22 11:32 CSF Basophils 0 % 05/14/22 11:32 CSF Pathologist Review C 05/14/22 11:32 CSF Glucose 137 mg/dL 05/14/22 11:32 CSF Total Protein 32 mg/dL 05/14/22 11:32 CSF VDRL Nonreactive (Nonreactive) 05/14/22 11:32 Random Vancomycin 26.7 ug/mL (0-40.0) 05/19/22 05:02 Salicylates < 0.3 mg/dL (2.8-20.0) L 05/12/22 14:25 Urine Opiates Screen Negative 05/12/22 19:04 Urine Methadone Screen Negative 05/12/22 19:04 Acetaminophen 5.0 ug/mL (10.0-30.0) L 05/12/22 14:25 Ur Barbiturates Screen Negative 05/12/22 19:04 Ur Phencyclidine Scrn Negative 05/12/22 19:04 Ur Amphetamines Screen Negative 05/12/22 19:04 U Benzodiazepines Scrn Negative 05/12/22 19:04 Urine Cocaine Screen Negative 05/12/22 19:04 U Marijuana (THC) Screen Positive 05/12/22 19:04 Drugs of Abuse Note Disclamer 05/12/22 19:04 Plasma/Serum Alcohol < 0.01 % (0-0.07) 05/12/22 22:47 MERVIN Screen Negative (Negative) 05/14/22 04:20 Proteinase 3 (PR3) Ab <1.0 AI (<1.0) 05/14/22 04:20 Myeloperoxidase Ab <1.0 AI (<1.0) 05/14/22 04:20 Complement C3 180 mg/dL (83-193) 05/14/22 04:20 Complement C4 43 mg/dL (15-57) 05/14/22 04:20 Coronavirus (PCR) Negative (Negative) 05/13/22 09:30 Vergara/IV: Voiding Method Toilet Active Medications - Current Medications Current Medications: Generic Name Dose Route Start Last Admin Trade Name Freq PRN Reason Stop Dose Admin Acetaminophen 650 mg 05/13/22 02:07 05/23/22 18:30 Acetaminophen 325 Mg Tab PO 650 mg Q6H PRN Administration Pain MILD(1-3)/Fever >100.5/PATINO Atorvastatin Calcium 40 mg 05/18/22 22:00 05/23/22 21:18 Atorvastatin 40 Mg Tab PO 40 mg QHS BRAD Administration Carvedilol 25 mg 05/18/22 10:00 05/23/22 21:18 Carvedilol 25 Mg Tab PO 25 mg BID BRAD Administration Dextrose 0 ml 05/13/22 02:07 Dextrose 50% In Water (25gm) 50 Ml Syringe IV Q30MIN PRN Hypoglycemia Protocol Heparin Sodium (Porcine) 5,000 unit 05/13/22 06:00 05/24/22 05:41 Heparin 5,000 Unit/1 Ml Vial SUB-Q 5,000 unit Q8HR BRAD Administration Hydralazine HCl 100 mg 05/18/22 09:00 05/23/22 21:18 Hydralazine 100 Mg Tab PO 100 mg TID BRAD Administration Hydralazine HCl 10 mg 05/18/22 10:20 Hydralazine 20 Mg/1 Ml Inj IV Q4HR PRN Hypertension Ceftriaxone Sodium 2 gm in 100 mls @ 200 mls/hr 05/18/22 22:00 05/23/22 22:03 Rocephin/Ns 2 Gm/100 Ml IV 05/27/22 22:29 Infused Q12H BRAD Infusion Protocol Insulin Glargine 40 units 05/17/22 22:00 05/23/22 21:18 Insulin Glargine 100 Units/Ml SUB-Q 40 units QHS BRAD Administration Insulin Human Lispro 0 unit 05/18/22 11:30 05/23/22 23:25 Insulin Lispro 100 Unit/Ml SUB-Q 4 unit ACHS BRAD Administration Protocol Lacosamide 100 mg 05/18/22 10:00 05/23/22 21:18 Lacosamide 100 Mg Tab PO 100 mg Q12HR BRAD Administration Levetiracetam 1,000 mg 05/18/22 10:00 05/23/22 21:27 Levetiracetam 500 Mg Tab PO 1,000 mg BID BRAD Administration Lorazepam 2 mg 05/13/22 13:03 05/14/22 11:30 Lorazepam 2 Mg/Ml Vial IV 2 mg Q4H PRN Administration Seizures Magnesium Hydroxide 30 ml 05/13/22 02:07 Magnesium Hydroxide (Mom) Oral Liqd Udc PO Q4H PRN Constipation Nifedipine 90 mg 05/20/22 10:00 05/23/22 09:43 Nifedipine Xl 90 Mg Tab PO 90 mg QDAY BRAD Administration Ondansetron HCl 4 mg 05/13/22 02:07 Ondansetron 4 Mg/2 Ml Inj IV Q8H PRN Nausea And Vomiting Sodium Bicarbonate 650 mg 05/23/22 14:00 05/23/22 21:18 Sodium Bicarbonate 650 Mg Tab PO 650 mg TID BRAD Administration Sodium Chloride 10 ml 05/13/22 10:00 05/23/22 21:28 Sodium Chloride 0.9% 10 Ml Flush Syringe IV 10 ml BID BRAD Administration Sodium Chloride 10 ml 05/13/22 02:07 Sodium Chloride 0.9% 10 Ml Flush Syringe IV PRN PRN LINE FLUSH Zolpidem Tartrate 5 mg 05/22/22 00:53 05/23/22 21:27 Zolpidem 5 Mg Tab PO 5 mg QHS PRN Administration Sleep Nutrition/Malnutrition Assess - Dietary Evaluation Nutrition/Malnutrition Findings: Nutrition Notes Start: 05/13/22 11:36 Freq: Status: Active Protocol: Document 05/22/22 16:35 CM (Rec: 05/22/22 16:39 CM [id number]) Co-Sign 05/22/22 16:35 WW Nutrition Notes Initial or Follow up Brief Note Current Diagnosis Acute Kidney Injury,Diabetes, Hypertension Current Diet Regular Diet Labs/Tests 05/22 Cl 110.8 CO2 17 BUN 33 Cr 2.4 Glu 185 Pertinent Medications 05/22: Atorvastatin Lantus Height 5 ft 7 in Weight 113 kg [place] Body Weight (kg) 61.36 BMI 38.9 Weight Status Obese Subjective/Other Information RD follow-up per protocol. Diet advanced to regular. 75% breakfast/lunch 05/20 100% x3 05/21 per ADL notes. Physical assessment WNL. Recommend changing to renal diet in setting of RODRÍGUEZ. 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
[2022-05-24 08:31] LABS: Calcium 8.8 mg/dL (8.4-10.2)
[2022-05-24] MEDS: INSULIN LISPRO 100 UNIT/ML SUB-Q SCH ×4 (08:33→22:02)
[2022-05-24] MEDS: SODIUM BICARBONATE 650 MG TAB PO SCH ×3 (09:29→20:34)
[2022-05-24] MEDS: hydrALAZINE 100 MG TAB PO SCH ×3 (09:33→20:34)
--- NOTE | 2022-05-24 10:54 | Progress Note ---
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 Continue current management * NaBicarbonate TID * Abx per ID; per chart * Glycemic control * Continue current antiHTN medications * Dose medications for renal function * Avoid potential nephrotoxins * Recommend outpatient nephrology follow up at discharge - patient reports that she resided in [place] and plans to return after discharge. Patient advised of need for close nephrology follow up Subjective Principal diagnosis: HTNsive emergency with seizures; Morbid obesity; AMS; Leukocytosis; RODRÍGUEZ Interval history: Patient has no complaints Objective - General Appearance General appearance: well-developed, well-nourished EENT: ATNC Respiratory: Present: Clear to Ascultation Cardiology: regular, S1S2 Integumentary: warm and dry Neurologic: alert and oriented x3 Psychiatric: cooperative Objective - Vital Signs Vital signs: Vital Signs - 12hr 05/24/22 04:47 Temperature 98.2 F Pulse Rate 62 Respiratory 16 Rate Blood Pressure 114/61 O2 Sat by Pulse 100 Oximetry - Lab 05/20/22 05:06 05/24/22 06:33 Most recent lab results ABG pH 7.379 pH Units (7.350-7.450) 05/23/22 06:00 ABG pCO2 31.7 mm Hg 05/23/22 06:00 ABG pO2 83.3 mm Hg (80.0-90.0) 05/23/22 06:00 ABG HCO3 18.3 mmol/L (20.0-26.0) L 05/23/22 06:00 ABG O2 Saturation 97.0 % (95.0-99.0) 05/23/22 06:00 Calcium 8.8 mg/dL (8.4-10.2) 05/24/22 06:33 Phosphorus 3.00 mg/dL (2.5-4.5) 05/15/22 03:48 Magnesium 2.30 mg/dL (1.7-2.3) 05/15/22 03:48 Urine Creatinine 86.3 mg/dL (0.1-20.0) H 05/13/22 Unknown Urine Sodium 21 mmol/L 05/13/22 Unknown Urine Total Protein 735 mg/dL (5-11.8) H 05/13/22 19:34 Medications & Allergies - Medications Allergies/Adverse Reactions: Allergies Penicillins Allergy (Verified 05/22/22 17:04) Hives Home Medications: Home Medications Medication Instructions Recorded Confirmed Last Taken Type AtorvaSTATin [Lipitor] 40 mg PO QHS 05/22/22 05/22/22 Unknown History Ferrous Sulfate [Iron 325 MG] 325 mg PO QDAY 05/22/22 05/22/22 Unknown History Folic Acid [Folvite] 1 mg PO QDAY 05/22/22 05/22/22 Unknown History Furosemide [Lasix] 20 mg PO QDAY 05/22/22 05/22/22 Unknown History Insulin Aspart [Novolog Flexpen] 15 unit SQ BID 05/22/22 05/22/22 Unknown History Insulin Detemir [Levemir Flextouch] 10 unit SQ BID 05/22/22 05/22/22 Unknown History Spironolactone [Aldactone] 25 mg PO QDAY 05/22/22 05/22/22 Unknown History amLODIPine [Norvasc] 10 mg PO DAILY 05/22/22 05/22/22 Unknown History carvediloL [Coreg] 50 mg PO BID 05/22/22 05/22/22 Unknown History hydrALAZINE [Apresoline TAB] 100 mg PO TID 05/22/22 05/22/22 Unknown History levETIRAcetam [Keppra TAB] 500 mg PO BID 05/22/22 05/22/22 Unknown History Active Medications: Generic Name Dose Route Start Last Admin Trade Name Freq PRN Reason Stop Dose Admin Acetaminophen 650 mg 05/13/22 02:07 05/23/22 18:30 Acetaminophen 325 Mg Tab PO 650 mg Q6H PRN Administration Pain MILD(1-3)/Fever >100.5/PATINO Atorvastatin Calcium 40 mg 05/18/22 22:00 05/23/22 21:18 Atorvastatin 40 Mg Tab PO 40 mg QHS BRAD Administration Carvedilol 25 mg 05/18/22 10:00 05/23/22 21:18 Carvedilol 25 Mg Tab PO 25 mg BID BRAD Administration Dextrose 0 ml 05/13/22 02:07 Dextrose 50% In Water (25gm) 50 Ml Syringe IV Q30MIN PRN Hypoglycemia Protocol Heparin Sodium (Porcine) 5,000 unit 05/13/22 06:00 05/24/22 05:41 Heparin 5,000 Unit/1 Ml Vial SUB-Q 5,000 unit Q8HR BRAD Administration Hydralazine HCl 100 mg 05/18/22 09:00 05/23/22 21:18 Hydralazine 100 Mg Tab PO 100 mg TID BRAD Administration Hydralazine HCl 10 mg 05/18/22 10:20 Hydralazine 20 Mg/1 Ml Inj IV Q4HR PRN Hypertension Ceftriaxone Sodium 2 gm in 100 mls @ 200 mls/hr 05/18/22 22:00 05/23/22 22:03 Rocephin/Ns 2 Gm/100 Ml IV 05/27/22 22:29 Infused Q12H [facility] [place] Infusion Protocol Insulin Glargine 40 units 05/17/22 22:00 05/23/22 21:18 Insulin Glargine 100 Units/Ml SUB-Q 40 units QHS BRAD Administration Insulin Human Lispro 0 unit 05/18/22 11:30 05/23/22 23:25 Insulin Lispro 100 Unit/Ml SUB-Q 4 unit ACHS BRAD Administration Protocol Lacosamide 100 mg 05/18/22 10:00 05/23/22 21:18 Lacosamide 100 Mg Tab PO 100 mg Q12HR BRAD Administration Levetiracetam 1,000 mg 05/18/22 10:00 05/23/22 21:27 Levetiracetam 500 Mg Tab PO 1,000 mg BID BRAD Administration Lorazepam 2 mg 05/13/22 13:03 05/14/22 11:30 Lorazepam 2 Mg/Ml Vial IV 2 mg Q4H PRN Administration Seizures Magnesium Hydroxide 30 ml 05/13/22 02:07 Magnesium Hydroxide (Mom) Oral Liqd Udc PO Q4H PRN Constipation Nifedipine 90 mg 05/20/22 10:00 05/23/22 09:43 Nifedipine Xl 90 Mg Tab PO 90 mg QDAY BRAD Administration Ondansetron HCl 4 mg 05/13/22 02:07 Ondansetron 4 Mg/2 Ml Inj IV Q8H PRN Nausea And Vomiting Sodium Bicarbonate 650 mg 05/23/22 14:00 05/23/22 21:18 Sodium Bicarbonate 650 Mg Tab PO 650 mg TID BRAD Administration Sodium Chloride 10 ml 05/13/22 10:00 05/23/22 21:28 Sodium Chloride 0.9% 10 Ml Flush Syringe IV 10 ml BID BRAD Administration Sodium Chloride 10 ml 05/13/22 02:07 Sodium Chloride 0.9% 10 Ml Flush Syringe IV PRN PRN LINE FLUSH Zolpidem Tartrate 5 mg 05/22/22 00:53 05/23/22 21:27 Zolpidem 5 Mg Tab PO 5 mg QHS PRN Administration Sleep
[2022-05-24] MEDS: levETIRAcetam 500 MG TAB PO SCH ×3 (11:28→21:16)
[2022-05-24] MEDS: NIFEdipine XL 90 MG TAB PO SCH (11:29)
[2022-05-24] MEDS: LACOSAMIDE 100 MG TAB PO SCH ×3 (11:29→21:18)
[2022-05-24] MEDS: cefTRIAXone/NS 2 GM/100 ML 2 GM/100 ML BAG IV SCH ×3 (11:30→21:16)
[2022-05-24] MEDS: carvediloL 25 MG TAB PO SCH ×3 (11:30→21:16)
[2022-05-24 20:32] VITALS: BP 152/88
[2022-05-24] MEDS: INSULIN GLARGINE 100 UNITS/ML SUB-Q SCH ×2 (20:35→21:17)
[2022-05-24] MEDS: ZOLPIDEM 5 MG TAB PO PRN (22:01)
== END 2022-05-24 22:58 | disposition home or self-care (01) | DRG 100 ==
LOC: ED 11:57 → CC1 05-13 02:11 → IMCU 05-14 17:53 → 3A 05-17 22:09
PROVIDERS: ADMIT Internal Medicine Geriatric Medicine; ATTEND Student in an Organized Health Care Education/Training Program
PROC: 009U3ZX Drainage of Spinal Canal, Percutaneous Approach, Diagnostic (ICD-10-PCS; principal; 2022-05-14)
PROC: 05HM33Z Insertion of Infusion Device into Right Internal Jugular Vein, Percutaneous Approach (ICD-10-PCS; 2022-05-17)
PROC: B543ZZA Ultrasonography of Right Jugular Veins, Guidance (ICD-10-PCS; 2022-05-17)
PROC: 5A09357 Assistance with Respiratory Ventilation, Less than 24 Consecutive Hours, Continuous Positive Airway Pressure (ICD-10-PCS; 2022-05-18)
PROC: 4A033R1 Measurement of Arterial Saturation, Peripheral, Percutaneous Approach (ICD-10-PCS; 2022-05-23)
DX: G40.909 Epilepsy, unspecified, not intractable, without status epilepticus (principal); G04.90 Encephalitis and encephalomyelitis, unspecified; N17.0 Acute kidney failure with tubular necrosis; E44.0 Moderate protein-calorie malnutrition; E87.2 Acidosis; I16.0 Hypertensive urgency; Z68.39 Body mass index [BMI] 39.0-39.9, adult; E66.01 Morbid (severe) obesity due to excess calories; Z20.822 Contact with and (suspected) exposure to COVID-19; E11.65 Type 2 diabetes mellitus with hyperglycemia; Z91.14 Patient's other noncompliance with medication regimen; I10 Essential (primary) hypertension
CPT/HCPCS: 36415; 36600; 62270; 62328; 70450; 70544; 70551; 71045; 74018; 76770; 80048; 80053; 80202; 80307; 80320; 81001; 82010; 82140; 82550; 82570; 82803; 82805; 82947; 82962; 83036; 83735; 83970; 84100; 84145; 84156; 84160; 84165; 84300; 84439; 84443; 84484; 85007; 85025; 85027; 85610; 85730; 86021; 86038; 86140; 86160; 86592; 87040; 87116; 87498; 87799; 89051; 93005; 95819; 96365; 96375; 96376; 99291; G0378; J3490; J7060; Q9967; C9254; G0480; J0131; J0133; J0692; J0696; J1200; J1644; J1815; J1953; J1956; J2060; J2704; J3370; J7030; J7040; J7050; U0003